=== PATIENT | female | born 1975 | race Caucasian/White ===

== ENCOUNTER 2018-09-12 19:42 | Emergency (ER) | payer BC, OTHER ==
--- OUTSIDE RECORDS SUMMARY | 2018-09-12 19:44 | XMS REPORT | Summary of Care ---
:1975 Author Organization [facility] Address [address] [facility] [place] [address]- Encounter HQ Quique(ANTHONY) [id number] Date(s): 12/18/17 - 12/18/17 [facility] [address] [place] [address]- [phone] Discharge Disposition: Home or Self Care Attending Physician: Ashish Rueda MD Vital Signs Most recent to oldest [Reference Range]: 1 Height 152.4 cm (12/18/17 8:34 AM) Temperature Oral [96.4-99.1 DegF] 98.1 DegF (12/18/17 8:34 AM) Blood Pressure [90-140/60-90 mmHg] 110/74 mmHg (12/18/17 8:34 AM) Respiratory Rate [14-20 BRMIN] 18 BRMIN (12/18/17 8:34 AM) Peripheral Pulse Rate [60-100 bpm] 72 bpm (12/18/17 8:34 AM) Weight 96.875 kg (12/18/17 8:34 AM) Body Mass Index 41.71 m2 (12/18/17 8:34 AM) Problem List Condition Effective Dates Status Health Status Informant DVT, lower extremity(Confirmed) 04/06/00 Resolved DVT (deep venous Active thrombosis)(Confirmed) Morbid obesity(Confirmed) Active Allergies, Adverse Reactions, Alerts Substance Reaction Severity Status NKDA Active Medications Imitrex 50 mg oral tablet 50 mg=1 tab, PO, Daily, PRN Headache, may repeat one time after 2 hours, # 9 tab , 1 Refill(s), Pharmacy: [facility] [id number] Start Date: 12/18/17 Status: Orderedsertraline 50 mg oral tablet 50 mg=1 tab, PO, Daily, # 90 tab, 0 Refill(s), Pharmacy: [id number] Start Date: 12/18/17 Stop Date: 02/22/18 Status: Discontinued Results No data available for this section Immunizations Given and Recorded Vaccine Date Status Refusal Reason influenza virus vaccine, inactivated 01/21/16 Given Procedures Procedure Date Related Diagnosis Body Site Status Tubal sterilization 12/05/01 Completed Operation 06/04/00 Completed IVC - Insertion of inferior vena caval 04/06/00 Completed filter Operation Completed Stent placement Completed Social History Social History Type Response Alcohol Current, Frequency: 1-2 times per month. Smoking Status Never smoker; Type: Cigarettes; Exposure to Tobacco Smoke None ; Cigarette Smoking Last 365 Days No; Reg Smoking Cessation Counseling No entered on: 05/18/18 Assessment and Plan No data available for this section
--- OUTSIDE RECORDS SUMMARY | 2018-09-12 19:44 | XMS REPORT | Summary of Care ---
:1975 Author Organization [facility] Address [address] [facility] [place] [address]- Encounter HQ Quique(ANTHONY) [id number] Date(s): 02/22/18 - 02/22/18 [facility] [address] [place] [address]- [phone] Discharge Disposition: Home or Self Care Attending Physician: Ashish Rueda MD Vital Signs Most recent to oldest [Reference Range]: 1 Height 152.4 cm (02/22/18 3:36 PM) Temperature Oral [96.4-99.1 DegF] 98.1 DegF (02/22/18 3:36 PM) Blood Pressure [90-140/60-90 mmHg] 111/77 mmHg (02/22/18 3:36 PM) Respiratory Rate [14-20 BRMIN] 18 BRMIN (02/22/18 3:36 PM) Peripheral Pulse Rate [60-100 bpm] 79 bpm (02/22/18 3:36 PM) Weight 102.443 kg (02/22/18 3:36 PM) Body Mass Index 44.11 m2 (02/22/18 3:36 PM) Problem List Condition Effective Dates Status Health Status Informant DVT, lower extremity(Confirmed) 04/06/00 Resolved DVT (deep venous Active thrombosis)(Confirmed) Morbid obesity(Confirmed) Active Allergies, Adverse Reactions, Alerts No Known Medication Allergies Medications No Known Medications Results No data available for this section [...]
--- OUTSIDE RECORDS SUMMARY | 2018-09-12 19:44 | XMS REPORT | Summary of Care ---
:1975 Author Organization [facility] [place] Address [address] [facility] [place] [address]- Care Team Providers Name Role Phone Yoli Justin Primary Care Physician Encounter HQ Ashwinmonty(ANTHONY) [id number] Date(s): 02/11/18 - 02/11/18 [facility] [place] [address] [place] [address]- [phone] Discharge Disposition: Home or Self Care Attending Physician: Ashish Rueda MD Vital Signs Most recent to oldest [Reference Range]: 1 Height 152.4 cm (02/11/18 8:48 AM) Temperature Oral [96.4-99.1 DegF] 98.3 DegF (02/11/18 8:48 AM) Blood Pressure [90-140/60-90 mmHg] 123/82 mmHg (02/11/18 8:48 AM) Peripheral Pulse Rate [60-100 bpm] 77 bpm (02/11/18 8:48 AM) Weight 100.909 kg (02/11/18 8:48 AM) Body Mass Index 43.45 m2 (02/11/18 8:48 AM) Problem List Condition Effective Dates Status Health Status Informant DVT, lower extremity(Confirmed) 04/06/00 Resolved DVT (deep venous Active thrombosis)(Confirmed) Morbid obesity(Confirmed) Active Allergies, Adverse Reactions, Alerts No Known Medication Allergies Medications Zithromax 250 mg oral tablet Take 2 tablets PO the first day then 1 tablet PO days 2-5, PO, Daily, X 5 day, # 6 tab, 0 Refill(s) Start Date: 02/11/18 Stop Date: 02/16/18 Status: Completed Results No data available for this section [...]
--- OUTSIDE RECORDS SUMMARY | 2018-09-12 19:44 | XMS REPORT | Summary of Care ---
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 No data available for this section Problem List Condition Effective Dates Status Health Status Informant Morbid obesity(Confirmed) Active Allergies, Adverse Reactions, Alerts Substance Reaction Severity Status NKDA Active Medications No data available for this section Results No data available for this section Immunizations Given and Recorded Vaccine Date Status Refusal Reason influenza virus vaccine, inactivated 01/21/16 Given Procedures Procedure Date Related Diagnosis Body Site Tubal sterilization 12/05/01 Operation 06/04/00 Operation Social History Social History Type Response Alcohol Current, Frequency: 1-2 times per month. Smoking Status Never smoker; Ready to change: No; Concerns about tobacco use in household: No; Exposure to Tobacco Smoke None; Cigarette Smoking Last 365 Days No; Reg Smoking Cessation Counseling No Assessment and Plan No data available for this section
--- OUTSIDE RECORDS SUMMARY | 2018-09-12 19:45 | XMS REPORT | Summary of Care ---
:1975 Author Organization [facility] [place] Address [address] [place] [address]- Encounter HQ Quique(ANTHONY) [id number] Date(s): 05/18/18 - 05/18/18 [facility] [address] [place] [address]- [phone] Discharge Disposition: Home or Self Care Attending Physician: Yoli Justin MD Vital Signs Most recent to oldest [Reference Range]: 1 Height 152.4 cm (05/18/18 4:01 PM) Temperature Oral [96.4-99.1 DegF] 96.4 DegF (05/18/18 4:01 PM) Blood Pressure [90-140/60-90 mmHg] 114/70 mmHg (05/18/18 4:01 PM) Peripheral Pulse Rate [60-100 bpm] 68 bpm (05/18/18 4:01 PM) Weight 102.727 kg (05/18/18 4:01 PM) Body Mass Index 44.23 m2 (05/18/18 4:01 PM) Problem List Condition Effective Dates Status Health Status Informant DVT, lower extremity(Confirmed) 04/06/00 Resolved DVT (deep venous Active thrombosis)(Confirmed) Morbid obesity(Confirmed) Active Allergies, Adverse Reactions, Alerts Substance Reaction Severity Status NKDA Active Medications Bromfed DM oral syrup 5 mL, PO, Q4H, PRN cough, X 8 day, # 120 mL, 0 Refill(s), Pharmacy: [id number] Start Date: 05/18/18 Stop Date: 05/26/18 Status: Ordereddexamethasone 4 mg, Route: IM, ONCE, Dosing Weight 102.727, kg, Start date: 05/18/18 16:07:00 CANNONEER, Stop date: 05/18/18 16:07:00 CANNONEER Start Date: 05/18/18 Stop Date: 05/18/18 Status: CompletedmethylPREDNISolone ACETate (Depo-Medrol) 80 mg, Route: IM, Drug form: SUSP, ONCE, Dosing Weight 102.727, kg, Start date: 05/18/18 16:07:00 CANNONEER, Stop date: 05/18/18 16:07:00 CANNONEER Start Date: 05/18/18 Stop Date: 05/18/18 Status: CompletedProAir HFA 1 - 2 puffs, PO, Q4H, PRN Wheezing / cough / shortness of breath, # 1 ea, 0 Refill(s) Start Date: 05/18/18 Stop Date: 06/12/18 Status: Ordered Results No data available for this section [...]
--- OUTSIDE RECORDS SUMMARY | 2018-09-12 19:45 | XMS REPORT ---
:1975 Author Organization [facility] Address [address] [place] [address] [address] [place] [address] Care Team Providers Name Role Phone Unavailable Unavailable Unavailable Problems This patient has no known problems. Allergies, Adverse Reactions, Alerts This patient has no known allergies or adverse reactions. Medications This patient has no known medications.
--- OUTSIDE RECORDS SUMMARY | 2018-09-12 19:45 | XMS REPORT | Summary of Care ---
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 Vital Signs Most recent to oldest [Reference Range]: 1 Height 149.86 cm (11/24/17 1:42 PM) Temperature Oral [96.4-99.1 DegF] 98.4 DegF (11/24/17 1:42 PM) Blood Pressure [90-140/60-90 mmHg] 121/83 mmHg (11/24/17 1:42 PM) Respiratory Rate [14-20 BRMIN] 18 BRMIN (11/24/17 1:42 PM) Peripheral Pulse Rate [60-100 bpm] 80 bpm (11/24/17 1:42 PM) Weight 96.364 kg (11/24/17 1:42 PM) Body Mass Index 42.91 m2 (11/24/17 1:42 PM) Problem List Condition Effective Dates Status Health Status Informant DVT, lower extremity(Confirmed) 04/06/00 Resolved DVT (deep venous Active thrombosis)(Confirmed) Morbid obesity(Confirmed) Active Allergies, Adverse Reactions, Alerts Substance Reaction Severity Status NKDA Active Medications Imitrex 50 mg oral tablet 50 mg=1 tab, PO, ONCE, PRN Headache, may repeat one time after 2 hours, # 9 tab , 0 Refill(s), Pharmacy: [facility] [id number] Start Date: 11/24/17 Stop Date: 12/18/17 Status: Discontinuedmeclizine 25 mg oral tablet 25 mg=1 tab, PO, TID, PRN dizziness, X 10 day, # 30 tab, 0 Refill(s), Pharmacy: [id number] Start Date: 11/24/17 Stop Date: 12/04/17 Status: Completedsertraline 50 mg oral tablet 50 mg=1 tab, PO, Daily, # 30 tab, 1 Refill(s), Pharmacy: [facility] [id number] Start Date: 11/24/17 Stop Date: 12/18/17 Status: DiscontinuedVitamin D3 50,000 intl units oral capsule 50,000 IntlUnit=1 cap, PO, qWeek, # 12 cap, 0 Refill(s), Pharmacy: [id number] Start Date: 11/25/17 Stop Date: 02/17/18 Status: Ordered Results No data available for [...]
--- OUTSIDE RECORDS SUMMARY | 2018-09-12 19:45 | XMS REPORT | Summary of Care ---
:1975 Author Organization [facility] Address [address] [facility] [place] [address]- Encounter HQ Ashwin_lizeth(FIN) [id number] Date(s): 05/21/18 - 05/21/18 [facility] [address] [place] [address]- [phone] Attending Physician: Ashish Rueda MD Vital Signs No data available for this [...]
[2018-09-12] MEDS ORDERED: ONDANSETRON 4 MG/2 ML VIAL ONE (20:34)
[2018-09-12] MEDS ORDERED: FAMOTIDINE 20 MG/2 ML VIAL IV ONE (20:34)
[2018-09-12] MEDS ORDERED: NA CHLORIDE 0.9% 1,000 ML ONE (20:36)
[2018-09-12] MEDS ORDERED: FENTANYL CITR 100 MCG/2 ML ONE (20:36)
[2018-09-12 20:40] LABS: Urine Blood NEGATIVE (NEG); Urine Glucose NEGATIVE (NEG); Urine Protein NEGATIVE (NEG); Urine pH 7.5 (5.0-7.0)
[2018-09-12 20:53] LABS: Absolute Lymphocytes (CBC) 3.2 K/uL (0.7-4.9); Absolute Monocytes 0.6 K/uL (0.1-1.3); Absolute Neutrophil 4.8 K/uL (1.8-8.0); Basophils % 0.6 % (0-1.3); Eosinophils % 4.3 % (0-4.4); Hematocrit 38.9 % (36.0-45.0); Lymphocytes % 35.4 % (15.3-44.8); MPV 9.9 fL (7.6-11.3); Monocytes % 6.7 % (3.3-12.3); RBC Red Blood Cell Count 4.21 M/uL (3.86-4.86)
[2018-09-12 20:57] LABS: Urine Bacteria <20 /HPF (<20); Urine RBC <5 /HPF (NONE SEEN)
[2018-09-12 20:58] LABS: Urine Culture Reflex Order NOT NEEDED
[2018-09-12 20:59] LABS: Protime INR 1.02
[2018-09-12 21:09] LABS: ALT/SGPT 71 U/L (12-78); AST/SGOT 41 U/L (15-37); Albumin 3.4 g/dL (3.4-5.0); Alkaline Phosphatase 91 U/L (45-117); BUN Blood Urea Nitrogen 7 mg/dL (7-18); Bicarbonate 27 mmol/L (21-32); Bilirubin Direct 0.1 mg/dL (0-0.2); Bilirubin Total 0.4 mg/dL (0.2-1.0); Glucose Level 126 mg/dL (74-106); Lipase 121 U/L (73-393); Potassium 3.5 mmol/L (3.5-5.1); Protein, Total 7.3 g/dL (6.4-8.2); Sodium Level 140 mmol/L (136-145)
[2018-09-12 21:11] LABS: NT PRO-BNP 31 pg/mL (<125); Troponin (Emerg Dept Use Only) < 0.02 ng/mL (0.0-0.045)
[2018-09-12] MEDS ORDERED: KETOROLAC 30 MG/ML INJ ONE (21:39)
--- NOTE | 2018-09-13 00:09 | ER ---
Nurse's Notes [facility] Name: Mechelle Redmond Age: 42 yrs Sex: Female : 1975 Arrival Date: 09/12/2018 Time: 19:45 Bed 8 Private MD: Diagnosis: Acute abdominal pain Presentation: 09/12 19:47 Presenting complaint: Patient states: upper abd pain for past several weeks but became aa1 significantly worse today. Reports decrease in appetite as well. Transition of care: patient was not received from another setting of care. Onset of symptoms was August 2018. Risk Assessment: Do you want to hurt yourself or someone else? Patient reports no desire to harm self or others. Initial Sepsis Screen: Does the patient meet any 2 criteria? No. Patient's initial sepsis screen is negative. Does the patient have a suspected source of infection? Yes: Acute abdominal pain. Care prior to arrival: None. 19:47 Method Of Arrival: Ambulatory aa1 19:47 Acuity: TAMMY 3 aa1 Triage Assessment: 19:48 General: Appears in no apparent distress. comfortable, Behavior is calm, cooperative, aa1 appropriate for age. 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 - Social history:: Smoking status: Patient/guardian denies using tobacco. - Ebola Screening: : No symptoms or risks identified at this time. - Family history:: pertinent for autoimmune disorders such as scleroderma. - Hospitalizations: : No recent hospitalization is reported. Screenin:11 Abuse screen: Denies threats or abuse. Denies injuries from another. Nutritional rr5 screening: No deficits noted. Tuberculosis screening: No symptoms or risk factors identified. Fall Risk None identified. Total Jeffers Fall Scale indicates No Risk (0-24 pts). Assessment: 20:00 General: Appears in no apparent distress. uncomfortable, Behavior is calm, cooperative, rr5 appropriate for age. 20:00 Pain: Complains of pain in abdomen Pain does not radiate. Pain currently is 9 out of 10 rr5 on a pain scale. Quality of pain is described as aching, Pain began gradually, Is intermittent. Neuro: Level of Consciousness is awake, alert, obeys commands, Oriented to person, place, time, situation, Appropriate for age. Cardiovascular: Capillary refill < 3 seconds Patient's skin is warm and dry. Respiratory: Airway is patent Respiratory effort is even, unlabored, Respiratory pattern is regular, symmetrical. GI: Abdomen is obese, Bowel sounds present X 4 quads. Abd is non tender. : No signs and/or symptoms were reported regarding the genitourinary system. EENT: No signs and/or symptoms were reported regarding the EENT system. Derm: Skin is intact, Skin temperature is. Musculoskeletal: Circulation, motion, and sensation intact. Capillary refill < 3 seconds. 21:00 Reassessment: Patient appears in no apparent distress at this time. No changes from rr5 previously documented assessment. Patient is alert, oriented x 3, equal unlabored respirations, skin warm/dry/pink. awaiting for laboratory results. 21:15 Reassessment: Patient appears in no apparent distress at this time. patient does not rr5 want the toradol IV for now she said she is much better now. pain score of 3/10. 22:00 Reassessment: Patient appears in no apparent distress at this time. Patient is alert, rr5 oriented x 3, equal unlabored respirations, skin warm/dry/pink. no complaints made awaiting for result. Patient states feeling better. Patient states symptoms have improved. 22:41 Reassessment: Patient and/or family updated on plan of care and expected duration. Pain ea level reassessed. Patient is alert, oriented x 3, equal unlabored respirations, skin warm/dry/pink. 23:45 Reassessment: complaints now of abdominal pain. toradol order given as stat dose. pain rr5 score of 6/10. 09/13 00:33 Reassessment: Patient and/or family updated on plan of care and expected duration. Pain ea level reassessed. Patient is alert, oriented x 3, equal unlabored respirations, skin warm/dry/pink. Discharge instruction given to patient, verbalized the understanding of instruction Patient states feeling better. Patient states symptoms have improved. Vital Signs: 09/12 19:48 BP 130 / 74; Pulse 83; Resp 18; Temp 97.6; Pulse Ox 97% on R/A; Weight 99.79 kg (R); aa1 Height 5 ft. 0 in. (152.40 cm); Pain 9/10; 21:00 BP 130 / 80; Pulse 73; Resp 17; Pulse Ox 99% ; rr5 22:40 BP 103 / 63; Pulse 70; Resp 18; Pulse Ox 98% on R/A; ea 23:45 BP 105 / 62; Pulse 63; Resp 20; Pulse Ox 96% ; Pain 6/10; rr5 06 00:34 BP 100 / 60; Pulse 60; Resp 18; Temp 98; Pulse Ox 99% ; ea 09/12 19:48 Body Mass Index 42.97 (99.79 kg, 152.40 cm) aa1 ED Course: 09/12 19:45 Patient arrived in ED. ag3 19:48 Triage completed. aa1 19:48 Arm band placed on right wrist. Patient placed in an exam room, on a stretcher. aa1 19:55 [place] RN is Primary Nurse. rr5 19:57 Onur Quintero MD is Attending Physician. wa 20:10 Patient has correct armband on for positive identification. Placed in gown. Bed in low rr5 position. Call light in reach. Side rails up X2. radiation monitor on. Pulse ox on. NIBP on. 20:41 EKG done, by ED staff, reviewed by Onur Quintero MD. ag4 20:41 Inserted saline lock: 20 gauge in right antecubital area, using aseptic technique. ag4 Blood collected. 21:05 XRAY Chest (1 view) In Process Unspecified. EDMS 21:16 US Abdomen Limited In Process Unspecified. EDMS 21:53 CT completed. Patient tolerated procedure well. Patient moved back from CT. bq 22:08 CT Chest For PE Angio In Process Unspecified. EDMS 22:09 CT Abd/Pelvis - IV Contrast Only In Process Unspecified. EDMS 09/13 00:05 Onur Zamorano MD is Referral Physician. wa 00:06 Nacho Waters MD is Referral Physician. wa 00:16 No provider procedures requiring assistance completed. ea 00:33 IV discontinued, intact, bleeding controlled, No redness/swelling at site. Pressure ea dressing applied. Administered Medications: 09/12 20:41 Drug: NS 0.9% 1000 ml Route: IV; Rate: 1 bolus; Site: right forearm; rr5 22:39 Follow up: Response: No adverse reaction; IV Status: Completed infusion; IV Intake: ea 1000ml 20:42 Drug: Zofran 4 mg Route: IVP; Site: right forearm; rr5 09/13 00:15 Follow up: Response: No adverse reaction; Marked relief of symptoms ea 09/12 20:45 Drug: Pepcid 20 mg Route: IVP; Site: right forearm; rr5 09/13 00:14 Follow up: Response: No adverse reaction ea 09/12 20:46 Drug: fentaNYL (PF) 50 mcg Route: IVP; Site: right forearm; rr5 09/13 00:15 Follow up: Response: No adverse reaction ea 09/12 23:45 Drug: TORadol 30 mg Route: IVP; Site: right forearm; rr5 09/13 00:14 Follow up: Response: No adverse reaction; Pain is decreased ea 00:23 Drug: Zofran 4 mg Route: IVP; Site: right forearm; ea 00:36 Follow up: Response: Medication administered at discharge. ea Intake: 09/12 22:39 IV: 1000ml; Total: 1000ml. ea Outcome: 09/13 00:06 Discharge ordered by . ca 00:32 Condition: improved ea 00:32 Discharge instructions given to patient, Instructed on discharge instructions, follow up and referral plans. medication usage, Demonstrated understanding of instructions, follow-up care, medications, Prescriptions given X 4. 00:35 Discharged to home ambulatory. ea 00:37 Patient left the ED. ea Signatures: Dispatcher [employer] EDMS Kenia Hart RN RN inocente1 Humera Gifford Elena, RN RN ea Appiah, William, MD MD wa Gomez, Alice ag3 [place] RN RN rr5 Srikanth Paez4
--- NOTE | 2018-09-13 00:09 | EDPHYS ---
Physician Documentation [facility] Name: Mechelle Redmond Age: 42 yrs Sex: Female : 1975 Arrival Date: 09/12/2018 Time: 19:45 Bed 8 Private MD: ED Physician Onur Quintero HPI: 09/12 21:09 This 42 yrs old Female presents to ER via Ambulatory with complaints of wa Abdominal Pain. 21:09 The patient presents with abdominal pain in the epigastric area. Onset: The wa symptoms/episode began/occurred 3 week(s) ago. The symptoms do not radiate. Associated signs and symptoms: Pertinent positives: diarrhea, nausea, shortness of breath, Pertinent negatives: vomiting. The symptoms are described as dull. Modifying factors: The symptoms are alleviated by nothing, the symptoms are aggravated by food. Severity of pain: At its worst the pain was severe in the emergency department the pain is a 9 / 10. The patient has not experienced similar symptoms in the past. The patient has not recently seen a physician. 3 weeks of epigastric pain. worse with eating. today, constant and severe. admits to nausea. no vomiting. admits to diarrhea. denies chest pain but admit SOB. h/o DVT in L leg. states has strong fam h/o autoimmune disorders. 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 - Social history:: Smoking status: Patient/guardian denies using tobacco. - Ebola Screening: : No symptoms or risks identified at this time. - Family history:: pertinent for autoimmune disorders such as scleroderma. - Hospitalizations: : No recent hospitalization is reported. ROS: 21:12 Constitutional: Negative for fever, chills, and weight loss, Eyes: Negative for injury, wa pain, redness, and discharge, ENT: Negative for injury, pain, and discharge, Neck: Negative for injury, pain, and swelling, Cardiovascular: Negative for chest pain, palpitations, and edema, Back: Negative for injury and pain, : Negative for injury, bleeding, discharge, and swelling, MS/Extremity: Negative for injury and deformity, Skin: Negative for injury, rash, and discoloration, Neuro: Negative for headache, weakness, numbness, tingling, and seizure, Psych: Negative for depression, anxiety, suicide ideation, homicidal ideation, and hallucinations. 21:12 Respiratory: Positive for shortness of breath, at rest. Negative for cough, wheezing. 21:12 Abdomen/GI: Positive for abdominal pain, nausea, diarrhea. 21:12 All other systems are negative. Exam: 21:13 Constitutional: This is a well developed, well nourished patient who is awake, alert, wa and in no acute distress. Head/Face: Normocephalic, atraumatic. Eyes: Pupils equal round and reactive to light, extra-ocular motions intact. Lids and lashes normal. Conjunctiva and sclera are non-icteric and not injected. Cornea within normal limits. Periorbital areas with no swelling, redness, or edema. ENT: Nares patent. No nasal discharge, no septal abnormalities noted. Tympanic membranes are normal and external auditory canals are clear. Oropharynx with no redness, swelling, or masses, exudates, or evidence of obstruction, uvula midline. Mucous membranes moist. Neck: Trachea midline, no thyromegaly or masses palpated, and no cervical lymphadenopathy. Supple, full range of motion without nuchal rigidity, or vertebral point tenderness. No Meningismus. Chest/axilla: Normal chest wall appearance and motion. Nontender with no deformity. No lesions are appreciated. Cardiovascular: Regular rate and rhythm with a normal S1 and S2. No gallops, murmurs, or rubs. Normal PMI, no JVD. No pulse deficits. Respiratory: Lungs have equal breath sounds bilaterally, clear to auscultation and percussion. No rales, rhonchi or wheezes noted. No increased work of breathing, no retractions or nasal flaring. Back: No spinal tenderness. No costovertebral tenderness. Full range of motion. Skin: Warm, dry with normal turgor. Normal color with no rashes, no lesions, and no evidence of cellulitis. MS/ Extremity: Pulses equal, no cyanosis. Neurovascular intact. Full, normal range of motion. Neuro: Awake and alert, GCS 15, oriented to person, place, time, and situation. Cranial nerves II-XII grossly intact. Motor strength 5/5 in all extremities. Sensory grossly intact. Cerebellar exam normal. Normal gait. Psych: Awake, alert, with orientation to person, place and time. Behavior, mood, and affect are within normal limits. 21:13 Abdomen/GI: Inspection: abdomen appears normal, Bowel sounds: normal, in all quadrants, Palpation: moderate abdominal tenderness, in the epigastric area and right upper quadrant. Vital Signs: 19:48 BP 130 / 74; Pulse 83; Resp 18; Temp 97.6; Pulse Ox 97% on R/A; Weight 99.79 kg (R); aa1 Height 5 ft. 0 in. (152.40 cm); Pain 9/10; 21:00 BP 130 / 80; Pulse 73; Resp 17; Pulse Ox 99% ; rr5 22:40 BP 103 / 63; Pulse 70; Resp 18; Pulse Ox 98% on R/A; ea 23:45 BP 105 / 62; Pulse 63; Resp 20; Pulse Ox 96% ; Pain 6/10; rr5 06 00:34 BP 100 / 60; Pulse 60; Resp 18; Temp 98; Pulse Ox 99% ; ea 09/12 19:48 Body Mass Index 42.97 (99.79 kg, 152.40 cm) aa1 MDM: 09/12 19:57 Patient medically screened. la 21:14 Differential diagnosis: bowel obstruction, coronary artery disease, cholecystitis, wa Cholelithiasis, gastritis, non-specific abd pain, pancreatitis, r/o PE. r/o ACS. 22:29 Data reviewed: vital signs, nurses notes. Test interpretation: by ED physician or la midlevel provider: labs noted wnl. . 22:29 Test interpretation: by ED physician or midlevel provider: EKG: HR 78. low voltage. la non-specific interventricular delay. 09/13 00:01 Response to treatment: the patient's symptoms have markedly improved after treatment. la ED course: pain significantly improved. labs wnl. CT noted for cardiomegaly. small chronic PEs L lower lobe. pulm nodule. discussed findings with pt. awaiting US results for gallbladder. noted contracted on CT. 00:04 Test interpretation: by ED physician or midlevel provider: abd US: contracted wa gallbladder. no visible stones. 09/12 20:13 Order name: Basic Metabolic Panel; Complete Time: 21:15 la 09/12 20:13 Order name: CBC with Diff; Complete Time: 21:15 la 09/12 20:13 Order name: Hepatic Function; Complete Time: 21:15 la 09/12 20:13 Order name: Lipase; Complete Time: 21:15 la 09/12 20:15 Order name: Urine Microscopic Only; Complete Time: 21:15 la 09/12 20:18 Order name: NT PRO-BNP; Complete Time: 21:14 la 09/12 20:17 Order name: US Abdomen Limited 09/12 20:18 Order name: PT-INR; Complete Time: 21:15 la 09/12 20:18 Order name: Troponin (emerg Dept Use Only); Complete Time: 21:15 la 09/12 20:18 Order name: XRAY Chest (1 view) la 09/12 20:35 Order name: Urine Dipstick--Ancillary (enter results); Complete Time: 20:55 cm6 09/12 20:35 Order name: Urine --Ancillary (enter results); Complete Time: 20:55 cm6 09/12 21:16 Order name: CT Chest For PE Angio la 09/12 21:16 Order name: CT Abd/Pelvis - IV Contrast Only la 09/12 20:13 Order name: IV Saline Lock; Complete Time: 20:42 la 09/12 20:13 Order name: Labs collected and sent; Complete Time: 20:44 la 09/12 20:15 Order name: Urine Dipstick-Ancillary (obtain specimen); Complete Time: 20:40 la 09/12 20:15 Order name: Urine Test (obtain specimen); Complete Time: 20:40 la 09/12 20:18 Order name: EKG; Complete Time: 20:20 la 09/12 20:18 Order name: Cardiac monitoring; Complete Time: 20:42 la 09/12 20:18 Order name: EKG - Nurse/Tech; Complete Time: 20:40 la 09/12 20:18 Order name: O2 Per Protocol; Complete Time: 20:42 la 09/12 20:18 Order name: O2 Sat Monitoring; Complete Time: 20:42 la Administered Medications: 09/12 20:41 Drug: NS 0.9% 1000 ml Route: IV; Rate: 1 bolus; Site: right forearm; rr5 22:39 Follow up: Response: No adverse reaction; IV Status: Completed infusion; IV Intake: ea 1000ml 20:42 Drug: Zofran 4 mg Route: IVP; Site: right forearm; rr5 09/13 00:15 Follow up: Response: No adverse reaction; Marked relief of symptoms ea 09/12 20:45 Drug: Pepcid 20 mg Route: IVP; Site: right forearm; rr5 09/13 00:14 Follow up: Response: No adverse reaction 09/12 20:46 Drug: fentaNYL (PF) 50 mcg Route: IVP; Site: right forearm; rr5 09/13 00:15 Follow up: Response: No adverse reaction 09/12 23:45 Drug: TORadol 30 mg Route: IVP; Site: right forearm; rr5 09/13 00:14 Follow up: Response: No adverse reaction; Pain is decreased ea 00:23 Drug: Zofran 4 mg Route: IVP; Site: right forearm; ea 00:36 Follow up: Response: Medication administered at discharge. Disposition: 09/13/18 00:06 Discharged to Home. Impression: Acute abdominal pain. - Condition is Stable. - Discharge Instructions: Abdominal Pain, Adult, [id number]. - Prescriptions for Flagyl 500 mg Oral Tablet - take 1 tablet by ORAL route every 12 hours for 7 days; 14 tablet. Zofran 4 mg Oral Tablet - take 1 tablet by ORAL route every 12 hours As needed; 20 tablet. Cipro 500 mg Oral Tablet - take 1 tablet by ORAL route every 12 hours for 7 days; 14 tablet. Tramadol 50 mg Oral Tablet - take 1 tablet by ORAL route every 8 hours as needed; 12 tablet. - Work release form, Medication Reconciliation Form, Thank You Letter, Antibiotic Education, Prescription Opioid Use form. - Follow up: Onur Zamorano MD; When: 2 - 3 days; Reason: Recheck today's complaints. Follow up: Nacho Waters MD; When: 1 - 2 days; Reason: Recheck today's complaints. - Problem is new. - Symptoms have improved. - Notes: Although no obvious gallstones found on your studies, I do believe your gallbladder may be malfunctioning and causing your pain. please take medication as prescribed. see the gastro doctor and surgeon within the next working days for further evaluation and management. return here immediately for severely worsening concerns Signatures: Dispatcher [employer] EDKenia Alvarez RN RN aa1 Erika Worthy RN RN Onur Alvarado MD MD wa Roque, Raymond, RN RN rr5 Corrections: (The following items were deleted from the chart) 00:37 00:06 09/13/2018 00:06 Discharged to Home. Impression: Acute abdominal pain. Condition ea is Stable. Forms are Medication Reconciliation Form, Thank You Letter, Antibiotic Education, Prescription Opioid Use. Follow up: Onur Zamorano; When: 2 - 3 days; Reason: Recheck today's complaints. Follow up: Nacho Waters; When: 1 - 2 days; Reason: Recheck today's complaints. Problem is new. Symptoms have improved. wa
[2018-09-13] MEDS ORDERED: ONDANSETRON 4 MG/2 ML VIAL ONE (00:35)
[2018-09-13 01:16] VITALS: BP 100/60; TEMP 98; O2SAT 99
--- NOTE | 2018-09-13 08:48 | RAD REPORT ---
EXAM DESCRIPTION: RAD - Chest Single View - 09/12/2018 9:05 pm CLINICAL HISTORY: Shortness of breath COMPARISON: January 2012 TECHNIQUE: AP portable chest image was obtained 0 hours . FINDINGS: Lungs are clear. Heart and vasculature are normal. No measurable pleural effusion and no p neumothorax. No acute bony abnormality seen. No acute aortic findings suspected. IMPRESSION: No acute cardiopulmonary process.
--- NOTE | 2018-09-13 08:49 | RAD REPORT ---
EXAM DESCRIPTION: US - Abdomen Exam Limited - 09/12/2018 9:16 pm CLINICAL HISTORY: Abdominal pain COMPARISON: None. FINDINGS: Gallbladder is contracted limiting exam sensitivity. No gallstones, sludge or other abnorm alities within the gallbladder lumen. There is no wall thickening or pericholecystic fluid. No common duct stone or biliary tree dilatation identified. IMPRESSION: Exam is somewhat limited by contracted gallbladder. No stones, sludge or acute gallbladd er finding. No duct stone or biliary tree dilatation.
--- NOTE | 2018-09-13 09:54 | EKG ---
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
--- NOTE | 2018-09-13 10:44 | RAD REPORT ---
EXAM DESCRIPTION: CT - Abdomen Pelvis W Contrast - 09/12/2018 10:55 pm CLINICAL HISTORY: The patient is 42 years old and is Female; ABD PAIN TECHNIQUE: Axial computed tomography images of the abdomen and pelvis with intravenous contrast. S agittal and coronal reformatted images were created and reviewed. This CT exam was performed using one or more of the following dose reduction techniques: automated exposure control, adjustment of t he mA and/or kV according to patient size, and/or use of iterative reconstruction technique. COMPARISON: No relevant prior studies available. FINDINGS: LUNG BASES: Unremarkable. No mass. No consolidation. ABDOMEN: LIVER: There is a diffuse decrease in hepatic parenchymal density, consistent with fatty infiltr ation. GALLBLADDER AND BILE DUCTS: The gallbladder is contracted. PANCREAS: No ductal dilation. No mass. SPLEEN: A 3.4 cm low attenuating splenic lesion is present with suggestion of septation. ADRENALS: Unremarkable. No mass. KIDNEYS AND URETERS: Unremarkable. No solid mass. No hydronephrosis. STOMACH AND BOWEL: The stomach is distended with food contents. The small bowel is normal in eliza iber. Stool is present throughout the colon. A few scattered colonic diverticula are noted without hinkle rrounding inflammation. PELVIS: APPENDIX: The appendix is normal in caliber without surrounding inflammation. BLADDER: The bladder is nearly empty. REPRODUCTIVE: A 4.3 cm right ovarian cyst is present. No follow-up imaging is recommended. The u terus and left ovary are unremarkable. ABDOMEN and PELVIS: INTRAPERITONEAL SPACE: Unremarkable. No free air. No significant fluid collection. BONES/JOINTS: No acute fracture. SOFT TISSUES: Multiple prominent subcutaneous vessels are noted within the anterior lower abdome n and pelvic wall. VASCULATURE: Thrombus formation within the infrarenal IVC is noted. There is calcification withi n the peripheral based chronic thrombus. A vascular stent within the left common iliac vein is note d. No abdominal aortic aneurysm. LYMPH NODES: Unremarkable. No enlarged lymph nodes. IMPRESSION: 1. No bowel obstruction. 2. 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 3. Indeterminate splenic lesion. ACR White Paper guidelines (Paloma, et al. JACR 2013; 10(11):833 -9) suggest a follow-up abdominal MRI in 6-12 months. Electronically signed by: Jannette Lagos MD 09/12/2018 10:27 PM CDT Due to temporary technical issues with the PACS/Fluency reporting system, reports are being signed by the in house radiologist as a courtesy to ensure prompt reporting. The interpreting radiologist is f ully responsible for the content of the report.
--- NOTE | 2018-09-13 10:46 | RAD REPORT ---
EXAM DESCRIPTION: CT - Chest For Pe Angio - 09/12/2018 10:55 pm CLINICAL HISTORY: SOB. h/o DVT COMPARISON: None. TECHNIQUE: CT CHEST ANGIOGRAPHY WITH IV CONTRAST on 09/12/2018 9:16 PM CDT. MIPS reconstructions were generated. This exam was performed according to our departmental dose-optimization program, which includes autom ated exposure control, adjustment of the mA and/or kV according to patient size and/or use of iterati ve reconstruction technique. MIP images were generated. FINDINGS: Thoracic aorta is normal in course and caliber without aneurysm or dissection. There are c hronic appearing curvilinear filling defects in the left lower lobe pulmonary artery branch. There ar e no definite acute filling defects. The heart is mildly enlarged. There is no pericardial effusion. Intrathoracic lymph nodes are not enl arged. There is no pleural effusion, pleural thickening or pneumothorax. Central airways are patent. There i s a left upper lobe 11 mm nodule. There are no acute abnormalities within the limited images of the upper abdomen. There are no acute osseous findings. No suspicious bony lesions. IMPRESSION: Small chronic pulmonary embolus in the left lower lobe. No convincing acute pulmonary em bolus. Cardiomegaly with no aortic dissection or aneurysm. 11.0 mm solid pulmonary nodule within the upper lobe. Consider a non-contrast Chest CT at 3 months, a PET/CT, or tissue sampling. These guidelines do not apply to patients younger than 35 years, immunocompromised patients, and philomena ents with cancer. Follow up in patients with significant comorbidities as clinically warranted. For l jacobo cancer screening, adhere to Lung-RADS guidelines. Reference: Radiology. 2017; 284(1):228-43. Electronically signed by: Tony Jones MD 09/12/2018 10:21 PM CDT Due to temporary technical issues with the PACS/Fluency reporting system, reports are being signed by the in house radiologist as a courtesy to ensure prompt reporting. The interpreting radiologist is f mariaaly responsible for the content of the report.
== END 2018-09-13 00:37 | disposition home or self-care (01) ==
LOC: ER 19:42
DX: R10.13 Epigastric pain (principal); Z86.718 Personal history of other venous thrombosis and embolism
CPT/HCPCS: 36415; 71045; 71275; 74177; 76705; 80048; 80076; 81003; 81015; 81025; 83690; 83880; 84484; 85025; 85610; 93005; 96361; 96374; 96375; 99285; J2405; J3010; J7030; Q9967

== ENCOUNTER 2018-09-13 22:01 | Emergency (ER) | payer BC ==
--- OUTSIDE RECORDS SUMMARY | 2018-09-13 22:04 | XMS REPORT | Continuity of Care Document ---
:1975 Author Organization Interface Problems Problem Status Onset Classification Date Comments Source Date Reported CHEST Active [facility] PAIN/SOB 8 [facility] DVT, lower Resolved Problem 09/12/2018 Medical extremity 1 Group DVT (<span Active Problem 09/12/2018 Medical ID="[id number] Group 121">Confirme d</span>) Morbid Active Problem 09/12/2018 Medical obesity Group Medications Medication Details Route Status Patient Ordering Order Source Instructions Provider Date Brompheniramine 5 mL, PO, Active Maleate 0.4 MG/ML Q4H, PRN 019 Medical / Dextromethorphan cough, X 8 Group Hydrobromide 2 day, # 120 MG/ML / mL, 0 Pseudoephedrine Refill(s), Hydrochloride 6 Pharmacy: MG/ML Oral [facility] [[facility]] [id number] Depo-Medrol 80 mg, Inactive Route: IM, 019 Medical Drug form: Group SUSP, ONCE, Dosing Weight 102.727, kg, Start date: 05/18/18 16:07:00 REED PRESS FEEDER, Stop date: 05/18/18 16:07:00 REED PRESS FEEDER Dexamethasone 4 mg, Inactive Route: IM, 019 Medical ONCE, Group Dosing Weight 102.727, kg, Start date: 05/18/18 16:07:00 REED PRESS FEEDER, Stop date: 05/18/18 16:07:00 REED PRESS FEEDER ProAir HFA 1 - 2 Active puffs, PO, 019 Medical Q4H, PRN Group Wheezing / cough / shortness of breath, # 1 ea, 0 Refill(s) Azithromycin 250 Take 2 No Longer MH MG Oral Tablet tablets PO Active 018 Medical [Zithromax] the first Group day then 1 tablet PO days 2-5, PO, Daily, X 5 day, # 6 tab, 0 Refill(s) sertraline 50 mg 50 mg=1 No Longer oral tablet tab, PO, Active 018 Medical Daily, # 90 Group tab, 0 Refill(s), [facility] [id number] Sumatriptan 50 MG 50 mg=1 Active Oral Tablet tab, PO, 018 Medical [Imitrex] Daily, PRN Group Headache, may repeat one time after 2 hours, # 9 tab, 1 Refill(s), [id number] Vitamin D3 50,000 50,000 Active intl units oral IntlUnit=1 018 Medical capsule cap, PO, Group qWeek, # 12 cap, 0 Refill(s), [facility] [address] meclizine 25 mg 25 mg=1 No Longer oral tablet tab, PO, Active 018 Medical TID, PRN Group dizziness, X 10 day, # 30 tab, 0 Refill(s), [facility] [address] sertraline 50 mg 50 mg=1 No Longer oral tablet tab, PO, Active 018 Medical Daily, # 30 Group tab, 1 Refill(s), [id number] Sumatriptan 50 MG 50 mg=1 No Longer Oral Tablet tab, PO, Active 018 Medical [Imitrex] ONCE, PRN Group Headache, may repeat one time after 2 hours, # 9 tab, 0 Refill(s), Pharmacy: [facility] [id number] Allergies, Adverse Reactions, Alerts Substance Category Reaction Severity Reaction Status Date Comments Source type Reported No Known Assertion Drug Medication allergy Medical Allergies Group Immunizations Immunization Date Given Site Status Last Comments Source Updated influenza virus 01/21/2016 Left completed [facility] vaccine, Deltoid [facility] Group inactivated Results Order Name Results Value Reference Date Interpretation Comments Source Range Chest Chest Clinical Indication: Chest pain for 2 weeks, shortness of breath. 03/01 - [facility] Pulmonary Pulmonary /2018 - [facility] Embolism Embolism Comparison: Radiograph of the chest on 02/28/2018 CTA CTA Read by: Lincoln Bright MD Dictated Date/time: 03/01/18 01:04 TECHNIQUE: Sequential trans-axial images were obtained through the chest and upper abdomen after administration of iodinated contrast. Coronal and sagittal reconstructions as well as MIPS were obtained. Electronically Signed by: Lincoln Bright MD 03/01/18 01:10 100 cc of Omnipaque material was used for the exam. FINAL REPORT CT imaging performed at this location utilizes radiation dose optimization techniques which include one or more of the following: -Automated exposure control -Adjustment of the mA and/or kV according to patient size -Use of iterative reconstruction technique Dose: UJQ=096.18 mGy-cm FINDINGS: PULMONARY VESSELS: Visualized pulmonary arterial structures (main pulmonary artery, right and left pulmonary arteries, and segmental branches) demonstrate no filling defects. Limited assessment of the subsegmental branches demonstrate no obvious large defect. Main pulmonary artery caliber normal AORTA/BRANCHES: No thoracic aortic aneurysmal dilatation. Limited assessment demonstrates no dissection. Great vessels demonstrates no dissection or high-grade stenosis. CARDIAC: Heart size normal. No suggestion of right ventricular heart strain. No atherosclerotic calcifications of coronary artery. No pericardial effusion. LUNG PARENCHYMA: 9 mm pleural-based left upper lobe lung nodule (series 2, image 33). No pulmonary parenchymal infarctions. No focal infiltrate. PLEURA: No effusion. No pneumothorax. MEDIASTINUM AND SURROUNDING SOFT TISSUES: No pathologically enlarged lymph nodes in axillary, supraclavicular, mediastinal, hilar, or retrocrural spaces. Thyroid gland appears within normal limits. UPPER ABDOMEN: No acute pathology identified in the upper abdomen. Approximately 2.9 cm hyperdense mass in segment IV of the liver. Approximately 2.2 cm hypodense lesion measuring 19-31 Hounsfield units present in the posterior aspect of the spleen. MUSCULOSKELETAL: No acute fracture or dislocation. No lytic or blastic lesion. IMPRESSION: 1. No evidence of pulmonary embolism. 2. 9 mm pleural-based nodule in the left upper lobe. As per 2017 Joaquina criteria guidelines, in low and high risk patients, CT, PET/CT, or tissue sampling should be performed at 3 months. 3. 2.9 cm hyperdense mass in segment IV the liver, possibly a hemangioma. 2.2 cm low-density lesion in the spleen which is also possibly a hemangioma or a cyst. Recommend further evaluation on a nonemer gent basis which can be initiated with ultrasound.. SL: [id number] Chest 2 Chest 2 Patient Name: NELSON SPENCERIGHAM 02/28 - [facility] DX views DX /2017 - [facility] : 1975; Age: 42 years Female MR: [id number] Read by: Marion Dalton MD Dictated Date/time: 02/28/18 22:06 Study: Chest 2 views DX Order Time: 02/28/2018 9:40 PM REED PRESS FEEDER Electronically Signed by: Marion Dalton MD 02/28/18 22 :06 FINAL REPORT CLINICAL INDICATION: - sob COMPARISON: None FINDINGS: Lines: None. Lungs: The lungs are grossly clear. Mediastinum: The cardiac silhouette is within normal limits of size. Midline trachea. Bones and soft tissues: No acute abnormalities. IMPRESSION: No acute cardiopulmonary abnormalities. SL: RON Vital Signs Vital Sign Value Date Comments Source Height 152.4 cm 05/18/2018 Medical Group BMI Calculated 44.23 05/18/2018 Medical Group Weight 102.727 05/18/2018 Medical Group Heart Rate 68 05/18/2018 Medical Group Temperature Oral (F) 96.4 F 05/18/2018 Medical Group Systolic (mm Hg) 114 05/18/2018 Medical Group Diastolic (mm Hg) 70 05/18/2018 Medical Group Weight 102.443 02/22/2018 Medical Group BMI Calculated 44.11 02/22/2018 Medical Group Systolic (mm Hg) 111 02/22/2018 Medical Group Diastolic (mm Hg) 77 02/22/2018 Medical Group Temperature Oral (F) 98.1 F 02/22/2018 Medical Group Height 152.4 cm 02/22/2018 Medical Group Respitory Rate 18 02/22/2018 Medical Group Heart Rate 79 02/22/2018 Medical Group Weight 100.909 02/11/2018 Medical Group BMI Calculated 43.45 02/11/2018 Medical Group Height 152.4 cm 02/11/2018 Medical Group Heart Rate 77 02/11/2018 Medical Group Temperature Oral (F) 98.3 F 02/11/2018 Medical Group Systolic (mm Hg) 123 02/11/2018 Medical Group Diastolic (mm Hg) 82 02/11/2018 Medical Group Heart Rate 72 12/18/2017 Medical Group Temperature Oral (F) 98.1 F 12/18/2017 Medical Group Respitory Rate 18 12/18/2017 Medical Group Systolic (mm Hg) 110 12/18/2017 Medical Group Diastolic (mm Hg) 74 12/18/2017 Medical Group BMI Calculated 41.71 12/18/2017 Medical Group Height 152.4 cm 12/18/2017 Medical Group Weight 96.875 12/18/2017 Medical Group Height 149.86 cm 11/24/2017 Medical Group BMI Calculated 42.91 11/24/2017 Medical Group Weight 96.364 11/24/2017 Medical Group Temperature Oral (F) 98.4 F 11/24/2017 Medical Group Heart Rate 80 11/24/2017 Medical Group Respitory Rate 18 11/24/2017 Medical Group Systolic (mm Hg) 121 11/24/2017 Medical Group Diastolic (mm Hg) 83 11/24/2017 Medical Group Encounters Location Location Encounter Encounter Reason Attending ADM DC Status Source Details Type Number For Provider Date Date Visit Outpatient [id number] 07/11 Active [facility] [id number] JA AGUILAR 12/10 Active [facility] 2 [facility] [id number] JA 02/23 Active [facility] 3 [facility] Ambulatory [id number] Ja Aguilar 02/23 02/23 [facility] Out[facility] [id number] JA 11/24 Active [facility] 4 [facility] Outpatient [id number] Ja Aguilar 11/24 11/25 [facility] Out[facility] [id number] JA AGUILAR 12/18 Active [facility] 5 [facility] Outpatient [id number] Firas 12/18 12/19 [facility] Out[facility] [id number] 02/11 [facility] Outpatient [id number] Firas 02/11 02/12 [facility] [place] Out[facility] [id number] 02/22 [facility] Out[facility] [id number] Firas 02/22 02/23 Primary [facility] Outpatient [id number] JA AGUILAR 03/19 Active [facility] 6 [facility] [id number] YOLI JUSTIN 05/18 Active [facility] Outpatient [id number] Yoli Justin 05/18 05/19 [facility] [id number] FIRAS 05/21 Active [facility] 9 [facility] [id number] Firas 05/21 05/21 Primary [facility] [place] Procedures Procedure Code Date Perfomer Comments Source Tubal sterilization [id number] 12/05/2001 Medical Group Operation [id number] 06/04/2000 Medical Group IVC - Insertion of [id number] 04/06/2000 Medical inferior vena caval Group filter Operation [id number] Medical Group Stent placement [id number] Medical Group
--- OUTSIDE RECORDS SUMMARY | 2018-09-13 22:04 | XMS REPORT ---
:1975 Author Organization [facility] Address [address] [place] [address] [address]. [address] [place] [address] Care Team Providers Name Role Phone Unavailable Unavailable Unavailable Problems This patient has no known problems. Allergies, Adverse Reactions, Alerts This patient has no known allergies or adverse reactions. Medications This patient has no known medications.
[2018-09-14] MEDS ORDERED: MAGNE/ALUM HYDROXD 30 ML UCUP ONE (00:12)
[2018-09-14] MEDS ORDERED: LIDOCAINE VISCOUS 2% SOLN 15 ML UDC ONE (00:13)
[2018-09-14] MEDS ORDERED: MORPHINE 4 MG/ML SYR ONE (00:13)
[2018-09-14] MEDS ORDERED: FAMOTIDINE 20 MG/2 ML VIAL IV ONE (00:13)
[2018-09-14] MEDS ORDERED: NA CHLORIDE 0.9% 1,000 ML ONE (00:13)
[2018-09-14] MEDS ORDERED: ONDANSETRON 4 MG/2 ML VIAL ONE (00:13)
[2018-09-14 00:44] LABS: Absolute Lymphocytes (CBC) 2.2 K/uL (0.7-4.9); Absolute Monocytes 0.4 K/uL (0.1-1.3); Absolute Neutrophil 3.9 K/uL (1.8-8.0); Basophils % 0.5 % (0-1.3); Eosinophils % 4.3 % (0-4.4); Hematocrit 36.7 % (36.0-45.0); MPV 10.3 fL (7.6-11.3); Monocytes % 6.3 % (3.3-12.3); RBC Red Blood Cell Count 4.02 M/uL (3.86-4.86)
[2018-09-14 01:10] LABS: Albumin 3.2 g/dL (3.4-5.0); Bilirubin Direct 0.1 mg/dL (0-0.2); Bilirubin Total 0.4 mg/dL (0.2-1.0); Potassium 3.9 mmol/L (3.5-5.1); Protein, Total 6.9 g/dL (6.4-8.2)
--- NOTE | 2018-09-14 01:34 | ER ---
Nurse's Notes [facility] Name: Mechelle Redmond Age: 42 yrs Sex: Female : 1975 Arrival Date: 09/13/2018 Time: 22:05 Bed 20 Private MD: Diagnosis: Generalized abdominal pain Presentation: 09/13 22:08 Presenting complaint: Patient states: I was here last night and they said it was my ed1 gallbladder. I have an appointment with Dr. Siddiqui tomorrow but I still hurt. I was trying to stay home but my kids told me to come to the ER. Transition of care: patient was not received from another setting of care. Onset of symptoms was September 13, 2018. Risk Assessment: Do you want to hurt yourself or someone else? Patient reports no desire to harm self or others. Initial Sepsis Screen: Does the patient meet any 2 criteria? No. Patient's initial sepsis screen is negative. Does the patient have a suspected source of infection? No. Patient's initial sepsis screen is negative. Care prior to arrival: Medication(s) given: Tramadol, pt states "it's not working.". 22:08 Method Of Arrival: Ambulatory ed1 22:08 Acuity: TAMMY 3 ed1 Triage Assessment: 22:10 General: Appears uncomfortable, Behavior is calm, cooperative. Pain: Complains of pain ed1 in epigastric area Pain currently is 9 out of 10 on a pain scale. GI: Reports nausea. 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 - Social history:: Smoking status: Patient/guardian denies using tobacco, Patient/guardian denies using alcohol, street drugs, The patient lives with family. - Ebola Screening: : Patient negative for fever greater than or equal to 101.5 degrees Fahrenheit, and additional compatible Ebola Virus Disease symptoms Patient denies exposure to infectious person Patient denies travel to an Ebola-affected area in the 21 days before illness onset No symptoms or risks identified at this time. - Family history:: not pertinent. Screenin:37 Abuse screen: Denies threats or abuse. Denies injuries from another. Nutritional cc3 screening: No deficits noted. Tuberculosis screening: No symptoms or risk factors identified. Fall Risk Ambulatory Aid- None/Bed Rest/Nurse Assist (0 pts). Gait- Normal/Bed Rest/Wheelchair (0 pts) Mental Status- Oriented to own ability (0 pts). Assessment: 22:37 GI: Bowel sounds present X 4 quads. Abd is soft and non tender X 4 quads. cc3 23:20 Reassessment: Patient appears in no apparent distress at this time. Patient and/or cc3 family updated on plan of care and expected duration. Pain level reassessed. Patient is alert, oriented x 3, equal unlabored respirations, skin warm/dry/pink. 09/14 00:18 Reassessment: Patient appears in no apparent distress at this time. Patient and/or cc3 family updated on plan of care and expected duration. Pain level reassessed. Patient is alert, oriented x 3, equal unlabored respirations, skin warm/dry/pink. 01:45 Reassessment: Patient appears in no apparent distress at this time. Patient and/or cc3 family updated on plan of care and expected duration. Pain level reassessed. Patient is alert, oriented x 3, equal unlabored respirations, skin warm/dry/pink. Dr. Woods discharged the patient home with prescription given. IV cannula removed and patient left ER vitally stable and ambulatory with her family. Patient denies pain at this time. Patient states feeling better. Patient states symptoms have improved. Vital Signs: 09/13 22:10 BP 124 / 68; Pulse 79; Resp 17; Temp 97.7(O); Pulse Ox 97% on R/A; Weight 99.79 kg (R); ed1 Height 5 ft. 0 in. (152.40 cm) (R); Pain 12/14; 23:18 BP 123 / 72; Pulse 77; Resp 16 S; Pulse Ox 98% on R/A; cc3 09/14 00:25 BP 125 / 67; Pulse 75; Resp 17 S; Pulse Ox 97% on R/A; cc3 01:23 BP 123 / 68; Pulse 78; Resp 16 S; Pulse Ox 98% on R/A; cc3 09/13 22:10 Body Mass Index 42.97 (99.79 kg, 152.40 cm) ed1 ED Course: 09/13 22:05 Patient arrived in ED. es 22:09 Triage completed. ed1 22:10 Arm band placed on left wrist. ed1 22:11 Patient placed in waiting room, Patient notified of wait time. ed1 22:37 Shakira May is Primary Nurse. cc3 22:37 Patient has correct armband on for positive identification. Placed in gown. Call light cc3 in reach. Side rails up X 1. Pulse ox on. NIBP on. 22:49 Deanna Woods MD is Attending Physician. ma2 23:25 Inserted saline lock: 20 gauge in right antecubital area, using aseptic technique. cc3 Blood collected. 06/ 01:45 No provider procedures requiring assistance completed. IV discontinued, intact, cc3 bleeding controlled, No redness/swelling at site. Pressure dressing applied. Administered Medications: 00:00 Drug: GI Cocktail without - (Maalox Suspension 30 ml, Lidocaine Liquid 2 % 15 cc3 ml) Route: PO; 01:00 Follow up: Response: No adverse reaction; Pain is decreased cc3 00:20 Drug: morphine 4 mg Route: IVP; Site: left antecubital; cc3 01:00 Follow up: Response: No adverse reaction; Pain is decreased cc3 00:20 Drug: NS 0.9% 1000 ml Route: IV; Rate: 1 bolus; Site: left antecubital; cc3 01:30 Follow up: Response: No adverse reaction; IV Status: Completed infusion; IV Intake: cc3 1000ml 00:25 Drug: Zofran 4 mg Route: IVP; Site: left antecubital; cc3 01:00 Follow up: Response: No adverse reaction; Nausea is decreased cc3 00:28 Drug: Pepcid 20 mg Route: IVP; Site: left antecubital; cc3 01:00 Follow up: Response: No adverse reaction; Pain is decreased cc3 Intake: 01:30 IV: 1000ml; Total: 1000ml. cc3 Outcome: 01:33 Discharge ordered by . ma2 01:45 Discharged to home ambulatory, with family. cc3 01:45 Condition: stable 01:45 Discharge instructions given to patient, family, Instructed on discharge instructions, follow up and referral plans. medication usage, Demonstrated understanding of instructions, follow-up care, medications, Prescriptions given X 2. 01:53 Patient left the ED. cc3 Signatures: Sophy Candelaria Erika RN RN ed1 Deanna Woods MD MD ma2 Shakira May cc3
--- NOTE | 2018-09-14 01:34 | EDPHYS ---
Physician Documentation [facility] Name: Mechelle Redmond Age: 42 yrs Sex: Female : 1975 Arrival Date: 09/13/2018 Time: 22:05 Bed 20 Private MD: ED Physician Deanna Woods HPI: 09/13 23:15 This 42 yrs old Female presents to ER via Ambulatory with complaints of ma2 Abdominal Pain. 23:15 The patient presents with abdominal pain in the epigastric area. Onset: The ma2 symptoms/episode began/occurred gradually, 2 day(s) ago. Associated signs and symptoms: Pertinent positives: Pertinent negatives: anorexia, diarrhea, headache, shortness of breath, vomiting. Severity of pain: At its worst the pain was moderate in the emergency department the pain is unchanged. The patient has not experienced similar symptoms in the past, The patient has experienced similar episodes in the past. 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 - Social history:: Smoking status: Patient/guardian denies using tobacco, Patient/guardian denies using alcohol, street drugs, The patient lives with family. - Ebola Screening: : Patient negative for fever greater than or equal to 101.5 degrees Fahrenheit, and additional compatible Ebola Virus Disease symptoms Patient denies exposure to infectious person Patient denies travel to an Ebola-affected area in the 21 days before illness onset No symptoms or risks identified at this time. - Family history:: not pertinent. ROS: 23:15 Constitutional: Negative for fever, chills, and weight loss, Eyes: Negative for injury, ma2 pain, redness, and discharge, Cardiovascular: Negative for chest pain, palpitations, and edema, Respiratory: Negative for shortness of breath, cough, wheezing, and pleuritic chest pain. 23:15 Abdomen/GI: Negative for abdominal pain, nausea, diarrhea, and constipation, Skin: Negative for injury, rash, and discoloration, Neuro: Negative for headache, weakness, numbness, tingling, and seizure, Psych: Negative for depression, anxiety, suicide ideation, homicidal ideation, and hallucinations. 23:15 Respiratory: 23:15 Abdomen/GI: Positive for abdominal pain, Negative for nausea, vomiting, and diarrhea, diarrhea, abdominal distension, rectal pain, bowel incontinence. 23:15 All other systems are negative. Exam: 23:15 Constitutional: This is a well developed, well nourished patient who is awake, alert, ma2 and in no acute distress. 23:15 Neck: Trachea midline, no thyromegaly or masses palpated, and no cervical lymphadenopathy. Supple, full range of motion without nuchal rigidity, or vertebral point tenderness. No Meningismus. Chest/axilla: Normal chest wall appearance and motion. Nontender with no deformity. No lesions are appreciated. Cardiovascular: Regular rate and rhythm with a normal S1 and S2. No gallops, murmurs, or rubs. Normal PMI, no JVD. No pulse deficits. Abdomen/GI: Soft, non-tender, with normal bowel sounds. No distension or tympany. No guarding or rebound. No evidence of tenderness throughout. Female : Normal external genitalia. Skin: Warm, dry with normal turgor. Normal color with no rashes, no lesions, and no evidence of cellulitis. MS/ Extremity: Pulses equal, no cyanosis. Neurovascular intact. Full, normal range of motion. 23:15 Abdomen/GI: Exam negative for Palpation: mild abdominal tenderness, in the epigastric area. Vital Signs: 22:10 BP 124 / 68; Pulse 79; Resp 17; Temp 97.7(O); Pulse Ox 97% on R/A; Weight 99.79 kg (R); ed1 Height 5 ft. 0 in. (152.40 cm) (R); Pain 9/10; 23:18 BP 123 / 72; Pulse 77; Resp 16 S; Pulse Ox 98% on R/A; cc3 09/14 00:25 BP 125 / 67; Pulse 75; Resp 17 S; Pulse Ox 97% on R/A; cc3 01:23 BP 123 / 68; Pulse 78; Resp 16 S; Pulse Ox 98% on R/A; cc3 09/13 22:10 Body Mass Index 42.97 (99.79 kg, 152.40 cm) ed1 MDM: 06/10 22:49 Patient medically screened. ma2 23:15 Differential diagnosis: cholecystitis, Cholelithiasis, gastritis, gastroesophageal ma2 reflux disease. Data reviewed: vital signs, nurses notes, lab test result(s), radiologic studies. Counseling: I had a detailed discussion with the patient and/or guardian regarding: the historical points, exam findings, and any diagnostic results supporting the discharge/admit diagnosis, the presence of at least one elevated blood pressure reading (>120/80) during this emergency department visit, the need for outpatient follow up. Response to treatment: the patient's symptoms have markedly improved after treatment. 09/13 23:11 Order name: Basic Metabolic Panel; Complete Time: :34 ok2 09/13 23:11 Order name: CBC with Diff; Complete Time: 00:48 ok2 09/13 23:11 Order name: Creatinine for Radiology; Complete Time: :34 ok2 09/13 23:11 Order name: Hepatic Function; Complete Time: :34 ok2 09/13 23:11 Order name: Lipase; Complete Time: :34 ma2 09/13 23:11 Order name: IV Saline Lock; Complete Time: 23:27 ma2 09/13 23:11 Order name: Labs collected and sent; Complete Time: 23:27 ma2 Administered Medications: 09/14 00:00 Drug: GI Cocktail without - (Maalox Suspension 30 ml, Lidocaine Liquid 2 % 15 cc3 ml) Route: PO; 01:00 Follow up: Response: No adverse reaction; Pain is decreased cc3 00:20 Drug: morphine 4 mg Route: IVP; Site: left antecubital; cc3 01:00 Follow up: Response: No adverse reaction; Pain is decreased cc3 00:20 Drug: NS 0.9% 1000 ml Route: IV; Rate: 1 bolus; Site: left antecubital; cc3 01:30 Follow up: Response: No adverse reaction; IV Status: Completed infusion; IV Intake: cc3 1000ml 00:25 Drug: Zofran 4 mg Route: IVP; Site: left antecubital; cc3 01:00 Follow up: Response: No adverse reaction; Nausea is decreased cc3 00:28 Drug: Pepcid 20 mg Route: IVP; Site: left antecubital; cc3 01:00 Follow up: Response: No adverse reaction; Pain is decreased cc3 Disposition: 09/14/18 01:33 Discharged to Home. Impression: Generalized abdominal pain. - Condition is Stable. - Discharge Instructions: Abdominal Pain, Adult. - Prescriptions for Tylenol- Codeine #3 300-30 mg Oral Tablet - take 2 tablet by ORAL route every 6 hours As needed; 30 tablet. Pepcid 20 mg Oral Tablet - take 1 tablet by ORAL route once daily for 10 days; 10 tablet. - Medication Reconciliation Form, Thank You Letter, Antibiotic Education, Prescription Opioid Use form. - Follow up: Private Physician; When: Tomorrow; Reason: Continuance of care. Signatures: Dispatcher [employer] EDMS Sandra Joseph RN RN ed1 Deanna Woods MD MD ma2 Shakira May cc3 Corrections: (The following items were deleted from the chart) 01:53 01:33 09/14/2018 01:33 Discharged to Home. Impression: Generalized abdominal pain. cc3 Condition is Stable. Forms are Medication Reconciliation Form, Thank You Letter, Antibiotic Education, Prescription Opioid Use. Follow up: Private Physician; When: Tomorrow; Reason: Continuance of care. ma2
[2018-09-14 07:25] VITALS: BP 124/68; TEMP 97.7; O2SAT 97
== END 2018-09-14 01:53 | disposition home or self-care (01) ==
LOC: ER 22:01
DX: R10.84 Generalized abdominal pain (principal); Z86.718 Personal history of other venous thrombosis and embolism
CPT/HCPCS: 36415; 80048; 80076; 83690; 85025; 96361; 96374; 96375; 99284

== ENCOUNTER 2020-11-24 21:13 | Emergency (ER) | payer BC ==
--- OUTSIDE RECORDS SUMMARY | 2020-11-24 21:16 | XMS REPORT | Continuity of Care Document ---
:1975 Author Organization [facility] t Address [address] [place] [address] Care Team Providers Name Role Phone WALKER Attending Clinician Unavailable Kuldip TRAYLOR Attending Clinician Unavailable Payers Payer Name Policy Type Policy Number Effective Date Expiration Date S shayy BCBSTX PPO [id number] 2020 00:00:00 BCBS 2 [id number] 2020 00:00:00 Problems This patient has no known problems. Allergies, Adverse Reactions, Alerts This patient has no known allergies or adverse reactions. Medications Ordered Filled Start Stop Current Ordering Indication Dosage Frequency Signature Comments Components Source Medication Medication Date Date Medication? Clinician (SIG) Name Name Acetaminoph Acetaminoph Yes Eugenio not [facility] en[facility]Codeine en-Codeine Em defined [facility] Warfarin Warfarin Yes Eugenio not [facility] Sodium Sodium Em defined [facility] Enoxaparin Enoxaparin Yes Eugenio not [facility] Sodium Sodium Em defined [facility] Sertraline Sertraline Yes Eugenio not [facility] HCl HCl Em defined [facility] Sumatriptan Sumatriptan Yes Eugenio not [facility] Em defined [facility] Procedures This patient has no known procedures. Encounters Start End Encounter Admission Attending Care Care Encounter Source Date/Time Date/Time Type Type Clinicians Facility Department ID 2020-09-[address] [facility] [id number] [place] 15:24:21 [facility] 2019-11-02 Outpatient [facility] [id number] 11:29:33 [facility] 2020-12-14 2020-12-14 Outpatient DONNA TRAYLOR [id number] [place] 15:30:00 15:30:00 AGUSTO Seybol d 2020-02-02 2020-02-02 [id number] [facility] 2019-12-23 2019-12-23 [facility] [id number] [facility] [facility] 2019-12-13 2019-12-13 [facility] [id number] [facility] [address] 13:21:00 13:21[facility]00 [facility] 2019-11-17 2019-11-17 [facility] [id number] [facility] 09:06:00 09:06:00 [facility] 2019-11-14 2019-11-14 [facility] [id number] [address] 15:16:00 15:16:00 [facility] 2019-11-14 2019-11-14 [facility] [id number] 13:00:00 13:00:00 [facility] 2019-10-23 2019-10-23 Emergency E [facility] [id number] [facility] 19:38:00 19:38:00 2018-09-15 2018-09-14 Inpatient E [facility] [id number] [facility] 06:02:00 19:33:00 Results This patient has no known results.
[2020-11-24] MEDS ORDERED: ACETAMINOPHEN 500 MG TAB ONE (22:48)
[2020-11-24 22:51] LABS: Potassium 3.2 mmol/L (3.5-5.1)
--- NOTE | 2020-11-24 23:50 | EDPHYS ---
Physician Documentation [facility] Name: Mechelle Jerez Age: 45 yrs Sex: Female : 1975 Arrival Date: 11/24/2020 Time: 21:16 Bed Treatment Private MD: ED Physician Rupesh Lu HPI: 11/24 23:36 This 45 yrs old Female presents to ER via Ambulatory with complaints of jmm Cough, Weakness. 23:36 Onset: The symptoms/episode began/occurred gradually, 1 day(s) ago. Modifying factors: jmm The symptoms are alleviated by nothing, the symptoms are aggravated by nothing. 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 Patient is currently taking Coumadin for DVT treatment. 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 - Social history:: Smoking status: Patient denies any tobacco usage or history of. Patient uses alcohol, occasionally. ROS: 23:36 Constitutional: Positive for body aches, fatigue, fever. jmm 23:36 Respiratory: Positive for cough. 23:36 All other systems are negative. Exam: 23:36 Constitutional: This is a well developed, well nourished patient who is awake, alert, jmm and in no acute distress. Head/Face: atraumatic. Eyes: EOMI, no conjunctival erythema appreciated ENT: Moist Mucus Membranes Neck: Trachea midline, Supple Chest/axilla: Normal chest wall appearance and motion. Cardiovascular: Regular rate and rhythm. No edema appreciated Respiratory: Normal respirations, no respiratory distress appreciated Abdomen/GI: Non distended, soft Back: Normal ROM Skin: General appearance color normal MS/ Extremity: Moves all extremities, no obvious deformities appreciated, no edema noted to the lower extremities Neuro: Awake and alert, normal gait Psych: Behavior is normal, Mood is normal, Patient is cooperative and pleasant Vital Signs: 21:38 BP 124 / 86; Pulse 126; Resp 20; Temp 102.6(O); Pulse Ox 95% on R/A; Weight 99.79 kg kg (R); Height 4 ft. 11 in. (149.86 cm) (R); Pain 8/10; 11/25 00:17 BP 102 / 73; Pulse 107; Resp 22; Temp 99.7; Pulse Ox 97% on R/A; em 11/24 21:38 Body Mass Index 44.43 (99.79 kg, 149.86 cm) kg MDM: 11/24 23:30 Patient medically screened. [facility] 23:37 Data reviewed: vital signs, nurses notes. Counseling: I had a detailed discussion with [facility] the patient and/or guardian regarding: the historical points, exam findings, and any diagnostic results supporting the discharge/admit diagnosis, lab results, the need for outpatient follow up, to return to the emergency department if symptoms worsen or persist or if there are any questions or concerns that arise at home. 11/24 21:58 Order name: D-Dimer; Complete Time: 23:02 [facility] 11/24 21:58 Order name: BMP; Complete Time: 23:02 [facility] 11/24 23:29 Order name: SARS-COV-2 RT PCR; Complete Time: 23:53 [facility] 11/24 21:58 Order name: Saline Lock; Complete Time: 23:35 [facility] Administered Medications: 22:27 Drug: Tylenol 1000 mg Route: PO; kg 11/25 00:19 Follow up: Response: No adverse reaction; Marked relief of symptoms; Temperature is em decreased 11/24 23:58 Not Given (Physician Discretion): Decadron - Dexamethasone 10 mg IVP once em Disposition: 11/25 05:34 Co-signature as Attending Physician, Rupesh Lu MD. [email or web address] Disposition Summary: 11/24/20 23:50 Discharge Ordered Location: Home [facility] Condition: Stable [facility] Diagnosis - Coronavirus infection, unspecified [facility] Followup: [facility] - With: Private Physician - When: 2 - 3 days - Reason: Recheck today's complaints, Continuance of care, Re-evaluation by your physician Discharge Instructions: - Discharge Summary Sheet [facility] - COVID-19 [facility] Forms: - Medication Reconciliation Form [facility] - Thank You Letter [facility] - Antibiotic Education [facility] - Prescription Opioid Use [facility] Prescriptions: - albuterol sulfate 90 mcg/actuation Inhalation HFA aerosol inhaler - inhale 2 puff by INHALATION route every 4 hours; 1 Pump; Refills: 0, Product jmm Selection Permitted - hydroxychloroquine 200 mg Oral tablet - take 2 tablet by ORAL route as directed Please take 2 tabs by mouth twice daily jm on the first day, then take 1 tab by mouth twice a day on days 2 through 5; 12 tablet; Refills: 0, Product Selection Permitted Signatures: Dispatcher [employer] EDMS Rhett Alberts PA PA jmm Rupesh Lu MD MD 7 Shavonne Velasquez, RN RN kg Alverto Berry RN em Corrections: (The following items were deleted from the chart) 11/24 21:59 21:46 CORONAVIRUS+MR.LAB.BRZ ordered. EDMS EDMS 23:23 22:02 Chest For PE Angio+CT.RAD.BRZ ordered. EDMS EDMS 23:49 21:46 Chest Pa And Lat (2 Views)+RAD.RAD.BRZ ordered. EDMS EDMS
--- NOTE | 2020-11-24 23:50 | ER ---
Nurse's Notes [facility] Name: Mechelle Jerez Age: 45 yrs Sex: Female : 1975 Arrival Date: 11/24/2020 Time: 21:16 Bed Treatment Private MD: Diagnosis: Coronavirus infection, unspecified Presentation: 11/24 21:38 Chief complaint: Patient states: Body aches, cough x 1 day. Coronavirus screen: Client kg denies travel out of the [place] in the last 14 days. At this time, unable to obtain information related to travel outside the [place] At this time, the client does not indicate any symptoms associated with coronavirus-19. Ebola Screen: Patient negative for fever greater than or equal to 101.5 degrees Fahrenheit, and additional compatible Ebola Virus Disease symptoms Patient denies exposure to infectious person. Patient denies travel to an Ebola-affected area in the 21 days before illness onset. No symptoms or risks identified at this time. 21:38 Method Of Arrival: Ambulatory kg 21:40 Initial Sepsis Screen: Does the patient meet any 2 criteria? Temp <36.0*C (96.8*F)) or kg > 38.3*C (100.9*F). HR > 90 bpm. Yes Does the patient have a suspected source of infection? No. Patient's initial sepsis screen is negative. Risk Assessment: Do you want to hurt yourself or someone else? Patient reports no desire to harm self or others. Onset of symptoms was November 23, 2020. 21:40 Acuity: TAMMY 4 kg Triage Assessment: 21:41 General: Appears in no apparent distress. Behavior is calm, cooperative, appropriate kg for age, quiet. Pain: Complains of pain in Generalized. 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 - Social history:: Smoking status: Patient denies any tobacco usage or history of. Patient uses alcohol, occasionally. Screenin:44 Abuse screen: Denies threats or abuse. Denies injuries from another. Nutritional kg screening: No deficits noted. Tuberculosis screening: No symptoms or risk factors identified. Fall Risk None identified. Assessment: 22:15 General: Appears in no apparent distress. uncomfortable, ill, Behavior is calm, em cooperative. Neuro: Level of Consciousness is awake, alert, obeys commands, Oriented to person, place, time, situation. Cardiovascular: Capillary refill < 3 seconds Patient's skin is warm and dry. Respiratory: Airway is patent Respiratory effort is even, unlabored, Respiratory pattern is regular, symmetrical. Derm: Skin is intact, is healthy with good turgor, Skin is pink, warm \T\ dry. 11/25 00:18 Reassessment: Patient appears in no apparent distress at this time. Patient and/or em family updated on plan of care and expected duration. Pain level reassessed. Patient is alert, oriented x 3, equal unlabored respirations, skin warm/dry/pink. Vital Signs: 11/24 21:38 BP 124 / 86; Pulse 126; Resp 20; Temp 102.6(O); Pulse Ox 95% on R/A; Weight 99.79 kg kg (R); Height 4 ft. 11 in. (149.86 cm) (R); Pain 8/10; 11/25 00:17 BP 102 / 73; Pulse 107; Resp 22; Temp 99.7; Pulse Ox 97% on R/A; em 11/24 21:38 Body Mass Index 44.43 (99.79 kg, 149.86 cm) kg ED Course: 11/24 21:16 Patient arrived in ED. bp1 21:41 Triage completed. kg 21:41 Arm band placed on left wrist. kg 21:44 Patient has correct armband on for positive identification. kg 21:54 Rhett Alberts PA is PHCP. jmm 21:54 Rupesh Lu MD is Attending Physician. jmm 22:18 Inserted saline lock: 20 gauge in right antecubital area, using aseptic technique. kg 23:31 Alverto Berry, RN is Primary Nurse. em 11/25 00:18 No provider procedures requiring assistance completed. IV discontinued, intact, em bleeding controlled, No redness/swelling at site. Pressure dressing applied. Administered Medications: 11/24 22:27 Drug: Tylenol 1000 mg Route: PO; kg 11/25 00:19 Follow up: Response: No adverse reaction; Marked relief of symptoms; Temperature is em decreased 11/24 23:58 Not Given (Physician Discretion): Decadron - Dexamethasone 10 mg IVP once em Outcome: 23:50 Discharge ordered by MD. leon 11/25 00:18 Discharged to home ambulatory, with family. em Condition: good Discharge instructions given to patient, family, Instructed on discharge instructions, follow up and referral plans. medication usage, Demonstrated understanding of instructions, follow-up care, medications, Prescriptions given X 2. 00:19 Patient left the ED. em Signatures: Rhett Alberts PA PA jmm Munoz, Edgar, RN RN em Cecile Wilson Kristen RN RN kg
[2020-11-24] MEDS ORDERED: dexAMETHasone 10 MG/ML VIAL ONE (23:55)
[2020-11-25 00:39] VITALS: BP 102/73; TEMP 99.7; O2SAT 97
== END 2020-11-25 00:19 | disposition home or self-care (01) ==
LOC: ER 21:13
DX: U07.1 COVID-19 (principal); Z86.718 Personal history of other venous thrombosis and embolism; Z79.01 Long term (current) use of anticoagulants
CPT/HCPCS: 80048; 36415; 85379; 99283; U0003; J1100

== ENCOUNTER 2020-12-11 07:34 | Emergency (ER) | payer BC ==
--- OUTSIDE RECORDS SUMMARY | 2020-12-11 07:37 | XMS REPORT | Continuity of Care Document ---
:1975 Author Organization [facility] t Address [address] [place] [address] Care Team Providers Name Role Phone WALKER Attending Clinician Unavailable Kuldip TRAYLOR Attending Clinician Unavailable ALLYSSA SEWELL Attending Clinician Unavailable CRISTOPHER Attending Clinician Unavailable KAMLA Attending Clinician Unavailable Payers Payer Name Policy Type Policy Number Effective Date Expiration Date S shayy BCBSTX PPO [id number] 2020 00:00:00 BCBS 2 [id number] 2020 00:00:00 Problems This patient has no [...] HCl Em defined [facility] Sumatriptan Sumatriptan Yes Eugenio not [facility] Procedures This patient has no known procedures. Encounters Start End Encounter Admission Attending Care Care Encounter Source Date/Time Date/Time Type Type Clinicians Facility Department ID 2020-09-12 Outpatient [facility] [id number] [place] 15:24:21 [facility] 2019-11-02 Outpatient [facility] [id number] [facility] 11:29:33 [facility] 2021-01-04 2021-01-04 Outpatient DONNA TRAYLOR [id number] [place] 10:30:00 10:30:00 AGUSTO Seybol d 2020-12-14 2020-12-14 Outpatient DONNA TRAYLOR [id number] [place] 15:30:00 15:30:00 AGUSTO Seybol d 2020-12-11 2020-12-11 Outpatient DONNA SEWELL [id number] [place] 10:45:00 10:45:00 FIRAS Seybol d 2020-12-05 2020-12-05 Outpatient DONNA SEWELL [id number] [place] 10:30:00 10:30:00 FIRAS Seybol d 2020-11-29 2020-11-29 Inpatient E [facility] [id number] [facility] 17:28:00 12:59:00 2020-11-27 2020-11-27 Outpatient DONNA NICHOLAS [id number] [place] 11:30:00 11:30:00 DYLON Seybol d 2020-11-27 2020-11-27 Outpatient DONNA SEWELL [id number] [place] 00:00:00 00:00:00 FIRAS Seybol d 2020-11-27 2020-11-27 Outpatient DONNA SEWELL [id number] [place] 00:00:00 00:00:00 FIRAS Seybol d 2020-11-27 2020-11-27 Outpatient DONNA SEWELL [id number] [place] 00:00:00 00:00:00 FIRAS Seybol d 2020-11-27 2020-11-27 Outpatient DONNA CASON [id number] [place] 00:00:00 00:00:00 ANGIE Leger ld 2020-02-02 2020-02-02 [facility] [id number] [facility] 2019-12-23 2019-12-23 [facility] [id number] [facility] 2019-12-13 2019-12-13 [facility] [id number] [facility] 13:21:00 13:21:00 [facility] 2019-11-17 2019-11-17 [facility] [id number] [facility] 09:06:00 09:06:00 [facility] 2019-11-14 2019-11-14 [facility] [id number] [facility] 15:16:00 15:16:00 [facility] 2019-11-14 2019-11-14 [facility] [id number] 13:00:00 13:00:00 [facility] 2019-10-23 2019-10-23 Emergency E [facility] [id number] [facility] 19:38:00 19:38:00 2018-09-15 2018-09-14 Inpatient E [facility] MED [id number] [facility] 06:02:00 19:33:00 Results This patient has no known results.
--- NOTE | 2020-12-11 08:27 | RAD REPORT ---
EXAM DESCRIPTION: RAD - Chest Single View - 12/11/2020 8:22 am CLINICAL HISTORY: COUGH COMPARISON: Chest Single View dated 09/12/2018; CHEST SINGLE VIEW dated 01/05/2012 FINDINGS: Lines: None. Lungs: Moderate new patchy bilateral airspace disease. Pleural: No significant pleural effusions or pneumothorax. Cardiac: The heart size is within normal limits. Bones: No acute fractures. Other: IMPRESSION: Moderate bilateral airspace disease concerning for Covid-19 pneumonia.
[2020-12-11 08:31] LABS: Absolute Lymphocytes (CBC) 3.3 K/uL (0.7-4.9); Basophils % 0.3 % (0-1.3); Hematocrit 43.8 % (36.0-45.0); Lymphocytes % 34.6 % (15.3-44.8); MPV 9.2 fL (7.6-11.3)
[2020-12-11 08:32] LABS: Protime INR 3.94
[2020-12-11 08:43] LABS: ALT/SGPT 90 U/L (12-78); AST/SGOT 37 U/L (15-37); Albumin 3.8 g/dL (3.4-5.0); Alkaline Phosphatase 87 U/L (45-117); BUN Blood Urea Nitrogen 15 mg/dL (7-18); Bicarbonate 31 mmol/L (21-32); Bilirubin Direct 0.3 mg/dL (0-0.2); Bilirubin Total 1.2 mg/dL (0.2-1.0); Glucose Level 113 mg/dL (74-106); Magnesium 1.9 mg/dL (1.8-2.4); NT PRO-BNP 45 pg/mL (<125); Potassium 3.4 mmol/L (3.5-5.1); Protein, Total 7.5 g/dL (6.4-8.2); Sodium Level 139 mmol/L (136-145); Troponin (Emerg Dept Use Only) < 0.02 ng/mL (0.0-0.045)
--- NOTE | 2020-12-11 09:05 | ER ---
Nurse's Notes [facility] Name: Mechelle Jerez Age: 45 yrs Sex: Female : 1975 Arrival Date: 12/11/2020 Time: 07:38 Bed 24 Private MD: Diagnosis: Pain in right lower leg;Pain in left lower leg;Obesity, unspecified;Abnormal coagulation profile-coumadin therapy INR 3.94;Pneumonia due to SARS-associated coronavirus Presentation: 12/11 08:17 Chief complaint: Patient states: Reports cramping bilateral lower leg pain 01/13. Onset aj2 4-5 hours prior to arrival. Reports pain radiate from knee to ankle. Denies taking any medications or other methods to alleviate pain. Coronavirus screen: At this time, the client does not indicate any symptoms associated with coronavirus-19. Ebola Screen: No symptoms or risks identified at this time. Initial Sepsis Screen: Does the patient meet any 2 criteria? No. Patient's initial sepsis screen is negative. Initial Sepsis Screen: Does the patient have a suspected source of infection? No. Patient's initial sepsis screen is negative. Risk Assessment: Do you want to hurt yourself or someone else? Patient reports no desire to harm self or others. Onset of symptoms was December 11, 2020. 08:17 Method Of Arrival: EMS: [facility] aj2 08:17 Acuity: TAMMY 3 aj2 Triage Assessment: 08:25 General: Appears uncomfortable, Behavior is crying. Pain: Complains of pain in right aj2 leg and left leg Historical: - Home Meds: 08:25 Coumadin 2.5 mg Oral tab 1 tab [Active]; Coumadin 5 mg Oral tab 1 tab [Active]; aj2 - PMHx: 08:25 DVT; aj2 08:25 Utures ablation; aj2 - PSHx: 08:25 Ligation of fallopian tube; Stent in groin for DVT prevention; aj2 - Immunization history:: Client reports having NOT received the Covid vaccine. - Social history:: Smoking status: unknown. - Family history:: not pertinent. Screenin:30 Abuse screen: Denies threats or abuse. Denies injuries from another. Nutritional aj2 screening: No deficits noted. Tuberculosis screening: No symptoms or risk factors identified. Fall Risk None identified. Assessment: 08:30 General: Behavior is crying. aj2 Vital Signs: 08:17 BP 111 / 67; Pulse 90; Resp 18; Temp 97.9; Pulse Ox 98% ; aj2 11:05 BP 112 / 70; Pulse 82; Resp 20; Temp 97.3; Pulse Ox 100% ; aj2 ED Course: 07:38 Patient arrived in ED. ss 07:38 Aleks Jones MD is Attending Physician. kenrick 08:17 Elmer Priest is Primary Nurse. aj2 08:23 XRAY Chest (1 view) In Process Unspecified. EDMS 08:25 Triage completed. aj2 08:25 Arm band placed on right wrist. aj2 08:29 US Extremity Venous W Compression [place] In Process Unspecified. EDMS 08:30 Patient has correct armband on for positive identification. aj2 08:30 No provider procedures requiring assistance completed. Inserted saline lock: 20 gauge aj2 in right antecubital area, using aseptic technique. 09:03 Ben Mg MD is Referral Physician. kenrick Administered Medications: 08:54 Drug: NS 0.9% 1000 ml Route: IV; Rate: 1 bolus; Site: right antecubital; aj2 08:56 Drug: Zofran (Ondansetron) 4 mg Route: IVP; Site: right antecubital; aj2 08:57 Drug: Ketorolac 30 mg Route: IVP; Site: right antecubital; aj2 08:57 Drug: morphine 4 mg Route: IVP; Site: right antecubital; aj2 10:47 Drug: Potassium Effervescent Tablet 25 mEq Route: PO; aj2 Outcome: 09:05 Discharge ordered by . kenrick 11:07 Patient left the ED. ss Signatures: Dispatcher [employer] EDCO Aleks Jones MD MD cha Smirch, Shelby, RN RN ss Elmer Priest aj2 Corrections: (The following items were deleted from the chart) 08:56 08:54 Zofran (Ondansetron) 4 mg IVP in left antecubital aj2 aj2
--- NOTE | 2020-12-11 09:05 | EDPHYS ---
Physician Documentation [facility] Name: Mechelle Jerez Age: 45 yrs Sex: Female : 1975 Arrival Date: 12/11/2020 Time: 07:38 Bed 24 Private MD: DONNA Physician Aleks Jones HPI: 12/11 08:57 This 45 yrs old Female presents to ER via EMS with complaints of Leg Pain. kenrick 08:57 The patient presents with pain, that is acute. The complaints affect the right leg and kenrick left leg. Context: The problem was sustained at an unknown site. Onset: The symptoms/episode began/occurred this morning. Modifying factors: The symptoms are alleviated by nothing. the symptoms are aggravated by nothing. Associated signs and symptoms: The patient has no apparent associated signs or symptoms. Treatment prior to arrival includes: no previous treatment. Severity of symptoms: At their worst the symptoms were moderate, in the emergency department the symptoms are unchanged. The patient has not experienced similar symptoms in the past. Historical: - Home Meds: 08:25 Coumadin 2.5 mg Oral tab 1 tab [Active]; Coumadin 5 mg Oral tab 1 tab [Active]; aj2 - PMHx: 08:25 DVT; aj2 08:25 Utures ablation; aj2 - PSHx: 08:25 Ligation of fallopian tube; Stent in groin for DVT prevention; aj2 - Immunization history:: Client reports having NOT received the Covid vaccine. - Social history:: Smoking status: unknown. - Family history:: not pertinent. ROS: 08:57 Constitutional: Negative for fever, chills, and weight loss, Eyes: Negative for injury, kenrick pain, redness, and discharge, ENT: Negative for injury, pain, and discharge, Neck: Negative for injury, pain, and swelling, Cardiovascular: Negative for chest pain, palpitations, and edema, Respiratory: Negative for shortness of breath, cough, wheezing, and pleuritic chest pain, Abdomen/GI: Negative for abdominal pain, nausea, vomiting, diarrhea, and constipation, Back: Negative for injury and pain, : Negative for injury, bleeding, discharge, and swelling, Skin: Negative for injury, rash, and discoloration, Neuro: Negative for headache, weakness, numbness, tingling, and seizure, Psych: Negative for depression, anxiety, suicide ideation, homicidal ideation, and hallucinations, Allergy/Immunology: Negative for hives, rash, and allergies, Endocrine: Negative for neck swelling, polydipsia, polyuria, polyphagia, and marked weight changes, Hematologic/Lymphatic: Negative for swollen nodes, abnormal bleeding, and unusual bruising. 08:57 MS/extremity: Positive for pain, of the right leg and left leg. Exam: 08:57 Constitutional: This is a well developed, well nourished patient who is awake, alert, kenrick and in no acute distress. Head/Face: Normocephalic, atraumatic. Eyes: Pupils equal round and reactive to light, extra-ocular motions intact. Lids and lashes normal. Conjunctiva and sclera are non-icteric and not injected. Cornea within normal limits. Periorbital areas with no swelling, redness, or edema. ENT: Nares patent. No nasal discharge, no septal abnormalities noted. Tympanic membranes are normal and external auditory canals are clear. Oropharynx with no redness, swelling, or masses, exudates, or evidence of obstruction, uvula midline. Mucous membranes moist. Neck: Trachea midline, no thyromegaly or masses palpated, and no cervical lymphadenopathy. Supple, full range of motion without nuchal rigidity, or vertebral point tenderness. No Meningismus. Chest/axilla: Normal chest wall appearance and motion. Nontender with no deformity. No lesions are appreciated. Cardiovascular: Regular rate and rhythm with a normal S1 and S2. No gallops, murmurs, or rubs. Normal PMI, no JVD. No pulse deficits. Respiratory: Lungs have equal breath sounds bilaterally, clear to auscultation and percussion. No rales, rhonchi or wheezes noted. No increased work of breathing, no retractions or nasal flaring. Abdomen/GI: Soft, non-tender, with normal bowel sounds. No distension or tympany. No guarding or rebound. No evidence of tenderness throughout. Back: No spinal tenderness. No costovertebral tenderness. Full range of motion. Skin: Warm, dry with normal turgor. Normal color with no rashes, no lesions, and no evidence of cellulitis. MS/ Extremity: Pulses equal, no cyanosis. Neurovascular intact. Full, normal range of motion. Neuro: Awake and alert, GCS 15, oriented to person, place, time, and situation. Cranial nerves II-XII grossly intact. Motor strength 5/5 in all extremities. Sensory grossly intact. Cerebellar exam normal. Normal gait. Psych: Awake, alert, with orientation to person, place and time. Behavior, mood, and affect are within normal limits. 08:57 ECG was reviewed by the Attending Physician. Vital Signs: 08:17 BP 111 / 67; Pulse 90; Resp 18; Temp 97.9; Pulse Ox 98% ; aj2 11:05 BP 112 / 70; Pulse 82; Resp 20; Temp 97.3; Pulse Ox 100% ; aj2 MDM: 07:38 Patient medically screened. [facility] 09:02 Differential diagnosis: contusion, tendonitis. Data reviewed: vital signs, nurses [facility] notes, lab test result(s), EKG, radiologic studies, plain films. Data interpreted: child monitor: rate is 90 beats/min, rhythm is regular. Test interpretation: by ED physician or midlevel provider: ECG, plain radiologic studies. Counseling: I had a detailed discussion with the patient and/or guardian regarding: the historical points, exam findings, and any diagnostic results supporting the discharge/admit diagnosis, lab results, radiology results, the need for outpatient follow up, for definitive care, a beam builder helper, a family practitioner. 12/11 08:06 Order name: Basic Metabolic Panel; Complete Time: 08:59 [facility] 12/11 08:06 Order name: CBC with Diff; Complete Time: 08:59 [facility] 12/11 08:06 Order name: LFT's; Complete Time: 08:59 [facility] 12/11 08:06 Order name: Magnesium; Complete Time: 08:59 [facility] 12/11 08:06 Order name: NT PRO-BNP; Complete Time: 08:59 [facility] 12/11 08:06 Order name: PT-INR; Complete Time: 08:59 [facility] 12/11 08:06 Order name: Troponin (emerg Dept Use Only); Complete Time: 08:59 [facility] 12/11 08:06 Order name: XRAY Chest (1 view); Complete Time: 08:59 [facility] 12/11 08:06 Order name: US Extremity Venous W Compression [place] [facility] 12/11 08:06 Order name: EKG; Complete Time: 08:06 [facility] 12/11 08:06 Order name: Cardiac monitoring; Complete Time: 08:28 [facility] 12/11 08:06 Order name: EKG - Nurse/Tech; Complete Time: 08: [facility] 12/11 08:06 Order name: IV Saline Lock; Complete Time: 08: [facility] 12/11 08:06 Order name: Labs collected and sent; Complete Time: 08: [facility] 12/11 08:06 Order name: O2 Per Protocol; Complete Time: 08: [facility] 12/11 08:06 Order name: O2 Sat Monitoring; Complete Time: 08: [facility] 12/11 08:06 Order name: Urine Dipstick-Ancillary (obtain specimen) [facility] 12/11 08:06 Order name: Urine Test (obtain specimen) [facility] EC: Rate is 85 beats/min. Rhythm is regular. QRS [place] is Normal. [place] interval is normal. QRS kenrick interval is normal. QT interval is normal. No Q waves. T waves are Normal. No ST changes noted. Clinical impression: NSR w/ Non-specific ST/T Changes and No evidence of ischemia. Interpreted by me. Reviewed by me. Administered Medications: 08:54 Drug: NS 0.9% 1000 ml Route: IV; Rate: 1 bolus; Site: right antecubital; aj2 08:56 Drug: Zofran (Ondansetron) 4 mg Route: IVP; Site: right antecubital; aj2 08:57 Drug: Ketorolac 30 mg Route: IVP; Site: right antecubital; aj2 08:57 Drug: morphine 4 mg Route: IVP; Site: right antecubital; aj2 10:47 Drug: Potassium Effervescent Tablet 25 mEq Route: PO; aj2 Disposition Summary: 12/11/20 09:05 Discharge Ordered Location: Home kenrick Problem: new kenrick Symptoms: have improved kenrick Condition: Stable kenrick Diagnosis - Pain in right lower leg kenrick - Pain in left lower leg kenrick - Obesity, unspecified kenrick - Abnormal coagulation profile - coumadin therapy INR 3.94 kenrick - Pneumonia due to SARS-associated coronavirus kenrick Followup: kenrick - With: Private Physician - When: 2 - 3 days - Reason: Recheck today's complaints, Continuance of care, Re-evaluation by your physician Followup: kenrick - With: Ben Mg MD - When: 2 - 3 days - Reason: Recheck today's complaints, Continuance of care, Re-evaluation by your physician Discharge Instructions: - Discharge Summary Sheet kenrick - Musculoskeletal Pain kenrick - Obesity, Adult kenrick - Warfarin Coagulopathy kenrick - Warfarin Information kenrick - Hypokalemia kenrick Forms: - Medication Reconciliation Form kenrick - Thank You Letter kenrick - Antibiotic Education kenrick - Prescription Opioid Use kenrick Prescriptions: - Tylenol 325 mg Oral Tablet - take 2 tablets by ORAL route every 6 hours as needed; 1 bottle; Refills: 0, kenrick Product Selection Permitted Signatures: Dispatcher [employer] Aleks Phipps MD MD cha Jenkins, Angelea aj2
--- NOTE | 2020-12-11 09:08 | RAD REPORT ---
EXAM DESCRIPTION: US - Extrem Venous W Compress [place] - 12/11/2020 8:38 am CLINICAL HISTORY: Pain COMPARISON: 08/29/2014 TECHNIQUE: Real-time sonographic evaluation of the bilateral lower extremity deep venous systems was performed. FINDINGS: Eccentric filling defects within the left common femoral vein, femoral vein, and popliteal vein noted with incomplete compressibility. This would be consistent with chronic thrombus. The ruchi ining vessels in both lower extremities demonstrate normal compressibility, waveforms, and color Dopp ler flow. IMPRESSION: Eccentric thrombus in the left common femoral vein, femoral vein, and popliteal vein lik giovanny chronic deep venous thrombosis. No definite acute thrombus identified in either lower extremity.
[2020-12-11] MEDS ORDERED: NA CHLORIDE 0.9% 1,000 ML ONE (09:18)
[2020-12-11] MEDS ORDERED: ONDANSETRON 4 MG/2 ML VIAL ONE (09:18)
[2020-12-11] MEDS ORDERED: MORPHINE 4 MG/ML SYR ONE (09:18)
[2020-12-11] MEDS ORDERED: KETOROLAC 30 MG/ML INJ ONE (09:18)
[2020-12-11] MEDS ORDERED: POTASSIUM 25 MEQ EFFERV TAB ONE (11:14)
[2020-12-11 11:25] VITALS: BP 112/70; TEMP 97.3; O2SAT 100
--- NOTE | 2020-12-11 18:30 | EKG ---
Test Date: 2020-12-11 Test Time: 08:09:03 [place] Supervisor: KACY MEASUREMENT RESULTS: Intervals: Rate: 85 OK: 132 QRSD: 72 QT: 358 QTc: 426 [place]: P: 31 OK: 132 QRS: -16 T: -5 INTERPRETIVE STATEMENTS: Normal sinus rhythm Nonspecific ST and T wave abnormality Abnormal ECG No previous ECG available for comparison Electronically Signed On 12-11-20 18:29:37 CDT by Ben Mg
== END 2020-12-11 11:07 | disposition home or self-care (01) ==
LOC: ER 07:34
DX: M79.662 Pain in left lower leg (principal); M79.661 Pain in right lower leg; U07.1 COVID-19; J12.82 Pneumonia due to coronavirus disease 2019; R79.1 Abnormal coagulation profile; E66.9 Obesity, unspecified; Z86.718 Personal history of other venous thrombosis and embolism; Z79.01 Long term (current) use of anticoagulants
CPT/HCPCS: 93005; 85025; 80048; 36415; 83735; 85610; 80076; 84484; 83880; 71045; 93970; 96375; 96374; 99284; J7030; J2405

== ENCOUNTER 2023-02-13 06:17 | Day surgery (SDC) | payer BC ==
[2023-02-09 11:03] LABS: Absolute Lymphocytes (CBC) 2.7 K/uL (0.7-4.9); Hematocrit 38.1 % (36.0-45.0); Lymphocytes % 42.6 % (15.3-44.8); MPV 9.4 fL (7.6-11.3); Platelets 199 thou/uL (152-406); RBC Red Blood Cell Count 4.28 M/uL (3.86-4.86)
[2023-02-09 11:10] LABS: Protime INR 1.54
[2023-02-09 11:19] LABS: Potassium 4.1 mEq/L (3.5-5.1)
--- NOTE | 2023-02-09 11:29 | RAD REPORT ---
EXAM DESCRIPTION: RAD - Chest Pa And Lat (2 Views) - 02/09/2023 10:57 am CLINICAL HISTORY: PRE OP Chest pain. COMPARISON: Chest Single View dated 12/11/2020; Chest Single View dated 09/12/2018; CHEST SINGLE VIEW da lance 01/05/2012 FINDINGS: The lungs are clear. The heart is normal in size. No displaced fractures. IMPRESSION: No acute or concerning finding suspected.
[2023-02-13] MEDS ORDERED: CEFAZOLIN SODIUM 2 GM/VIAL ONE (06:41)
[2023-02-13] MEDS ORDERED: Ringers Lactate 1,000 ML IV ONE (06:41)
[2023-02-13] MEDS ORDERED: FENTANYL CITR 100 MCG/2 ML ONE (07:12)
[2023-02-13] MEDS ORDERED: LIDOCAINE 1% MPF 5 ML VIAL ONE (07:12)
[2023-02-13] MEDS ORDERED: EPINEPHRINE/PF 1 MG/ML AMP ONE ×2 (07:12→07:40)
[2023-02-13] MEDS ORDERED: MIDAZOLAM HCL 2 MG/2 ML INJ ONE (07:12)
[2023-02-13] MEDS ORDERED: dexAMETHasone 10 MG/ML VIAL ONE ×2 (07:12→08:00)
[2023-02-13] MEDS ORDERED: propofoL 200 MG/20 ML VIAL IV ONE (08:00)
[2023-02-13] MEDS ORDERED: KETOROLAC 30 MG/ML INJ ONE (08:01)
[2023-02-13] MEDS ORDERED: LIDOCAINE 2% MPF 5 ML VIAL ONE (08:01)
[2023-02-13] MEDS ORDERED: ROCURONIUM 50 MG/5 ML VIAL IV ONE (08:01)
[2023-02-13] MEDS ORDERED: ONDANSETRON 4 MG/2 ML VIAL ONE (08:02)
[2023-02-13] MEDS ORDERED: NS 0.9% VIAL 10 ML ONE ×2 (08:04→09:14)
[2023-02-13] MEDS ORDERED: GLYCOPYRROLATE 0.2 MG/ML SYR ONE (09:34)
[2023-02-13] MEDS ORDERED: NEOSTIGMINE 1 MG/ML -10 ML VIAL ONE (09:34)
--- NOTE | 2023-02-13 09:37 | P.BOP ---
Preoperative diagnosis: right shoulder rotator cuff tear, impingement syndrome Postoperative diagnosis: same Primary procedure: right shoulder arthroscopic rotator cuff repair Secondary procedure: Right shoulder arthroscopic rotator cuff debridement Other procedure(s): Right shoulder arthroscopic subacromial decompression Estimated blood loss: 5 cc Specimen: None Findings: See dictation Anesthesia: General Implants: Arthrex 4.75 mm swivelock Fluids & blood products: Per anesthesia record Transferred to: Recovery Room Condition: Good
--- NOTE | 2023-02-13 10:40 | RAD REPORT ---
EXAM DESCRIPTION: RAD - Shoulder 1 View - 02/13/2023 10:12 am CLINICAL HISTORY: s/p R RCR, RC debridement, SAD COMPARISON: No comparisons FINDINGS: There is a single frontal projection submitted. Small acromial spur noted. No evidence of a unusual immediate postoperative finding.
[2023-02-13 10:51] VITALS: TEMP 97.3
[2023-02-13 13:24] VITALS: BP 102/65; O2SAT 95
--- NOTE | 2023-02-14 14:32 | EKG ---
Test Date: 2023-02-09 Test Time: 11:37:20 Business Applications Specialist: KAYY MEASUREMENT RESULTS: Intervals: Rate: 64 FL: 150 QRSD: 84 QT: 394 QTc: 406 [place]: P: 84 FL: 150 QRS: -15 T: -19 INTERPRETIVE STATEMENTS: Normal sinus rhythm Low voltage QRS Possible Anterolateral infarct, age undetermined Abnormal ECG Compared to ECG 12/11/2020 08:09:03 Low QRS voltage now present Myocardial infarct finding now present ST (T wave) deviation no longer present Electronically Signed On 02-14-23 14:17:47 LOGISTICS LEAD by Orlando Gongora
--- NOTE | 2023-02-16 20:02 | OP ---
Date of Procedure: 02/13/2023 Surgeon: Eugenio Em MD Preoperative Diagnoses: 1.Right shoulder rotator cuff tear. 2.Impingement syndrome. Postoperative Diagnoses: 1.Right shoulder rotator cuff tear. 2.Impingement syndrome. Procedure Performed: 1.Right shoulder arthroscopic rotator cuff repair. 2.Right shoulder arthroscopic rotator cuff debridement. 3.Right shoulder arthroscopic subacromial decompression. Estimated Blood Loss: 5 mL. Complications: None. Implants: Arthrex 4.75 mm SwiveLock. Indication For Procedure: Mechelle is a 47-year-old female who presented to my clinic with signs, symp toms, and MRI findings consistent with a right shoulder rotator cuff tear. The patient failed conser vative treatment measures and had significant pain that interferes with her activities of daily livin g. I discussed with the patient at length, risks and benefits associated with operative and nonopera tive treatment. She expressed understanding and elected to proceed with operative treatment. Description Of Procedure: After informed consent was obtained, the patient was identified in the pre operative holding area. The right upper extremity was marked. The patient was then brought back to the PACU where she underwent an interscalene block to the right upper extremity. The patient was the n brought back to the operating room, transferred to the operating table in a supine fashion, placed under general endotracheal anesthesia. The patient was then placed in a beach chair position with he r extremities well padded. The right upper extremity was then prepped and draped in usual sterile fa shion. A time-out was initiated. Correct patient and procedure was confirmed and identified. The p atient did receive her preoperative prophylactic antibiotics. A spinal needle was introduced into th e glenohumeral joint via the posterior portal position and then shoulder was injected with 30 mL of n ormal saline to distend the capsule. The posterior portal was created and the arthroscope was thaddeus t in via the posterior portal position and a diagnostic arthroscopy was performed under direct visual ization. Anterior portal and cannula were placed and the patient was noted to have some fraying and partial tearing of the superior border in the subscapularis partial. A rotator cuff debridement was then performed at the superior border of the subscapularis. The subscapularis was overall stable to probe after debridement with no full-thickness tear appreciated. The patient had minimal fraying ove r the undersurface of the supraspinatus and infraspinatus. The arthroscope was then brought in the a xillary pouch, where there were no loose bodies found in the pouch. The patient had no significant c hondromalacia changes of the humeral head or glenoid surface. The superior labrum was stable to prob e. The biceps tendon was found in proper position without any subluxation and which was also stable to probe. The arthroscopic instruments were then brought into the subacromial space and a subacromia l bursectomy was performed. Lateral portal was created to help perform subacromial bursectomy. The patient was noted to have some fraying of the coracoacromial ligament as well as a tear of the anteri or aspect of the supraspinatus, crescent-shaped tear. The rotator cuff tear was debrided as well as the soft tissue on the greater tuberosity in line with the tear. The tear was small in nature and wa s fixed using a speed fix configuration. A suture tape was then passed through the rotator cuff tear in an inverted horizontal mattress fashion. The suture limbs were then brought out laterally and fi xed to the greater tuberosity using a 4.75 mm SwiveLock with good reduction of the rotator cuff onto the back on the greater tuberosity. Remaining suture limbs were cut. The undersurface of the acromi on was then debrided using an arthroscopic bur as well as a radiofrequency ablator given the fraying of the coracoacromial ligament, subacromial decompression was performed. Acromioplasty was performed using an arthroscopic johny. Arthroscopic instruments were then removed without complication. Wound s were then irrigated thoroughly with normal saline. Portals were approximated using a 4-0 Monocryl. Sterile dressings were applied. The patient was placed in a shoulder immobilizer, awakened and tra nsferred to PACU in stable condition. Postoperative Plan: The patient will be nonweightbearing of her right upper extremity. She will fol low up next week for wound check. Physical Therapy will be started 3 weeks postop per medium rotator cuff repair protocol. CV/MODL Voice ID: [id number] Report ID: [id number]
== END 2023-02-13 11:31 | disposition home or self-care (01) ==
LOC: OR 06:17
PROVIDERS: ATTEND Orthopaedic Surgery Sports Medicine
PROC: 0LM14ZZ Reattachment of Right Shoulder Tendon, Percutaneous Endoscopic Approach (ICD-10-PCS; 2023-02-13)
PROC: 0RNJ4ZZ Release Right Shoulder Joint, Percutaneous Endoscopic Approach (ICD-10-PCS; principal; 2023-02-13 08:00)
DX: M75.101 Unspecified rotator cuff tear or rupture of right shoulder, not specified as traumatic (principal); M75.41 Impingement syndrome of right shoulder
CPT/HCPCS: 29827; 29826; 29822; 93005; 85025; 80048; 36415; 85610; 85730; 71046; 73020; A4216 ×2; J2704; J2710; J0171 ×2; J2001 ×2; J2250; J3010; J1100 ×2; J2405; J7120

== ENCOUNTER 2023-12-09 07:13 | Observation (INO) | payer BC ==
--- OUTSIDE RECORDS SUMMARY | 2023-12-09 07:18 | XMS REPORT | Continuity of Care Document ---
Author Name Unknown Address [address] [facility] [address] [place] [address] [facility] Address [address] [facility] [facility] [address] [place] [address] Care Team Providers Care Delivery Aide Name Role Phone Antonina Sewell Primary Care Physician [phone] NORBERTO WATSON Attending Clinician Unavailable GUY KNOX Attending Clinician Unavailab ALEXSANDRA Ferrer Attending Clinician Unavailable MD GAGANDEEP Attending Clinician Unavailab VIJAY Summers Attending Clinician Unavailable PAYAM GILLIS Attending Clinician Unavailable Ebrahim CHILD ADOLESCENT PSYCHIATRIST, Rania Attending Clinician [phone] Unknown, Attending Attending Clinician Unavailab le UNKNOWN, ATTENDING Attending Clinician Unavailab le Doctor Unassigned, [place] Attending Clinician U MERRILL Champagne Attending Clinician Unavailable VINH ZARAGOZA Attending Clinician Unavailable JOSEPH QUARLES Attending Clinician Unavailable [email or web address]_Kadiyala_S Attending Clinician Unavaila HEDY Jordan Attending Clinician Unavailable FRANCISCO CASTANON Attending Clinician Unavailable LAB90 Attending Clinician Unavailable GC_GCFRWD_Roberts_E Attending Clinician Unavaila CARMELA Valera Attending Clinician Unavail able TAHMINA ANDERSON Attending Clinician Unava ilable PL, TECH 1 Attending Clinician Unavailable ES, TECH 1 Attending Clinician Unavailable NEIL VIGIL Attending Clinician Unavailable CHUN SALCEDO Attending Clinician Unavail able Aleshia SANCHEZCHedy Attending Clinician [phone] Camilo Goldman Attending Clinician Unavailable Erick Thomas MD Attending Clinician [phone] ERICK THOMAS Attending Clinician Unavailable Shekhar CONNOR, Carmela Christiansen Attending Clinician [phone] Ja Nicole Attending Clinician [phone] JA CALERO Attending Clinician UnavailAntonina Crum MD Attending Clinician [phone] ANTONINA SEWELL Attending Clinician Unavaila DYLON Hudson Attending Clinician Unavailable ANGIE CASON Attending Clinician Unavailabl e Only, Adc Test Attending Clinician Unavailable Diogo Minaya MD Attending Clinician [phone] [email or web address]_Kadiyala_S Admitting Clinician Unavaila ble GC_GCFRWD_Roberts_E Admitting Clinician Unavaila ble Camilo Goldman A Admitting Clinician Unavailable Payers Payer Name Policy Type Policy Number Effective Date Expirati on Date Source BCBSTX PPO [id number] 2020 00:00:00 [facility] 2 [id number] 2020 00:00:00 [facility] 6 [id number] [facility] [place] [id number] 2020 00:00:[place] [id number] 2018 00:00:00 Problems Condition Name Condition Details Condition Category Status Onset Date Resolution Date Last Treatment Date Treating Clinician Comments Source Other headache syndrome Other headache syndrome Disease Active 2021-04 00:00: 00 Roxanna Seybold - Externa l Lung nodule Lung nodule Disease Active 10-01 00:00: 00 Roxanna Seybold - Externa l Vitamin D deficiency Vitamin D deficiency Disease Active 10-01 00:00: 00 Roxanna Seybold - Externa l BMI 45.0-49.9, adult BMI 45.0-49.9, adult Disease Active 10-01 00:00: 00 Roxanna Seybold - Externa l History of pulmonary embolus (PE) History of pulmonary embolus (PE) Disease Active 10-01 00:00: 00 Roxanna Seybold - Externa l Prediabete s Prediabete s Disease Active 10-01 00:00: 00 Roxanna Seybold - Externa l Venous embolism Venous Embolism Problem Active 09-03 00:00: 00 [facility] Chronic deep venous thrombosis of femoral vein of right lower extremity Chronic Deep Venous Thrombosis of Femoral Vein of Right Lower Extremity Problem Active 09-03 00:00: 00 [facility] History of pulmonary embolus History of Pulmonary Embolus Problem Active 05-28 00:00: 00 [facility] Moderate recurrent major depression Moderate Recurrent Major Depression Problem Active - 00:00: 00 [facility] Reduced libido Reduced Libido Problem Active 05-08 00:00: 00 [facility] Pelvic and perineal pain Pelvic and Perineal Pain Problem Active 05-08 00:00: 00 [facility] Menopause present Menopause Present Problem Active - 00:00: 00 [facility] Screening mammograph y Screening Mammograph y Problem Active 2020-04 1-15 00:00: 00 [facility] Deep pain on intercours e Deep Pain on Intercours e Problem Active 2020-04 1-15 00:00: 00 [facility] COVID-19 COVID-19 Disease Active 824 00:00: 00 Roxanna Best Externa l Chronic pulmonary embolism Chronic Pulmonary Embolism Problem Active 8 00:00: 00 [facility] Urge incontinen ce of urine Urge Incontinen ce of Urine Problem Active 11-10 00:00: 00 [facility] Urgent desire to urinate Urgent Desire to Urinate Problem Active 11-10 00:00: 00 [facility] Gynecologi c examinatio n Gynecologi c Examinatio n Problem Active 11-10 00:00: 00 [facility] [id number] Tear of right rotator cuff, unspecifie d tear extent, unspecifie d whether traumatic Problem [facility] Allergies, Adverse Reactions, Alerts Allergy Name Allergy Type Status Severity Reaction(s) Onset Date Inactive Date Treating Clinician Comments Source No Known Allergie s DA Active U 09-04 00:00: 00 [facility] [place] NO KNOWN ALLERGIE S Drug Class Active [facility] Social History Social Habit Start Date Stop Date Quantity Comments Source Gender identity 2022-03-06 11:42:28 Identifies as female gender (finding) Roxanna Platt - External Sexual orientation [facility] Exposure to SARS-CoV-2 (event) Yes Roxanna fried History of tobacco use Current smoker Roxanna fitzpatrick - External Alcohol intake 2022-12-12 00:00:00 2022-12-12 00:00:00 Current drinker of alcohol (finding) Roxanna Platt - External Alcoholic beverage intake 2022-12-12 00:00:00 2022-12-12 00:00:00 Current drinker of alcohol (finding) Roxanna Platt - External Tobacco use and exposure 2022-07-31 00:00:00 2022-07-31 00:00:00 Smokeless tobacco non-user Roxanna Platt - External Alcohol Comment 2022-01-31 00:00:00 2022-01-31 00:00:00 2 drinks every 6 months Roxanna Platt - External History SDOH Alcohol Frequency 2022-01-10 00:00:00 2022-01-10 00:00:00 2 Roxanna Lc - External History SDOH Alcohol Std Drinks 2022-01-10 00:00:00 2022-01-10 00:00:00 1 Roxanna Mauriciocarolinedede - External History SDOH Alcohol Binge 2022-01-10 00:00:00 2022-01-10 00:00:00 1 Roxanna Sofiadede - External History of Social function 2018-10-14 00:00:00 2018-10-14 00:00:00 [facility] Sex assigned at 1975 00:00:00 1975 00:00:00 Magdalene Roxanna Lc - External Smoking Status Start Date Stop Date Source Never Smoker [facility] Ex-smoker 2022-07-31 00:00:00 2022-07-31 00:00:00 Bossman colvin Lc - External Medications Ordered Medication Name Filled Medication Name Start Date Stop Date Current Medication? Ordering Clinician Indication Dosage Frequency Signature (SIG) Comments Components Source Cephalexin (Keflex) 500 MG oral Capsule 10-18 00:00: 00 Yes [id number] 500mg Q.5D Take 1 capsule (500 mg total) by mouth 2 times daily. Roxanna mejias Azelastine HCl 0.05 % ophthalmic Solution 10-18 00:00: 00 Yes [id number] 1[drp] Q.5D Apply 1 drop to eye 2 times daily. Roxanna mejias methylPREDN ISolone (MEDROL, NITO,) 4 mg tablets 05-15 00:00: 00 Yes [id number] Take by mouth SEE-INSTRU CTIONS. follow package directions [facility] methylPREDN ISolone 4 MG oral Tablet Therapy Pack 1-03 00:00: 00 Yes [id number] 1{nito} Take 1 nito by mouth See Admin Instructio ns Use as directed. Roxanna mejias VITAMIN D OR 2022-04 10:59: 22 04-02 00:00 :00 No Take by mouth Roxanna mejias Multiple Vitamin (Multivitam ins) oral Capsule 2022-04 10:59: 13 04-02 00:00 :00 No 1{tbl} Take 1 tablet by mouth daily Roxanna mejias Semaglutide -Weight Management (Wegovy) 2.4 MG/0.75ML subcutaneou s Solution Auto-inject or 2022-04 00:00: 00 04-02 00:00 :00 No [id number] 2.4mg Inject 2.4 mg into the skin once a week. Roxanna mejias VITAMIN D OR 12-12 10:23: 36 Yes Take by mouth Roxanna mejias Multiple Vitamin (Multivitam ins) oral Capsule 12-12 10:23: 36 Yes 1{tbl} Take 1 tablet by mouth daily Roxanna mejias Semaglutide -Weight Management (Wegovy) 2.4 MG/0.75ML subcutaneou s Solution Auto-inject or 11-21 00:00: 00 Yes [id number] 2.4mg Inject 2.4 mg into the skin once a week Roxanna mejias Wegovy 1.7 MG/0.75ML subcutaneou s Solution Auto-inject or 11-21 00:00: 00 Yes Roxanna mejias VITAMIN D OR 10-30 15:44: 47 Yes Take by mouth Roxanna mejias Multiple Vitamin (Multivitam ins) oral Capsule 10-30 15:44: 47 Yes 1{tbl} Take 1 tablet by mouth daily Roxanna mejias Semaglutide -Weight Management (Wegovy) 1.7 MG/0.75ML subcutaneou s Solution Auto-inject or 10-30 00:00: 00 Yes [id number] 1.7mg Inject 1.7 mg into the skin once a week Roxanna mejias Phentermine HCl 37.5 MG oral Tablet 10-30 00:00: 00 Yes [id number] 37.5mg Take 1 tablet (37.5 mg total) by mouth every morning (before breakfast) Roxanna mejias VITAMIN D OR 07-31 15:48: 16 Yes Take by mouth Roxanna mejias Multiple Vitamin (Multivitam ins) oral Capsule 07-31 15:48: 16 Yes 1{tbl} Take 1 tablet by mouth daily Roxanna mejias Phentermine HCl 37.5 MG oral Tablet 07-31 00:00: 00 Yes [id number] 37.5mg Take 1 tablet (37.5 mg total) by mouth every morning (before breakfast) Roxanna mejias Warfarin (COUMADIN) 5 MG oral Tablet 07-31 00:00: 00 12-12 00:00 :00 No [id number] 2.5mg Take 0.5 tablets (2.5 mg total) by mouth daily 2.5 mg Roxanna mejias Semaglutide -Weight Management (Wegovy) 1.7 MG/0.75ML subcutaneou s Solution Auto-inject or 07-31 00:00: 00 10-30 00:00 :00 No [id number] 1.7mg Inject 1.7 mg into the skin once a week Roxanna mejias Trazodone HCl 50 MG oral Tablet 07-25 00:00: 00 Yes [id number] TAKE 1 TABLET(50 MG) BY MOUTH EVERY NIGHT Roxanna mejias Tirzepatide (Mounjaro) 7.5 MG/0.5ML subcutaneou s Solution Pen-injecto r 07-18 00:00: 00 07-31 00:00 :00 No [id number] 7.5mg Inject 0.5 mL (7.5 mg total) into the skin once a week Roxanna mejias Phentermine HCl 37.5 MG oral Tablet 07-03 00:00: 00 Yes [id number] 37.5mg Take 1 tablet (37.5 mg total) by mouth every morning (before breakfast) Roxanna mejias Tirzepatide (Mounjaro) 7.5 MG/0.5ML subcutaneou s Solution Pen-injecto r 06-25 00:00: 00 Yes [id number] 7.5mg Inject 0.5 mL (7.5 mg total) into the skin once a week Roxanna mejias Meloxicam 7.5 MG oral Tablet 06-07 00:00: 00 12-12 00:00 :00 No TAKE 1 TABLET BY MOUTH EVERY DAY NEEDED FOR PAIN. TAKE WITH FOOD. Roxanna mejias predniSONE (DELTASONE) 20 MG oral tablet 06-07 00:00: 00 07-03 00:00 :00 No TAKE 3 TABLET BY MOUTH EVERY DAY FOR 5 DAYS Roxanna mejias VITAMIN D OR 06-06 08:27: 00 Yes Take by mouth Roxanna mejias Multiple Vitamin (Multivitam ins) oral Capsule 06-06 08:27: 00 Yes 1{tbl} Take 1 tablet by mouth daily Roxanna mejias Acetaminoph en (TYLENOL OR) 06-05 16:39: 14 06-05 00:00 :00 No Take by mouth Roxanna mejias VITAMIN D OR 06-05 16:28: 35 Yes Take by mouth Roxanna mejias Multiple Vitamin (Multivitam ins) oral Capsule 06-05 16:28: 35 Yes 1{tbl} Take 1 tablet by mouth daily Roxanna mejias Tirzepatide (Mounjaro) 5 MG/0.5ML subcutaneou s Solution Pen-injecto r 06-05 00:00: 00 Yes [id number] 5mg Inject 0.5 mL (5 mg total) into the skin once a week Roxanna mejias Acetaminoph en (TYLENOL OR) 05-07 16:47: 15 Yes Take by mouth Roxanna mejias Multiple Vitamin (Multivitam ins) oral Capsule 05-07 16:47: 15 Yes 1{tbl} Take 1 tablet by mouth daily Roxanna mejias Tirzepatide (Mounjaro) 2.5 MG/0.5ML subcutaneou s Solution Pen-injecto r 05-07 00:00: 00 Yes [id number] 2.5mg Inject 0.5 mL (2.5 mg total) into the skin once a week Roxanna mejias Trazodone HCl 50 MG oral Tablet 05-07 00:00: 00 Yes [id number] 50mg Take 1 tablet (50 mg total) by mouth nightly Roxanna mejias Phentermine HCl 37.5 MG oral Tablet 05-07 00:00: 00 06-06 00:00 :00 No [id number] 37.5mg Take 1 tablet (37.5 mg total) by mouth every morning (before breakfast) Roxanna mejias Acetaminoph en (TYLENOL OR) 2021-04 14:49: 53 Yes Take by mouth Roxanna mejias Warfarin (COUMADIN) 5 MG oral Tablet 2021-04 00:00: 00 07-31 00:00 :00 No [id number] 2.5 mg every Thursday through Thursday and 5 mg every Thu and Thu Roxanna mejias Bupivicaine Goodman Bupivicaine Goodman 2021-04 00:00: 00 No 2.5mg [facility] Kenalog (Triamcinol one) Kenalog (Triamcinol one) 2021-04 00:00: 00 No 40mg [facility] Bupivicaine Goodman Bupivicaine Goodman 2021-04 00:00: 00 No 2.5mg [facility] Kenalog (Triamcinol one) Kenalog (Triamcinol one) 2021-04 00:00: 00 No 40mg [facility] Bupivicaine Goodman Bupivicaine Goodman 2021-04 00:00: 00 No 2.5mg [facility] Kenalog (Triamcinol one) Kenalog (Triamcinol one) 2021-04 00:00: 00 No 40mg [facility] Bupivicaine Goodman Bupivicaine Goodman 2021-04 00:00: 00 No 2.5mg [facility] Kenalog (Triamcinol one) Kenalog (Triamcinol one) 2021-04 00:00: 00 No 40mg [facility] Bupivicaine Goodman Bupivicaine Goodman 2021-04 00:00: 00 No 2.5mg [facility] Kenalog (Triamcinol one) Kenalog (Triamcinol one) 2021-04 00:00: 00 No 40mg [facility] Bupivicaine Goodman Bupivicaine Goodman 2021-04 00:00: 00 No 2.5mg [facility] Kenalog (Triamcinol one) Kenalog (Triamcinol one) 2021-04 00:00: 00 No 40mg [facility] Bupivicaine Goodman Bupivicaine Goodman 2021-04 00:00: 00 No 2.5mg [facility] Kenalog (Triamcinol one) Kenalog (Triamcinol one) 2021-04 00:00: 00 No 40mg [facility] Bupivicaine Goodman Bupivicaine Goodman 2021-04 00:00: 00 No 2.5mg [facility] Kenalog (Triamcinol one) Kenalog (Triamcinol one) 2021-04 00:00: 00 No 40mg [facility] Bupivicaine Goodman Bupivicaine Goodman 2021-04 00:00: 00 No 2.5mg [facility] Kenalog (Triamcinol one) Kenalog (Triamcinol one) 2021-04 00:00: 00 No 40mg [facility] Bupivicaine Goodman Bupivicaine Goodman 2021-04 00:00: 00 No 2.5mg Common [facility] Kenalog (Triamcinol one) Kenalog (Triamcinol one) 2021-04 00:00: 00 No 40mg [facility] Bupivicaine Goodman Bupivicaine Goodman 2021-04 00:00: 00 No 2.5mg Common [facility] Kenalog (Triamcinol one) Kenalog (Triamcinol one) 2021-04 00:00: 00 No 40mg [facility] Bupivicaine Goodman Bupivicaine Goodman 2021-04 00:00: 00 No 2.5mg [facility] Kenalog (Triamcinol one) Kenalog (Triamcinol one) 2021-04 00:00: 00 No 40mg [facility] Bupivicaine Goodman Bupivicaine Goodman 2021-04 00:00: 00 No 2.5mg [facility] Kenalog (Triamcinol one) Kenalog (Triamcinol one) 2021-04 00:00: 00 No 40mg [facility] Bupivicaine Goodman Bupivicaine Goodman 2021-04 00:00: 00 No 2.5mg [facility] Kenalog (Triamcinol one) Kenalog (Triamcinol one) 2021-04 00:00: 00 No 40mg [facility] Acetaminoph en (TYLENOL OR) 2021-04 13:13: 43 Yes Take by mouth Roxanna Platt - Marthaa randell Cholecalcif jef (Vitamin D) 10 MCG/ML oral Liquid 2021-04 13:13: 28 01-31 00:00 :00 No Roxanna Platt - Externa randell Administere d Medications Medication OrderMAR ActionActio n DateDoseRat eSiteKenalo gGiven mg 2021-04 13:02: 14 No Administer ed Medication sMedicatio n OrderMAR ActionActi on Bruna Saba logGiven mg Roxanna mejias Cholecalcif jef (Vitamin D) 10 MCG/ML oral Liquid 2021-04 0 13:02: 14 Yes Roxanna mejias Acetaminoph en (TYLENOL OR) 2021-04 13:00: 49 Yes Take by mouth Roxanna mejias TRIMETHOPRI M-POLYMYXIN B 03434-8.1 UNIT/ML-% ophthalmic Solution 12-27 00:00: 00 Yes INSTILL 1 DROP IN LEFT EYE FOUR TIMES DAILY FOR 10 DAYS Roxanna mejias TRIMETHOPRI M-SULFAMETH OXAZOLE 800-160 MG oral Tablet 12-27 00:00: 00 Yes 1{tbl} Take 1 tablet by mouth 2 times daily for 10 days Roxanna mejias methylPREDN ISolone 4 MG oral Tablet Therapy Pack 12-17 00:00: 00 01-10 00:00 :00 No [id number] 1{nito} Take 1 nito by mouth See Admin Instructio ns Use as directed Roxanna mejias COVID-19 At Home Antigen Test in vitro Kit 12-17 00:00: 00 01-10 00:00 :00 No [id number] 1{each} 1 each by in vitro route every 2 days Roxanna mejias Bupivicaine Goodman Bupivicaine Goodman 09-16 00:00: 00 No 2.5mg [facility] Kenalog (Triamcinol one) Kenalog (Triamcinol one) 09-16 00:00: 00 No 40mg [facility] Bupivicaine Goodman Bupivicaine Goodman 09-16 00:00: 00 No 2.5mg [facility] Kenalog (Triamcinol one) Kenalog (Triamcinol one) 09-16 00:00: 00 No 40mg [facility] Bupivicaine Goodman Bupivicaine Goodman 2021-0 09-16 00:00: 00 No 2.5mg [facility] Kenalog (Triamcinol one) Kenalog (Triamcinol one) 2021-0 09-16 00:00: 00 No 40mg [facility] Bupivicaine Goodman Bupivicaine Goodman 2021-0 09-16 00:00: 00 No 2.5mg [facility] Kenalog (Triamcinol one) Kenalog (Triamcinol one) 0 09-16 00:00: 00 No 40mg [facility] Bupivicaine Goodman Bupivicaine Goodman 2021-0 09-16 00:00: 00 No 2.5mg [facility] Kenalog (Triamcinol one) Kenalog (Triamcinol one) 0 09-16 00:00: 00 No 40mg [facility] Bupivicaine Goodman Bupivicaine Goodman 2021-0 09-16 00:00: 00 No 2.5mg [facility] Kenalog (Triamcinol one) Kenalog (Triamcinol one) 2021-0 09-16 00:00: 00 No 40mg [facility] Bupivicaine Goodman Bupivicaine Goodman 2021-0 09-16 00:00: 00 No 2.5mg [facility] Kenalog (Triamcinol one) Kenalog (Triamcinol one) 2021-0 09-16 00:00: 00 No 40mg [facility] Bupivicaine Goodman Bupivicaine Goodman 2021-0 09-16 00:00: 00 No 2.5mg [facility] Kenalog (Triamcinol one) Kenalog (Triamcinol one) 2021-0 13 00:00: 00 No 40mg [facility] Bupivicaine Goodman Bupivicaine Goodman 2021-0 09-16 00:00: 00 No 2.5mg [facility] Kenalog (Triamcinol one) Kenalog (Triamcinol one) 0 09-16 00:00: 00 No 40mg [facility] Bupivicaine Goodman Bupivicaine Goodman 2021-0 09-16 00:00: 00 No 2.5mg [facility] Kenalog (Triamcinol one) Kenalog (Triamcinol one) 0 09-16 00:00: 00 No 40mg [facility] Bupivicaine Goodman Bupivicaine Goodman 2021-0 09-16 00:00: 00 No 2.5mg [facility] Kenalog (Triamcinol one) Kenalog (Triamcinol one) 0 09-16 00:00: 00 No 40mg [facility] Bupivicaine Goodman Bupivicaine Goodman 0 09-16 00:00: 00 No 2.5mg [facility] Kenalog (Triamcinol one) Kenalog (Triamcinol one) 0 09-16 00:00: 00 No 40mg [facility] Bupivicaine Goodman Bupivicaine Goodman 2021-0 09-16 00:00: 00 No 2.5mg [facility] Kenalog (Triamcinol one) Kenalog (Triamcinol one) 0 09-16 00:00: 00 No 40mg [facility] Bupivicaine Goodman Bupivicaine Goodman 2021-0 09-16 00:00: 00 No 2.5mg [facility] Kenalog (Triamcinol one) Kenalog (Triamcinol one) 0 09-16 00:00: 00 No 40mg [facility] Bupivicaine Goodman Bupivicaine Goodman 2021-0 09-16 00:00: 00 No 2.5mg [facility] Kenalog (Triamcinol one) Kenalog (Triamcinol one) 09-16 00:00: 00 No [facility] Bupivicaine Goodman Bupivicaine Goodman 09-16 00:00: 00 No 2.5mg [facility] Kenalog (Triamcinol one) Kenalog (Triamcinol one) 09-16 00:00: 00 No 40mg [facility] Bupivicaine Goodman Bupivicaine Goodman 09-16 00:00: 00 No 2.5mg [facility] Kenalog (Triamcinol one) Kenalog (Triamcinol one) 09-16 00:00: 00 No 40mg [facility] Acetaminoph en (TYLENOL OR) 2020-04 0 10:25: 55 Yes Take by mouth Roxanna Platt hydrOXYzine HCl 25 MG oral Tablet 12-21 00:00: 00 Yes [id number] 25mg [id number] 3D Take 1 tablet (25 mg total) by mouth 3 times daily as needed for itching Roxanna Platt methylPREDN ISolone 4 MG oral Tablet Therapy Pack 12-21 00:00: 00 Yes [id number] 1{nito} Take 1 nito by mouth See Admin Instructio ns Use as directed Roxanna Platt Cetirizine HCl (ZyrTEC Allergy) 10 MG oral Capsule 12-21 00:00: 00 Yes [id number] 10mg Take 1 capsule (10 mg total) by mouth daily Roxanna Platt Desonide 0.05 % apply externally Cream 12-21 00:00: 00 01-19 04:59 :00 No [id number] Apply to affected area twice a day for 7 days Roxanna Platt Acetaminoph en (TYLENOL OR) 12-05 10:31: 35 Yes Take by mouth Roxanna Platt Dexamethaso ne 6 MG oral Tablet 8-28 00:00: 00 12-11 00:00 :00 No TAKE 1 TABLET BY MOUTH DAILY FOR 7 DAYS Roxanna Platt Albuterol HFA 108 (90 Base) MCG/ACT IN AERS 11-25 00:00: 00 Yes INHALE 2 PUFFS BY MOUTH EVERY 4 HOURS DIRECTED Roxanna Platt Hydroxychlo roquine Sulfate 200 MG oral Tablet 11-25 00:00: 00 12-11 00:00 :00 No Roxanna Platt SUMAtriptan 50 mg tablet 07-15 19:21: 38 Yes 50mg Take 50 mg by mouth once now. [facility] SUMAtriptan 50 mg tablet 07-15 14:21: 38 Yes 50mg Take 50 mg by mouth once now. [facility] albuterol 90 mcg/actuati on inhaler 2017-04 00:00: 00 Yes 2{puff} Inhale 2 Puffs every 6 (six) hours as needed for Wheezing or Shortness of Breath. [facility] Warfarin (COUMADIN) 5 MG oral Tablet 07-03 00:00: 00 Yes Roxanna Platt - Externa l azelastine 137 mcg (0.1 %) nasal spray aerosol USE 1 SPRAY IN EACH NOSTRIL TWICE DAILY azelastine 137 mcg (0.1 %) nasal spray aerosol USE 1 SPRAY IN EACH NOSTRIL TWICE DAILY No azelastine 137 mcg (0.1 %) nasal spray aerosol USE 1 SPRAY IN EACH NOSTRIL TWICE DAILY [facility] azithromyci n 250 mg tablet TAKE 2 TABLETS BY MOUTH FOR 1 DAY THEN TAKE 1 TABLET BY MOUTH DAILY FOR 4 DAYS THEREAFTER azithromyci n 250 mg tablet TAKE 2 TABLETS BY MOUTH FOR 1 DAY THEN TAKE 1 TABLET BY MOUTH DAILY FOR 4 DAYS THEREAFTER No azithromyc in 250 mg tablet TAKE 2 TABLETS BY MOUTH FOR 1 DAY THEN TAKE 1 TABLET BY MOUTH DAILY FOR 4 DAYS THEREAFTER [facility] bromphenira mine-pseudo ephedrine-D M 2 mg-30 mg-10 mg/5 mL oral syrup TAKE 10 ML BY MOUTH FOUR TIMES DAILY FOR UP TO 3 DAYS NEEDED bromphenira mine-pseudo ephedrine-D M 2 mg-30 mg-10 mg/5 mL oral syrup TAKE 10 ML BY MOUTH FOUR TIMES DAILY FOR UP TO 3 DAYS NEEDED No bromphenir amine-pseu doephedrin e-DM 2 mg-30 mg-10 mg/5 mL oral syrup TAKE 10 ML BY MOUTH FOUR TIMES DAILY FOR UP TO 3 DAYS NEEDED [facility] fluticasone propionate 50 mcg/actuati on nasal spray,suspe nsion fluticasone propionate 50 mcg/actuati on nasal spray,suspe nsion No fluticason e propionate 50 mcg/actuat ion nasal spray,susp ension [facility] hydrocodone 7.5 mg-acetamin ophen 325 mg tablet TAKE 1 TABLET BY MOUTH EVERY 6 HOURS FOR 7 DAYS NEEDED hydrocodone 7.5 mg-acetamin ophen 325 mg tablet TAKE 1 TABLET BY MOUTH EVERY 6 HOURS FOR 7 DAYS NEEDED No hydrocodon e 7.5 mg-acetami nophen 325 mg tablet TAKE 1 TABLET BY MOUTH EVERY 6 HOURS FOR 7 DAYS NEEDED [facility] methylpredn isolone 4 mg tablets in a dose pack FOLLOW PACKAGE DIRECTIONS methylpredn isolone 4 mg tablets in a dose pack FOLLOW PACKAGE DIRECTIONS No methylpred nisolone 4 mg tablets in a dose pack FOLLOW PACKAGE DIRECTIONS [facility] Prescriptio n - Clarificati on Prescriptio n - Clarificati on No Prescripti on - Clarificat ion [facility] promethazin e-DM 6.25 mg-15 mg/5 mL oral syrup TAKE 10 ML BY MOUTH FOUR TIMES DAILY FOR 10 DAYS promethazin e-DM 6.25 mg-15 mg/5 mL oral syrup TAKE 10 ML BY MOUTH FOUR TIMES DAILY FOR 10 DAYS No promethazi ne-DM 6.25 mg-15 mg/5 mL oral syrup TAKE 10 ML BY MOUTH FOUR TIMES DAILY FOR 10 DAYS [facility] warfarin 1 mg tablet TAKE 3 TABLETS BY MOUTH DAILY warfarin 1 mg tablet TAKE 3 TABLETS BY MOUTH DAILY No warfarin 1 mg tablet TAKE 3 TABLETS BY MOUTH DAILY [facility] Acetaminoph en-Codeine #3 Acetaminoph en-Codeine #3 Yes Eugenio Em not defined [facility] Warfarin Sodium Warfarin Sodium Yes Eugenio Em not defined [facility] Enoxaparin Sodium Enoxaparin Sodium Yes Eugenio Em not defined [facility] Sertraline HCl Sertraline HCl Yes Eugenio Em not defined [facility] Sumatriptan Sumatriptan Yes Yaakov s Em not defined [facility] Warfarin Sodium Warfarin Sodium No Warfarin Sodium Vitamin D Vitamin D No Vitamin D Enoxaparin Sodium Enoxaparin Sodium No Enoxaparin Sodium Warfarin Sodium Warfarin Sodium No Warfarin Sodium metroNIDAZO LE 0.75 % metroNIDAZO LE 0.75 % No metroNIDAZ OLE 0.75 % Warfarin Sodium Warfarin Sodium No Warfarin Sodium metroNIDAZO LE 0.75 % metroNIDAZO LE 0.75 % No metroNIDAZ OLE 0.75 % Warfarin Sodium Warfarin Sodium No Warfarin Sodium metroNIDAZO LE 0.75 % metroNIDAZO LE 0.75 % No metroNIDAZ OLE 0.75 % Warfarin Sodium Warfarin Sodium No Warfarin Sodium metroNIDAZO LE 0.75 % metroNIDAZO LE 0.75 % No metroNIDAZ OLE 0.75 % Warfarin Sodium Warfarin Sodium No Warfarin Sodium metroNIDAZO LE 0.75 % metroNIDAZO LE 0.75 % No metroNIDAZ OLE 0.75 % Warfarin Sodium Warfarin Sodium No Warfarin Sodium metroNIDAZO LE 0.75 % metroNIDAZO LE 0.75 % No metroNIDAZ OLE 0.75 % Warfarin Sodium Warfarin Sodium No Warfarin Sodium metroNIDAZO LE 0.75 % metroNIDAZO LE 0.75 % No metroNIDAZ OLE 0.75 % Warfarin Sodium Warfarin Sodium No Warfarin Sodium metroNIDAZO LE 0.75 % metroNIDAZO LE 0.75 % No metroNIDAZ OLE 0.75 % Warfarin Sodium Warfarin Sodium No Warfarin Sodium metroNIDAZO LE 0.75 % metroNIDAZO LE 0.75 % No metroNIDAZ OLE 0.75 % Enoxaparin Sodium Enoxaparin Sodium No Enoxaparin Sodium Warfarin Sodium Warfarin Sodium No Warfarin Sodium metroNIDAZO LE 0.75 % metroNIDAZO LE 0.75 % No metroNIDAZ OLE 0.75 % metroNIDAZO LE 0.75 % metroNIDAZO LE 0.75 % No metroNIDAZ OLE 0.75 % Warfarin Sodium Warfarin Sodium No Warfarin Sodium Warfarin Sodium Warfarin Sodium No Warfarin Sodium metroNIDAZO LE 0.75 % metroNIDAZO LE 0.75 % No metroNIDAZ OLE 0.75 % Tylenol Tylenol No Tylenol Immunizations Ordered Immunization Name Filled Immunization Name Date Status Comments Source Tdap- (Boostrix, Adacel) 2022-12-12 00:00:00 Completed Roxanna Seybold - External Tdap- (Boostrix, Adacel) Unknown Completed Roxanna Mauricioybold - External Tdap- (Boostrix, Adacel) Unknown Completed Roxanna Platt - External Vital Signs Vital Name Observation Time Observation Value Comments S shayy height 2023-06-16 13:15:00 60.5 [in_i] Comm on [facility] weight 2023-06-16 13:15:00 198 [lb_av] Comm on [facility] temperature 2023-06-16 13:15:00 98.4 [degF] Com mon [facility] bmi 2023-06-16 13:15:00 38.03 kg/m2 Comm on [facility] blood pressure systolic 2023-06-16 13:15:00 120 mm[Hg] [facility] blood pressure diastolic 2023-06-16 13:15:00 78 mm[Hg] [facility] Systolic blood pressure 2023-05-15 21:33:00 119 mm[Hg] [facility] Diastolic blood pressure 2023-05-15 21:33:00 77 mm[Hg] [facility] Heart rate 2023-05-15 21:33:00 106 /min [facility] Body temperature 2023-05-15 21:33:00 37.28 Domi [facility] Respiratory rate 2023-05-15 21:33:00 12 /min [facility] Body height 2023-05-15 21:33:00 151.1 cm [facility] Body weight 2023-05-15 21:33:00 92.625 kg [facility] BMI 2023-05-15 21:33:00 40.55 kg/m2 [facility] Oxygen saturation in Arterial blood by Pulse oximetry 2023-05-15 21:33:00 97 /min [facility] height 2023-05-05 13:00:00 60.5 [in_i] Comm on [facility] weight 2023-05-05 13:00:00 198 [lb_av] Comm on [facility] temperature 2023-05-05 13:00:00 98.0 [degF] Com mon [facility] bmi 2023-05-05 13:00:00 38.03 kg/m2 Comm on [facility] blood pressure systolic 2023-05-05 13:00:00 118 mm[Hg] [facility] blood pressure diastolic 2023-05-05 13:00:00 78 mm[Hg] [facility] height 2023-03-24 13:00:00 60.5 [in_i] Comm on [facility] weight 2023-03-24 13:00:00 198 [lb_av] Comm on [facility] temperature 2023-03-24 13:00:00 97.8 [degF] Com [facility] bmi 2023-03-24 13:00:00 38.03 kg/m2 Comm on [facility] blood pressure systolic 2023-03-24 13:00:00 120 mm[Hg] [facility] blood pressure diastolic 2023-03-24 13:00:00 80 mm[Hg] Common [facility] height 2023-02-17 09:30:00 60.5 [in_i] Comm on [facility] weight 2023-02-17 09:30:00 198 [lb_av] Comm on [facility] temperature 2023-02-17 09:30:00 98.0 [degF] Com [facility] bmi 2023-02-17 09:30:00 38.03 kg/m2 Comm on [facility] blood pressure systolic 2023-02-17 09:30:00 120 mm[Hg] [facility] blood pressure diastolic 2023-02-17 09:30:00 80 mm[Hg] Common [facility] height 2023-02-05 15:30:00 60.5 [in_i] Comm on [facility] weight 2023-02-05 15:30:00 197 [lb_av] Comm on [facility] temperature 2023-02-05 15:30:00 98.0 [degF] Com [facility] bmi 2023-02-05 15:30:00 37.84 kg/m2 Comm on [facility] blood pressure systolic 2023-02-05 15:30:00 118 mm[Hg] Common [facility] blood pressure diastolic 2023-02-05 15:30:00 78 mm[Hg] [facility] height 2022-12-30 09:30:00 60.5 [in_i] Comm on [facility] weight 2022-12-30 09:30:00 197.5 [lb_av] Co mmon [facility] temperature 2022-12-30 09:30:00 98.2 [degF] Com [facility] bmi 2022-12-30 09:30:00 37.93 kg/m2 Comm on [facility] blood pressure systolic 2022-12-30 09:30:00 117 mm[Hg] Common [facility] blood pressure diastolic 2022-12-30 09:30:00 76 mm[Hg] [facility] Systolic blood pressure 2022-12-12 15:20:00 110 mm[Hg] Roxanna Leger ld - External Diastolic blood pressure 2022-12-12 15:20:00 70 mm[Hg] Roxanna Blacko ld - External Heart rate 2022-12-12 15:20:00 90 /min Kelse negron Seybold - External Body temperature 2022-12-12 15:20:00 36.28 Domi Roxanna Seybold - External Respiratory rate 2022-12-12 15:20:00 14 /min Roxanna Mauricioybold - External Body height 2022-12-12 15:20:00 149.9 cm Tiffanie parrish Seybold - External Body weight 2022-12-12 15:20:00 89.359 kg Tiffanie ey Seybold - External BMI 2022-12-12 15:20:00 39.79 kg/m2 Tiffanie ey Seybold - External height 2022-11-17 08:45:00 60.5 [in_i] Comm on [facility] weight 2022-11-17 08:45:00 200.1 [lb_av] Co mmon [facility] bmi 2022-11-17 08:45:00 38.43 kg/m2 Comm on [facility] blood pressure systolic 2022-11-17 08:45:00 117 mm[Hg] Common [facility] blood pressure diastolic 2022-11-17 08:45:00 78 mm[Hg] [facility] Systolic blood pressure 2022-10-30 20:39:00 110 mm[Hg] Roxanna Seybo ld - External Diastolic blood pressure 2022-10-30 20:39:00 78 mm[Hg] Roxanna Seybo ld - External Heart rate 2022-10-30 20:39:00 74 /min Kelse y Seybold - External Body temperature 2022-10-30 20:39:00 36.61 Domi Roxanna Seybold - External Respiratory rate 2022-10-30 20:39:00 18 /min Roxanna Seybold - External Body height 2022-10-30 20:39:00 149.9 cm Tiffanie ey Seybold - External Body weight 2022-10-30 20:39:00 95.255 kg Tiffanie ey Seybold - External BMI 2022-10-30 20:39:00 42.41 kg/m2 Tiffanie ey Seybold - External Systolic blood pressure 2022-07-31 20:46:00 110 mm[Hg] Roxanna Seybo ld - External Diastolic blood pressure 2022-07-31 20:46:00 74 mm[Hg] Roxanna Seybo ld - External Heart rate 2022-07-31 20:46:00 79 /min Kelse y Seybold - External Body temperature 2022-07-31 20:46:00 37 Domi Roxanna Seybold - External Respiratory rate 2022-07-31 20:46:00 14 /min Roxanna Seybold - External Body height 2022-07-31 20:46:00 149.9 cm Tiffanie ey Seybold - External Body weight 2022-07-31 20:46:00 102.513 kg Tiffanie ey Seybold - External BMI 2022-07-31 20:46:00 45.65 kg/m2 Tiffanie ey Seybold - External Systolic blood pressure 2022-07-03 21:05:00 110 mm[Hg] Roxanna Seybo ld - External Diastolic blood pressure 2022-07-03 21:05:00 64 mm[Hg] Roxanna Seybo ld - External Heart rate 2022-07-03 21:05:00 75 /min Kelse y Seybold - External Body temperature 2022-07-03 21:05:00 35.61 Domi Roxanna Seybold - External Respiratory rate 2022-07-03 21:05:00 15 /min Roxanna Seybold - External Body height 2022-07-03 21:05:00 149.9 cm Tiffanie ey Seybold - External Body weight 2022-07-03 21:05:00 107.049 kg Tiffanie ey Seybold - External BMI 2022-07-03 21:05:00 47.67 kg/m2 Tiffanie ey Seybold - External Oxygen saturation in Arterial blood by Pulse oximetry 2022-07-03 21:05:00 99 /min Roxanna Seybo ld - External Systolic blood pressure 2022-06-05 22:25:00 120 mm[Hg] Roxanna Seybo ld - External Diastolic blood pressure 2022-06-05 22:25:00 78 mm[Hg] Roxanna Seybo ld - External Heart rate 2022-06-05 22:25:00 91 /min Kelse y Seybold - External Body temperature 2022-06-05 22:25:00 36.06 Domi Roxanna Seybold - External Respiratory rate 2022-06-05 22:25:00 14 /min Roxanna Seybold - External Body height 2022-06-05 22:25:00 149.9 cm Tiffanie ey Seybold - External Body weight 2022-06-05 22:25:00 106.595 kg Tiffanie ey Seybold - External BMI 2022-06-05 22:25:00 47.46 kg/m2 Tiffanie ey Seybold - External Systolic blood pressure 2022-05-07 22:45:00 117 mm[Hg] Roxanna Mauricioybo ld - External Diastolic blood pressure 2022-05-07 22:45:00 78 mm[Hg] Roxanna Mauricioybo ld - External Heart rate 2022-05-07 22:45:00 76 /min Kelse y Seybold - External Body temperature 2022-05-07 22:45:00 36.67 Domi Roxanna Seybold - External Respiratory rate 2022-05-07 22:45:00 15 /min Roxanna Seybold - External Body height 2022-05-07 22:45:00 149.9 cm Tiffanie ey Seybold - External Body weight 2022-05-07 22:45:00 111.131 kg Tiffanie ey Seybold - External BMI 2022-05-07 22:45:00 49.48 kg/m2 Tiffanie ey Seybold - External Oxygen saturation in Arterial blood by Pulse oximetry 2022-05-07 22:45:00 99 /min Roxanna Mauricioybo ld - External Systolic blood pressure 2022-03-27 20:46:00 116 mm[Hg] Roxanna Seybo ld - External Diastolic blood pressure 2022-03-27 20:46:00 72 mm[Hg] Roxanna Seybo ld - External Heart rate 2022-03-27 20:46:00 99 /min Ricose y Seybold - External Body temperature 2022-03-27 20:46:00 36.67 Domi Roxanna Seybold - External Respiratory rate 2022-03-27 20:46:00 14 /min Roxanna Seybold - External Body height 2022-03-27 20:46:00 149.9 cm Tiffanie ey Seybold - External Body weight 2022-03-27 20:46:00 110.678 kg Tiffanie ey Seybold - External BMI 2022-03-27 20:46:00 49.28 kg/m2 Tiffanie ey Seybold - External height 2022-02-13 13:00:00 60.5 [in_i] Comm on [facility] weight 2022-02-13 13:00:00 243 [lb_av] Comm on [facility] temperature 2022-02-13 13:00:00 97.0 [degF] Com mon [facility] bmi 2022-02-13 13:00:00 46.67 kg/m2 Comm on [facility] blood pressure systolic 2022-02-13 13:00:00 126 mm[Hg] [facility] blood pressure diastolic 2022-02-13 13:00:00 72 mm[Hg] [facility] height 2022-01-23 13:00:00 60.5 [in_i] Comm on [facility] weight 2022-01-23 13:00:00 220 [lb_av] Comm on [facility] temperature 2022-01-23 13:00:00 97.2 [degF] Com [facility] bmi 2022-01-23 13:00:00 42.25 kg/m2 Comm on [facility] blood pressure systolic 2022-01-23 13:00:00 122 mm[Hg] Common [facility] blood pressure diastolic 2022-01-23 13:00:00 80 mm[Hg] [facility] Systolic blood pressure 2022-01-10 18:02:00 101 mm[Hg] Roxanna Leger ld - External Diastolic blood pressure 2022-01-10 18:02:00 72 mm[Hg] Roxanna Leger ld - External Heart rate 2022-01-10 18:02:00 73 /min Dale Platt - External Body temperature 2022-01-10 18:02:00 36.67 Domi Roxanna Platt - External Respiratory rate 2022-01-10 18:02:00 16 /min Roxanna Platt - External Body height 2022-01-10 18:02:00 149.9 cm Tiffanie Platt - External Body weight 2022-01-10 18:02:00 109.68 kg Tiffanie ey ybdede - External BMI 2022-01-10 18:02:00 48.84 kg/m2 Tiffanie ey Seybold - External Oxygen saturation in Arterial blood by Pulse oximetry 2022-01-10 18:02:00 95 /min Roxanna Leger ld - External height 2021-12-23 08:30:00 60.5 [in_i] Comm on [facility] weight 2021-12-23 08:30:00 220 [lb_av] Comm on [facility] temperature 2021-12-23 08:30:00 97.3 [degF] Com [facility] bmi 2021-12-23 08:30:00 42.25 kg/m2 Comm on [facility] blood pressure systolic 2021-12-23 08:30:00 126 mm[Hg] Common [facility] blood pressure diastolic 2021-12-23 08:30:00 78 mm[Hg] [facility] blood pressure diastolic 2021-12-02 09:30:00 84 mm[Hg] Common [facility] height 2021-12-02 09:30:00 60.5 [in_i] Comm on [facility] weight 2021-12-02 09:30:00 220 [lb_av] Comm on [facility] temperature 2021-12-02 09:30:00 97.7 [degF] Com [facility] bmi 2021-12-02 09:30:00 42.25 kg/m2 Comm on [facility] blood pressure systolic 2021-12-02 09:30:00 134 mm[Hg] Common [facility] height 2021-11-18 13:00:00 60.5 [in_i] Comm on [facility] weight 2021-11-18 13:00:00 220 [lb_av] Comm on [facility] temperature 2021-11-18 13:00:00 97.9 [degF] Com [facility] bmi 2021-11-18 13:00:00 42.25 kg/m2 Comm on [facility] blood pressure systolic 2021-11-18 13:00:00 126 mm[Hg] Common [facility] blood pressure diastolic 2021-11-18 13:00:00 80 mm[Hg] Common [facility] height 2021-11-13 09:00:00 60.5 [in_i] Comm on [facility] weight 2021-11-13 09:00:00 220 [lb_av] Comm on [facility] bmi 2021-11-13 09:00:00 42.25 kg/m2 Comm on [facility] blood pressure systolic 2021-11-13 09:00:00 132 mm[Hg] Common [facility] blood pressure diastolic 2021-11-13 09:00:00 76 mm[Hg] Common [facility] height 2021-09-16 08:00:00 60.5 [in_i] Comm on [facility] weight 2021-09-16 08:00:00 233.4 [lb_av] Co mmon [facility] temperature 2021-09-16 08:00:00 97.8 [degF] Com mon [facility] bmi 2021-09-16 08:00:00 44.83 kg/m2 Comm on [facility] Systolic blood pressure 2021-01-04 15:26:00 128 mm[Hg] Roxanna alvarez Diastolic blood pressure 2021-01-04 15:26:00 87 mm[Hg] Roxanna Leger ld Heart rate 2021-01-04 15:26:00 95 /min Dale jamil Platt Body temperature 2021-01-04 15:26:00 36.78 Domi Roxanna fariha Respiratory rate 2021-01-04 15:26:00 16 /min Roxanna fariha Body height 2021-01-04 15:26:00 149.9 cm Tiffanie parrish fariha Body weight 2021-01-04 15:26:00 105.688 kg Tiffanie Platt BMI 2021-01-04 15:26:00 47.06 kg/m2 Tiffanie Platt Oxygen saturation in Arterial blood by Pulse oximetry 2021-01-04 15:26:00 93 /min Roxanna alvarez Procedures Procedure Date / Time Performed Performing Clinician Source POCT SARS-COV-2 ANTIGEN (BINAX NOW) 2023-05-15 21:52:00 Payam Gillis [facility] POCT MOLECULAR FLU 2023-05-15 21:42:00 Unknown, Attend ing [facility] ASSIGNMENT OF BENEFITS 2023-05-15 21:27:19 Bailee r Unassigned, [place] [facility] Partial Repair of Rotator Cuff 2023-02-13 00:00:00 [facility] JOHANNA FOLLOW-UP WITH SLEEP EDUCATOR 2022-01-10 18:13:30 Carmela Traylor - External Hysterectomy 2021-09-05 00:00:00 Joceline Livingston edical ASSIGNMENT OF BENEFITS 2020-11-19 16:55:51 Bailee sharma Unassigned, [place] [facility] Tubal Ligation 2001-11-11 00:00:00 [facility] Medical Plan of Care Planned Activity Planned Date Details Comments Source Future Appointment 2024-03-08 09:30:00 Amy riley, [address] [place] [address] S; [address] [address] [facility] Medical Encounters Start Date/Time End Date/Time Encounter Type Admission Type Attending Clinicians Care Facility Care Department Encounter ID Source 2023-08-04 10:39:00 Outpatient [facility] [id number] [facility] 2021-11-19 08:16:01 Outpatient [facility] [id number] [facility] 2021-11-12 13:49:00 Outpatient [facility] [id number] [facility] 2021-11-11 16:58:00 Outpatient [facility] [id number] [facility] 2021-09-16 09:36:01 Outpatient [facility] [id number] [facility] 2021-08-19 09:09:05 Outpatient STLMLC STLMLC [id number] [facility] 2021-05-01 12:20:13 Outpatient STLMLC STLMLC [id number] [facility] 2021-05-01 11:59:33 Outpatient STLMLC STLMLC [id number] [facility] 2021-05-01 11:46:32 Outpatient STLMLC STLMLC [id number] [facility] 2021-05-01 11:36:23 Outpatient STLMLC STLMLC [id number] [facility] 2020-09-12 15:24:21 Outpatient NORBERTO WATSON [facility] [id number] [facility] 2024-01-01 16:30:00 2024-01-01 16:30:00 Outpatient GUY KNOX [id number] [facility] 2023-12-11 15:30:00 2023-12-11 15:30:00 Outpatient ALEXSANDRA MERRILL [id number] [facility] 2023-12-08 00:00:00 2023-12-08 00:00:00 Outpatient MD ROXANNA MANNING [id number] [facility] 2023-10-19 10:45:00 2023-10-19 10:45:00 Outpatient VIJAY GUSMAN [id number] [facility] 2023-06-16 00:00:00 2023-06-16 00:00:00 OFFICE VISIT ESTAB PT LEVEL 3 [facility]LMLC STLC [id number] [facility] 2023-06-12 00:00:00 2023-06-12 00:00:00 DANI Guevara: Reynaldo Schilling, [address], [place] [address] , Ph. [facility] - [id number]_Lor [facility]* [id number] [facility] 2023-05-15 15:20:00 2023-05-15 15:47:52 Outpatient R PAYAM GILLIS [facility] [id number] [facility] 2023-05-15 15:20:00 2023-05-15 15:47:52 Urgent Care Payam Gillis Unknown, [facility] [id number] [facility] 2023-05-15 00:00:00 2023-05-15 00:00:00 Orders Only Doctor Unassigned, [place] [facility] [id number] [facility] 2023-05-05 00:00:00 2023-05-05 00:00:00 (PO) Post Op STLMLC STLMLC [id number] [facility] 2023-04-13 00:00:00 2023-04-13 00:00:00 (TEL) STLMLC STLMLC [id number] [facility] 2023-04-10 11:40:00 2023-04-10 11:40:00 Outpatient MERRILL VANCE [id number] [facility] 2023-04-09 00:00:00 2023-04-09 00:00:00 Outpatient VINH ZARAGOZA [id number] [facility] 2023-04-02 11:00:00 2023-04-02 11:00:00 Outpatient JOSEPH QUARLES [id number] [facility] 2023-04-02 00:00:00 2023-04-02 00:00:00 Outpatient JOSEPH QUARLES [id number] [facility] 2023-03-24 00:00:00 2023-03-24 00:00:00 NON-BILLAB LE VISIT STLMLC STLMLC [id number] [facility] 2023-03-11 00:00:00 2023-03-11 00:00:00 Outpatient GC_GCBZW_Ka diyala_S PRIV PRIV [id number] [facility] 2023-03-05 00:00:00 2023-03-05 00:00:00 Outpatient GC_GCBZW_Ka diyala_S PRIV PRIV [id number] [facility] 2023-02-21 00:00:00 2023-02-21 00:00:00 Outpatient HEDY MONK [id number] [facility] 2023-02-17 00:00:00 2023-02-17 00:00:00 NON-BILLAB LE VISIT STLMLC STLMLC [id number] [facility] 2023-02-10 00:00:00 2023-02-10 00:00:00 (TEL) STLMLC STLMLC [id number] [facility] 2023-02-05 00:00:00 2023-02-05 00:00:00 OFFICE VISIT ESTAB PT LEVEL 4 STLMLC STLMLC [id number] [facility] 2022-12-30 00:00:00 2022-12-30 00:00:00 Outpatient FRANCISCO CASTANON [id number] [facility] 2022-12-30 00:00:00 2022-12-30 00:00:00 Outpatient HEDY MONK [id number] [facility] 2022-12-30 00:00:00 2022-12-30 00:00:00 (F/U) Follow Up Visit STLMLC STLMLC [id number] [facility] 2022-12-30 00:00:00 2022-12-30 00:00:00 (TEL) STLMLC STLMLC [id number] [facility] 2022-12-19 00:00:00 2022-12-19 00:00:00 Outpatient HEDY MONK [id number] [facility] 2022-12-16 00:00:00 2022-12-16 00:00:00 Outpatient HEDY MONK [facility]AN[facility]OMPS[facility] [id number] [facility] 2022-12-12 11:15:00 2022-12-12 11:15:00 Outpatient JERAMIE ROXANNA THOMPSON [id number] [facility] 2022-12-12 10:30:00 2022-12-12 10:30:00 Outpatient HEDY MONK ROXANNA THOMPSON [id number] [facility] 2022-11-18 00:00:00 2022-11-18 00:00:00 Outpatient ALESHIA HEDY ROXANNA THOMPSON [id number] [facility] 2022-11-17 00:00:00 2022-11-17 00:00:00 OFFICE VISIT ESTAB PT LEVEL 4 STLMLC STLC [id number] [facility] 2022-11-17 00:00:00 2022-11-17 00:00:00 (TEL) [facility] [id number] [facility] 2022-11-17 00:00:00 2022-11-17 00:00:00 (WEB) [facility]LMLC [id number] [facility] 2022-11-14 00:00:00 2022-11-14 00:00:00 Outpatient ALESHIA HEDY ROXANNA THOMPSON [id number] [facility] 2022-10-30 16:00:00 2022-10-30 16:00:00 Outpatient ALESHIA HEDY THOMPSON [id number] [facility] [facility]-28 00:00:00 2022-10-28 00:00:00 Outpatient ALESHIA HEDY THOMPSON [id number] [facility] 2022-09-27 00:00:00 2022-09-27 00:00:00 Outpatient GC_GCFRWD_R oberts_E [facility] [id number] [facility] 2022-08-25 00:00:00 2022-08-25 00:00:00 Outpatient CARMELA TRAYLOR [id number] [facility] 2022-08-08 00:00:00 2022-08-08 00:00:00 Outpatient HUNDL, HEDY THOMPSON [id number] [facility] 2022-07-31 16:00:00 2022-07-31 16:00:00 Outpatient HUNDL, HEDY THOMPSON [id number] [facility] 2022-07-25 00:00:00 2022-07-25 00:00:00 Outpatient HUNDL, HEDY THOMPSON [id number] [facility] 2022-07-16 00:00:00 2022-07-16 00:00:00 Outpatient HUNDL, HEDY THOMPSON [id number] [facility] 2022-07-03 16:30:00 2022-07-03 16:30:00 Outpatient HUNDL, HEDY THOMPSON [id number] [facility] 2022-06-25 00:00:00 2022-06-25 00:00:00 Outpatient HUNDL, HEDY THOMPSON [id number] [facility] 2022-06-06 08:30:00 2022-06-06 08:30:00 Outpatient ANDERSONTAHMINA [id number] [facility] 2022-06-05 16:30:00 2022-06-05 16:30:00 Outpatient HUNDL, HEDY THOMPSON [id number] [facility] 2022-06-04 00:00:00 2022-06-04 00:00:00 Outpatient HUNDL, HEDY THOMPSON [id number] [facility] 2022-05-09 09:50:00 2022-05-09 09:50:00 Outpatient LAB90 ROXANNA THOMPSON [id number] [facility] 2022-05-07 16:30:00 2022-05-07 16:30:00 Outpatient HUNDL, HEDY THOMPSON [id number] [facility] 2022-05-02 11:00:00 2022-05-02 11:00:[address], ELIANA THOMPSON [id number] [facility] 2022-04-11 10:30:2022-04-11 10:30:00 Outpatient TAHMINA ANDERSON ROXANNA [id number] [facility] 2022-04-03 14:00:00 2022-04-03 14:00:00 Outpatient ELIANA DAVIES ROXANNA [id number] [facility] 2022-04-03 00:00:00 2022-04-03 00:00:00 Outpatient TRAYLORCARMELA ROXANNA THOMPSON [id number] [facility] 2022-03-27 15:45:00 2022-03-27 15:45:00 Outpatient LAB90 ROXANNA THOMPSON [id number] [facility] 2022-03-27 15:15:00 2022-03-27 15:15:00 Outpatient PREMERYLFRANCISCO Schilling ROXANNA THOMPSON [id number] [facility] 2022-02-13 00:00:00 2022-02-13 00:00:00 OFFICE VISIT ESTAB PT LEVEL 4 STLMLC STLMLC [id number] [facility] 2022-01-31 13:30:00 2022-01-31 13:30:00 Outpatient TAHMINA ANDERSON ROXANNA ROXANNA [id number] [facility] 2022-01-24 00:00:00 2022-01-24 00:00:00 Outpatient TRAYLORCARMELA ROXANNA THOMPSON [id number] [facility] 2022-01-23 00:00:00 2022-01-23 00:00:00 OFFICE VISIT EST PT LEVEL 3 STLMLC STLMLC [id number] [facility] 2022-01-10 13:00:00 2022-01-10 13:00:00 Outpatient TRAYLOR, CARMELA ROX[facility]NA THOMPSON [id number] [facility] 2022-01-10 00:00:00 2022-01-10 00:00:00 Outpatient CARMELA TRAYLOR [id number] [facility] 2022-01-05 00:00:00 2022-01-05 00:00:00 Outpatient CARMELA TRAYLOR [id number] [facility] 2022-01-03 10:30:00 2022-01-03 10:30:00 Outpatient HEDY MONK [id number] [facility] 2021-12-23 00:00:00 2021-12-23 00:00:00 OFFICE VISIT ESTAB PT LEVEL 4 STLMLC STLMLC [id number] [facility] 2021-12-22 12:45:00 2021-12-22 12:45:00 Outpatient DENNIS GUSMANAINE [facility] THOMPSON [id number] [facility] 2021-12-22 11:10:00 2021-12-22 11:10:00 Outpatient NEIL VIGIL [id number] [facility] 2021-12-17 11:15:00 2021-12-17 11:15:00 Telemedici ks SALCEDOCHUN [facility] [id number] [facility] 2021-12-02 00:00:00 2021-12-02 00:00:00 OFFICE VISIT ESTAB PT LEVEL 4 STLMLC STLMLC [id number] [facility] 2021-11-27 00:00:00 2021-11-27 00:00:00 (TEL) STLMLC STLMLC [id number] [facility] 2021-11-18 00:00:00 2021-11-18 00:00:00 OFFICE VISIT ESTAB PT LEVEL 4 STLMLC STLMLC [id number] [facility] 2021-11-13 00:00:00 2021-11-13 00:00:00 OFFICE VISIT ESTAB PT LEVEL 4 STLMLC STLMLC [id number] [facility] 2021-10-01 09:25:00 2021-10-01 09:25:00 Outpatient LAB90 ROXANNA THOMPSON [id number] [facility] 2021-10-01 08:30:00 2021-10-01 09:00:00 Office Visit Hedy Monk [id number] [facility] 2021-09-16 00:00:00 2021-09-16 00:00:00 OFFICE VISIT ESTAB PT LEVEL 4 STLMLC STLMLC [id number] [facility] 2021-09-05 10:30:00 2021-09-06 11:41:00 Inpatient Camilo Ramirez [facility] [id number] [facility] [place] 2021-09-05 10:30:00 2021-09-06 11:41:00 Inpatient Camilo Ramirez [facility] [id number] [facility] [place] 2021-02-01 10:05:00 2021-02-01 10:05:00 Outpatient ROXANNA THOMPSON [id number] [facility] 2021-01-25 09:52:08 2021-01-25 10:26:34 Telemedici ne Erick Thomas [id number] [id number] [facility] 2021-01-24 00:00:00 2021-01-24 00:00:00 Outpatient ERICK THOMAS [id number] [facility] 2021-01-04 10:18:44 2021-01-04 10:48:44 Office Visit Carmela Traylor [facility] [id number] [id number] [id number] [facility] 2021-01-03 00:00:00 2021-01-03 00:00:00 Outpatient CARMELA TRAYLOR [id number] [facility] 2020-12-21 12:46:01 2020-12-21 13:01:12 Telemedici ne Ja Calero [facility] [id number] [id number] [facility] 2020-12-21 00:00:00 2020-12-21 00:00:00 Outpatient JA CALERO ROXANNA [id number] [facility] 2020-12-14 15:30:00 2020-12-14 15:30:00 Outpatient CARMELA TRAYLOR ORXANNA THOMPSON [id number] [facility] 2020-12-11 16:35:58 2020-12-11 17:15:53 Telemedici ne Antonina Sewell Abdmariaa SHIRELY [id number] 350.1.13.13 [id number] [id number] [facility] 2020-12-11 10:45:00 2020-12-11 10:45:00 Outpatient QUANTONINA MARR ROXANNA THOMPSON [id number] [facility] 2020-12-05 10:30:00 2020-12-05 10:30:00 Outpatient ANTONINA SEWELL ROXANNA THOMPSON [id number] [facility] 2020-11-27 11:30:00 2020-11-27 11:30:00 Outpatient DYLON NICHOLAS R[facility]NA THOMPSON [id number] [facility] 2020-11-27 00:00:00 2020-11-27 00:00:00 Outpatient QUANTONINA MARR R[facility]NA THOMPSON [id number] [facility] 2020-11-27 00:00:00 2020-11-27 00:00:00 Outpatient ANTONINA SEWELL ROXANNA THOMPSON [id number] [facility] 2020-11-27 00:00:00 2020-11-27 00:00:00 Outpatient QUDDANTONINA WAITE [facility] THOMPSON [id number] [facility] 2020-11-27 00:00:00 2020-11-27 00:00:00 Outpatient ANGIE CASON [facility]NA THOMPSON [id number] [facility] 2020-11-19 12:21:17 2020-11-19 12:36:17 Laboratory Only Only, Adc Test Diogo Minaya [facility] 1.2.840.114 350.1.13.10 [id number] [id number] [facility] 2020-11-19 11:20:00 2020-11-19 11:20:00 Outpatient R [facility] [id number] [facility] 2020-11-19 11:15:00 2020-11-19 11:15:00 Outpatient R [facility] [id number] [facility] 2020-11-19 00:00:00 2020-11-19 00:00:00 Orders Only Doctor Unassigned, [facility] [place] [facility] [id number] [id number] [id number] [facility] 2020-02-02 00:00:00 2020-02-02 00:00:00 Outpatient STLMLC STLMLC [id number] [facility] 2019-12-23 00:00:00 2019-12-23 00:00:00 Outpatient STLMLC STLMLC [id number] [facility] 2019-12-13 13:21:00 2019-12-13 13:21:00 Outpatient [facility] [id number] [facility] 2019-11-17 09:06:00 2019-11-17 09:06:00 Outpatient [facility] [id number] [facility] 2019-11-14 15:16:00 2019-11-14 15:16:00 Outpatient [facility] [id number] [facility] 2019-11-14 13:00:00 2019-11-14 13:00:00 Outpatient [facility] [id number] [facility] Results Test Description Test Time Test Comments Results Result Co mments Source [facility] (BINAX NOW)2023-05-15 21:52:00* Test Item Value Reference Range Interpretation Comme nts POCT SARS-COV-2 ANTIGEN (test code = 82857-2) Not Detected Not Detected On board controls acceptable with C Line (test code = 3574) Yes JEREMY (test code = JEREMY) accurate developme nt and interpretation of all internal controls Lab Interpretation (test code = 41760-1) Normal [facility]22-[facility] 18:03:00* Test Item Value Reference Range Interpretation Comme nts SURGICAL (test code = SR) RUN DATE: 09/09/21 [facility] PAGE 1 RUN TIME: 1803 Specimen Inquiry RUN USER: INTERFACE DEVIN ENT: NELSON JEREZ LOC: LJose Martin2S U #: [id number] AGE/SX: 45/F ROOM: [facility] RE09/05/21REG DR: Camilo Goldman MD : 77 BED: 1 DIS: 09/06/21 STATUS: DIS Clari TLOC: SPEC #: [id number]:[id number] RECD: 09/06/21 STATUS: CLARE JORDAN #: [id number] TRIPP: 09/05/21-[address]: Camilo Goldman MD ENTERED: 09/06/21 SP TYPE: SURGICAL OTHR DR: Amy Cochran MD, Firas A MDORDERED: [id number], ANATOMIC SPEC, SPECIMEN TRACK [place]IES [place]: [place] [address] [place] [address] [email or web address] Amy Cochran MD [address] [place], [place] [id number] Antonina Sewell MD [address] [place] [address] PROCEDURES: [id number] (09/09/21-1720) SPECIMEN TRACK (09/06/21) TISSUES: A. UTERUS - UTERUS, CERVIX, BILATERAL FALLOPIAN TUBES AND RIGHT OVARY FINAL DIAGNOSIS Uterus 76.2g, fallopian tubes and one ovary, hysterectomy, right oophorectomy andbilateral salpingectomy: - Cervix, chronic cervicitis - Endometrium, inactive- Myometrium, small leiomyomata x3 (one of them, microscopic)- Serosa, no morphological alteration Right ovary:- Simple cystadenoma Fallopian tubes:- Wall and lumen identified, bilaterally; no significant alteration CONTINUED ON NEXT PAGE RUN DATE: 09/09/21 [facility] PAGE 2 RUN TIME: 1803 Specimen Inquiry RUN USER: INTERFACE SPEC #: [id number] [facility]:[id number] PATIENT: NELSON JEREZ #[id number] (Continued) ------- FINAL DIAGNOSIS (Continued) Comment: Negative for atypia / malignancy. Suggest clinical correlation. GROSS DESCRIPTION Uterus with bilateral fallopian tubes and right ovary. Received is a uterus with adetached right fallopian tube and ovary. It weighs 76.2 g and measure cornu to cornu 5.5cm posterior to anterior 4 cm and from fundus to cervix 9.5 cm. The cervix measures 2.8 x2.5 cm and has a cervical os transverse diameter of 1 cm. The cervical canal measures 4.5cm in length with a endometrial cavity of 2.2 x 1.3 cm. It is covered by thin endometriumof less than 0.1 cm. The uterine wall has a maximum thickness of 1.8 cm. Sectioningthrough the uterine wall reveals two white well-circumscribed nodules occupying both theposterior and anterior uterine wall. These nodules measure 0.8-1.5 cm. The serosalsurface has fibrinous, partially cauterized appearance along the posterior wall. In theupper cornu areas are two white sterilization rings. The right ovarian cyst weighs 35.6 g and measures 4.8 x 4.2 x 3.5 cm. Upon sectioning itis filled with serosanguineous fluid. The cystic cavity lining is smooth and no papillaryexcrescence are identified. The attached right fallopian tube with fimbriated endmeasures 4.5 cm in length and has a diameter 0.8 cm. The attached left fallopian tube segment with fimbriated end measures 4 cm in length andhas a diameter of 0.8 cm. A1 posterior cervixA2 anterior cervixA3 posterior endomyometriumA4 anterior endomyometriumA5 uterine wall nodulesA6 posterior reflection A7-A10 sections of right ovarian cystA11 cut section and entire bisected fimbriated end right fallopian tubeA12 cut section and entire bisected fimbriated end left fallopian tube Technical component performed at [employer],[id number] , [place] [address] Unless gross only, the diagnosis is based upon microscopic examination.Immunohistochemistry : This test was developed and its performancecharacteristics determined by this laboratory. It has not been approved nordoes it need approval by the [place] FDA. Appropriate positive and negative controlsare reviewed and judged to be acceptable. This laboratory is certified undert Clinical Laboratory Improvement Amendments (CLIA-88) as qualified toperform high complexity clinical laboratory testing. CONTINUED ON NEXT PAGE RUN DATE: 09/09/21 [facility] PAGE 3 RUN TIME: 1803 Specimen Inquiry RUN USER: INTERFACE SPEC #: [id number] [facility]:[id number] PATIENT: NELSON JEREZ #[id number] (Continued) ------- MICROSCOPIC DESCRIPTION Findings are incorporated into the diagnosis section. ---- Signed SIGNATURE ON YADIRA ChambersPatricio 09/09/21 1803 END OF REPORT BASIC METABOLIC [id number] 05:12:00* Test Item Value Reference Range Interpretation Comme nts SODIUM (test code = NA) 140 mmol/L 134-147 N POTASSIUM (test code = K) 4.2 mmol/L 3.4-5.0 N CHLORIDE (test code = CL) 106 mmol/L 100-108 N CARBON DIOXIDE (test code = CO2) 26 mmol/L 21-32 N ANION GAP (test code = GAP) 8.0 GAP calc 4.0-15.0 N GLUCOSE (test code = GLU) 164 MG/DL 70-110 H BLOOD UREA NITROGEN (test code = BUN) 8 MG/DL 7-18 N GLOMERULAR FILTRATION RATE (test code = GFR) >=60 max estimate estGFR >60 CREATININE (test code = CREAT) 0.6 MG/DL 0.6-1.0 N CALCIUM (test code = CA) 8.7 MG/DL 8.5-10.1 N Completed by Nursing: NOTROP-I HIGH [id number] 05:12:00* Test Item Value Reference Range Interpretation Comme nts TROP-I HIGH SENSITIVITY (test code = TROPIHS) < 3.0 ng/L 0-34 N CAUTION: Units o f the current test methodology (ng/L) differfrom the prior test methodology (ng/mL) by a factor of 1000. 99th Percentile Upper Reference Limit (URL):Females: 34 ng/LMales: 54 ng/L In order to distinguish acute elevations of high sensitivitytroponin from other clinical conditions, the FourthUniversal Definition of Myocardial Infarction stressesclinical assessment and the demonstration of a rise and/orfall in serial troponin results above the URL. Results from different methodologies should not be comparedto one another as quantitative results and URLs may varyby method. Completed by Nursing: NOPROTHROMBIN [id number] 05:10:00* Test Item Value Reference Range Interpretation Comme nts PT PATIENT (test code = PTP) 11.6 SECONDS 9.3-12.9 N INTERNATIONAL NORMAL RATIO (test code = INR) 1.02 INR Unit 0.8-1.2 N TARGET INR BY INDICATION Indication INR1. Prophylaxis of venous thrombosis 2.0 - 3.0 (orthopedic surgery), Prophylaxis of venous thrombosis (other than high-risk surgery), Treatment of Deep Vein Thrombosis/Pulmonary Embolism, Prevention of systemic embolism - Tissue heart valves, Acute Myocardial Infarction (to prevent systemic embolism), Valvular heart disease, Acute Myocardial Infarction (to prevent systemic embolism), Valvular heart disease, Atrial Fibrillation, Bileaflet mechanical valve in aortic position.2. Mechanical prosthetic valves (high risk), 2.5 - 3.5 Presence of Lupus Anticoagulant or Antiphospholipid Antibodies, Prevention of systemic embolism - Acute Myocardial Infarction (to prevent recurrent infarct). CBC W/AUTO [id number] 05:00:00* Test Item Value Reference Range Interpretation Comme nts WHITE BLOOD CELL (test code = WBC) 11.1 K/mm3 3.5-11.0 H RED BLOOD CELL (test code = RBC) 4.57 M/mm3 4.70-6.10 L HEMOGLOBIN (test code = HGB) 13.5 G/DL 10.4-14.9 N HEMATOCRIT (test code = HCT) 40.6 % 31.5-44.1 N MEAN CELL VOLUME (test code = MCV) 88.8 Fl 84.5-98.6 N MEAN CELL HGB (test code = MCH) 29.5 pg 27.0-34.2 N MEAN CELL HGB CONCETRATION (test code = MCHC) 33.3 G/DL 31.5-34.0 N RED CELL DISTRIBUTION WIDTH (test code = RDW) 12.2 SD 11.5-14.5 N PLATELET COUNT (test code = PLT) 238 K/mm3 150-450 N MEAN PLATELET VOLUME (test c ode = MPV) 11.40 fL 7.0-10.5 H NEUTROPHIL % (test code = NT%) 86.6 % 40-76 H IMMATURE GRANULOCYTE % (test code = IG%) 0.6 % 0.0-5.0 N LYMPHOCYTE % (test code = LY%) 11.1 % 20.5-51.1 L MONOCYTE % (test code = MO%) 1.6 % 1.7-9.3 L EOSINOPHIL % (test code = EO%) 0.0 % 0.0-6.0 N BASOPHIL % (test code = BA%) 0.1 % 0.0-2.0 N NUCLEATED RBC % (test code = NRBC%) 0.0 /100WBC% 0.0-1.0 N NEUTROPHIL # (test code = NT#) 9.6 K/mm3 1.8-7.6 H IMMATURE GRANULOCYTE # (test code = IG#) 0.07 x10 3/uL 0.00-0.03 H LYMPHOCYTE # (test code = LY#) 1.2 K/mm3 0.6-3.2 N MONOCYTE # (test code = MO#) 0.2 K/mm3 0.3-1.1 L EOSINOPHIL # (test code = EO#) 0.0 K/mm3 0.0-0.4 N BASOPHIL # (test code = BA#) 0.0 K/mm3 0.0-0.1 N NUCLEATED RBC # (test code = NRBC#) 0.0 K/mm3 0.0-0.1 N MANUAL DIFF REQUIRED (test c ode = MDIFF) NO DIFF/SCN CRITERIA THROMBOPLASTIN TIME [id number] 12:58:00* Test Item Value Reference Range Interpretation [facility] THROMBOPLASTIN TIME PARTIAL (test code = PTT) 31.0 SECONDS 26-35 N PROTHROMBIN [id number] 12:58:00* Test Item Value Reference Range Interpretation [facility] PT PATIENT (test code = PTP) 11.7 SECONDS 9.3-12.9 N INTERNATIONAL NORMAL RATIO (test code = INR) 1.03 INR Unit 0.8-1.2 N TARGET INR BY INDICATION Indication INR1. Prophylaxis of venous thrombosis 2.0 - 3.0 (orthopedic surgery), Prophylaxis of venous thrombosis (other than high-risk surgery), Treatment of Deep Vein Thrombosis/Pulmonary Embolism, Prevention of systemic embolism - Tissue heart valves, Acute Myocardial Infarction (to prevent systemic embolism), Valvular heart disease, Acute Myocardial Infarction (to prevent systemic embolism), Valvular heart disease, Atrial Fibrillation, Bileaflet mechanical valve in aortic position.2. Mechanical prosthetic valves (high risk), 2.5 - 3.5 Presence of Lupus Anticoagulant or Antiphospholipid Antibodies, Prevention of systemic embolism - Acute Myocardial Infarction (to prevent recurrent infarct). PROTHROMBIN [id number] 09:35:00* Test Item Value Reference Range Interpretation [facility] PT PATIENT (test code = PTP) 14.2 SECONDS 9.3-12.9 H INTERNATIONAL NORMAL RATIO (test code = INR) 1.24 INR Unit 0.8-1.2 H TARGET INR BY INDICATION Indication INR1. Prophylaxis of venous thrombosis 2.0 - 3.0 (orthopedic surgery), Prophylaxis of venous thrombosis (other than high-risk surgery), Treatment of Deep Vein Thrombosis/Pulmonary Embolism, Prevention of systemic embolism - Tissue heart valves, Acute Myocardial Infarction (to prevent systemic embolism), Valvular heart disease, Acute Myocardial Infarction (to prevent systemic embolism), Valvular heart disease, Atrial Fibrillation, Bileaflet mechanical valve in aortic position.2. Mechanical prosthetic valves (high risk), 2.5 - 3.5 Presence of Lupus Anticoagulant or Antiphospholipid Antibodies, Prevention of systemic embolism - Acute Myocardial Infarction (to prevent recurrent infarct). COVID 19 INHOUSE [id number] 09:21:00* Test Item Value Reference Range Interpretation [facility] COVID 19 INHOUSE AG (test code = [id number]) NEGATIVE Negative Per garde manager , negative results should be treated aspresumptive and, if inconsistent with clinical signs andsymptoms or necessary for patient management, should betested with an alternative molecular assay. Negative resultsdo not preclude SARS-CoV-2 infection and should not be usedas the sole basis for patient management decisions. Negative results should be considered in the context of apatient's recent exposures, history, presence of clinicalsigns and symptoms consistent with COVID-19. CBC W/AUTO [id number] 09:14:00* Test Item Value Reference Range Interpretation Comme nts WHITE BLOOD CELL (test code = WBC) 6.6 K/mm3 3.5-11.0 N RED BLOOD CELL (test code = RBC) 4.51 M/mm3 4.70-6.10 L HEMOGLOBIN (test code = HGB) 13.4 G/DL 10.4-14.9 N HEMATOCRIT (test code = HCT) 40.6 % 31.5-44.1 N MEAN CELL VOLUME (test code = MCV) 90.0 Fl 84.5-98.6 N MEAN CELL HGB (test code = MCH) 29.7 pg 27.0-34.2 N MEAN CELL HGB CONCETRATION (test code = MCHC) 33.0 G/DL 31.5-34.0 N RED CELL DISTRIBUTION WIDTH (test code = RDW) 12.1 SD 11.5-14.5 N PLATELET COUNT (test code = PLT) 229 K/mm3 150-450 N MEAN PLATELET VOLUME (test c ode = MPV) 10.80 fL 7.0-10.5 H NEUTROPHIL % (test code = NT%) 50.2 % 40-76 N IMMATURE GRANULOCYTE % (test code = IG%) 0.5 % 0.0-5.0 N LYMPHOCYTE % (test code = LY%) 40.3 % 20.5-51.1 N MONOCYTE % (test code = MO%) 5.0 % 1.7-9.3 N EOSINOPHIL % (test code = EO%) 3.5 % 0.0-6.0 N BASOPHIL % (test code = BA%) 0.5 % 0.0-2.0 N NUCLEATED RBC % (test code = NRBC%) 0.0 /100WBC% 0.0-1.0 N NEUTROPHIL # (test code = NT#) 3.3 K/mm3 1.8-7.6 N IMMATURE GRANULOCYTE # (test code = IG#) 0.03 x10 3/uL 0.00-0.03 N LYMPHOCYTE # (test code = LY#) 2.7 K/mm3 0.6-3.2 N MONOCYTE # (test code = MO#) 0.3 K/mm3 0.3-1.1 N EOSINOPHIL # (test code = EO#) 0.2 K/mm3 0.0-0.4 N BASOPHIL # (test code = BA#) 0.0 K/mm3 0.0-0.1 N NUCLEATED RBC # (test code = NRBC#) 0.0 K/mm3 0.0-0.1 N MANUAL DIFF REQUIRED (test c ode = MDIFF) NO DIFF/SCN CRITERIA URINALYSIS [id number] 09:07:00* Test Item Value Reference Range Interpretation Comme nts UA GLUCOSE DIPSTICK (test code = DGLUU) NEGATIVE mg/dL NEG UA BILIRUBIN DIPSTICK (test code = BILU) NEGATIVE mg/dL NEG UA KETONE DIPSTICK (test code = KETU) NEGATIVE mg/dL NEG UA SPECIFIC GRAVITY (test code = SGU) 1.025 SG 1.005-1.030 UA BLOOD DIPSTICK (test code = BINA) NEGATIVE mg/DL NEG UA PH DIPSTICK (test code = ANDREAS) 6.0 pH UNITS 5.0-7.0 UA PROTEIN DIPSTICK (test code = PROU) NEGATIVE mg/dL NEG UA UROBILINIOGEN DIPSTICK (test code = URO) 0.2 mg/dL <2.0 UA NITRITE DIPSTICK (test code = SAMARIA) NEGATIVE SCREEN NEG UA LEUKOCYTE ESTERASE DIPSTICK (test code = LEUU) NEGATIVE Leuk/mcL NEGATIVE Urine Specimen Type: Clean CatchUR HCG [id number] 09:07:00* Test Item Value Reference Range Interpretation Comme nts UR HCG QUAL (test code = HCGQLU) NEGATIVE NEGATIVE Urine Specimen Type: Clean CatchMRI Shoulder Rt Wo ContMRI Shoulder Rt Wo Cont Notes Date/Time Note Provider Source 2022-12-12 10:23:40 Formatting of this n ote is different from the original. Chief Complaint Patient presents with Physical Patient is fasting. No other issues to discuss Rachel Walker MA II [facility] 2022-10-30 15:44:50 Formatting of this n ote is different from the original. Chief Complaint Patient presents with Follow-up Weight loss and bp check Lois Wetzel CMA I [facility] 2021-09-08 08:20:00 [id number] [facility] [id number] [place] [id number] PATIENT NAME: NELSON JEREZ ADMIT DATE: 09/05/21 ACCOUNT NO: [id number] ROOM NO: [id number] AGE: 46 REPORT TYPE: OPERATIVE REPORT SEX: F ADMITTING PHYSICIAN: Camilo Goldman MD ATTENDING PHYSICIAN: Camilo Goldman MD OPERATION DATE: 09/05/2021 PREOPERATIVE DIAGNOSES: Deep dyspareunia, pelvic pain. The patient is status post endometrial ablation for menorrhagia. POSTOPERATIVE DIAGNOSES: Deep dyspareunia, pelvic pain. The patient is status post endometrial ablation for menorrhagia, right ovarian cystic mass, adhesions of the bladder, possible endometriosis. PROCEDURES PERFORMED: Robotic-assisted total laparoscopic hysterectomy, bilateral salpingectomy, right oophorectomy, and cystoscopy. SURGEON: Amy Cochran MD WELDER TACK: Noelle Lawrence. ESTIMATED BLOOD LOSS: 200 mL. URINE OUTPUT: Approximately 100 to 200. Lactated ringer: 1500 mL. SPECIMENS: Uterus, tubes, and right ovary with the cyst intact. COMPLICATIONS: No complications. DRAINS: No drains. CONDITION: The patient's condition is stable. FINDINGS: Right ovary had a large cystic mass which is encompassing mostly the whole ovary, did not have a physiologic appearing, so plan was to remove the ovary and the cyst and that is what was performed. Left ovary was normal and left intact. Significant tissue adhesions in the anterior wall of the vagina, and posteriorly the lateral aspects coming towards the uterosacral ligaments. On cystoscopy, both ureteral orifices were visualized with strong jets of urine were seen from both, and bladder epithelium and the entire bladder was unremarkable. No evidence of any bladder trauma or urinary tract. INDICATIONS: The patient is a 45-year-old with history of DVT and PE with menorrhagia and ablation to treat that. However, her pain continued and has PATIENT NAME: NELSON JEREZ worsened over the recent past with deep dyspareunia, pelvic pain affecting her life. We discussed about all the benefits and risks and options of the hysterectomy as well as alternatives which did not include any hormone therapy due to her history and also the risks of surgery including bleeding and clotting and after she understood all the above, she was consented for hysterectomy, salpingectomy, possible endometriosis, excision of same and procedures as needed. PROCEDURE IN DETAIL: After informed consent was verified, she was taken back to the OR, placed in supine fashion on the operating table. Three grams of Ancef were given after general anesthesia was given, she was placed in dorsal lithotomy position using Donovan stirrups. Abdomen, vulva, vagina, and perineum prepped and draped in sterile fashion. Muñoz was placed to drain the bladder and attached for retrograde filling, large VCare introduced into the uterus as this seems like an appropriate size cup. A 15 cm above the pubic symphysis, 1.5 cm skin incision was made for the robotic camera port. A 1 cm fascial incision was made and tagged with 0 Vicryl sutures. Peritoneum entered sharply. S retractors placed and Dionne introduced under direct vision and fixed in place. A 10 cm lateral to this in the same line, two 8-mm ports were placed after making skin incisions and fascial injection with Marcaine and a triangulated in the right upper quadrant port 8 mm placed for AirSeal. The patient was placed in Trendelenburg. After this, the pathology was all examined, the peritoneal cavity in the upper and lower aspects, the only surprising findings is that the cystic mass on the right side that appeared to be about 4 cm, so plan was to remove the right ovary. Once this was decided, all the bowel was packed into the upper abdomen. Then, the robotic arm for the camera was docked, targeting was done on the pelvic anatomy, then side ports were docked as well. Instruments placed and positioned appropriately, then I scrubbed out to go to the console. Starting the surgery, the lateral peritoneum of the IP ligament on the right side was opened up all the way to isolate the IP medially. The ureter was identified and an incision was made on the peritoneum closer to the IP away from the ureter to make a good window for taking this pedicle. Then, dissection was carried all the way to the level of the round and then inferior to the round ligament, broad ligament was opened up to create a bladder flap on the right side, and on the left side, the mesosalpinx was opened up all the way down to the level of the round. Then, peritoneum inferior to the round was opened up all the way to the level of the bladder flap. It was difficult to differentiate the bladder flap at this time as the cup seemed very low on the vaginal canal. This was left alone in place, then a window was made for taking the utero-ovarian ligament on the left side. Posteriorly peritoneum was not dissected yet, so vessel sealer was taken and the left tube was taken down utero-ovarian ligament, round ligament. The broad ligament was taken down to skeletonize the vessels. They were slightly adherent to the tissue and the peritoneum on the posterior aspect. The posterior peritoneum was dissected down as best as possible, leaving the rest for the monopolar work. On the opposite side, similar dissection was performed taking the IP and the round ligament and then dissecting and skeletonizing the broad ligament to PATIENT NAME: NELSON JEREZ expose the vessels, exchanged to the scissors and with the monopolar tip, the posterior peritoneum was dissected on the right side and the left side coming down to the level of the insertion of the uterosacral. The cup seemed slightly oversized for the vaginal canal at the top. I believe this was due to the small size of the patient. The patient was just 4.5 feet tall, so I made sure that the ureters were dissected and appropriately away. Then, vessels were skeletonized and staying close to the uterus, anteriorly and posteriorly they were isolated. Then superiorly, the bladder was dissected down all the way below the level of the cup. I had to go down and scrub in vaginally to check the placement and position of the cuff on the cup, once this was done and appropriately fixed, then went back to the console and the vessels were taken down with the help of the fenestrated bipolar and taken down with the scissors on both sides, ligaments taken down in a similar fashion. The cervix appeared to be slightly elongated as well. So dissection was performed all the way pushing the bladder down and then ____ carefully making sure the bladder pillars were safe, and posteriorly making sure that the vaginal wall was exposed well. Once this was done, monopolar scissors were used to perform a colpotomy in a circumferential fashion. Specimen was pulled out with the tubes intact, then the right ovary and distal part of the tube were taken out as a separate specimen as the size of the ovary was large and did not want rupture them. Vaginal occluder was placed. Closure was performed with the help of 0-Vicryl sutures, 2 at the angles, 2 in the [id number] in the center and 2-0 V-Loc in a continuous running fashion from right to the left in just one line. Thorough irrigation and suction was performed, slight oozing from the right lateral aspect. After irrigation and suction, there was not a clear area of bleeding. However, given the Lovenox the patient is on and will be postoperatively, I decided that it would be prudent to use a thrombin agent though available agent in this hospital was Surgiflo. This was used through the laparoscopic port after I scrubbed back into the case and the robot was undocked and stowed away. Thorough irrigation and suction was performed first. Before this was done, all pedicles were hemostatic. Ureters were peristaltic. No evidence of electrical, mechanical or thermal injury to them. Then, ports were removed under direct vision after cystoscopy was performed with 30-degree lens 17-Lao sheath and normal saline. Both ureteral orifices had good jets of urine from them, entire bladder epithelium was intact. No evidence of any trauma, vaginal sponge was pulled out. Muñoz was not reinserted at this point in time, and I scrubbed back and changed my gloves to come back up. Trocars were removed under direct vision. No bleeding at the sites. The AirSeal was used to remove the entire insufflation and pneumoperitoneum. I made sure that AirSeal port was also watched. There was no bleeding and after removing the Dionne, the fascia at the umbilicus closed with 0 Vicryl sutures tied to each other. ____ 3-0 chromic sutures were used for closure of the subcutaneous tissue and the skin, making sure all incisions were hemostatic and bandages were placed. Instrument and sponge counts were correct at the end of the case. The patient tolerated the procedure well. I spoke to the spouse and debriefed them on the findings, the reason for the oophorectomy, the performance of the cystoscopy, do not expect any bleeding PATIENT NAME: NELSON JEREZ issues. I decided that it would be prudent to observe the patient overnight, given her significant medical comorbidities and possible difficulty with pain control, I did not give her any NSAIDs. Plan to restart Lovenox the night after the surgery. All the precautions for symptoms of PE and DVT were given to the . We discussed this with the patient prior to the surgery as well. Dictated By: Amy Cochran MD WT: OP:ANIA/MIKAEL/DIMAS Conf#: [id number]/DID#: [id number] Authenticated by Amy Cochran MD On 10/17/2021 02:34:43 PM at 0234 PATIENT NAME: NELSON JEREZ [facility] 2021-09-06 13:27:00 [facility] Hospitalist Discharge Summary REPORT#:[id number] REPORT STATUS: Signed DATE:09/06/21 TIME:1327 PATIENT: NELSON JEREZ UNIT #: [id number] ROOM/BED: [place] [address] : 77 AGE: 45 SEX: F ATTEND: aCmilo Goldman MD ADM AUTHOR: Camilo Goldman MD * ALL edits or amendments must be made on the electronic/computer document * General Information Date of admission: Observation Start Date: 09/05/21 Date of admission: 09/05/21 Discharge date: 09/06/21 Discharge diagnosis: SEE HOSP COURSE Hospital course: Ms. Jerez is a 45 yo F with history of PE/DVT on coumadin who was admitted for overnight observation after robotic laparoscopic hysterectomy. At bedside, patient has no complaints. Vital signs are stable. Labs unremarkable. Assessment Postop Day 1 Laparoscopic Hysterectomy History of PE/DVT on Coumadin Plan Postop Day 1 Laparoscopic Hysterectomy - gynecology consulted - pain management as needed - advance diet tolerated History of PE/DVT on Coumadin AT HOME: held for surgery, has been on Lovenox - SCDs for 24 hours post surgery, then transition back to home anticoagulation ON DC AT HOME -counselled to continue lovenox/ start coumadin at home and follow up with her fisher [facility] for INR checks and to dc Lovenox seen and examined dc home stable dc time 33 mins Pt. condition on discharge: improved, stable Free Text DxA P Notes Free text DxA P notes: Assessment Postop Day 0 Laparoscopic Hysterectomy History of PE/DVT on Coumadin Plan Postop Day 0 Laparoscopic Hysterectomy - gynecology consulted - pain management as needed - advance diet tolerated History of PE/DVT on Coumadin - on telemetry - SCDs for 24 hours post surgery, then transition back to home anticoagulation before discharge DVT ppx: SCDs Code status: full Med Rec Med Rec Discharge meds: Stop taking the following medications: WARFARIN (COUMADIN) 5 MG TAB 5 MILLIGRAM ORAL DIRECTED. Continue taking these medications: SERTRALINE (ZOLOFT) 50 MG TAB 50 MILLIGRAM ORAL DAILY. ENOXAPARIN (LOVENOX) 100 MG/ML DISP.SYRIN 100 MILLIGRAM SUBCUTANEOUS EVERY 24 HOURS. Start taking the following new medications: HYDROcodone/APAP (NORCO 5/325) 1 TAB TAB 1-2 TABLET ORAL EVERY 6 HOURS. not to exceed pain per day Qty = 25 No Refills Objective Cardiovascular: normal heart sounds, regular rate rhythm Respiratory: aerating well, no distress Abdomen: normal bowel sounds, no distention Extremities: moves all, no edema Neuro/ORACLE SCM CONSULTANT: alert, normal speech Discharge Instructions PCP Discharge to: Home/Self Care Additional Discharge Routines: Attending Follow-Up Diet: Regular Activity: As Tolerated Prescriptions: on chart Discharge management: greater than 30 mins at 1358 RPT #: [id number] END OF REPORT [facility] 2021-09-05 20:31:00 [facility] ([facility]) Hospitalist History Physical REPORT#:[id number] REPORT STATUS: Signed DATE:09/05/21 TIME:2030 PATIENT: NELSON JEREZ UNIT #: [id number] ROOM/BED: [place] [address] : 77 AGE: 45 SEX: F ATTEND: Amy Cochran MD ADM AUTHOR: Matheus Odell PA-C * ALL edits or amendments must be made on the electronic/computer document * Matheus Odell 09/05/212030: History of Present Illness HPI Chief complaint: POST OP PCP: PCP: Antonina Sewell MD HPI: Ms. Jerez is a 45 yo F with history of PE/DVT on coumadin who was admitted for overnight observation after robotic laparoscopic hysterectomy today. At bedside, patient has no complaints. Vital signs are stable. Labs unremarkable. Informant/historian: patient History Past Medical Surgical Hx Patient History: 1. Postoperative pain Additional medical history: DVT/PE Additional surgical history: IVC filter, tubal ligation, uterine ablation, robotic laparoscopic hysterectomy Family History Additional family history: [place] Social History Alcohol use: Denies EtOH use Drug use: Denies recreational drugs Smoking status: Smoking status for patients 13 years old or older: Never Smoker Medication/Allergy-Vaccine Hx Allergies: Coded Allergies: No Known Allergies (09/04/21) Review of Systems Constitutional: Denies: chills, fever. Skin: Denies: abrasion, bruising. Allergy/Immun: Denies: itching, sneezing. Eyes: Denies: diplopia, eye pain. ENT: Denies: sore throat, throat pain. Respiratory: Denies: TURNER (dyspnea on exertion), SOB. Cardiovascular: Denies: chest pain, edema. GI: Denies: abdominal pain, nausea, vomiting. : Denies: dysuria, frequency. Musculoskeletal: Denies: extremity pain, joint pain. Heme: Denies: bleeding, bruising. Neuro: Denies: dizziness, lightheaded. Physical Exam VS/I O: Vital Signs Date Temp Pulse Resp B/P B/P Mean Pulse Ox FiO2 09/05 36.6 59-87 16 110-134/57-87 96-100 Last Documented: Result Date Time Pulse Ox 96 09/06 1939 B/P 134/09/05 O2 Delivery Nasal cannula 09/06 1939 O2 Flow Rate 2 09/06 1939 Pulse 69 09/06 1939 Resp 16 09/06 1939 Temp 36.6 09/05 1833 24 hour I O ending at 0700: 09/05 0700 09/04 1900 Intake Total Output Total Balance Patient 105.455 kg Weight Weight Stated/Reported Measurement Method Patient Weight and BMI Weight (kg): 105.455 BMI: 47.0 General appearance: alert, no acute distress Head/Eyes: atraumatic, normocephalic ENT: moist mucosal membranes, normal nose Cardiovascular: normal heart sounds, regular rate rhythm Respiratory: aerating well, no distress Abdomen: normal bowel sounds, no distention Extremities: moves all, no edema Neuro/ORACLE SCM CONSULTANT: alert, normal speech Skin: dry, intact Psychiatry: normal affect, normal mood Results Findings/Data: Laboratory Tests: 09/05 1127 Coagulation INR (0.8 - 1.2 INR Unit) 1.03 PTT (Amarjit) (26 - 35 SECONDS) 31.0 PT Patient/Control Mix (9.3 - 12.9 SECONDS) 11.7 Results: labs reviewed, vital signs reviewed Diagnosis, Assessment Plan Free Text A P: Assessment Postop Day 0 Laparoscopic Hysterectomy History of PE/DVT on Coumadin Plan Postop Day 0 Laparoscopic Hysterectomy - gynecology consulted - pain management as needed - advance diet tolerated History of PE/DVT on Coumadin - on telemetry - SCDs for 24 hours post surgery, then transition back to home anticoagulation before discharge DVT ppx: SCDs Code status: full at 2044 at 2219 RPT #: [id number] END OF REPORT [facility] 2021-09-05 13:58:00 [facility] ([facility]) Brief Op Note REPORT#:[id number] REPORT STATUS: Signed DATE:09/05/21 TIME:1358 PATIENT: NELSON JEREZ UNIT #: [id number] ROOM/BED: : 77 AGE: 45 SEX: F ATTEND: Amy Cochran MD ADM AUTHOR: Amy Cochran MD * ALL edits or amendments must be made on the electronic/computer document * Op/Inv Proc Note - Brief Pre-procedure diagnosis: Deep dyspareunia, Pelvic pain Post-procedure diagnosis: same as pre procedure dx Procedures performed: Robot assisted TLH BS RAFFY, Rt oophorectomy Primary Surgeon: blaze Certified Orthotist/Pedorthist(s): Karina lawrence Anesthesia: general anesthesia Findings: RIGHT OVARIAN LARGE CYST, ?ADHESIONS AROUND USLs, Surgiflow used for hemastatic agent Complications: none Estimated blood loss in ml's: 200 Specimens removed/altered: uterus and tubes, RIGHT OVARY WIHT CYST Fluids: 1500 lr Urine output: 300 Approach: laparoscopic, Robot assisted Wound class: clean-contaminated Disposition: plan to D/C home Counts: Sponge count: correct Instrument count: correct Needle count: correct at 1820 RPT #: [id number] END OF REPORT [facility]
[2023-12-09 08:05] LABS: Absolute Lymphocytes (CBC) 0.6 K/uL (0.7-4.9); Absolute Monocytes 0.5 K/uL (0.1-1.3); Absolute Neutrophil 5.9 K/uL (1.8-8.0); Basophils % 0.2 % (0-1.3); Eosinophils % 0.3 % (0-4.4); Hematocrit 41.9 % (36.0-45.0); Lymphocytes % 8.5 % (15.3-44.8); MCH 29.4 pg (27.0-35.0); MCHC 33.6 g/dL (32.0-36.0); MCV 87.6 fL (80-100); MPV 9.6 fL (7.6-11.3); Monocytes % 7.7 % (3.3-12.3); Neutrophils % 83.3 % (41.7-73.7); Platelets 199 thou/uL (152-406); RBC Red Blood Cell Count 4.78 M/uL (3.86-4.86); Red Cell Distribution Width 12.9 % (12.1-15.2)
[2023-12-09 08:21] LABS: BUN Blood Urea Nitrogen 8 mg/dL (7-18); Bicarbonate 26 mEq/L (21-32); Glomerular Filtration Rate 104 ml/min (=/>90); Glucose Level 139 mg/dL (74-106); Magnesium 1.9 mg/dL (1.6-2.4); NT PRO-BNP 93 pg/mL (<125); Sodium Level 134 mEq/L (136-145)
--- NOTE | 2023-12-09 08:26 | RAD REPORT ---
EXAM DESCRIPTION: RAD - Chest Pa And Lat (2 Views) - 12/09/2023 8:11 am CLINICAL HISTORY: DYSPNEA Chest pain. COMPARISON: Chest Pa And Lat (2 Views) dated 02/09/2023; Chest Single View dated 12/11/2020; CHEST SING LE VIEW dated 01/05/2012 FINDINGS: Interstitial markings are mildly prominent. This may represent viral infection or intersti tial edema. No focal consolidation typical of pneumonia seen. The heart is normal in size. Blunting o f the left costophrenic sulcus suggests mild left pleural effusion.
[2023-12-09 08:29] LABS: Troponin High Sensitivity < 3.0 pg/mL (<58.9)
[2023-12-09] MEDS ORDERED: NA CHLORIDE 0.9% 250 ML ONE (08:45)
[2023-12-09] MEDS ORDERED: AZITHROMYCIN 500 MG INJ IVPB ONE (08:45)
[2023-12-09] MEDS ORDERED: PROMETHAZINE INJ 25 MG/ML AMP ONE (08:45)
[2023-12-09] MEDS ORDERED: NA CHLORIDE 0.9% 1,000 ML ONE ×2 (08:46→12:02)
[2023-12-09] MEDS ORDERED: IBUPROFEN 200 MG TAB PO ONE (09:11)
[2023-12-09] MEDS ORDERED: IBUPROFEN 400 MG TAB ONE (09:11)
[2023-12-09 09:40] LABS: SARS-CoV-2 Antigen CONTROL BLUE LINE VIS/BG OK
[2023-12-09 09:41] LABS: SARS-CoV-2 Antigen Rapid Res Positive (Negative)
--- NOTE | 2023-12-09 10:08 | EDPHYS ---
Physician Documentation [facility] Name: Mechelle Jerez Age: 48 yrs Sex: Female : 1975 Arrival Date: 12/09/2023 Time: 07:13 Bed 5 Private MD: ED Physician Krystian Mccarthy HPI: 12/08 10:09 This 48 yrs old Female presents to ER via Wheelchair with complaints of Flu Symptoms, ms3 Shortness Of Breath. 10:09 48-year-old female with past medical history of pulmonary embolism [place] [facility] [place] headache, shortness of breath, back pain that began at 3 AM. Patient endorses nausea and vomiting. She denies diarrhea. Patient states her discomfort is a 9/10. She denies any alleviating or inciting factors. 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 - Infectious Disease History:: Denies. - Social history:: Smoking status: Patient denies any tobacco usage or history of. ROS: 10:09 Cardiovascular: Negative for chest pain, and palpitations. ms3 10:09 Constitutional: Positive for body aches, chills, 10:09 Respiratory: Positive for cough, 10:09 Abdomen/GI: Positive for nausea and vomiting, 10:09 Neuro: Positive for headache, Exam: 10:09 Constitutional: This is a well developed, well nourished patient who is awake, alert, ms3 and in no acute distress. Respiratory: Lungs have equal breath sounds bilaterally, clear to auscultation and percussion. No rales, rhonchi or wheezes noted. No increased work of breathing, no retractions or nasal flaring. Abdomen/GI: Soft, non-tender, with normal bowel sounds. No distension or tympany. No guarding or rebound. No evidence of tenderness throughout. Skin: Warm, dry with normal turgor. Normal color with no rashes, no lesions, and no evidence of cellulitis. MS/ Extremity: Pulses equal, no cyanosis. Neurovascular intact. Full, normal range of motion. 10:09 Cardiovascular: Rate: tachycardic, Rhythm: regular, Pulses: no pulse deficits are appreciated, Heart sounds: normal, normal S1and S2, 10:09 ECG was reviewed by the Attending Physician. Vital Signs: 07:30 BP 130 / 79; Pulse 110; Resp 20; Temp 99.1(O); Pulse Ox 94% on R/A; Weight 99.79 kg; ph Height 4 ft. 11 in. ; 08:45 BP 117 / 82; Pulse 103; Resp 20; Pulse Ox 91% on R/A; ph 09:45 BP 106 / 69; Pulse 101; Resp 22; Pulse Ox 95% on 2 lpm NC; ph 11:00 BP 110 / 57; Pulse 92; Resp 18; Pulse Ox 97% on 2 lpm NC; ph 12:00 BP 105 / 65; Pulse 85; Resp 18; Temp 98.4; Pulse Ox 97% on 2 lpm NC; ph 07:30 Body Mass Index 44.43 (99.79 kg, 149.86 cm) ph MDM: 07:35 Patient medically screened. ms3 10:09 Differential diagnosis: CHF exacerbation, pneumonia, FLU vs COVID. Immunization ms3 status:. Data reviewed: vital signs, nurses notes, lab test result(s), radiologic studies, and as a result, I will discharge patient. Consideration of Admission/Observation Patient was admitted/placed on observation. Management of patient was discussed with the following: Hospitalist: Dr Moreira. I considered the following discharge prescriptions or medication management in the emergency department Medications were administered in the Emergency Department. See MAR. Independent interpretation of the following test(s) in the Emergency Department X-Ray: My interpretation is CXR images reviewed by me does not reveal consolidation. Counseling: I had a detailed discussion with the patient and/or guardian regarding the historical points, exam findings, and any diagnostic results supporting the discharge/admit diagnosis, lab results, radiology results, the need for further work-up and treatment in the hospital. Response to treatment: the patient's symptoms have mildly improved after treatment, and as a result, I will admit patient. ED course: Patient oxygen saturation 89% on room air. Patient placed on 2 L nasal cannula. Patient given azithromycin IV in the emergency department. Discussed admission with patient she understands and agrees with plan. Report given to Dr. Hayes who accepts patient.. 12/08 07:34 Order name: Basic Metabolic Panel; Complete Time: 08:33 ms3 12/08 07:34 Order name: CBC with Diff; Complete Time: 08:33 ms3 12/08 07:34 Order name: D-Dimer; Complete Time: 08:33 ms3 12/08 07:34 Order name: Magnesium; Complete Time: 08:33 ms3 12/08 07:34 Order name: NT PRO-BNP; Complete Time: 08:33 ms3 12/08 07:34 Order name: Troponin HS; Complete Time: 08:33 ms3 12/08 09:06 Order name: SARS RAPID; Complete Time: 09:42 ms3 12/08 09:07 Order name: Flu; Complete Time: 09:42 ms3 12/08 11:11 Order name: Protime (+INR) EDMS 12/08 11:11 Order name: CBC with Automated Diff EDMS 12/08 11:11 Order name: CBC with Automated Diff EDMS 12/08 11:11 Order name: Comprehensive Metabolic Panel EDMS 12/08 11:11 Order name: Comprehensive Metabolic Panel EDMS 12/08 11:11 Order name: Protime (+INR) EDMS 12/08 11:11 Order name: Protime (+INR) EDMS 12/08 11:11 Order name: PTT, Activated Partial Thromb EDMS 12/08 11:11 Order name: PTT, Activated Partial Thromb EDMS 12/08 11:11 Order name: Troponin High Sensitivity EDMS 12/08 11:11 Order name: Troponin High Sensitivity EDMS 12/08 07:34 Order name: Chest Pa And Lat (2 Views) XRAY; Complete Time: 08:33 ms3 12/08 07:34 Order name: EKG; Complete Time: 07:35 ms3 12/08 07:34 Order name: Cardiac monitoring; Complete Time: 07:47 ms3 12/08 07:34 Order name: EKG - Nurse/Tech; Complete Time: 07:47 ms3 12/08 07:34 Order name: IV Saline Lock; Complete Time: 07:57 ms3 12/08 07:34 Order name: Labs collected and sent; Complete Time: 07:57 ms3 12/08 07:34 Order name: O2 Per Protocol; Complete Time: 07:47 ms3 12/08 07:34 Order name: O2 Sat Monitoring; Complete Time: 07:47 ms3 EC:09 Rate is 109 beats/min. Rhythm is regular. Left axis deviation noted. SC interval is ms3 normal. QRS interval is normal. Clinical impression: Sinus tachycardia. Interpreted by me. Reviewed by me. Administered Medications: 08:55 Drug: AZITHromycin IVPB 500 mg IVPB once over 1 hrs; (mix in 250 mL NS) Route: IVPB; ph Infused Over: 1 hrs; Site: right antecubital; 09:53 Follow up: Response: No adverse reaction; IV Status: Completed infusion; IV Intake: ph 250ml 08:55 Drug: Promethazine IM 25 mg IM once Route: IM; Site: right deltoid; ph 09:53 Follow up: Response: No adverse reaction; Nausea is decreased ph 08:55 Drug: NS 0.9% IV 1000 ml IV at 1 bolus Per protocol; 1000 mL bolus Route: IV; Rate: 1 ph bolus; Site: right antecubital; 09:53 Follow up: Response: No adverse reaction; IV Status: Completed infusion; IV Intake: ph 1000ml 09:16 Drug: Ibuprofen PO 600 mg PO once Route: PO; ph 09:53 Follow up: Response: No adverse reaction ph Disposition Summary: 12/09/23 10:08 Hospitalization Ordered Notes: Hospitalization Status: Inpatient Admission ms3 [facility]: [facility] ([facility] ms3 Condition: Stable ms3 Problem: new ms3 Symptoms: are unchanged ms3 Bed/Room Type: Standard ms3 Provider: Deanna Moreira(12/09/23 14:02) eb Room Assignment: 405(12/09/23 14:02) eb Diagnosis - Acute respiratory failure with hypoxia ms3 - SARS-associated coronavirus as the cause of diseases classified elsewhere ms3 Forms: - Medication Reconciliation Form ms3 - SBAR form ms3 - Leadership Thank You Letter ms3 Signatures: Dispatcher [employer] Patricia Brown RN RN Ami Villegas RN RN ph Botello, Elizabeth eb Sims, Marcus, DO DO ms3 Corrections: (The following items were deleted from the chart) 07:35 07:35 BASIC METABOLIC PANEL+C.LAB.BRZ ordered. EDMS EDMS 07:35 07:35 CBC+H.LAB.BRZ ordered. EDMS EDMS 07:35 07:35 D-DIMER+COAG.LAB.BRZ ordered. EDMS EDMS 07:35 07:35 MAGNESIUM+C.LAB.BRZ ordered. EDMS EDMS 07:35 07:35 PROBNP+C.LAB.BRZ ordered. EDMS EDMS 07:35 07:35 Troponin High Sensitivity+C.LAB.BRZ ordered. EDMS EDMS 14:02 10:08 Deanna Moreira ms3 ss 14:02 10:08 ms3 ss 14:02 14:02 Krystian Mccarthy ss eb 14:02 14:02 405 ss eb
--- NOTE | 2023-12-09 10:08 | ER ---
Nurse's Notes [facility] Name: Mechelle Jerez Age: 48 yrs Sex: Female : 1975 Arrival Date: 12/09/2023 Time: 07:13 Bed 5 Private MD: Diagnosis: Acute respiratory failure with hypoxia;SARS-associated coronavirus as the cause of diseases classified elsewhere Presentation: 12/08 07:30 Chief complaint: Patient states: SOB, back pain, N/V, had CT done recently d/t hx of ph blood clots. Coronavirus screen: Vaccine status: Patient reports being unvaccinated. Ebola Screen: No symptoms or risks identified at this time. Initial Sepsis Screen: Does the patient meet any 2 criteria? No. Patient's initial sepsis screen is negative. Does the patient have a suspected source of infection? No. Patient's initial sepsis screen is negative. Risk Assessment: Do you want to hurt yourself or someone else? Patient reports no desire to harm self or others. Onset of symptoms was December 09, 2023. 07:30 Method Of Arrival: Wheelchair 07:30 Acuity: TAMMY 2 Triage Assessment: 07:33 General: Appears in no apparent distress. Behavior is calm, cooperative. Pain: ph Complains of pain in back. Neuro: Level of Consciousness is awake, alert, obeys commands, Oriented to person, place, time, situation. Cardiovascular: Capillary refill < 3 seconds in bilateral fingers Patient's skin is warm and dry. Respiratory: Reports shortness of breath at rest Onset: The symptoms/episode began/occurred "a few days ago", the patient has moderate shortness of breath. GI: Reports nausea, vomiting. Derm: Skin is pink, warm \\T\\ dry. 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 - Infectious Disease History:: Denies. - Social history:: Smoking status: Patient denies any tobacco usage or history of. Screenin:34 [facility] ED Fall Risk Assessment (Adult) History of falling in the last 3 months, ph including since admission No falls in past 3 months (0 pts) Confusion or Disorientation No (0 pts) Intoxicated or Sedated No (0 pts) Impaired Gait No (0 pts) Mobility Assist Device Used No (0 pt) Altered Elimination No (0 pt) Score/Fall Risk Level 0 - 2 = Low Risk Oriented to surroundings, Maintained a safe environment, Hourly rounding (assess needs \\T\\ fall precautionary measures) done. Abuse screen: Denies threats or abuse. Denies injuries from another. Nutritional screening: No deficits noted. Tuberculosis screening: No symptoms or risk factors identified. Assessment: 07:56 General: SEE TRIAGE ASSESSMENT. ph 09:00 Reassessment: Patient appears in no apparent distress at this time. Patient and/or ph family updated on plan of care and expected duration. Pain level reassessed. Patient is alert, oriented x 3, equal unlabored respirations, skin warm/dry/pink. 10:26 Reassessment: Patient appears in no apparent distress at this time. Patient and/or ph family updated on plan of care and expected duration. Pain level reassessed. Patient is alert, oriented x 3, equal unlabored respirations, skin warm/dry/pink. 10:27 Cardiovascular: Rhythm is sinus tachycardia. ph 14:40 Reassessment: Report faxed to 4th floor at 1435, attempted to call to notify, no answer ph at nurses station or charge nurse phone. Vital Signs: 07:30 BP 130 / 79; Pulse 110; Resp 20; Temp 99.1(O); Pulse Ox 94% on R/A; Weight 99.79 kg; ph Height 4 ft. 11 in. ; 08:45 BP 117 / 82; Pulse 103; Resp 20; Pulse Ox 91% on R/A; ph 09:45 BP 106 / 69; Pulse 101; Resp 22; Pulse Ox 95% on 2 lpm NC; ph 11:00 BP 110 / 57; Pulse 92; Resp 18; Pulse Ox 97% on 2 lpm NC; ph 12:00 BP 105 / 65; Pulse 85; Resp 18; Temp 98.4; Pulse Ox 97% on 2 lpm NC; ph 07:30 Body Mass Index 44.43 (99.79 kg, 149.86 cm) ph ED Course: 07:15 Patient arrived in ED. im 07:16 Krystian Mccarthy DO is Attending Physician. ms3 07:23 Arm band placed on Patient placed in an exam room, on a stretcher. ll1 07:32 Triage completed. ph 07:34 Patient has correct armband on for positive identification. Bed in low position. Call ph light in reach. Side rails up X2. Pulse ox on. NIBP on. Door closed. Noise minimized. Warm blanket given. 07:35 Ami Michael, RN is Primary Nurse. ph 07:56 Initial lab(s) drawn, by me, sent to lab. EKG done, by ED staff, reviewed by Krystian Mccarthy DO. Inserted saline lock: 22 gauge in right antecubital area, using aseptic technique. Blood collected. Flushed with 10 mL NS. 07:57 Basic Metabolic Panel Sent. ph 07:57 D-Dimer Sent. ph 07:57 CBC with Diff Sent. ph 07:57 Magnesium Sent. ph 07:57 NT PRO-BNP Sent. ph 07:57 Troponin HS Sent. ph 08:13 Chest Pa And Lat (2 Views) XRAY In Process Unspecified. EDMS 09:16 Flu Sent. ph 09:16 SARS RAPID Sent. ph 10:26 No provider procedures requiring assistance completed. Patient admitted, IV remains in ph place. 11:45 1145 CM met with patient and her at the bedside in the ED exam room. Patient ane identified by name and . Demographic sheet confirmed. states she lives with her in a single story home. She reports her PCP is Dr. Ottoniel Ridley and she does not have an MPOA in place at this time. Mrs. Caldera states she does not have HH, home oxygen or other medical services at this time, however, reports she did have home oxygen for 2 months post initial covid infection in 2019. She does not recall the company she had home oxygen through, as it was when they lived in [place], [place]. Her preferred discharge plan is to return home. Her Carson states he will transport her home when she is discharged. CM team will continue to follow and coordinate care. 14:02 Krystian Mccarthy DO is Hospitalizing Provider. 14:02 Hospitalizing Provider role handed off by Krystian Mccarthy DO 14:02 Deanna Moreira MD is Hospitalizing Provider. eb Administered Medications: 08:55 Drug: AZITHromycin IVPB 500 mg IVPB once over 1 hrs; (mix in 250 mL NS) Route: IVPB; ph Infused Over: 1 hrs; Site: right antecubital; 09:53 Follow up: Response: No adverse reaction; IV Status: Completed infusion; IV Intake: ph 250ml 08:55 Drug: Promethazine IM 25 mg IM once Route: IM; Site: right deltoid; ph 09:53 Follow up: Response: No adverse reaction; Nausea is decreased ph 08:55 Drug: NS 0.9% IV 1000 ml IV at 1 bolus Per protocol; 1000 mL bolus Route: IV; Rate: 1 ph bolus; Site: right antecubital; :53 Follow up: Response: No adverse reaction; IV Status: Completed infusion; IV Intake: ph 1000ml 09:16 Drug: Ibuprofen PO 600 mg PO once Route: PO; ph 09:53 Follow up: Response: No adverse reaction ph Medication: 07:34 VIS not applicable for this client. ph Intake: 09:53 IV: 1000ml; Total: 1000ml. ph 09:53 IV: 250ml; Total: 1250ml. ph Outcome: 10:08 Decision to Hospitalize by Provider. ms3 12:00 Admitted to ER Hold. Please see [facility] for further documentation. ph 12:00 Condition: stable 12:00 Instructed on the need for admit, 15:14 Patient left the ED. ph Signatures: Dispatcher [employer] EDMS Patricia Tolbert RN RN Ami Michael RN RN Jasmin Munson Lynsay, RN RN [facility] Krystian Mccarthy DO DO ms3 Maame Wei Andie, RN RN ane Corrections: (The following items were deleted from the chart) 09:53 09:45 BP 106 / 69; Pulse 101bpm; Resp 22bpm; Pulse Ox 95% RA; ph ph
[2023-12-09] MEDS ORDERED: ONDANSETRON 4 MG/2 ML VIAL IV PRN (11:05)
[2023-12-09] MEDS ORDERED: ALBUTEROL INHALER 200 PUFF/6.7 GM IH PRN (11:05)
[2023-12-09] MEDS ORDERED: ACETAMINOPHEN 500 MG TAB PO PRN (11:05)
--- NOTE | 2023-12-09 11:12 | P.HP ---
Certification for Inpatient Patient admitted to: Observation With expected LOS: <2 Midnights Patient will require the following post-hospital care: None Practitioner: I am a practitioner with admitting privileges, knowledge of patient current condition, hospital course, and medical plan of care. Services: Services provided to patient in accordance with Admission requirements found in Title 42 Section 412.3 of the Code of Federal Regulations Patient History Date of Service: 12/09/23 Reason for admission: Acute respiratory failure History of Present Illness: Patient is a 48-year-old female came to the hospital with acute respiratory failure. Patient with a history of COVID infection in 2019. At that time she required home oxygen and was left with myopathy and needed physical therapy at discharge to regain her strength. Since then she has been doing well but she became short of breath a few days ago. She had a CT PE protocol because she has a history of pulmonary embolism. She thinks she has had autoimmune diseases. Her CT scan did not reveal any pulmonary embolism but she did have groundglass opacities. In the ER, she was feeling short of breath with cough and congestion. She was placed on oxygen and her COVID test came back positive. At this time, she will be admitted to the hospital for further evaluation and will reassess her oxygen status. Will wean off of oxygen and continue with Paxlovid and steroid therapy. Patient will be admitted for observation. Allergies No Known Drug Allergies Allergy (Verified 02/13/23 07:07) Unknown Home Medications: Enoxaparin Sodium [Lovenox 80 MG INJ] 80 mg SQ BID 02/09/23 Semaglutide [Wegovy] 2.4 mg SQ EVERY 7TH DAY 02/09/23 Warfarin Sodium [Coumadin] 1 mg PO SEECOM 02/09/23 metroNIDAZOLE [Rosadan] 45 gm TP PRN PRN 02/09/23 - Past Medical/Surgical History Diabetic: No -: DVT -: depression/anxiety -: COVID infection -: Questionable autoimmune disease -: vascular surgery-left leg - Family History Father Family History: Reviewed- Non-Contributory - Social History Smoking Status: Former smoker Alcohol use: No CD- Drugs: No Review of Systems 10-point ROS is otherwise unremarkable Physical Examination - Vital Signs Temperature: 99 F Blood Pressure: 150/80 Pulse: 80 Respirations: 24 Pulse Ox (%): 85 - Physical Exam General: Alert, In no apparent distress, Oriented x3 HEENT: Atraumatic, PERRLA, Mucous membr. moist/pink, EOMI, Sclerae nonicteric Neck: Supple, 2+ carotid pulse no bruit, No LAD, Without JVD or thyroid abnormal ity Respiratory: Diminished, Expiratory wheezes Cardiovascular: Regular rate/rhythm, Normal S1 S2 Gastrointestinal: Normal bowel sounds, No tenderness Musculoskeletal: No tenderness Integumentary: No rashes Neurological: Normal gait, Normal speech, Normal strength at 5/5 x4 extr, Normal tone, Sensation intact, Cranial nerves 3-12 intact, Normal affect Lymphatics: No axilla or inguinal lymphadenopathy - Studies Laboratory Data (last 24 hrs) 12/09/23 12/09/23 07:50 07:50 WBC 7.10 Hgb 14.0 Hct 41.9 Plt Count 199 Sodium 134 L Potassium 4.0 BUN 8 Creatinine 0.72 Glucose 139 H Magnesium 1.9 Microbiology Data (last 24 hrs): 12/09/23 09:15 Nasopharnyx Influenza Type A Antigen Screen - Final 12/09/23 09:15 Nasopharnyx Influenza Type B Antigen Screen - Final Assessment & Plan - Problems (Diagnosis) (1) Pneumonia due to COVID-19 virus Current Visit: Yes Status: Acute (2) Hypoxemia Current Visit: Yes Status: Acute (3) History of pulmonary embolism Current Visit: Yes Status: Acute - Plan 1. IV steroids 2. O2 per protocol: Check room air O2 sat in the morning 3. Paxlovid therapy 4. Monitor labs 5. We will address vaccination status and remind patient the importance of vaccination 6. Inhaler therapy 7. Out of bed and ambulate - Advance Directives Does patient have a Living Will: No Does patient have a Durable POA for Healthcare: No
[2023-12-09] MEDS: NA CHLORIDE 0.9% 1,000 ML IV SCH (12:00)
[2023-12-09 12:19] VITALS: BMI 44.4
[2023-12-09] MEDS: WARFARIN SODIUM 5 MG TAB PO SCH (16:39)
[2023-12-09] MEDS: dexAMETHasone 10 MG/ML VIAL IV SCH (16:39)
[2023-12-09] MEDS: NIRMATRELVIR/RITONAVIR TABLET PO SCH (20:32)
[2023-12-09] MEDS ORDERED: NIRMATRELVIR/RITONAVIR TABLET PO SCH ×2 (21:00)
[2023-12-10 00:06] VITALS: O2SAT 95
[2023-12-10 06:18] LABS: Absolute Lymphocytes (CBC) 0.9 K/uL (0.7-4.9); Absolute Monocytes 0.1 K/uL (0.1-1.3); Absolute Neutrophil 3.6 K/uL (1.8-8.0); Basophils % 0.1 % (0-1.3); Hematocrit 39.2 % (36.0-45.0); Hemoglobin 13.1 g/dL (12.0-15.0); Lymphocytes % 20.3 % (15.3-44.8); MCH 29.6 pg (27.0-35.0); MCHC 33.4 g/dL (32.0-36.0); MCV 88.6 fL (80-100); MPV 9.3 fL (7.6-11.3); Monocytes % 2.7 % (3.3-12.3); Neutrophils % 76.9 % (41.7-73.7); Nucleated Red Blood Cells % 0.1 % (0-0); Platelets 196 thou/uL (152-406); RBC Red Blood Cell Count 4.43 M/uL (3.86-4.86)
[2023-12-10 06:24] LABS: PT Prothrombin Time 44.2 SECONDS (9.4-12.5); PTT, Activated Partial Thromb 53.5 SECONDS (24.3-36.9); Protime INR 4.11
[2023-12-10 06:35] LABS: Albumin 3.2 g/dL (3.4-5.0); Albumin/Globulin Ratio 0.8 (1.1-1.8); Bilirubin Total 0.3 mg/dL (0.2-1.0); Globulin 4.1 g/dL (2.3-3.5); Protein, Total 7.3 g/dL (6.4-8.2)
--- NOTE | 2023-12-10 07:44 | P.DS ---
Admission Date: 12/09/23 Discharge Date: 12/10/23 Reason for Admission: Acute respiratory failure Brief History of Present Illness: Patient is a 48-year-old female came to the hospital with acute respiratory failure. Patient with a history of COVID infection in 2019. At that time she required home oxygen and was left with myopathy and needed physical therapy at discharge to regain her strength. Since then she has been doing well but she became short of breath a few days ago. She had a CT PE protocol because she has a history of pulmonary embolism. She thinks she has had autoimmune diseases. Her CT scan did not reveal any pulmonary embolism but she did have groundglass o pacities. In the ER, she was feeling short of breath with cough and congestion. She was placed on oxygen and her COVID test came back positive. At this time, she will be admitted to the hospital for further evaluation and will reassess her oxygen status. Will wean off of oxygen and continue with Paxlovid and steroid therapy. Patient will be admitted for observation. - Physical Exam General: Alert, In no apparent distress, Oriented x3 HEENT: Atraumatic, PERRLA, Mucous membr. moist/pink, EOMI, Sclerae nonicteric Neck: Supple, 2+ carotid pulse no bruit, No LAD, Without JVD or thyroid abnormality Respiratory: Diminished, Expiratory wheezes Cardiovascular: Regular rate/rhythm, Normal S1 S2 Gastrointestinal: Normal bowel sounds, No tenderness Musculoskeletal: No tenderness Integumentary: No rashes Neurological: Normal gait, Normal speech, Normal strength at 5/5 x4 extr, Normal tone, Sensation intact, Cranial nerves 3-12 intact, Normal affect Lymphatics: No axilla or inguinal lymphadenopathy Hospital Course: 48-year-old female came to the hospital with acute respiratory failure. Patient with a history of COVID infection in 2019. At that time she required home oxygen and was left with myopathy and needed physical therapy at discharge to regain her strength. Since then she has been doing well but she became short of breath a few days ago. She had a CT PE protocol because she has a history of pulmonary embolism. She thinks she has had autoimmune diseases. Her CT scan did not reveal any pulmonary embolism but she did have groundglass opacities. She was noted to have COVID, treated with Paxlovid, albuterol inhalers, oxygen as needed. She is stable, tolerating diet, weaned to room air. Stable to discharge home, follow-up with pulmonary or PCP after discharge. Assessment COVID Discharged with Paxlovid, albuterol inhaler, Tessalon Perles follow-up with PCP, or pulmonary after discharge Continue home medicines as previously prescribed GOAL: Clear understanding of disease process INSTRUCTIONS: Physician Discharge Instructions: -Follow-up with PCP in 1 to 2 weeks -Please call Dr. Moreira at [phone] if any questions regarding hospital stay -Please call nursing station at [phone] if any nursing or medication questions -Return to the emergency room if symptoms worsen Diet: ADA, low sodium Activity: Fall precautions <Fang Marrero - Last Filed: 12/11/23 12:56> Admission Date: 12/09/23 Discharge Date: 12/10/23 - Problems (1) Pneumonia due to COVID-19 virus Status: Acute (2) Hypoxemia Status: Acute (3) History of pulmonary embolism Status: Acute Hospital Course: Chart has been reviewed. Events of the last 24 hours have been noted. Case discussed with [facility]. I performed a substantial part of the MDM during this patient's care today. I personally made or approved the documented management plan and acknowledge its risk of complications. I agree with the findings and documentation provided in the [facility]'s notes Continue with Paxlovid, inhaler therapy and Tessalon Perles. Outpatient pulmonary follow-up as well as follow-up with PCP. <Deanna Moreira - Last Filed: 12/18/23 02:39> Disposition: ROUTINE DISCHARGE Discharge Condition: GOOD Vital Signs/Physical Exam: Temp Pulse Resp BP Pulse Ox 97.1 F 81 18 123/62 92 12/10/23 04:00 12/10/23 04:00 12/10/23 04:00 12/10/23 04:00 12/10/23 04:00 Laboratory Data at Discharge: WBC 4.60 thou/uL (4.3-10.9) 12/10/23 06:05 Hgb 13.1 g/dL (12.0-15.0) 12/10/23 06:05 Hct 39.2 % (36.0-45.0) 12/10/23 06:05 Plt Count 196 thou/uL (152-406) 12/10/23 06:05 PT 44.2 SECONDS (9.4-12.5) H 12/10/23 06:05 INR 4.11 12/10/23 06:05 APTT 53.5 SECONDS (24.3-36.9) H 12/10/23 06:05 Sodium 138 mEq/L (136-145) 12/10/23 06:05 Potassium 4.0 mEq/L (3.5-5.1) 12/10/23 06:05 BUN 6 mg/dL (7-18) L 12/10/23 06:05 Creatinine 0.53 mg/dL (0.55-1.02) L 12/10/23 06:05 Glucose 172 mg/dL (74-106) H 12/10/23 06:05 Magnesium 1.9 mg/dL (1.6-2.4) 12/09/23 07:50 Total Bilirubin 0.3 mg/dL (0.2-1.0) 12/10/23 06:05 AST 22 U/L (15-37) 12/10/23 06:05 ALT 38 U/L (13-56) 12/10/23 06:05 Alkaline Phosphatase 86 U/L (45-117) 12/10/23 06:05 <Fang Marrero - Last Filed: 12/11/23 12:56> Vital Signs/Physical Exam: Temp Pulse Resp BP Pulse Ox 99 F 80 24 H 150/80 H 85 L 12/18/23 02:38 12/18/23 02:38 12/18/23 02:38 12/18/23 02:38 12/18/23 02:38 Laboratory Data at Discharge: WBC 4.60 thou/uL (4.3-10.9) 12/10/23 06:05 Hgb 13.1 g/dL (12.0-15.0) 12/10/23 06:05 Hct 39.2 % (36.0-45.0) 12/10/23 06:05 Plt Count 196 thou/uL (152-406) 12/10/23 06:05 PT 44.2 SECONDS (9.4-12.5) H 12/10/23 06:05 INR 4.11 12/10/23 06:05 APTT 53.5 SECONDS (24.3-36.9) H 12/10/23 06:05 Sodium 138 mEq/L (136-145) 12/10/23 06:05 Potassium 4.0 mEq/L (3.5-5.1) 12/10/23 06:05 BUN 6 mg/dL (7-18) L 12/10/23 06:05 Creatinine 0.53 mg/dL (0.55-1.02) L 12/10/23 06:05 Glucose 172 mg/dL (74-106) H 12/10/23 06:05 Magnesium 1.9 mg/dL (1.6-2.4) 12/09/23 07:50 Total Bilirubin 0.3 mg/dL (0.2-1.0) 12/10/23 06:05 AST 22 U/L (15-37) 12/10/23 06:05 ALT 38 U/L (13-56) 12/10/23 06:05 Alkaline Phosphatase 86 U/L (45-117) 12/10/23 06:05 <Deanna Moreira - Last Filed: 12/18/23 02:39> Time spent managing pt's care (in minutes): 55 <Fang Marrero - Last Filed: 12/11/23 12:56> <Deanna Moreira - Last Filed: 12/18/23 02:39> Home Medications: Warfarin Sodium [Coumadin] 1 mg PO SEECOM 02/09/23 Albuterol Sulfate [Albuterol Sulfate Hfa] 8.5 gm IH Q4H PRN 30 Days #1 inh 12/10/23 Benzonatate [Tessalon Perle] 100 mg PO TID PRN 10 Days #30 cap 12/10/23 Nirmatrelvir/Ritonavir [Paxlovid 2X150 mg-100 mg] 2 tab PO BID 5 Days #1 packet 12/10/23 New Medications: Albuterol Sulfate [Albuterol Sulfate Hfa] 8.5 gm IH Q4H PRN 30 Days #1 inh PRN Reason: Shortness Of Breath Nirmatrelvir/Ritonavir [Paxlovid 2X150 mg-100 mg] 2 tab PO BID 5 Days #1 packet Benzonatate [Tessalon Perle] 100 mg PO TID PRN 10 Days #30 cap PRN Reason: Shortness Of Breath Physician Discharge Instructions: 48-year-old female came to the hospital with acute respiratory failure. Patient with a history of COVID infection in 2019. At that time she required home oxygen and was left with myopathy and needed physical therapy at discharge to regain her strength. Since then she has been doing well but she became short of breath a few days ago. She had a CT PE protocol because she has a history of pulmonary embolism. She thinks she has had autoimmune diseases. Her CT scan did not reveal any pulmonary embolism but she did have groundglass opacities. She was noted to have COVID, treated with Paxlovid, albuterol inhalers, oxygen as needed. She is stable, tolerating diet, weaned to room air. Stable to discharge home, follow-up with pulmonary or PCP after discharge. Assessment COVID Discharged with Paxlovid, albuterol inhaler, follow-up with PCP, or pulmonary after discharge Prescriptions Paxlovid, completed 2 days, will need to remain for 3 days Albuterol inhaler 1 to 2 puffs every 4 hours as needed for cough shortness of breath Dexamethasone 6 mg 1 tablet daily for 5 days Tessalon Perles 100 mg 3 times daily as needed cough HOLD COUMADIN WHILE ON PAXLOVID Continue home medicines as previously prescribed GOAL: Clear understanding of disease process INSTRUCTIONS: Physician Discharge Instructions: -Follow-up with PCP in 1 to 2 weeks -Please call Dr. Moreira at [phone] if any questions regarding hospital stay -Please call nursing station at [phone] if any nursing or medication questions -Return to the emergency room if symptoms worsen Diet: ADA, low sodium Activity: Fall precautions Followup: NONE,NONE [UNKNOWN] - Tanner Díaz MD [ACTIVE - CAN ADMIT] -
--- NOTE | 2023-12-11 14:13 | EKG ---
Test Date: 2023-12-09 Test Time: 07:46:02 [employer]: PH MEASUREMENT RESULTS: Intervals: Rate: 109 [place]: 142 QRSD: 84 QT: 310 QTc: 417 [place]: P: 51 [place]: 142 QRS: -41 T: 24 INTERPRETIVE STATEMENTS: Sinus tachycardia Left axis deviation Pulmonary disease pattern Abnormal ECG Compared to ECG 02/09/2023 11:37:20 Left-axis deviation now present Sinus rhythm no longer present Myocardial infarct finding no longer present Electronically Signed On 12-11-23 14:08:16 CDT by Orlando Gongora
[2023-12-18 02:38] VITALS: BP 150/80; TEMP 99
== END 2023-12-10 14:32 | disposition home or self-care (01) ==
LOC: ER 07:13 → ERHOLD 11:05 → 4TH 14:39
PROVIDERS: ADMIT Hospitalist; ATTEND Hospitalist
DX: U07.1 COVID-19 (principal); J12.82 Pneumonia due to coronavirus disease 2019; J96.01 Acute respiratory failure with hypoxia; Z99.81 Dependence on supplemental oxygen; Z86.16 Personal history of COVID-19; Z86.711 Personal history of pulmonary embolism; Z79.01 Long term (current) use of anticoagulants
CPT/HCPCS: 36415; 71046; 80048; 80053; 83735; 83880; 84484; 85025; 85379; 85610; 85730; 87804; 87811; 93005; 96365; 96372; 99285; G0378; J1100; J2550; J7030; J7050; J8499

== ENCOUNTER 2023-12-13 04:52 | Emergency (ER) | payer BC ==
--- OUTSIDE RECORDS SUMMARY | 2023-12-13 04:58 | XMS REPORT | Continuity of Care Document ---
Author Name Unknown Address [address] [place] [address] [facility]connect Address [address] [place] [address] Care Team Providers Care Briquette Maker Name Role Phone Antonina Sewell Primary Care Physician + NORBERTO WATSON Attending Clinician Unavailable LORENZO WHITE Attending Clinician Un available GUY KNOX Attending Clinician Unavailab ALEXSANDRA Ferrer Attending Clinician Unavailable MD GAGANDEEP Attending Clinician Unavailab VIJAY Summers Attending Clinician Unavailable PAYAM GILLIS Attending Clinician Unavailable EbPayam Carrillo Attending Clinician + Unknown, Attending Attending Clinician Unavailab le UNKNOWN, ATTENDING Attending Clinician Unavailab le Doctor Unassigned, [place] Attending Clinician U MERRILL Champagne Attending Clinician Unavailable VINH ZARAGOZA Attending Clinician Unavailable JOSEPH QUARLES Attending Clinician Unavailable GC_GCBZW_Sammie_Shakir Attending Clinician Unavaila HEDY Jordan Attending Clinician Unavailable FRANCISCO CASTANON Attending Clinician Unavailable LAB90 Attending Clinician Unavailable GC_GCFRWD_Rosas_Alondra Attending Clinician Unavaila CARMELA Valera Attending Clinician Unavail able TAHMINA ANDERSON Attending Clinician Unava ilable PL, TECH 1 Attending Clinician Unavailable ES, TECH 1 Attending Clinician Unavailable NEIL VIGIL Attending Clinician Unavailable CHUN SALCEDO Attending Clinician Unavail able Juju ALLEN-CHedy Attending Clinician + Camilo Goldman Attending Clinician Unavailable Erick Thomas MD Attending Clinician [phone] ERICK THOMAS Attending Clinician Unavailable Carmela Traylor NP Attending Clinician [phone] Zora ALLEN-CJa Attending Clinician [phone] JA CALERO Attending Clinician UnavailAntonina Crum MD Attending Clinician + ANTONINA SEWELL Attending Clinician Unavaila SEMAJ Chavez Attending Clinician Unavailable DYLON NICHOLAS Attending Clinician Unavailable ANGIE CASON Attending Clinician Unavailabl e Only, Adc Test Attending Clinician Unavailable Diogo Minaya MD Attending Clinician [phone] AISHWARYA PINEDA Attending Yue schumacher Unavailable GC_GCBZW_Sammie_S Admitting Clinician Unavailsarthak yamila GC_GCFRWD_Rosas_E Admitting Clinician Unavaila ble Larissa Goldmanjodi Bill Admitting Clinician Unavailable SEMAJ VELASQUEZ Admitting Clinician Unavailable Payers Payer Name Policy Type Policy Number Effective Date Expirati on Date Source BCBSTX PPO [id number] 2020 00:00:00 BCBS 2 [id number] 2020 00:00:00 Blue Cross Blue Shield of [place] 6 [id number] [facility] [place] [id number] 2020 00:00:00 [place] [id number] 2018 00:00:00 Problems Condition Name Condition Details [...] Venous Embolism Problem Active 09-03 00:00: 00 [facility] Chronic deep venous thrombosis of femoral vein of right lower extremity Chronic Deep Venous Thrombosis of Femoral Vein of Right Lower Extremity Problem Active 09-03 00:00: 00 [facility] History of pulmonary embolus History of Pulmonary Embolus Problem Active 2-22 00:00: 00 [facility] Moderate recurrent major depression Moderate Recurrent Major Depression Problem Active 2-21 00:00: 00 [facility] Reduced libido Reduced Libido Problem Active 2-02 00:00: 00 [facility] Pelvic and perineal pain Pelvic and Perineal Pain Problem Active 2-02 00:00: 00 [facility] Menopause present Menopause Present Problem Active 2-02 00:00: 00 [facility] Screening mammograph y Screening Mammograph y Problem Active 2020-04 1-15 00:00: 00 [facility] Deep pain on intercours e Deep Pain on Intercours e Problem Active 2020-04 1 00:00: 00 [facility] COVID-19 COVID-19 Disease Active 8-24 00:00: 00 Roxanna Platt - Externa l Chronic pulmonary embolism Chronic Pulmonary Embolism Problem Active 8-07 00:00: 00 [facility] Urge incontinen ce of urine Urge Incontinen ce of Urine Problem Active 807 00:00: 00 [facility] Urgent desire to urinate Urgent Desire to Urinate Problem Active 8 00:00: 00 [facility] Gynecologi c examinatio n Gynecologi c Examinatio n Problem Active 8 00:00: 00 [facility] [id number] Tear of right rotator cuff, unspecifie d tear extent, unspecifie d whether traumatic Problem [facility] Allergies, Adverse Reactions, Alerts Allergy Name Allergy Type Status Severity Reaction(s) Onset Date Inactive Date Treating Clinician Comments Source No Known Allergie s DA Active U 09-04 00:00: 00 [facility] NO KNOWN ALLERGIE S Drug Class Active [facility] Social History Social Habit Start Date Stop Date Quantity Comments Source Gender identity 2022-03-06 11:42:28 Identifies as female gender (finding) Roxanna Platt - External Sexual orientation [facility] Exposure to SARS-CoV-2 (event) Yes Roxanna fried History of tobacco use Current smoker Roxanna fitzpatrick - External Sex Assigned At [facility] Alcohol intake 2022-12-12 00:00:00 2022-12-12 00:00:00 Current [...] Frequency 2022-01-10 00:00:00 2022-01-10 00:00:00 2 Roxanna Platt - External History SDOH Alcohol Std Drinks 2022-01-10 00:00:00 2022-01-10 00:00:00 1 Roxanna Platt - External History SDOH Alcohol Binge 2022-01-10 00:00:00 2022-01-10 00:00:00 1 Roxanna Platt - External History of Social function 2018-10-14 00:00:00 2018-10-14 00:00:00 [facility] Smoking Status Start Date Stop Date Source Never Smoker [facility] Ex-smoker 2022-07-31 00:00:00 2022-07-31 00:00:00 Bossman Platt - External Medications Ordered Medication Name Filled Medication Name Start Date Stop Date Current Medication? Ordering Clinician Indication Dosage Frequency Signature (SIG) Comments Components Source Cephalexin (Keflex) 500 MG oral Capsule 10-18 00:00: 00 Yes [id number] 500mg Q.5D Take 1 capsule (500 mg total) by mouth 2 times daily. Roxanna mejias Azelastine HCl 0.05 % ophthalmic Solution 10-18 00:00: 00 Yes [id number] 1[drp] Q.5D Apply 1 drop to eye 2 times daily. Roxanna mejias methylPREDN ISolone (MEDROL, NITO,) 4 mg tablets 05-15 00:00: 00 Yes [id number] Take by mouth SEE-INSTRU CTIONS. follow package directions [facility] methylPREDN ISolone 4 MG oral Tablet Therapy Pack 04-08 00:00: 00 Yes [id number] 1{nito} Take 1 nito by mouth See Admin Instructio ns Use as directed. Roxanna Blackold - Externa l VITAMIN D OR 2022-04 10:59: 22 04-02 00:00 :00 No Take by mouth Roxanna Seybold - Externa l Multiple Vitamin (Multivitam ins) oral Capsule 2022-04 10:59: 13 04-02 00:00 :00 No 1{tbl} Take 1 tablet by mouth daily Roxanna Blackold - Externa l Semaglutide -Weight Management (Wegovy) 2.4 MG/0.75ML subcutaneou s Solution Auto-inject or 2022-04 00:00: 00 04-02 00:00 :00 No [id number] 2.4mg Inject 2.4 mg into the skin once a week. Roxanna Blackold - Externa l VITAMIN D OR 12-12 10:23: 36 Yes Take by mouth Roxanna Seybold - Externa l Multiple Vitamin (Multivitam ins) oral Capsule 12-12 10:23: 36 Yes 1{tbl} Take 1 tablet by mouth daily Roxanna Blackold - Externa l Semaglutide -Weight Management (Wegovy) 2.4 MG/0.75ML subcutaneou s Solution Auto-inject or 11-21 00:00: 00 Yes [id number] 2.4mg Inject 2.4 mg into the skin once a week Roxanna Seybold - Externa l Wegovy 1.7 MG/0.75ML subcutaneou s Solution Auto-inject or 11-21 00:00: 00 Yes Roxanna Seybold - Externa l VITAMIN D OR 10-30 15:44: 47 Yes Take by mouth Roxanna Seybold - Externa l Multiple Vitamin (Multivitam ins) oral Capsule 10-30 15:44: 47 Yes 1{tbl} Take 1 tablet by mouth daily Roxanna mejias Semaglutide -Weight Management (Wegovy) 1.7 MG/0.75ML subcutaneou s Solution Auto-inject or 10-30 00:00: 00 Yes [id number] 1.7mg Inject 1.7 mg into the skin once a week Roxanna mejias Phentermine HCl 37.5 MG oral Tablet 10-30 00:00: 00 Yes [id number] 37.5mg Take 1 tablet (37.5 mg total) by mouth every morning (before breakfast) Roxanna mejias VITAMIN D OR 07-31 15:48: 16 Yes Take by mouth Roxanna mejias Multiple Vitamin (Multivitam ins) oral Capsule 07-31 15:48: 16 Yes 1{tbl} Take 1 tablet by mouth daily Roxanna mejias Phentermine HCl 37.5 MG oral Tablet 07-31 00:00: 00 Yes [id number] 37.5mg Take 1 tablet (37.5 mg total) by mouth every morning (before breakfast) Roxanna mejias Warfarin (COUMADIN) 5 MG oral Tablet 07-31 00:00: 00 12-12 00:00 :00 No [id number] 2.5mg Take 0.5 tablets (2.5 mg total) by mouth daily 2.5 mg Roxanna mejias Semaglutide -Weight Management (Wegovy) 1.7 MG/0.75ML subcutaneou s Solution Auto-inject or 07-31 00:00: 00 10-30 00:00 :00 No [id number] 1.7mg Inject 1.7 mg into the skin once a week Roxanna mejias Trazodone HCl 50 MG oral Tablet 07-25 00:00: 00 Yes [id number] TAKE 1 TABLET(50 MG) BY MOUTH EVERY NIGHT Roxanna mejias Tirzepatide (Mounjaro) 7.5 MG/0.5ML subcutaneou s Solution Pen-injecto r 4-14 00:00: 00 07-31 00:00 :00 No [id number] 7.5mg Inject 0.5 mL (7.5 mg total) into the skin once a week Roxanna mejias Phentermine HCl 37.5 MG oral Tablet 07-03 00:00: 00 Yes [id number] 37.5mg Take 1 tablet (37.5 mg total) by mouth every morning (before breakfast) Roxanna mejias Tirzepatide (Mounjaro) 7.5 MG/0.5ML subcutaneou s Solution Pen-injecto r 06-25 00:00: 00 Yes [id number] 7.5mg Inject 0.5 mL (7.5 mg total) [...] 00:00 :00 No Take by mouth Roxanna emjias VITAMIN D OR 06-05 16:28: 35 Yes Take by mouth Roxanna mejias Multiple Vitamin (Multivitam ins) oral Capsule 06-05 16:28: 35 Yes 1{tbl} Take 1 tablet by mouth daily Roxanna mejias Tirzepatide (Mounjaro) 5 MG/0.5ML subcutaneou s Solution Pen-injecto r 06-05 00:00: 00 Yes [id number] 5mg Inject 0.5 mL (5 mg total) into the skin once a week Roxanna mejias Acetaminoph en (TYLENOL OR) 05-07 16:47: 15 Yes Take by mouth Roxanna mejias Multiple Vitamin (Multivitam ins) oral Capsule 05-07 16:47: 15 Yes 1{tbl} Take 1 tablet by mouth daily Roxanna mejias Tirzepatide (Mounjaro) 2.5 MG/0.5ML subcutaneou s Solution Pen-injecto r 05-07 00:00: 00 Yes [id number] 2.5mg Inject 0.5 mL (2.5 mg total) into the skin once a week Roxanna mejias Trazodone HCl 50 MG oral Tablet 05-07 00:00: 00 Yes [id number] 50mg Take 1 tablet (50 mg total) by mouth nightly Roxanna mejias Phentermine HCl 37.5 MG oral Tablet 05-07 00:00: 00 06-06 00:00 :00 No [id number] 37.5mg Take 1 tablet (37.5 mg total) by mouth every morning (before breakfast) Roxanna mejias Acetaminoph en (TYLENOL OR) 2021-04 14:49: 53 Yes Take by mouth Roxanna mejias Warfarin (COUMADIN) 5 MG oral Tablet 2021-04 00:00: 00 07-31 00:00 :00 No [id number] 2.5 mg every Thursday through Thursday and 5 mg every Thu and Sun Roxanna mejias Bupivicaine [place] Bupivicaine [place] 2021-04 00:00: 00 No 2.5mg [facility] Kenalog (Triamcinol one) Kenalog (Triamcinol one) 2021-04 00:00: 00 No 40mg [facility] Bupivicaine [place] Bupivicaine [place] 2021-04 00:00: 00 No 2.5mg [facility] Kenalog (Triamcinol one) Kenalog (Triamcinol one) 2021-04 00:00: 00 No 40mg [facility] Bupivicaine [place] Bupivicaine [place] 2021-04 00:00: 00 No 2.5mg [facility] Kenalog (Triamcinol one) Kenalog (Triamcinol one) 2021-04 00:00: 00 No 40mg [facility] Bupivicaine [place] Bupivicaine [place] 2021-04 00:00: 00 No 2.5mg [facility] Kenalog (Triamcinol one) Kenalog (Triamcinol one) 2021-04 00:00: 00 No 40mg [facility] Bupivicaine [place] Bupivicaine [place] 2021-04 00:00: 00 No 2.5mg [facility] Kenalog (Triamcinol one) Kenalog (Triamcinol one) 2021-04 00:00: 00 No 40mg [facility] Bupivicaine [place] Bupivicaine [place] 2021-04 00:00: 00 No 2.5mg [facility] Kenalog (Triamcinol one) Kenalog (Triamcinol one) 2021-04 00:00: 00 No 40mg [facility] Bupivicaine [place] Bupivicaine [place] 2021-04 00:00: 00 No 2.5mg [facility] Kenalog (Triamcinol one) Kenalog (Triamcinol one) 2021-04 00:00: 00 No 40mg [facility] Bupivicaine [place] Bupivicaine [place] 2021-04 00:00: 00 No 2.5mg [facility] Kenalog (Triamcinol one) Kenalog (Triamcinol one) 2021-04 00:00: 00 No 40mg [facility] Bupivicaine [place] Bupivicaine [place] 2021-04 00:00: 00 No 2.5mg [facility] Kenalog (Triamcinol one) Kenalog (Triamcinol one) 2021-04 00:00: 00 No 40mg [facility] Bupivicaine [place] Bupivicaine [place] 2021-04 00:00: 00 No 2.5mg [facility] Kenalog (Triamcinol one) Kenalog (Triamcinol one) 2021-04 00:00: 00 No 40mg [facility] Bupivicaine [place] Bupivicaine [place] 2021-04 00:00: 00 No 2.5mg [facility] Kenalog (Triamcinol one) Kenalog (Triamcinol one) 2021-04 00:00: 00 No 40mg [facility] Bupivicaine [place] Bupivicaine [place] 2021-04 00:00: 00 No 2.5mg [facility] Kenalog (Triamcinol one) Kenalog (Triamcinol one) 2021-04 00:00: 00 No 40mg [facility] Bupivicaine [place] Bupivicaine [place] 2021-04 00:00: 00 No 2.5mg [facility] Kenalog (Triamcinol one) Kenalog (Triamcinol one) 2021-04 00:00: 00 No 40mg [facility] Bupivicaine [place] Bupivicaine [place] 2021-04 00:00: 00 No 2.5mg [facility] Kenalog (Triamcinol one) Kenalog (Triamcinol one) 2021-04 00:00: 00 No 40mg [facility] Acetaminoph en (TYLENOL OR) 2021-04 13:13: 43 Yes Take by mouth Roxanna mejias Cholecalcif jef (Vitamin D) 10 MCG/ML oral Liquid 2021-04 13:13: 28 01-31 00:00 :00 No Roxanna mejias Administere d Medications Medication OrderMAR ActionActio n DateDoseRat eSiteKenalo gGiven mg 2021-04 0 13:02: 14 No Administer ed Medication sMedicatio n OrderMAR ActionActi on DateDoseRa teSiteKena logGiven mg Roxanna mejias Cholecalcif jef (Vitamin D) 10 MCG/ML oral Liquid 2021-04 0 13:02: 14 Yes Roxanna mejias Acetaminoph en (TYLENOL OR) 2021-04 13:00: 49 Yes Take by mouth Roxanna mejias TRIMETHOPRI M-POLYMYXIN B 53207-0.1 UNIT/ML-% ophthalmic Solution 12-27 00:00: 00 Yes INSTILL 1 DROP IN LEFT EYE FOUR TIMES DAILY FOR 10 DAYS Roxanna mejias TRIMETHOPRI M-SULFAMETH OXAZOLE 800-160 MG oral Tablet 12-27 00:00: 00 Yes 1{tbl} Take 1 tablet by mouth 2 times daily for 10 days Roxanna mejias methylPREDN ISolone 4 MG oral Tablet Therapy Pack 12-17 00:00: 00 01-10 00:00 :00 No [id number] 1{nito} Take 1 nito by mouth See Admin Instructio ns Use as directed Roxanna mejias COVID-19 At Home Antigen Test in vitro Kit 12-17 00:00: 00 01-10 00:00 :00 No [id number] 1{each} 1 each by in vitro route every 2 days Roxanna Seybold - Externa l Bupivicaine [place] Bupivicaine [place] 0 09-16 00:00: 00 No 2.5mg [facility] Kenalog (Triamcinol one) Kenalog (Triamcinol one) 0 09-16 00:00: 00 No 40mg [facility] Bupivicaine [place] Bupivicaine [place] 0 09-16 00:00: 00 No 2.5mg [facility] Kenalog (Triamcinol one) Kenalog (Triamcinol one) 0 09-16 00:00: 00 No 40mg [facility] Bupivicaine [place] Bupivicaine [place] 0 09-16 00:00: 00 No 2.5mg [facility] Kenalog (Triamcinol one) Kenalog (Triamcinol one) 0 09-16 00:00: 00 No 40mg [facility] Bupivicaine [place] Bupivicaine [place] 0 09-16 00:00: 00 No 2.5mg [facility] Kenalog (Triamcinol one) Kenalog (Triamcinol one) 0 09-16 00:00: 00 No 40mg [facility] Bupivicaine [place] Bupivicaine [place] 2021-0 09-16 00:00: 00 No 2.5mg [facility] Kenalog (Triamcinol one) Kenalog (Triamcinol one) 0 09-16 00:00: 00 No 40mg [facility] Bupivicaine [place] Bupivicaine [place] 2021-0 09-16 00:00: 00 No 2.5mg [facility] Kenalog (Triamcinol one) Kenalog (Triamcinol one) 0 09-16 00:00: 00 No 40mg [facility] Bupivicaine [place] Bupivicaine [place] 2021-0 09-16 00:00: 00 No 2.5mg [facility] Kenalog (Triamcinol one) Kenalog (Triamcinol one) 0 09-16 00:00: 00 No 40mg [facility] Bupivicaine [place] Bupivicaine [place] 2021-0 09-16 00:00: 00 No 2.5mg [facility] Kenalog (Triamcinol one) Kenalog (Triamcinol one) 0 09-16 00:00: 00 No 40mg [facility] Bupivicaine [place] Bupivicaine [place] 2021-0 09-16 00:00: 00 No 2.5mg [facility] Kenalog (Triamcinol one) Kenalog (Triamcinol one) 0 09-16 00:00: 00 No 40mg [facility] Bupivicaine [place] Bupivicaine [place] 0 09-16 00:00: 00 No 2.5mg [facility] Kenalog (Triamcinol one) Kenalog (Triamcinol one) 2021-0 09-16 00:00: 00 No 40mg [facility] Bupivicaine [place] Bupivicaine [place] 0 09-16 00:00: 00 No 2.5mg [facility] Kenalog (Triamcinol one) Kenalog (Triamcinol one) 0 09-16 00:00: 00 No 40mg [facility] Bupivicaine [place] Bupivicaine [place] 2021-0 09-16 00:00: 00 No 2.5mg [facility] Kenalog (Triamcinol one) Kenalog (Triamcinol one) 0 09-16 00:00: 00 No 40mg [facility] Bupivicaine [place] Bupivicaine [place] 2021-0 09-16 00:00: 00 No 2.5mg [facility] Kenalog (Triamcinol one) Kenalog (Triamcinol one) 09-16 00:00: 00 No 40mg [facility] Bupivicaine [place] Bupivicaine [place] 0 09-16 00:00: 00 No 2.5mg [facility] Kenalog (Triamcinol one) Kenalog (Triamcinol one) 0 09-16 00:00: 00 No 40mg [facility] Bupivicaine [place] Bupiv[facility]aine [place] 09-16 00:00: 00 No 2.5mg [facility] Kenalog (Triamcinol one) Kenalog (Triamcinol one) 0 09-16 00:00: 00 No 40mg [facility] Bupivicaine [place] Bupivicaine [place] 0 09-16 00:00: 00 No 2.5mg [facility] Kenalog (Triamcinol one) Kenalog (Triamcinol one) 09-16 00:00: 00 No 40mg [facility] Bupivicaine [place] Bupivicaine [place] 0 09-16 00:00: 00 No 2.5mg [facility] Kenalog (Triamcinol one) Kenalog (Triamcinol one) 09-16 00:00: 00 No 40mg [facility] Acetaminoph en (TYLENOL OR) 2020-04 0 10:25: 55 Yes Take by mouth Roxanna Platt hydrOXYzine HCl 25 MG oral Tablet 12-21 00:00: 00 Yes [id number] 25mg [id number] 3D Take 1 tablet (25 mg total) by mouth 3 times daily as needed for itching Roxanna Platt methylPREDN ISolone 4 MG oral Tablet Therapy Pack 12-21 00:00: 00 Yes [id number] 1{nito} Take 1 nito by mouth See Admin Instructio ns Use as directed Roxanna Platt Cetirizine HCl (ZyrTEC Allergy) 10 MG oral Capsule 12-21 00:00: 00 Yes [id number] 10mg Take 1 capsule (10 mg total) by mouth daily Roxanna Platt Desonide 0.05 % apply externally Cream 12-21 00:00: 00 01-19 04:59 :00 No [id number] Apply to affected area twice a day for 7 days Roxanna Platt Acetaminoph en (TYLENOL OR) 12-05 10:31: 35 Yes Take by mouth Roxanna Platt Dexamethaso ne 6 MG oral Tablet 12-01 00:00: 00 12-11 00:00 :00 No TAKE [...] Take 50 mg by mouth once now. [facility] SUMAtriptan 50 mg tablet 07-15 14:21: 38 Yes 50mg Take 50 mg by mouth once now. [facility] albuterol 90 mcg/actuati on inhaler 2017-04 00:00: 00 Yes 2{puff} Inhale 2 Puffs every 6 (six) hours as needed for Wheezing or Shortness of Breath. [facility] Warfarin (COUMADIN) 5 MG [...] 1 SPRAY IN EACH NOSTRIL TWICE DAILY [facility] azithromyci n 250 mg tablet TAKE 2 [...] BY MOUTH DAILY FOR 4 DAYS THEREAFTER [facility] bromphenira mine-pseudo ephedrine-D M 2 mg-30 mg-10 [...] DAILY FOR UP TO 3 DAYS NEEDED [facility] fluticasone propionate 50 mcg/actuati on nasal spray,suspe nsion fluticasone propionate 50 mcg/actuati on nasal spray,suspe nsion No fluticason e propionate 50 mcg/actuat ion nasal spray,susp ension [facility] hydrocodone 7.5 mg-acetamin ophen 325 mg tablet TAKE 1 TABLET BY MOUTH EVERY 6 HOURS FOR 7 DAYS NEEDED hydrocodone 7.5 mg-acetamin ophen 325 mg tablet TAKE 1 TABLET BY MOUTH EVERY 6 HOURS FOR 7 DAYS NEEDED No hydrocodon e 7.5 mg-acetami nophen 325 mg tablet TAKE 1 TABLET BY MOUTH EVERY 6 HOURS FOR 7 DAYS NEEDED [facility] methylpredn isolone 4 mg tablets in a dose pack FOLLOW PACKAGE DIRECTIONS methylpredn isolone 4 mg tablets in a dose pack FOLLOW PACKAGE DIRECTIONS No methylpred nisolone 4 mg tablets in a dose pack FOLLOW PACKAGE DIRECTIONS [facility] Prescriptio n - Clarificati on Prescriptio n - Clarificati on No Prescripti on - Clarificat ion [facility] promethazin e-DM 6.25 mg-15 mg/5 mL oral syrup TAKE 10 ML BY MOUTH FOUR TIMES DAILY FOR 10 DAYS promethazin e-DM 6.25 mg-15 mg/5 mL oral syrup TAKE 10 ML BY MOUTH FOUR TIMES DAILY FOR 10 DAYS No promethazi ne-DM 6.25 mg-15 mg/5 mL oral syrup TAKE 10 ML BY MOUTH FOUR TIMES DAILY FOR 10 DAYS [facility] warfarin 1 mg tablet TAKE 3 TABLETS BY MOUTH DAILY warfarin 1 mg tablet TAKE 3 TABLETS BY MOUTH DAILY No warfarin 1 mg tablet TAKE 3 TABLETS BY MOUTH DAILY [facility] Acetaminoph en-Codeine #3 Acetaminoph en-Codeine #3 Yes Eugenio Em not defined [facility] Warfarin Sodium Warfarin Sodium Yes Eugenio Em not defined [facility] Enoxaparin Sodium Enoxaparin Sodium Yes Eugenio Em not defined [facility] Sertraline HCl Sertraline HCl Yes Eugenio Em not defined [facility] Sumatriptan Sumatriptan Yes Yaakov s Em not defined [facility] Warfarin Sodium Warfarin Sodium No Warfarin Sodium [...] Tdap- (Boostrix, Adacel) 2022-12-12 00:00:00 Completed Roxanna Mauricioybold - External Tdap- (Boostrix, Adacel) Unknown Completed Roxanna Mauricioybold - External Tdap- (Boostrix, Adacel) Unknown Completed Roxanna Mauricioybold - External Vital Signs Vital Name Observation Time Observation Value Comments S ource height 2023-06-16 13:15:00 60.5 [in_i] Comm on [facility] weight 2023-06-16 13:15:00 198 [lb_av] Comm on [facility] temperature 2023-06-16 13:15:00 98.4 [degF] Com mon [facility] bmi 2023-06-16 13:15:00 38.03 kg/m2 Comm on [facility] blood pressure systolic 2023-06-16 13:15:00 120 mm[Hg] [facility] blood pressure diastolic 2023-06-16 13:15:00 78 mm[Hg] [facility] Systolic blood pressure 2023-05-15 21:33:00 119 mm[Hg] [facility] Diastolic blood pressure 2023-05-15 21:33:00 77 mm[Hg] [facility] Heart rate 2023-05-15 21:33:00 106 /min [facility] Body temperature 2023-05-15 21:33:00 37.28 Domi [facility] Respiratory rate 2023-05-15 21:33:00 12 /min [facility] Body height 2023-05-15 21:33:[address] [facility] Body weight 2023-05-15 21:33:[address] [facility] BMI 2023-05-15 21:33:00 40.55 kg/m2 [facility] Oxygen saturation in Arterial blood by Pulse oximetry 2023-05-15 21:33:00 97 /min [facility] height 2023-05-05 13:00:00 60.5 [in_i] Comm on [facility] weight 2023-05-05 13:00:00 198 [lb_av] Comm on [facility] temperature 2023-05-05 13:00:00 98.0 [degF] Com [facility] bmi 2023-05-05 13:00:00 38.03 kg/m2 Comm on [facility] blood pressure systolic 2023-05-05 13:00:00 118 mm[Hg] Common [facility] blood pressure diastolic 2023-05-05 13:00:00 78 mm[Hg] [facility] height 2023-03-24 13:00:00 60.5 [in_i] Comm on [facility] weight 2023-03-24 13:00:00 198 [lb_av] Comm on [facility] temperature 2023-03-24 13:00:00 97.8 [degF] Com mon [facility] bmi 2023-03-24 13:00:00 38.03 kg/m2 Comm on [facility] blood pressure systolic 2023-03-24 13:00:00 120 mm[Hg] Common [facility] blood pressure diastolic 2023-03-24 13:00:00 80 mm[Hg] [facility] height 2023-02-17 09:30:00 60.5 [in_i] Comm on [facility] weight 2023-02-17 09:30:00 198 [lb_av] Comm on [facility] temperature 2023-02-17 09:30:00 98.0 [degF] Com [facility] bmi 2023-02-17 09:30:00 38.03 kg/m2 Comm on [facility] blood pressure systolic 2023-02-17 09:30:00 120 mm[Hg] [facility] blood pressure diastolic 2023-02-17 09:30:00 80 mm[Hg] [facility] height 2023-02-05 15:30:00 60.5 [in_i] Comm on [facility] weight 2023-02-05 15:30:00 197 [lb_av] Comm on [facility] temperature 2023-02-05 15:30:00 98.0 [degF] Com [facility] bmi 2023-02-05 15:30:00 37.84 kg/m2 Comm on [facility] blood pressure systolic 2023-02-05 15:30:00 118 mm[Hg] [facility] blood pressure diastolic 2023-02-05 15:30:00 78 mm[Hg] [facility] height 2022-12-30 09:30:00 60.5 [in_i] Comm on [facility] weight 2022-12-30 09:30:00 197.5 [lb_av] Co mmon [facility] temperature 2022-12-30 09:30:00 98.2 [degF] Com [facility] bmi 2022-12-30 09:30:00 37.93 kg/m2 Comm on [facility] blood pressure systolic 2022-12-30 09:30:00 117 mm[Hg] Common [facility] blood pressure diastolic 2022-12-30 09:30:00 76 mm[Hg] Common [facility] Systolic blood pressure 2022-12-12 15:20:00 110 mm[Hg] Roxanna Leger ld - External Diastolic blood pressure 2022-12-12 15:20:00 70 mm[Hg] Roxanna Mauricioybo ld - External Heart rate 2022-12-12 15:20:00 90 /min Kelse y Seybold - External Body temperature 2022-12-12 15:20:00 36.28 Domi Roxanna Seybold - External Respiratory rate 2022-12-12 15:20:00 14 /min Roxanna Seybold - External Body height 2022-12-12 15:20:00 149.9 cm Tiffanie ey Seybold - External Body weight 2022-12-12 15:20:00 89.359 kg Tiffanie ey Seybold - External BMI 2022-12-12 15:20:00 39.79 kg/m2 Tiffanie ey Seybold - External height 2022-11-17 08:45:00 60.5 [in_i] Comm on [facility] weight 2022-11-17 08:45:00 200.1 [lb_av] Co mmon [facility] bmi 2022-11-17 08:45:00 38.43 kg/m2 Comm on [facility] blood pressure systolic 2022-11-17 08:45:00 117 mm[Hg] [facility] blood pressure diastolic 2022-11-17 08:45:00 78 mm[Hg] [facility] Systolic blood pressure 2022-10-30 20:39:00 110 mm[Hg] Roxanna Mauricioybo ld - External Diastolic blood pressure 2022-10-30 20:39:00 78 mm[Hg] Roxanna Mauricioybo ld - External Heart rate 2022-10-30 20:39:00 74 /min Ricose y Seybold - External Body temperature 2022-10-30 [...] blood pressure 2022-05-07 22:45:00 117 mm[Hg] Roxanna Seybo ld - External Diastolic blood pressure 2022-05-07 22:45:00 78 mm[Hg] Roxanna Seybo ld - External Heart rate 2022-05-07 22:45:00 76 /min Ricose y Seybold - External Body temperature 2022-05-07 [...] Pulse oximetry 2022-05-07 22:45:00 99 /min Roxanna Seybo ld - External Systolic blood pressure 2022-03-27 [...] height 2022-02-13 13:00:00 60.5 [in_i] Comm on [facility] weight 2022-02-13 13:00:00 243 [lb_av] Comm on [facility] temperature 2022-02-13 13:00:00 97.0 [degF] Com [facility] bmi 2022-02-13 13:00:00 46.67 kg/m2 Comm on [facility] blood pressure systolic 2022-02-13 13:00:00 126 mm[Hg] Common [facility] blood pressure diastolic 2022-02-13 13:00:00 72 mm[Hg] [facility] height 2022-01-23 13:00:00 60.5 [in_i] Comm on [facility] weight 2022-01-23 13:00:00 220 [lb_av] Comm on [facility] temperature 2022-01-23 13:00:00 97.2 [degF] Com mon [facility] bmi 2022-01-23 13:00:00 42.25 kg/m2 Comm on [facility] blood pressure systolic 2022-01-23 13:00:00 122 mm[Hg] Common [facility] blood pressure diastolic 2022-01-23 13:00:00 80 mm[Hg] Common [facility] Systolic blood pressure 2022-01-10 18:02:00 101 mm[Hg] Roxanna Leger ld - External Diastolic blood pressure 2022-01-10 18:02:00 72 mm[Hg] Roxanna Leger ld - External Heart rate 2022-01-10 18:02:00 73 /min Dale Platt - External Body temperature 2022-01-10 18:02:00 36.67 Domi Roxanna lPatt - External Respiratory rate 2022-01-10 18:02:00 16 /min Roxanna Platt - External Body height 2022-01-10 18:02:00 149.9 cm Tiffanie Platt - External Body weight 2022-01-10 18:02:00 109.68 kg Tiffanie Platt - External BMI 2022-01-10 18:02:00 48.84 kg/m2 Tiffanie Platt - External Oxygen saturation in Arterial blood by Pulse oximetry 2022-01-10 18:02:00 95 /min Roxanna Leger ld - External height 2021-12-23 08:30:00 60.5 [in_i] Comm on [facility] weight 2021-12-23 08:30:00 220 [lb_av] Comm on [facility] temperature 2021-12-23 08:30:00 97.3 [degF] Com mon [facility] bmi 2021-12-23 08:30:00 42.25 kg/m2 Comm on [facility] blood pressure systolic 2021-12-23 08:30:00 126 mm[Hg] Common [facility] blood pressure diastolic 2021-12-23 08:30:00 78 mm[Hg] [facility] blood pressure diastolic 2021-12-02 09:30:00 84 mm[Hg] Common [facility] height 2021-12-02 09:30:00 60.5 [in_i] Comm on [facility] weight 2021-12-02 09:30:00 220 [lb_av] Comm on [facility] temperature 2021-12-02 09:30:00 97.7 [degF] Com mon [facility] bmi 2021-12-02 09:30:00 42.25 kg/m2 Comm on [facility] blood pressure systolic 2021-12-02 09:30:00 134 mm[Hg] [facility] height 2021-11-18 13:00:00 60.5 [in_i] Comm on [facility] weight 2021-11-18 13:00:00 220 [lb_av] Comm on [facility] temperature 2021-11-18 13:00:00 97.9 [degF] Com mon [facility] bmi 2021-11-18 13:00:00 42.25 kg/m2 Comm on [facility] blood pressure systolic 2021-11-18 13:00:00 126 mm[Hg] [facility] blood pressure diastolic 2021-11-18 13:00:00 80 mm[Hg] Common [facility] height 2021-11-13 09:00:00 60.5 [in_i] Comm on [facility] weight 2021-11-13 09:00:00 220 [lb_av] Comm on [facility] bmi 2021-11-13 09:00:00 42.25 kg/m2 Comm on [facility] blood pressure systolic 2021-11-13 09:00:00 132 mm[Hg] [facility] blood pressure diastolic 2021-11-13 09:00:00 76 mm[Hg] Common [facility] height 2021-09-16 08:00:00 60.5 [in_i] Comm on [facility] weight 2021-09-16 08:00:00 233.4 [lb_av] Co mmon [facility] temperature 2021-09-16 08:00:00 97.8 [degF] Com mon [facility] bmi 2021-09-16 08:00:00 44.83 kg/m2 Comm on [facility] Systolic blood pressure 2021-01-04 15:26:00 128 mm[Hg] Roxanna alvarez Diastolic blood pressure 2021-01-04 15:26:00 87 mm[Hg] Roxanna alvarez Heart rate 2021-01-04 15:26:00 95 /min Dale Platt Body temperature 2021-01-04 15:26:00 36.78 Domi Roxanna Platt Respiratory rate 2021-01-04 15:26:00 16 /min Roxanna Platt Body height 2021-01-04 15:26:00 149.9 cm Tiffanie Platt Body weight 2021-01-04 15:26:00 105.688 kg Tiffanie ey ybdede BMI 2021-01-04 15:26:00 47.06 kg/m2 Tiffanie shivani Platt Oxygen saturation in Arterial blood by Pulse oximetry 2021-01-04 15:26:00 93 /min Roxanna alvarez Procedures Procedure Date / Time Performed Performing Clinician Source POCT SARS-COV-2 ANTIGEN (BINAX NOW) 2023-05-15 21:52:00 Payam Gillis [facility] POCT MOLECULAR FLU 2023-05-15 21:42:00 Unknown, Attend ing [facility] ASSIGNMENT OF BENEFITS 2023-05-15 21:27:19 Docto r Unassigned, [place] [facility] Partial Repair of Rotator Cuff 2023-02-13 00:00:00 [facility] JOHANNA FOLLOW-UP WITH SLEEP EDUCATOR 2022-01-10 18:13:30 Carmela Traylorsey Seybold - External Hysterectomy 2021-09-05 00:00:00 Joceline Livingston edical ASSIGNMENT OF BENEFITS 2020-11-19 16:55:51 Docto r Unassigned, [place] [facility] Tubal Ligation 2001-11-11 00:00:[address] [facility] Medical Plan of Care Planned Activity Planned Date Details Comments Source Future Appointment 2024-03-08 09:30:[address]; [facility] [address], [place] [address] [facility] Medical Encounters Start Date/Time End Date/Time Encounter Type Admission Type Attending Clinicians Care Facility Care Department Encounter ID Source 2023-08-04 10:39:00 [facility] [id number] [facility] 2021-11-19 08:16:01 Outpatient [facility] [id number] [facility] 2021-11-12 13:49:00 Outpatient [facility] [id number] [facility] 2021-11-11 16:58:00 Outpatient [facility] [id number] [facility] 2021-09-16 09:36:01 Outpatient [facility] [id number] [facility] 2021-08-19 09:09:05 Outpatient [facility] [id number] [facility] 2021-05-01 12:20:13 Outpatient [facility]MLC [facility] [id number] [facility] 2021-05-01 11:59:33 Outpatient [facility]MLC ST[facility] [id number] [facility] 2021-05-01 11:46:32 Outpatient [facility] [id number] [facility] 2021-05-01 11:36:23 Outpatient STLMLC ST[facility] [id number] [facility] 2020-09-12 15:24:21 Outpatient NORBERTO WATSON [facility] [id number] [facility] 2019-11-02 11:29:33 Outpatient EKHAESE OBTAYLOR [facility] [id number] [facility] 2024-01-01 16:30:00 2024-01-01 16:30:00 Outpatient GUY KNOX [id number] [facility] 2023-12-25 14:30:00 2023-12-25 14:30:00 Outpatient ALEXSANDRA MERRILL [id number] [facility] 2023-12-11 15:30:00 2023-12-11 15:30:00 Outpatient ALEXSANDRA MERRILL [id number] [facility] 2023-12-08 00:00:00 2023-12-08 00:00:00 Outpatient MD ROXANNA MANNING [id number] Roxanna fariha 2023-10-19 10:45:00 2023-10-19 10:45:00 Outpatient VIJAY GUSMAN [id number] Roxanna afriha 2023-06-16 00:00:00 2023-06-16 00:00:00 OFFICE VISIT ESTAB PT LEVEL 3 [facility] [id number] [facility] 2023-06-12 00:00:00 2023-06-12 00:00:00 DANI Guevara: [address] [place], [place] [address], [place] [address] , Ph. [facility] - GC_GCBZW_La salina Ramos* [id number] [facility] 2023-05-15 15:20:00 2023-05-15 15:47:52 Outpatient R PAYAM GILLIS [facility] [id number] [facility] 2023-05-15 15:20:00 2023-05-15 15:47:52 Urgent Care Payam Gillis Unknown, Attending [facility] [id number] [facility] 2023-05-15 00:00:00 2023-05-15 00:00:00 Orders Only Doctor Unassigned, [place] [facility] [id number] [facility] 2023-05-05 00:00:00 2023-05-05 00:00:00 (PO) Post Op [facility]LMLC [facility] [id number] [facility] 2023-04-13 00:00:00 2023-04-13 00:00:00 (TEL) [facility]LMLC [facility]C [id number] [facility] 2023-04-10 11:40:00 2023-04-10 11:40:00 Outpatient MERRILL VANCE ROXANNA THOMPSON [id number] [facility] 2023-04-09 00:00:00 2023-04-09 00:00:00 Outpatient VINH ZARAGOZA ROXANNA THOMPSON [id number] [facility] 2023-04-02 11:00:00 2023-04-02 11:00:00 Outpatient ROBINAJOSEPH [id number] [facility] 2023-04-02 00:00:00 2023-04-02 00:00:00 Outpatient JOSEPH QUARLES [id number] [facility] 2023-03-24 00:00:00 2023-03-24 00:00:00 NON-BILLAB LE VISIT STLMLC STLMLC [id number] [facility] 2023-03-11 00:00:00 2023-03-11 00:00:00 Outpatient GC_GCBZW_Ka diyala_S PRIV PRIV [id number] [facility] 2023-03-05 00:00:00 2023-03-05 00:00:00 Outpatient GC_GCBZW_Ka diyala_S PRIV PRIV [id number] [facility] 2023-02-21 00:00:00 2023-02-21 00:00:00 Outpatient AYANA MONKY ROXANNA THOMPSON [id number] [facility] 2023-02-17 00:00:00 2023-02-17 00:00:00 NON-BILLAB LE VISIT STLMLC STLMLC [id number] [facility] 2023-02-10 00:00:00 2023-02-10 00:00:00 (TEL) STLMLC STLMLC [id number] [facility] 2023-02-05 00:00:00 2023-02-05 00:00:00 OFFICE VISIT ESTAB PT LEVEL 4 STLMLC STLMLC [id number] [facility] 2022-12-30 00:00:00 2022-12-30 00:00:00 Outpatient PRELIONELFRANCISCO ROXANNA THOMPSON [id number] [facility] 2022-12-30 00:00:00 2022-12-30 00:00:00 Outpatient HEDY MONK [id number] [facility] 2022-12-30 00:00:00 2022-12-30 00:00:00 (F/U) Follow Up Visit STLMLC STLMLC [id number] [facility] 2022-12-30 00:00:00 2022-12-30 00:00:00 (TEL) STLMLC STLMLC [id number] [facility] 2022-12-19 00:00:00 2022-12-19 00:00:00 Outpatient HEDY MONK [id number] [facility] 2022-12-16 00:00:00 2022-12-16 00:00:00 Outpatient HEDY MONK [id number] [facility] 2022-12-12 11:15:00 2022-12-12 11:15:00 Outpatient LAB90 ROXANNA THOMPSON [id number] [facility] 2022-12-12 10:30:00 2022-12-12 10:30:00 Outpatient HEDY MONK [id number] [facility] 2022-11-18 00:00:00 2022-11-18 00:00:00 Outpatient HEDY MONK [id number] [facility] 2022-11-17 00:00:00 2022-11-17 00:00:00 OFFICE VISIT ESTAB PT LEVEL 4 STLMLC STLMLC [id number] [facility] 2022-11-17 00:00:00 2022-11-17 00:00:00 (TEL) STLMLC STLMLC [id number] [facility] 2022-11-17 00:00:00 2022-11-17 00:00:00 (WEB) STLMLC STLMLC [id number] [facility] 2022-11-14 00:00:00 2022-11-14 00:00:00 Outpatient HUNDL, HEDY THOMPSON [id number] [facility] 2022-10-30 16:00:00 2022-10-30 16:00:00 Outpatient HUNDL, HEDY THOMPSON [id number] [facility] 2022-10-28 00:00:00 2022-10-28 00:00:00 Outpatient HUNDL, HEDY THOMPSON [id number] [facility] 2022-09-27 00:00:00 2022-09-27 00:00:00 Outpatient GC_GCFRWD_R oberts_E PRIV [facility] [id number] [facility] 2022-08-25 00:00:00 2022-08-25 00:00:00 Outpatient CARMELA TRAYLOR [id number] [facility] 2022-08-08 00:00:00 2022-08-08 00:00:00 Outpatient HUNDL, HEDY THOMPSON [id number] [facility] 2022-07-31 16:00:00 2022-07-31 16:00:00 Outpatient HUNDL, [facility]PS[facility] [id number] [facility] 2022-07-25 00:00:00 2022-07-25 00:00:00 Outpatient HUNDL, [facility] THOMPSON [id number] [facility] 2022-07-16 00:00:00 2022-07-16 00:00:00 Outpatient HUNDL, HEDY THOMPSON [id number] [facility] 2022-07-03 16:30:00 2022-07-03 16:30:00 Outpatient HUNDL, HEDY THOMPSON [id number] [facility] 2022-06-25 00:00:00 2022-06-25 00:00:00 Outpatient HUNDL, H[facility] THOMPSON [id number] [facility] 2022-06-06 08:30:00 2022-06-06 08:30:00 Outpatient TAHMINA ANDERSON [id number] [facility] 2022-06-05 16:30:00 2022-06-05 16:30:00 Outpatient HUNDLHEDY ROXANNA [id number] [facility] 2022-06-04 00:00:00 2022-06-04 00:00:00 Outpatient HEDY MONK ROXANNA [id number] [facility] Mauricioybdede 2022-05-09 09:50:00 2022-05-09 09:50:00 Outpatient LAB90 ROXANNA THOMPSON [id number] [facility] 2022-05-07 16:30:00 2022-05-07 16:30:00 Outpatient HEDY MONKRUBINA THOMPSON [id number] [facility] 2022-05-02 11:00:00 2022-05-02 11:00:[address], ELIANA ROXANNA THOMPSON [id number] [facility] 2022-04-11 10:30:00 2022-04-11 10:30:00 Outpatient TAHMINA ANDERSON [id number] [facility] 2022-04-03 14:00:00 2022-04-03 14:00:00 Outpatient ES, TECH [facility]OMPSON [id number] [facility] 2022-04-03 00:00:00 2022-04-03 00:00:00 Outpatient CARMELA TRAYLOR [id number] [facility] 2022-03-27 15:45:00 2022-03-27 15:45:00 Outpatient LAB90 ROXANNA THOMPSON [id number] [facility] 2022-03-27 15:15:00 2022-03-27 15:15:00 Outpatient FRANCISCO CASTANON [id number] [facility] 2022-02-13 00:00:00 2022-02-13 00:00:00 OFFICE VISIT ESTAB PT LEVEL 4 STLMLC STLMLC [id number] [facility] 2022-01-31 13:30:00 2022-01-31 13:30:00 Outpatient TAHMINA ANDERSON [id number] [facility] 2022-01-24 00:00:00 2022-01-24 00:00:00 Outpatient CARMELA TRAYLOR ROXANNA THOMPSON [id number] [facility] 2022-01-23 00:00:00 2022-01-23 00:00:00 OFFICE VISIT EST PT LEVEL 3 STLMLC STLMLC [id number] [facility] 2022-01-10 13:00:00 2022-01-10 13:00:00 Outpatient TRAYLORCARMELA HOLLOWAY ROXANNA THOMPSON [id number] [facility] 2022-01-10 00:00:00 2022-01-10 00:00:00 Outpatient TRAYLOR, CARMELA THOMPSON [id number] [facility] 2022-01-05 00:00:00 2022-01-05 00:00:00 Outpatient TRAYLOR CARMELA THOMPSON [id number] [facility] 2022-01-03 10:30:00 2022-01-03 10:30:00 Outpatient HEDY MONK [id number] [facility] 2021-12-23 00:00:00 2021-12-23 00:00:00 OFFICE VISIT ESTAB PT LEVEL 4 STLMLC STLMLC [id number] [facility] 2021-12-22 12:45:00 2021-12-22 12:45:00 Outpatient VIJAY GUSMAN [id number] [facility] 2021-12-22 11:10:00 2021-12-22 11:10:00 Outpatient NEIL VIGIL [id number] [facility] 2021-12-17 11:15:00 2021-12-17 11:15:00 Telemedici dc CHUN SALCEDO [facility] [id number] [facility] 2021-12-02 00:00:00 2021-12-02 00:00:00 OFFICE VISIT ESTAB PT LEVEL 4 STLMLC STLMLC [id number] [facility] 2021-11-27 00:00:00 2021-11-27 00:00:00 (TEL) STLMLC STLMLC [id number] [facility] 2021-11-18 00:00:00 2021-11-18 00:00:00 OFFICE VISIT ESTAB PT LEVEL 4 STLMLC STLMLC [id number] [facility] 2021-11-13 00:00:00 2021-11-13 00:00:00 OFFICE VISIT ESTAB PT LEVEL 4 STLMLC STLMLC [id number] [facility] 2021-10-01 09:25:00 2021-10-01 09:25:00 Outpatient LAB90 ROXANNA THOMPSON [id number] [facility] 2021-10-01 08:30:00 2021-10-01 09:00:00 Office Visit Ayana Monky Nils Ramos [id number] [facility] 2021-09-16 00:00:00 2021-09-16 00:00:00 OFFICE VISIT ESTAB PT LEVEL 4 STLMLC STLMLC [id number] [facility] 2021-09-05 10:30:00 2021-09-06 11:41:00 [id number] [facility] 2021-09-05 10:30:00 2021-09-06 11:41:00 Inpatient EL Larissa Goldmanpo [facility] [id number] [facility] 2021-02-01 10:05:00 2021-02-01 10:05:00 Outpatient ROXANNA THOMPSON [id number] [facility] 2021-01-25 09:52:08 2021-01-25 10:26:34 Telemedici Erick Gonzales [id number] [facility] 2021-01-24 00:00:00 2021-01-24 00:00:00 Outpatient ERICK THOMAS ROXANNA [id number] [facility] 2021-01-04 10:18:44 2021-01-04 10:48:44 Office Visit Carmela Traylor [facility] [id number] [facility] 2021-01-03 00:00:00 2021-01-03 00:00:00 Outpatient CARMELA TRAYLOR ROXANNA [id number] [facility] 2020-12-21 12:46:01 2020-12-21 13:01:12 Telemedici ne Ja Calero [facility] [id number] [facility] 2020-12-21 00:00:00 2020-12-21 00:00:00 Outpatient JA CALERO ROXANNA [id number] [facility] 2020-12-14 15:30:00 2020-12-14 15:30:00 Outpatient CARMELA TRAYLOR ROXANNA [id number] [facility] 2020-12-11 16:35:58 2020-12-11 17:15:53 Telemedici ne Antonina Sewell Mattie SHIRLEY [id number] [facility] 2020-12-11 10:45:00 2020-12-11 10:45:00 Outpatient ANTONINA SEWELL ROXANNA THOMPSON [id number] [facility] 2020-12-05 10:30:00 2020-12-05 10:30:00 Outpatient SOPHIAANTONINA MARR ROXANNA THOMPSON [id number] [facility] 2020-11-29 17:28:00 2020-12-01 16:41:00 Inpatient SEMAJ FLOOD [facility] [id number] [facility] 2020-11-27 11:30:00 2020-11-27 11:30:00 Outpatient DYLON NICHOLAS ROXANNA [id number] [facility] 2020-11-27 00:00:00 2020-11-27 00:00:00 Outpatient ANTONINA SEWELL [facility] [id number] [facility] 2020-11-27 00:00:00 2020-11-27 00:00:00 Outpatient ANTONINA SEWELL [facility] [id number] [facility] 2020-11-27 00:00:00 2020-11-27 00:00:00 Outpatient ANTONINA SEWELL [facility] [id number] [facility] 2020-11-27 00:00:00 2020-11-27 00:00:00 Outpatient ANGIE CASON ROXANNA [id number] [facility] 2020-11-19 12:21:17 2020-11-19 12:36:17 Laboratory Only Only, Adc Test Diogo Minaya [facility] [id number] [facility] 2020-11-19 11:20:00 2020-11-19 11:20:00 Outpatient R [facility] [id number] [facility] 2020-11-19 11:15:00 2020-11-19 11:15:00 Outpatient [facility] [id number] [facility] 2020-11-19 00:00:00 2020-11-19 00:00:00 Orders Only Doctor Unassigned, [place] [facility] 1..840.114 [id number] [facility] 2020-02-02 00:00:00 2020-02-02 00:00:00 [facility] [id number] [facility] 2019-12-23 00:00:00 2019-12-23 00:00:00 Outpatient [facility] [id number] [facility] 2019-12-13 13:21:00 2019-12-13 13:21:00 [facility]patient [facility] [id number] [facility] 2019-11-17 09:06:00 2019-11-17 09:06:00 Outpatient [facility] [id number] [facility] 2019-11-14 15:16:00 2019-11-14 15:16:00 Outpatient [facility] [id number] [facility] 2019-11-14 13:00:00 2019-11-14 13:00:00 Outpatient [facility] [id number] [facility] 2019-10-23 19:38:00 2019-10-23 20:55:00 Emergency E AISHWARYA [facility] 2018-09-15 06:02:00 2018-09-14 19:33:00 Inpatient E [facility] MED 7504 [facility] Results Test Description Test Time Test Comments Results Result Co mments Source [facility] SARS-C[facility]2 [facility] (BINAX NOW)2023-05-15 21:52:00* Test Item Value Reference Range Interpretation Comme nts POCT SARS-COV-2 ANTIGEN (test code = 55929-8) Not Detected Not Detected On board controls acceptable with C Line (test code = 3574) Yes JEREMY (test code = JEREMY) accurate developme nt and interpretation of all internal controls Lab Interpretation (test code = 76880-0) Normal [facility]2022-06-06 18:03:00* Test Item Value Reference Range Interpretation Comme nts SURGICAL (test code = SR) RUN DATE: 09/09/21 [facility] Otto [place] - [facility] PAGE 1 RUN TIME: 1803 Specimen Inquiry RUN USER: INTERFACE DEVIN ENT: NELSON JEREZ [facility] #: [id number] AGE/SX: 45/F ROOM: [facility] RE09/05/21[facility] DR: Camilo Goldman MD : 77 BED: 1 DIS: 09/06/21 STATUS: DIS Clari TLOC: SPEC #: [id number] RECD: 09/06/21 STATUS: CLARE RERosario #: [id number] TRIPP: 09/05/[address] [facility] [address]: Camilo Goldman MD ENTERED: 09/06/21 SP TYPE: SURGICAL OTHR DR: Amy Cochran MD, Firas A MDORDERED: [id number], ANATOMIC SPEC, SPECIMEN TRACK [place]IES [place]: [place] [address] [place] [address] [email or web address] Amy Cochran MD [address] [facility] [place] [address] Antonina Sewell MD [address] [place] [address] PROCEDURES: [id number] (09/09/21-1721) SPECIMEN TRACK (09/06/21-050) TISSUES: A. UTERUS - UTERUS, CERVIX, BILATERAL [...] CONTINUED ON NEXT PAGE RUN DATE: 09/09/21 [facility] PAGE 2 RUN TIME: 1803 Specimen Inquiry RUN USER: INTERFACE SPEC #: [id number]:[id number] PATIENT: JEREZNELSON #[id number] (Continued) ------- FINAL DIAGNOSIS (Continued) Comment: Negative [...] left fallopian tube Technical component performed at [employer],[id number] , [facility] [address] Unless gross only, the diagnosis is based upon microscopic examination.Immunohistochemistry : This test was developed and its performancecharacteristics determined by this laboratory. It has not been approved nordoes it need approval by the US FDA. Appropriate positive and negative controlsare reviewed and judged to be acceptable. This laboratory is certified underthe Clinical Laboratory Improvement Amendments (CLIA-88) as qualified toperform high complexity clinical laboratory testing. CONTINUED ON NEXT PAGE RUN DATE: 09/09/21 [facility] - [facility] PAGE 3 RUN TIME: 1803 Specimen Inquiry RUN USER: INTERFACE SPEC #: [id number] PATIENT: NELSON JEREZ #[id number] (Continued) ------- MICROSCOPIC DESCRIPTION Findings are incorporated into the diagnosis section. ---- Signed SIGNATURE ON FILE Patricio Chambers 09/09/21 0684 END OF REPORT BASIC METABOLIC [id number] 05:12:00* Test Item Value Reference Range Interpretation [...] 8.5-10.1 N Completed by Nursing: NOTROP-I HIGH [id number] 05:12:00* Test Item Value Reference Range Interpretation [...] may varyby method. Completed by Nursing: NOPROTHROMBIN [id number] 05:10:00* Test Item Value Reference Range Interpretation [...] Infarction (to prevent recurrent infarct). CBC W/AUTO [id number] 05:00:00* Test Item Value Reference Range Interpretation [...] = MDIFF) NO DIFF/SCN CRITERIA THROMBOPLASTIN TIME [id number] 12:58:00* Test Item Value Reference Range Interpretation Comme nts THROMBOPLASTIN TIME PARTIAL (test code = PTT) 31.0 SECONDS 26-35 N PROTHROMBIN [id number] 12:58:00* Test Item Value Reference Range Interpretation Comme nts PT PATIENT (test code = PTP) 11.7 [...] Myocardial Infarction (to prevent recurrent infarct). PROTHROMBIN [id number] 09:35:00* Test Item Value Reference Range [facility]ation [facility] PT [facility] (test code = PTP) 14.2 [...] (to prevent recurrent infarct). COVID 19 INHOUSE [id number] 09:21:00* Test Item Value Reference Range Interpretation [facility] COVID 19 INHOUSE AG (test code = [id number]) NEGATIVE Negative Per executive wellness programs director , negative results should be treated aspresumptive [...] and symptoms consistent with COVID-19. CBC W/AUTO [id number] 09:14:00* Test Item Value Reference Range Interpretation Comme [facility] WHITE BLOOD CELL (test code = WBC) [...] ode = MDIFF) NO DIFF/SCN CRITERIA URINALYSIS [id number] 09:07:00* Test Item Value Reference Range Interpretation [...] NEGATIVE Urine Specimen Type: Clean CatchUR HCG [id number] 09:07:00* Test Item Value Reference Range Interpretation [...] issues to discuss Rachel Walker MA II [facility] 2022-10-30 15:44:50 Formatting of this n ote is different from the original. Chief Complaint Patient presents with Follow-up Weight loss and bp check Lois Wetzel CMA I [facility] 2021-09-08 08:20:00 [id number] [address] PATIENT NAME: NELSON JEREZ ADMIT DATE: 09/05/21 ACCOUNT NO: [id number] ROOM NO: [facility] AGE: 46 REPORT TYPE: OPERATIVE REPORT SEX: [...] oophorectomy, and cystoscopy. SURGEON: Amy Cochran MD CENTRIFUGAL SEPARATOR: Noelle Lawrence. ESTIMATED BLOOD LOSS: 200 mL. [...] 2 at the angles, 2 in the [id number]-ur-ntpsv in the center and 2-0 V-Loc in [...] after cystoscopy was performed with 30-degree lens 17-Malagasy sheath and normal saline. Both ureteral orifices [...] well. 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 for INR checks and to dc Lovenox [...] no distention Extremities: moves all, no edema Neuro/PHOTOVOLTAIC TESTING TECHNICIAN: alert, normal speech Discharge Instructions PCP Discharge to: Home/Self Care Additional Discharge Routines: Attending Follow-Up Diet: Regular Activity: As Tolerated Prescriptions: on chart Discharge management: greater than 30 mins at 1358 RPT #: [id number] END OF REPORT [facility] 2021-09-05 20:31:00 [facility] Hospitalist History Physical REPORT#:[id number] REPORT STATUS: Signed DATE:09/05/21 TIME:2030 PATIENT: NELSON JEREZ UNIT #: [id number] ROOM[address]BED: [address] : 77 AGE: 45 SEX: F ATTEND: [...] Time Pulse Ox 96 09/06 1939 B/P 134/68 09/05 194 O2 Delivery Nasal cannula 09/06 1939 O2 [...] no distention Extremities: moves all, no edema Neuro/PHOTOVOLTAIC TESTING TECHNICIAN: alert, normal speech Skin: dry, intact Psychiatry: normal affect, normal mood Results Findings/Data: Laboratory Tests: 09/05 1127 Coagulation INR (0.8 - 1.2 INR Unit) 1.03 PTT ([place]) (26 - 35 SECONDS) 31.0 PT Patient/Control [...] SCDs Code status: full at 2044 at 4839 RPT #: [id number] END OF REPORT [facility] 2021-09-05 13:58:00 [facility] Brief Op Note REPORT#:[id number] REPORT STATUS: Signed DATE:09/05/21 TIME:1358 PATIENT: NELSON JEREZ UNIT #: [id number] ROOM/BED: : 77 AGE: 45 SEX: F ATTEND: Amy Cochran MD ADM AUTHOR: Amy Cochran MD * ALL edits or amendments must be made on the electronic/computer document * Op/Inv Proc Note - Brief Pre-procedure diagnosis: Deep dyspareunia, Pelvic pain Post-procedure diagnosis: same as pre procedure dx Procedures performed: Robot assisted TLH BS RAFFY, Rt oophorectomy Primary Surgeon: sammie Director Of Clinical Education(s): Karina lawrence Anesthesia: general anesthesia Findings: RIGHT [...] Needle count: correct at 1820 RPT #: [id number] [facility] RE[facility]
[2023-12-13] MEDS ORDERED: ONDANSETRON 4 MG/2 ML VIAL ONE (05:50)
[2023-12-13] MEDS ORDERED: MORPHINE 4 MG/ML SYR ONE (05:50)
[2023-12-13 06:01] LABS: Absolute Lymphocytes (CBC) 1.7 K/uL (0.7-4.9); Absolute Monocytes 0.4 K/uL (0.1-1.3); Absolute Neutrophil 6.7 K/uL (1.8-8.0); Basophils % 0.1 % (0-1.3); Eosinophils % 0.1 % (0-4.4); Hematocrit 45.1 % (36.0-45.0); Hemoglobin 14.9 g/dL (12.0-15.0); Lymphocytes % 19.2 % (15.3-44.8); MCHC 32.9 g/dL (32.0-36.0); MCV 87.9 fL (80-100); MPV 9.6 fL (7.6-11.3); Neutrophils % 75.6 % (41.7-73.7); Nucleated Red Blood Cells % 0.1 % (0-0); Platelets 213 thou/uL (152-406); RBC Red Blood Cell Count 5.14 M/uL (3.86-4.86); Red Cell Distribution Width 12.9 % (12.1-15.2)
[2023-12-13 06:05] LABS: PT Prothrombin Time 19.8 SECONDS (9.4-12.5); PTT, Activated Partial Thromb 30.2 SECONDS (24.3-36.9); Protime INR 1.8
[2023-12-13 06:17] LABS: Anion Gap 8.8 mEq/L (5.0-15.0); Potassium 3.8 mEq/L (3.5-5.1)
--- NOTE | 2023-12-13 08:25 | RAD REPORT ---
EXAM DESCRIPTION: CT - Head angio - 12/13/2023 8:01 am CLINICAL HISTORY: HEADACHE COMPARISON: Head Brain Wo Cont dated 12/13/2023; Head Brain Wo Cont dated 04/03/2022 TECHNIQUE: CT angiography of the head was performed with MIPs. All CT scans are performed using dose optimization technique as appropriate and may include automated exposure control or mA/KV adjustment according to patient size. FINDINGS: No evidence of large vessel occlusion. No evidence of aneurysm is detected. No flow-limiti ng stenosis or vascular malformation identified. The left vertebral artery is dominant. The right vertebral artery appears to terminate in PICA, shorty l variant. The visualized dural venous sinuses are patent. IMPRESSION: No significant flow abnormality is detected.
--- NOTE | 2023-12-13 08:36 | EDPHYS ---
Physician Documentation [facility] Name: Mechelle Jerez Age: 48 yrs Sex: Female : 1975 Arrival Date: 12/13/2023 Time: 04:52 Bed 6 Private MD: ED Physician Nestor Martinez HPI: 12/12 05:27 This 48 yrs old Female presents to ER via Ambulatory with complaints of Headache, PT rn DIAGNOSED W/COVID 12/09/23. 05:28 The patient complains of pain to the Left face. The patient describes the headache as rn aching, throbbing. Onset: The symptoms/episode began/occurred just prior to arrival. Onset: The symptoms/episode began/occurred 3 hour(s) ago. Severity of symptoms: At its worst the pain was moderate, in the emergency department the pain is unchanged. The symptoms are alleviated by nothing. the symptoms are aggravated by nothing. The patient has not experienced similar symptoms in the past. Patient reports recent diagnosis of COVID last week, admitted to the hospital. Was headache free at that time. Finished work at about 2 in the morning and at about 230 this morning started having headache, left-sided, moderate amount of pain. Reports crying from pain. Has a history of headaches in the past but this is worse. No head injury. Has a history of pulmonary embolism but has never had cerebral infarction or thrombosis outside of lungs. No focal neurological deficit.. Historical: - Allergies: 05:17 No Known Allergies; al5 - PMHx: 05:17 DVT; Utures ablation; al5 - PSHx: 05:17 hysterectomy (in); Ligation of fallopian tube; Stent in groin for DVT prevention; al5 - Immunization history:: Adult Immunizations up to date. - Infectious Disease History:: Denies. - Social history:: Smoking status: Patient denies any tobacco usage or history of. - Family history:: not pertinent. - Hospitalizations: : The patient was recently seen at [facility]. ROS: 05:28 Constitutional: Negative for fever, chills, and weight loss, Neck: Negative for injury, rn pain, and swelling, Cardiovascular: Negative for chest pain, palpitations, and edema, Respiratory: Negative for shortness of breath, cough, wheezing, and pleuritic chest pain, Abdomen/GI: Negative for abdominal pain, nausea, vomiting, diarrhea, and constipation, MS/Extremity: Negative for injury and deformity, Skin: Negative for injury, rash, and discoloration, Neuro: Positive for headache Exam: 05:28 Constitutional: This is a well developed, well nourished patient who is awake, alert, rn tearful Head/Face: Normocephalic, atraumatic. Eyes: Pupils equal round and reactive to light, extra-ocular motions intact. Cardiovascular: Bradycardic, regular. No pulse deficits. Respiratory: No increased work of breathing, no retractions or nasal flaring. Abdomen/GI: Soft, non-tender Neuro: Awake and alert, GCS 15, oriented to person, place, time, and situation. Cranial nerves II-XII grossly intact. Motor strength 5/5 in all extremities. Sensory grossly intact. Cerebellar exam normal. Vital Signs: 05:11 BP 172 / 90; Pulse 54; Resp 12; Temp 97.8; Pulse Ox 100% on R/A; Weight 102.06 kg; al5 Height 4 ft. 11 in. ; Pain 10/10; 05:30 BP 155 / 65; Pulse 55; Resp 18; Pulse Ox 97% on R/A; al5 05:45 BP 131 / 99; Pulse 57; Resp 16; Pulse Ox 100% on R/A; al5 06:17 BP 160 / 96; Pulse 52; Resp 17; Pulse Ox 97% on R/A; al5 07:15 BP 150 / 95; Pulse 47; Resp 16; Pulse Ox 93% ; db 08:43 BP 157 / 83; Pulse 48; Resp 16; Pulse Ox 97% on R/A; db 05:11 Body Mass Index 45.44 (102.06 kg, 149.86 cm) al5 05:11 Pain Scale: Adult al5 MDM: 05:00 Patient medically screened. rn 09:18 Differential diagnosis: Aneurysm, nonspecific headache, venous thrombosis. Data rt reviewed: vital signs, nurses notes, radiologic studies. I considered the following discharge prescriptions or medication management in the emergency department Medications were administered in the Emergency Department. See MAR. Independent interpretation of the following test(s) in the Emergency Department CT Scan: My interpretation is No intracranial hemorrhage seen on interpretation of CT scan images. Care significantly affected by the following chronic conditions: DVT on Coumadin. Counseling: I had a detailed discussion with the patient and/or guardian regarding the historical points, exam findings, and any diagnostic results supporting the discharge/admit diagnosis, radiology results, the need for outpatient follow up, to return to the emergency department if symptoms worsen or persist or if there are any questions or concerns that arise at home. Response to treatment: the patient's symptoms have markedly improved after treatment. 12/12 05:14 Order name: CBC with Diff; Complete Time: 06:25 rn 12/12 05:14 Order name: Basic Metabolic Panel; Complete Time: 06:25 rn 12/12 05:14 Order name: Protime (+inr); Complete Time: 06:25 rn 12/12 05:14 Order name: Ptt, Activated; Complete Time: 06:25 rn 12/12 05:14 Order name: CT Head Brain wo Cont rn 12/12 07:25 Order name: Head angio EDRI 12/12 05:14 Order name: IV Start; Complete Time: 05:45 rn Administered Medications: 05:54 Drug: morphine IVP or IV 4 mg IVP once over 4 mins Route: IVP; Infused Over: 4 mins; al5 Site: right antecubital; 06:36 Follow up: Response: No adverse reaction; Pain is unchanged, physician notified al5 05:54 Drug: Ondansetron IVP 4 mg IVP once; over 2 minutes Route: IVP; Site: right antecubital;al5 06:36 Follow up: Response: No adverse reaction; Nausea unchanged al5 06:43 Drug: Droperidol IVP 1.25 mg IVP once Route: IVP; Site: right antecubital; al5 08:30 Follow up: Response: No adverse reaction db Disposition Summary: 12/13/23 08:36 Discharge Ordered Notes: Location: Home rt Problem: new rt Symptoms: have improved rt Condition: Stable rt Diagnosis - Headache rt Followup: rt - With: Private Physician - When: 2 - 3 days - Reason: Discharge Instructions: - Discharge Summary Sheet rt - General Headache Without Cause rt Forms: - Medication Reconciliation Form rt - Antibiotic Education rt - Prescription Opioid Use rt - Patient Portal Instructions rt - Leadership Thank You Letter rt Signatures: Dispatcher [employer] Neville Bedoya MD MD rn [place], Ryan, MD MD rt Anjali Breen RN RN al5 Villela, Shiloh RN db
--- NOTE | 2023-12-13 08:36 | ER ---
Nurse's Notes [facility] Name: Mechelle Jerez Age: 48 yrs Sex: Female : 1975 Arrival Date: 12/13/2023 Time: 04:52 Bed 6 Private MD: Diagnosis: Headache Presentation: 12/12 05:11 Chief complaint: Patient states: c/o L sided headache since 0230 this morning. recently al5 diagnosed with covid on 12/08. Coronavirus screen: Client presents with at least one sign or symptom that may indicate coronavirus-19. Standard/surgical mask placed on the client. Ebola Screen: No symptoms or risks identified at this time. Initial Sepsis Screen: Does the patient meet any 2 criteria? No. Patient's initial sepsis screen is negative. Does the patient have a suspected source of infection? No. Patient's initial sepsis screen is negative. Risk Assessment: Do you want to hurt yourself or someone else? Patient reports no desire to harm self or others. Onset of symptoms was December 13, 2023. 05:11 Method Of Arrival: Ambulatory al5 05:11 Acuity: TAMMY 3 al5 Triage Assessment: 05:17 Headache History: Denies prior headaches. General: Appears in no apparent distress. al5 uncomfortable, Behavior is calm, cooperative. Pain: Complains of pain in L side head Pain currently is 10 out of 10 on a pain scale. Pain began 2 hours ago. Also complains of no other associated symptoms. EENT: Reports slight neck pain when looking up. Neuro: Level of Consciousness is awake, alert, obeys commands, Oriented to person, place, time, situation. Cardiovascular: Capillary refill < 3 seconds Patient's skin is warm and dry. Respiratory: Airway is patent Respiratory effort is even, unlabored, Respiratory pattern is regular, symmetrical. GI: No signs and/or symptoms were reported involving the gastrointestinal system. : No signs and/or symptoms were reported regarding the genitourinary system. Derm: Skin is intact, Skin is pink, warm \T\ dry. normal. Musculoskeletal: No signs and/or symptoms reported regarding the musculoskeletal system. Historical: - Allergies: 05:17 No Known Allergies; al5 - PMHx: 05:17 DVT; Utures ablation; al5 - PSHx: 05:17 hysterectomy (in); Ligation of fallopian tube; Stent in groin for DVT prevention; al5 - Immunization history:: Adult Immunizations up to date. - Infectious Disease History:: Denies. - Social history:: Smoking status: Patient denies any tobacco usage or history of. - Family history:: not pertinent. - Hospitalizations: : The patient was recently seen at [facility]. Screenin:20 [facility] ED Fall Risk Assessment (Adult) History of falling in the last 3 months, al5 including since admission No falls in past 3 months (0 pts) Confusion or Disorientation No (0 pts) Intoxicated or Sedated No (0 pts) Impaired Gait No (0 pts) Mobility Assist Device Used No (0 pt) Altered Elimination No (0 pt) Score/Fall Risk Level 0 - 2 = Low Risk Oriented to surroundings, Maintained a safe environment, Hourly rounding (assess needs \T\ fall precautionary measures) done. Abuse screen: Denies threats or abuse. Denies injuries from another. Nutritional screening: No deficits noted. Tuberculosis screening: No symptoms or risk factors identified. Assessment: 05:20 Reassessment: see triage assessment. Pain: Complains of pain in L side head. al5 08:43 Reassessment: Patient appears in no apparent distress at this time. Patient and/or db family updated on plan of care and expected duration. Pain level reassessed. Patient is alert, oriented x 3, equal unlabored respirations, skin warm/dry/pink. Patient states feeling better. Patient states symptoms have improved. General: Appears in no apparent distress. comfortable, Behavior is calm, cooperative. Neuro: Level of Consciousness is awake, alert, obeys commands, Oriented to person, place, time, situation. Vital Signs: 05:11 BP 172 / 90; Pulse 54; Resp 12; Temp 97.8; Pulse Ox 100% on R/A; Weight 102.06 kg; al5 Height 4 ft. 11 in. ; Pain 10/10; 05:30 BP 155 / 65; Pulse 55; Resp 18; Pulse Ox 97% on R/A; al5 05:45 BP 131 / 99; Pulse 57; Resp 16; Pulse Ox 100% on R/A; al5 06:17 BP 160 / 96; Pulse 52; Resp 17; Pulse Ox 97% on R/A; al5 07:15 BP 150 / 95; Pulse 47; Resp 16; Pulse Ox 93% ; db 08:43 BP 157 / 83; Pulse 48; Resp 16; Pulse Ox 97% on R/A; db 05:11 Body Mass Index 45.44 (102.06 kg, 149.86 cm) al5 05:11 Pain Scale: Adult al5 ED Course: 04:55 Patient arrived in ED. [email or web address] 05:00 Neville Braswell MD is Attending Physician. rn 05:11 Anjali Breen RN is Primary Nurse. al5 05:14 Triage completed. al5 05:19 Arm band placed on right wrist. Patient placed in the treatment room, on a stretcher. al5 05:20 Patient has correct armband on for positive identification. Bed in low position. Call al5 light in reach. Side rails up X2. Provided Education on: processes and procedures. 05:21 No provider procedures requiring assistance completed. al5 05:55 Inserted saline lock: 20 gauge in right antecubital area, using aseptic technique. al5 Blood collected. Flushed with 10 mL NS. 06:07 CT Head Brain wo Cont In Process Unspecified. EDMS 07:18 Attending Physician role handed off by Neville Braswell MD rt 07:18 Nestor Martinez MD is Attending Physician. rt 08:03 Head angio In Process Unspecified. EDMS 08:55 Pulse ox on. NIBP on. Warm blanket given. Pillow given. db 08:55 IV discontinued, intact, bleeding controlled, No redness/swelling at site. db Administered Medications: 05:54 Drug: morphine IVP or IV 4 mg IVP once over 4 mins Route: IVP; Infused Over: 4 mins; al5 Site: right antecubital; 06:36 Follow up: Response: No adverse reaction; Pain is unchanged, physician notified al5 05:54 Drug: Ondansetron IVP 4 mg IVP once; over 2 minutes Route: IVP; Site: right antecubital;al5 06:36 Follow up: Response: No adverse reaction; Nausea unchanged al5 06:43 Drug: Droperidol IVP 1.25 mg IVP once Route: IVP; Site: right antecubital; al5 08:30 Follow up: Response: No adverse reaction db Medication: 05:20 VIS not applicable for this client. al5 Outcome: 08:36 Discharge ordered by . rt 08:55 Discharged to home ambulatory, with family, db 08:55 Condition: stable 08:55 Discharge instructions given to patient, Instructed on discharge instructions, follow up and referral plans. 09:00 Patient left the ED. ph Signatures: Dispatcher [employer] EDMS Neville Braswell MD MD rn Hall, Patricia, RN RN Olga Diaz [email or web address] Shiloh Villela RN RN Nestor Zaldivar MD MD rt Anjali Breen RN RN al5
[2023-12-13 09:22] VITALS: TEMP 97.8
[2023-12-13 09:29] VITALS: BP 150/95; O2SAT 93
--- NOTE | 2023-12-14 09:09 | RAD REPORT ---
EXAM DESCRIPTION: CT Head Without Intravenous Contrast CLINICAL HISTORY: The patient is 48 years old and is Female; Headache. TECHNIQUE: Axial computed tomography images of the head/brain without intravenous contrast. Sagitt al and coronal reformatted images were created and reviewed. This CT exam was performed using one o r more of the following dose reduction techniques: automated exposure control, adjustment of the mA and/or kV according to patient size, and/or use of iterative reconstruction technique. COMPARISON: CT Head 04/03/2022. FINDINGS: BRAIN: No extra-axial fluid collection. No intracranial hemorrhage. No transtentorial herniation. No focal angela-white matter differentiation abnormality. MIDLINE SHIFT: No midline shift. VENTRICLES: Unremarkable No ventriculomegaly. BONES/JOINTS: No fracture of the calvarium or visualized facial bones. SOFT TISSUES: Unremarkable SINUSES: No masses, bony erosion or evidence of acute sinusitis. MASTOID AIR CELLS: Unremarkable as visualized. No mastoid effusion. SELLA: "Empty sella" appearance of the sella turcica with thinning of the pituitary parenchyma, unc hanged from reference. IMPRESSION: 1. No acute intracranial abnormality. 2. "Empty sella" appearance of the sella turcica with thinning of the pituitary parenchyma, unchang ed from reference. Nonspecific, but in the appropriate clinical setting, this could reflect intracran ial hypertension (such as idiopathic intracranial hypertension). Clinical correlation recommended. Electronically signed by: Candido Parsons MD 12/13/2023 07:03 AM CDT RP Due to temporary technical issues with the PACS/Fluency reporting system, reports are being signed by the in house radiologists without review as a courtesy to insure prompt reporting. The interpreting radiologist is fully responsible for the content of the report.
== END 2023-12-13 09:00 | disposition home or self-care (01) ==
LOC: ER 04:52
DX: R51.9 Headache, unspecified (principal); Z86.711 Personal history of pulmonary embolism; Z86.16 Personal history of COVID-19
CPT/HCPCS: 85025; 80048; 36415; 85610; 85730; 70450; 70496; 96375; 96374; 99284; Q9967; J2405

== ENCOUNTER 2024-06-12 22:38 | Emergency (ER) | payer BC ==
--- OUTSIDE RECORDS SUMMARY | 2024-06-12 22:44 | XMS REPORT | Continuity of Care Document ---
Author Name Unknown Address [address] [facility] [address]. [phone] Organization [facility] [place] Address [address] [facility]. [phone] Care Team Providers Care Quality Assurance Supervisor Body Name Role Phone Antonina Sewell Primary Care Physician + NORBERTO WATSON Attending Clinician Unavailable LORENZO WHITE Attending Clinician Un available GUY KNOX Attending Clinician Unavailab JESSIE Beckman Attending Clinician Unavailab le LAB90 Attending Clinician Unavailable GUY KNOX Attending Clinician Unavail able PL, TECH 1 Attending Clinician Unavailable ALEXSANDRA MERRILL Attending Clinician Unavailable MD GAGANDEEP Attending Clinician Unavailab le PLAB Attending Clinician Unavailable CHRISTINE GARNER Attending Clinician Unavailable VIJAY GUSMAN Attending Clinician Unavailable PAYAM GILLIS Attending Clinician Unavailable Payam Zabala Attending Clinician + Unknown, Attending Attending Clinician Unavailab le UNKNOWN, ATTENDING Attending Clinician Unavailab le Doctor Unassigned, [place] Attending Clinician U MERRILL Champagne Attending Clinician Unavailable VINH ZARAGOZA Attending Clinician Unavailable JOSEPH QUARLES Attending Clinician Unavailable GC_GCBZW_Sammie_S Attending Clinician Unavaila HEDY Jordan Attending Clinician Unavailable FRANCISCO CASTANON Attending Clinician Unavailable SARITA_GCFRWD_Roberts_E Attending Clinician Unavaila CARMELA Valera Attending Clinician Unavail able TAHMINA ANDERSON Attending Clinician Unava ilable ES, TECH 1 Attending Clinician Unavailable NEIL VIGIL Attending Clinician Unavailable CHUN SALCEDO Attending Clinician Unavail able Hedy Humphries Attending Clinician + Camilo Goldman Attending Clinician Unavailable Erick Thomas MD Attending Clinician [phone] ERICK THOMAS Attending Clinician Unavailable Carmela Traylor NP Attending Clinician [phone] Ja Nicole Attending Clinician [phone] JA CALERO Attending Clinician UnavailAntonina Crum MD Attending Clinician + ANTONINA SEWELL Attending Clinician Unavaila SEMAJ Chavez Attending Clinician Unavailable DYLON NICHOLAS Attending Clinician Unavailable ANGIE CASON Attending Clinician Unavailabl e Only, Adc Test Attending Clinician Unavailable Diogo Minaya MD Attending Clinician [phone] AISHWARYA PINEDA Attending Clini winsome Unavailable GC_GCBZW_Ingadennisa_S Admitting Clinician Unavaila ble GC_GCFRWD_Roberts_E Admitting Clinician Unavaila ble Camilo Goldman A Admitting Clinician Unavailable SEMAJ VELASQUEZ Admitting Clinician Unavailable Payers Payer Name Policy Type Policy Number Effective Date Expirati on Date Source BCBSTX PPO [id number] 2020 00:00:00 BCBS 2 [id number] 2020 00:00:00 Blue [employer] [place] of [place] 6 [id number] [facility] [place] [id number] 2020 00:00:[place] [id number] 2018 00:00:00 Problems Condition Name Condition Details Condition Category Status Onset Date Resolution Date Last Treatment Date Treating Clinician Comments Source Type 2 diabetes mellitus with obesity (multi HCC) Type 2 diabetes mellitus with obesity (multi HCC) Disease Active 2023-04 0-18 00:00: 00 Roxanna Seybold - Externa l Well adult exam Well adult exam Disease Active 12-31 00:00: 00 Roxanna Seybold - Externa l Other headache syndrome Other headache syndrome Disease Active 2021-04- 00:00: 00 Roxanna Seybold - Externa l [...] History of pulmonary embolus (PE) Disease Active 2022-0 6-28 00:00: 00 Roxanna mejias Prediabete s Prediabete s Disease Active 6-28 00:00: 00 Roxanna mejias Venous embolism Venous Embolism Problem Active 5- 00:00: 00 [facility] Chronic deep venous thrombosis of femoral vein of right lower extremity Chronic Deep Venous Thrombosis of Femoral Vein of Right Lower Extremity Problem Active 5- 00:00: 00 [facility] History of pulmonary [...] e Problem Active 2020-04 1-15 00:00: 00 [facility] COVID-19 COVID-19 Disease Active -24 00:00: 00 Roxanna mejias Chronic pulmonary embolism Chronic Pulmonary Embolism Problem Active 11-10 00:00: 00 [facility] Urge incontinen ce of urine Urge Incontinen ce of Urine Problem Active 8 00:00: 00 [facility] Urgent desire to urinate Urgent Desire to Urinate Problem Active 8 00:00: 00 [facility] Gynecologi c examinatio n Gynecologi c Examinatio n Problem Active 8 00:00: 00 [facility] [id number] Tear of right rotator cuff, unspecifie d tear extent, unspecifie d whether traumatic Problem [facility] JOHANNA on CPAP JOHANNA on CPAP Disease Active Roxanna mejias Allergies, Adverse Reactions, Alerts Allergy Name Allergy Type Status Severity Reaction(s) Onset Date Inactive Date Treating Clinician Comments Source No Known Allergie s DA Active U 09-04 00:00: 00 [facility] NO KNOWN ALLERGIE S Drug Class Active [facility] Social History Social Habit Start Date Stop Date Quantity Comments Source Gender identity 2022-03-06 11:42:28 Identifies as female gender (finding) Roxanna Platt - External Sexual orientation U [facility] Exposure to SARS-CoV-2 (event) Yes Roxanna fried History of tobacco use Current smoker Roxanna fitzpatrick - External ASSERTION Not Roxanna Platt - External Alcoholic beverage intake 2024-05-20 00:00:00 2024-05-20 00:00:00 Current drinker of alcohol (finding) Roxanna Platt - External Alcohol intake 2022-12-12 00:00:00 2022-12-12 [...] 2022-01-10 00:00:00 1 Roxanna Platt - External Sex 2020-08-10 14:26:03 2020-08-10 14:26:03 Female (finding) Roxanna Platt - External History of Social function 2018-10-14 00:00:00 2018-10-14 00:00:00 [facility] Sex assigned at 1975 00:00:00 1975 00:00:00 F Roxanna Platt - External Smoking Status Start Date Stop Date Source Never Smoker [facility] Ex-smoker 2022-07-31 00:00:00 2022-07-31 00:00:00 Boss[facility] Gutierrez Medications Ordered Medication Name Filled Medication Name Start Date Stop Date Current Medication? Ordering Clinician Indication Dosage Frequency Signature (SIG) Comments Components Source methylPREDN ISolone 4 MG oral Tablet Therapy Pack 06-10 00:00: 00 Yes [id number] 1{nito} Take 1 nito by mouth See Admin Instructio ns Use as directed. Roxanna mejias Pseudoeph-B romphen-DM 30-2-10 MG/5ML oral Syrup 06-10 00:00: 00 Yes [id number] 10mL Q.25D Take 10 mL by mouth 4 times daily as needed. Roxanna mejias Benzonatate 100 MG oral Capsule 06-10 00:00: 00 Yes [id number] 200mg Q.[id number] 3D Take 2 capsules (200 mg total) by mouth 3 times daily as needed for cough. Roxanna mejias Amoxicillin -Pot Clavulanate 875-125 MG oral Tablet 06-10 00:00: 00 Yes [id number] 1{tbl} Q.5D Take 1 tablet by mouth 2 times daily. Roxanna mejias Azithromyci n 250 MG oral Tablet 06-10 00:00: 00 06-10 00:00 :00 No [id number] Take 2 tablets by mouth on day 1 then 1 tablet by mouth daily for 4 days thereafter .. Roxanna mejias METRONIDAZO LE, TOPICAL, 0.75 % apply externally Cream 05-20 09:09: 00 Yes 1{appli cation} Q.5D Apply 1 Applicatio n topically 2 times daily. Roxanna mejias Empaglifloz in (Jardiance) 10 MG oral Tablet 05-10 00:00: 00 Yes [id number] 10mg QD Take 1 tablet (10 mg total) by mouth daily. Roxanna mejias Na Sulfate-K Sulfate-Mg Sulf (SUPREP BOWEL PREP KIT) 17.5-3.13-1 .6 GM/177ML oral Solution 2023-04 2-23 00:00: 00 Yes Roxanna mejias METRONIDAZO LE, TOPICAL, 0.75 % apply externally Cream 2023-04 15:49: 54 Yes 1{appli cation} Q.5D Apply 1 Applicatio n topically 2 times daily. Roxanna mejias Semaglutide -YTLERCHRISTYREBA-Fidel ght Management 0.25 MG/0.5ML Subcutaneou s Solution Auto-inject or 2023-04 00:00: 00 02-28 00:00 :00 No [id number] .25mg Q1W Inject 0.25 mg into the skin once a week. Roxanna mejias Blood Glucose Monitoring Suppl (FreeStyle Lite) w/Device does not apply Kit 2023-04 00:00: 00 Yes Q.5D 2 times daily. Roxanna mejias Empaglifloz in (Jardiance) 10 MG oral Tablet 2023-04 00:00: 00 Yes [id number] 10mg QD Take 1 tablet (10 mg total) by mouth daily. Roxanna mejias Glucose Blood in vitro Strip 2023-04 00:00: 00 Yes [id number] 1{each} Q.5D 1 each by other route 2 times daily. Roxanna mejias Lancets does not apply Misc 2023-04 00:00: 00 Yes [id number] For twice daily glucose monitoring . Roxanna mejias Blood Glucose Monitoring Suppl (FreeStyle Lite) does not apply Device 2023-04 00:00: 00 01-28 00:00 :00 No [id number] Please check blood sugars twice a day. Roxanna mejias Loratadine (Claritin) 10 MG oral tablet 2023-04 0 00:00: 00 Yes [id number] 10mg QD Take 1 tablet (10 mg total) by mouth daily. Roxanna mejias Spacer/Aero -Holding Chambers does not apply Device 2023-04 00:00: 00 Yes [id number] Use with inhaler. Roxanna mejias Pseudoeph-B romphen-DM 30-2-10 MG/5ML oral Syrup 2023-04 0- 00:00: 00 02-28 00:00 :00 No [id number] 10mL Q.25D Take 10 mL by mouth 4 times daily as needed. Roxanna mejias Albuterol HFA 108 (90 Base) MCG/ACT IN AERS 12-24 00:00: 00 Yes [id number] 2{puff} Q.25D Inhale 2 puffs into the lungs every 6 hours as needed for wheezing. Roxanna mejias Warfarin (COUMADIN) 5 MG oral Tablet 12-15 00:00: 00 Yes 5mg QD Take 1 tablet (5 mg total) by mouth daily Takes on Thursday only. Roxanna mejias Cephalexin (Keflex) 500 MG oral Capsule 10-18 00:00: 00 12-31 00:00 :00 No [id number] 500mg Q.5D Take 1 capsule (500 mg total) by mouth 2 times daily. Roxanna mejias Azelastine HCl 0.05 % ophthalmic Solution 10-18 00:00: 00 12-31 00:00 :00 No [id number] 1[drp] Q.5D Apply 1 drop to eye 2 times daily. Roxanna mejias methylPREDN ISolone (MEDROL, NITO,) 4 mg tablets 05-15 00:00: 00 Yes [id number] Take by mouth SEE-INSTRU CTIONS. follow package directions [facility] promethazin e-dextromet horphan 6.25-15 mg/5 mL syrup - 00:00: 00 05-26 05:59 :00 No [id number] 10mL Take 10 mL by mouth 4 (four) times daily for 10 days. [facility] methylPREDN ISolone 4 MG oral Tablet Therapy Pack 1-03 00:00: 00 12-31 00:00 :00 No [id number] 1{nito} Take 1 nito by mouth See Admin Instructio ns Use as directed. Roxanna mejias VITAMIN D OR 2022-04 10:59: 22 04-02 00:00 :00 No Take by mouth Roxanna mejias Multiple Vitamin (Multivitam ins) oral Capsule 2022-04 10:59: 13 04-02 00:00 :00 No 1{tbl} Take 1 tablet by mouth daily Roxanna mejias FLUTICASONE PROPIONATE, NASAL, 50 MCG/ACT nasal Suspension 2022-04 00:00: 00 12-31 00:00 :00 No [id number] 50ug QD Use 1 spray (50 mcg total) in each nostril daily. Roxanna mejias Azelastine HCl 0.1 % nasal Solution 2022-04 00:00: 00 12-31 00:00 :00 No [id number] 1{spray } Q.5D Use 1 spray in each nostril 2 times daily. Roxanna mejias Pseudoeph-B romphen-DM 30-2-10 MG/5ML oral Syrup 2022-04 00:00: 00 04-06 05:59 :00 No [id number] 10mL Q.25D Take 10 mL by mouth 4 times daily as needed for up to 3 days. Roxanna mejias Semaglutide -Weight Management (Wegovy) 2.4 MG/0.75ML subcutaneou s Solution Auto-inject or 2022-04 00:00: 00 04-02 00:00 :00 No [id number] 2.4mg Inject 2.4 mg into the skin once a week. Roxanna mejias VITAMIN D OR 12-12 10:23: 36 Yes Take by mouth Roxanna mejias Multiple Vitamin (Multivitam ins) oral Capsule 12-12 10:23: 36 Yes 1{tbl} Take 1 tablet by mouth daily Roxanna mejias Warfarin (COUMADIN) 1 MG oral Tablet 12-12 00:00: 00 Yes [id number] 2mg QD Take 2 tablets (2 mg total) by mouth nightly 2 day. Roxanna mejias Semaglutide -Weight Management (Wegovy) 2.4 MG/0.75ML subcutaneou s Solution Auto-inject or 11-21 00:00: 00 Yes [id number] 2.4mg Inject 2.4 mg into the skin once a week Roxanna mejias Wegovy 1.7 MG/0.75ML subcutaneou s Solution Auto-inject or 11-21 00:00: 00 Yes Roxanna mejias Warfarin (COUMADIN) 1 MG oral Tablet 11-14 00:00: 00 12-12 00:00 :00 No 1mg Take 1 tablet (1 mg total) by mouth daily 2 day. Roxanna mejias VITAMIN D OR 10-30 15:44: 47 Yes Take by mouth Roaxnna mejias Multiple Vitamin (Multivitam ins) oral Capsule 10-30 15:44: 47 Yes 1{tbl} Take 1 tablet by mouth daily Roxanna mejias Semaglutide -Weight Management (Wegovy) 1.7 MG/0.75ML subcutaneou s Solution Auto-inject or 10-30 00:00: 00 Yes [id number] 1.7mg Inject 1.7 mg into the skin once a week Roxanna mejias Phentermine HCl 37.5 MG oral Tablet 10-30 00:00: 00 12-31 00:00 :00 No [id number] 37.5mg Take 1 tablet (37.5 mg total) by mouth every morning (before breakfast) Roxanna mejias VITAMIN D OR 07-31 15:48: 16 Yes Take by mouth Roxanna Thomasa randell Multiple Vitamin (Multivitam ins) oral Capsule 07-31 15:48: 16 Yes 1{tbl} Take 1 tablet by mouth daily Roxanna Thomasa randell Phentermine HCl 37.5 MG oral Tablet 07-31 00:00: 00 Yes [id number] 37.5mg Take 1 tablet (37.5 mg total) by mouth every morning (before breakfast) Roxanna mejias Warfarin (COUMADIN) 5 MG oral Tablet 07-31 00:00: 00 12-12 00:00 :00 No [id number] 2.5mg Take 0.5 tablets (2.5 mg total) by mouth daily 2.5 mg Roxanna mejias Semaglutide -Weight Management (Wegovy) 1.7 MG/0.75ML subcutaneou s Solution Auto-inject or 07-31 00:00: 00 10-30 00:00 :00 No [id number] 1.7mg Inject 1.7 mg into the skin once a week Roxanna mejias Trazodone HCl 50 MG oral Tablet 07-25 00:00: 00 Yes [id number] TAKE 1 TABLET(50 MG) BY MOUTH EVERY NIGHT Roxanna mejias Tirzepatide (Mounjaro) 7.5 MG/0.5ML subcutaneou s Solution Pen-injecto r 07-18 00:00: 00 07-31 00:00 :00 No [id number] 7.5mg Inject 0.5 mL (7.5 mg total) into the skin once a week Roxanna mejias Phentermine HCl 37.5 MG oral Tablet 07-03 00:00: 00 Yes [id number] 37.5mg Take 1 tablet (37.5 mg total) by mouth every morning (before breakfast) Roxanna mejias Tirzepatide (Mounjaro) 7.5 MG/0.5ML subcutaneou s Solution Pen-injecto r 06-25 00:00: 00 Yes [id number] 7.5mg Inject 0.5 mL (7.5 mg total) [...] Solution Pen-injecto r 06-05 00:00: 00 Yes [id number] 5mg Inject 0.5 mL (5 mg total) into the skin once a week Roxanna mejias Acetaminoph en (TYLENOL OR) 05-07 16:47: 15 Yes Take by mouth Roxanna mejias Multiple Vitamin (Multivitam ins) oral Capsule 05-07 16:47: 15 Yes 1{tbl} Take 1 tablet by mouth daily Roxanna mejias Tirzepatide (Mounjaro) 2.5 MG/0.5ML subcutaneou s Solution Pen-injecto r 05-07 00:00: 00 Yes [id number] 2.5mg Inject 0.5 mL (2.5 mg total) into the skin once a week Roxanna mejias Trazodone HCl 50 MG oral Tablet 05-07 00:00: 00 Yes [id number] 50mg Take 1 tablet (50 mg total) by mouth nightly Roxanna mejias Phentermine HCl 37.5 MG oral Tablet 05-07 00:00: 00 06-06 00:00 :00 No [id number] 37.5mg Take 1 tablet (37.5 mg total) by mouth every morning (before breakfast) Roxanna mejias Acetaminoph en (TYLENOL OR) 2021-04 14:49: 53 Yes Take by mouth Roxanna mejias Warfarin (COUMADIN) 5 MG oral Tablet 2021-04 00:00: 00 07-31 00:00 :00 No [id number] 2.5 mg every Thursday through Thursday and 5 mg every Thu and Thu Roxanna mejias Bupivicaine [place] Bupivicaine [place] 2021-04 00:00: 00 No 2.5mg [facility] Kenalog (Triamcinol one) Kenalog (Triamcinol one) 2021-04 00:00: 00 No 40mg [facility] Bupivicaine [place] Bupivicaine [place] 2021-04 00:00: 00 No 2.5mg [facility] Kenalog (Triamcinol one) Kenalog (Triamcinol one) 2021-04 00:00: 00 No 40mg [facility] Bupivicaine [place] Bupivicaine [place] 2021-04 00:00: 00 No 2.5mg [facility] Kenalog (Triamcinol one) Kenalog (Triamcinol one) 2021-04 00:00: 00 No 40mg [facility] Bupivicaine [place] Bupivicaine [place] 2021-04 00:00: 00 No 2.5mg [facility] Kenalog (Triamcinol one) Kenalog (Triamcinol one) 2021-04 00:00: 00 No 40mg [facility] Bupivicaine [place] Bupivicaine [place] 2021-04 00:00: 00 No 2.5mg [facility] Kenalog (Triamcinol one) Kenalog (Triamcinol one) 2021-04 00:00: 00 No 40mg [facility] Bupivicaine [place] Bupivicaine [place] 2021-04 00:00: 00 No 2.5mg [facility] Kenalog (Triamcinol one) Kenalog (Triamcinol one) 2021-04 00:00: 00 No 40mg [facility] Bupivicaine [place] Bupivicaine [place] 2021-04 00:00: 00 No 2.5mg [facility] Kenalog (Triamcinol one) Kenalog (Triamcinol one) 2021-04 00:00: 00 No 40mg [facility] Bupivicaine [place] Bupivicaine [place] 2021-04 00:00: 00 No 2.5mg [facility] Kenalog (Triamcinol one) Kenalog (Triamcinol one) 2021-04 00:00: 00 No 40mg [facility] Bupivicaine [place] Bupivicaine [place] 2021-04 00:00: 00 No 2.5mg [facility] Kenalog (Triamcinol one) Kenalog (Triamcinol one) 2021-04 00:00: 00 No 40mg [facility] Bupivicaine [place] Bupivicaine [place] 2021-04 00:00: 00 No 2.5mg [facility] Kenalog (Triamcinol one) Kenalog (Triamcinol one) 2021-04 00:00: 00 No 40mg [facility] Bupivicaine [place] Bupivicaine [place] 2021-04 00:00: 00 No 2.5mg [facility] Kenalog (Triamcinol one) Kenalog (Triamcinol one) 2021-04 00:00: 00 No 40mg [facility] Bupivicaine [place] Bupivicaine [place] 2021-04 00:00: 00 No 2.5mg [facility] Kenalog (Triamcinol one) Kenalog (Triamcinol one) 2021-04 00:00: 00 No 40mg [facility] Bupivicaine [place] Bupivicaine [place] 2021-04 00:00: 00 No 2.5mg [facility] Kenalog (Triamcinol one) Kenalog (Triamcinol one) 2021-04 00:00: 00 No 40mg [facility] Bupivicaine [place] Bupivicaine [place] 2021-04 00:00: 00 No 2.5mg [facility] Kenalog (Triamcinol one) Kenalog (Triamcinol one) 2021-04 00:00: 00 No 40mg [facility] Acetaminoph en (TYLENOL OR) 2021-04 13:13: 43 Yes Take by mouth Roxanna mejias Cholecalcif jef (Vitamin D) 10 MCG/ML oral Liquid 2021-04 13:13: 28 01-31 00:00 :00 No Roxanna mejias METRONIDAZO LE, TOPICAL, (MetroCream ) 0.75 % apply externally Cream 2021-04 00:00: 00 12-31 00:00 :00 No [id number] Apply topically to the face BID PRN flares for rosacea. Roxanna mejias Administere d Medications Medication OrderMAR ActionActio n DateDoseRat eSiteKenalo gGiven6/13/ [id number] mg 2021-04 0 13:02: 14 No Administer ed Medication sMedicatio n OrderMAR ActionActi on Gingera Iaina logGiven mg Roxanna mejias Cholecalcif jef (Vitamin D) 10 MCG/ML oral Liquid 2021-04 13:02: 14 Yes Roxanna mejias Acetaminoph en (TYLENOL OR) 2021-04 13:00: 49 Yes Take by mouth Roxanna mejias TRIMETHOPRI M-POLYMYXIN B 87961-4.1 UNIT/ML-% ophthalmic Solution 12-27 00:00: 00 Yes INSTILL 1 DROP IN LEFT EYE FOUR TIMES DAILY FOR 10 DAYS Roxanna mejias TRIMETHOPRI M-SULFAMETH OXAZOLE 800-160 MG oral Tablet 12-27 00:00: 00 Yes 1{tbl} Take 1 tablet by mouth 2 times daily for 10 days Roxanna mejias Promethazin e-DM 6.25-15 MG/5ML oral Solution 12-22 00:00: 00 01-10 00:00 :00 No [id number] 5mL Take 5 mL by mouth at bedtime as needed for cough Roxanna mejias methylPREDN ISolone 4 MG oral Tablet Therapy Pack 12-17 00:00: 00 01-10 00:00 :00 No [id number] 1{nito} Take 1 nito by mouth See Admin Instructio ns Use as directed Roxanna mejias FLUTICASONE PROPIONATE, NASAL, 50 MCG/ACT nasal Suspension 12-17 00:00: 00 01-10 00:00 :00 No [id number] SHAKE LIQUID AND USE 1 SPRAY(50 MCG) IN EACH NOSTRIL DAILY Roxanna mejias COVID-19 At Home Antigen Test in vitro Kit 12-17 00:00: 00 01-10 00:00 :00 No [id number] 1{each} 1 each by in vitro route every 2 days Roxanna mejias Bupivicaine [place] Bupivicaine [place] 09-16 00:00: 00 No 2.5mg [facility] Kenalog (Triamcinol one) Kenalog (Triamcinol one) 0 09-16 00:00: 00 No 40mg [facility] Bupivicaine [place] Bupivicaine [place] 2021-0 09-16 00:00: 00 No 2.5mg [facility] Kenalog (Triamcinol one) Kenalog (Triamcinol one) 0 09-16 00:00: 00 No 40mg [facility] Bupivicaine [place] Bupivicaine [place] 0 09-16 00:00: 00 No 2.5mg [facility] Kenalog (Triamcinol one) Kenalog (Triamcinol one) 0 09-16 00:00: 00 No 40mg [facility] Bupivicaine [place] Bupivicaine [place] 0 09-16 00:00: 00 No 2.5mg [facility] Kenalog (Triamcinol one) Kenalog (Triamcinol one) 0 09-16 00:00: 00 No 40mg [facility] Bupivicaine [place] Bupivicaine [place] 2021-0 09-16 00:00: 00 No 2.5mg [facility] Kenalog (Triamcinol one) Kenalog (Triamcinol one) 0 09-16 00:00: 00 No 40mg [facility] Bupivicaine [place] Bupivicaine [place] 2021-0 09-16 00:00: 00 No 2.5mg [facility] Kenalog (Triamcinol one) Kenalog (Triamcinol one) 0 09-16 00:00: 00 No 40mg [facility] Bupivicaine [place] Bupivicaine [place] 2021-0 09-16 00:00: 00 No 2.5mg [facility] Kenalog (Triamcinol one) Kenalog (Triamcinol one) 0 09-16 00:00: 00 No 40mg [facility] Bupivicaine [place] Bupivicaine [place] 2021-0 09-16 00:00: 00 No 2.5mg [facility] Kenalog (Triamcinol one) Kenalog (Triamcinol one) 0 09-16 00:00: 00 No 40mg [facility] Bupivicaine [place] Bupivicaine [place] 2021-0 09-16 00:00: 00 No 2.5mg [facility] Kenalog (Triamcinol one) Kenalog (Triamcinol one) 0 09-16 00:00: 00 No 40mg [facility] Bupivicaine [place] Bupivicaine [place] 2021-0 09-16 00:00: 00 No 2.5mg [facility] Kenalog (Triamcinol one) Kenalog (Triamcinol one) 0 09-16 00:00: 00 No 40mg [facility] Bupivicaine [place] Bupivicaine [place] 2021-0 09-16 00:00: 00 No 2.5mg [facility] Kenalog (Triamcinol one) Kenalog (Triamcinol one) 0 09-16 00:00: 00 No 40mg [facility] Bupivicaine [place] Bupivicaine [place] 2021-0 09-16 00:00: 00 No 2.5mg [facility] Kenalog (Triamcinol one) Kenalog (Triamcinol one) 0 09-16 00:00: 00 No 40mg [facility] Bupivicaine [place] Bupivicaine [place] 2021-0 09-16 00:00: 00 No 2.5mg [facility] Kenalog (Triamcinol one) Kenalog (Triamcinol one) 2021-0 09-16 00:00: 00 No 40mg [facility] Bupivicaine [place] Bupivicaine [place] 09-16 00:00: 00 No 2.5mg [facility] Kenalog (Triamcinol one) Kenalog (Triamcinol one) 09-16 00:00: 00 No 40mg [facility] Bupivicaine [place] Bupivicaine [place] 09-16 00:00: 00 No 2.5mg [facility] Kenalog (Triamcinol one) Kenalog (Triamcinol one) 09-16 00:00: 00 No 40mg [facility] Bupivicaine [place] Bupivicaine [place] 09-16 00:00: 00 No 2.5mg [facility] Kenalog (Triamcinol one) Kenalog (Triamcinol one) 09-16 00:00: 00 No 40mg [facility] Bupivicaine [place] Bupivicaine [place] 09-16 00:00: 00 No 2.5mg [facility] Kenalog (Triamcinol one) Kenalog (Triamcinol one) 09-16 00:00: 00 No 40mg [facility] Acetaminoph en (TYLENOL OR) 2020-04 0-01 10:25: 55 Yes Take by mouth Roxanna Platt hydrOXYzine HCl 25 MG oral Tablet 12-21 00:00: 00 Yes [id number] 25mg Q.[id number] 3D Take 1 tablet (25 mg total) by mouth 3 times daily as needed for itching Roxanna Platt methylPREDN ISolone 4 MG oral Tablet Therapy Pack 12-21 00:00: 00 Yes [id number] 1{nito} Take 1 nito by mouth See Admin Instructio ns Use as directed Roxanna Platt Cetirizine HCl (ZyrTEC Allergy) 10 MG oral Capsule 12-21 00:00: 00 Yes [id number] 10mg Take 1 capsule (10 mg total) by mouth daily Roxanna Platt Desonide 0.05 % apply externally Cream 12-21 00:00: 00 01-19 04:59 :00 No [id number] Apply to affected area twice a day [...] Take 50 mg by mouth once now. [facility] SUMAtriptan 50 mg tablet 07-15 14:21: 38 Yes 50mg Take 50 mg by mouth once now. [facility] Warfarin (COUMADIN) 5 MG oral Tablet 07-03 00:00: 00 Yes Roxanna Platt - Externa l Acetaminoph en-Codeine #3 Acetaminoph en-Codeine #3 Yes Eugenio Em not defined [facility] Warfarin Sodium Warfarin Sodium Yes Eugenio Em not defined Common [facility] Enoxaparin Sodium Enoxaparin Sodium Yes Eugenio Me not defined Common [facility] Sertraline HCl Sertraline HCl Yes Eugenio Em not defined Common [facility] Sumatriptan Sumatriptan Yes Yaakov Em not defined [facility] Warfarin Sodium Warfarin Sodium No Warfarin Sodium [...] External Tdap- (Boostrix, Adacel) Unknown Completed Roxanna Seybold - External Tdap- (Boostrix, Adacel) Unknown Completed Roxanna Mauricioybold - External Tdap- (Boostrix, Adacel) Unknown Completed Roxanna Seybold - External Tdap- (Boostrix, Adacel) Unknown Completed Roxanna Seybold - External Tdap- (Boostrix, Adacel) Unknown Completed Roxanna Mauricioybold - External Tdap- (Boostrix, Adacel) Unknown Completed Roxanna Seybold - External Tdap- (Boostrix, Adacel) Unknown Completed Roxanna Seybold - External Tdap- (Boostrix, Adacel) Unknown Completed Roxanna Seybold - External Tdap- (Boostrix, Adacel) Unknown Completed Roxanna Seybold - External Tdap- (Boostrix, Adacel) Unknown Completed Roxanna Seybold - External Tdap- (Boostrix, Adacel) Unknown Completed Roxanna Seybold - External Vital Signs Vital Name Observation Time Observation Value Comments S ource Systolic blood pressure 2024-05-20 15:05:00 96 mm[Hg] Roxanna Seybo ld - External Diastolic blood pressure 2024-05-20 15:05:00 66 mm[Hg] Roxanna Seybo ld - External Heart rate 2024-05-20 15:05:00 73 /min Dale y Seybold - External Body temperature 2024-05-20 15:05:00 35.89 Domi Roxanna Seybold - External Respiratory rate 2024-05-20 15:05:00 18 /min Roxanna Seybold - External Body height 2024-05-20 15:05:00 149.9 cm Tiffanie ey Seybold - External Body weight 2024-05-20 15:05:00 107.956 kg Tiffanie ey Seybold - External BMI 2024-05-20 15:05:00 48.07 kg/m2 Tiffanie ey Seybold - External Oxygen saturation in Arterial blood by Pulse oximetry 2024-05-20 15:05:00 97 /min Roxanna Mauricioybo ld - External Body Weight 2024-03-09 00:00:00 235 [lb_av] [facility] BP Diastolic 2024-03-09 00:00:00 76 mm[Hg] [facility] BP Systolic 2024-03-09 00:00:00 108 mm[Hg] [facility] Height 2024-03-09 00:00:00 59 [in_i] [facility] BMI (Body Mass Index) 2024-03-09 00:00:00 47.5 kg/m2 [facility] Systolic blood pressure 2024-02-29 21:44:00 98 mm[Hg] Roxanna Seybo ld - External Diastolic blood pressure 2024-02-29 21:44:00 62 mm[Hg] Roxanna Seybo ld - External Heart rate 2024-02-29 21:44:00 78 /min Ricose y Seybold - External Body temperature 2024-02-29 21:44:00 36.22 Domi Roxanna Seybold - External Respiratory rate 2024-02-29 21:44:00 18 /min Roxanna Seybold - External Body height 2024-02-29 21:44:00 149.9 cm Tiffanie ey Seybold - External Body weight 2024-02-29 21:44:00 105.688 kg Tiffanie ey Seybold - External BMI 2024-02-29 21:44:00 47.06 kg/m2 Tiffanie ey Seybold - External Oxygen saturation in Arterial blood by Pulse oximetry 2024-02-29 21:44:00 98 /min Roxanna Seybo ld - External Systolic blood pressure 2024-01-29 20:49:00 116 mm[Hg] Roxanna Seybo ld - External Diastolic blood pressure 2024-01-29 20:49:00 74 mm[Hg] Roxanna Seybo ld - External Heart rate 2024-01-29 20:49:00 86 /min Ricose y Seybold - External Body temperature 2024-01-29 20:49:00 36.22 Domi Roxanna Seybold - External Respiratory rate 2024-01-29 20:49:00 18 /min Roxanna Seybold - External Body height 2024-01-29 20:49:00 149.9 cm Tiffanie ey Seybold - External Body weight 2024-01-29 20:49:00 104.327 kg Tiffanie ey Seybold - External BMI 2024-01-29 20:49:00 46.45 kg/m2 Tiffanie ey Seybold - External Oxygen saturation in Arterial blood by Pulse oximetry 2024-01-29 20:49:00 97 /min Roxanna Seybo ld - External Systolic blood pressure 2024-01-01 21:12:00 116 mm[Hg] Roxanna Seybo ld - External Diastolic blood pressure 2024-01-01 21:12:00 70 mm[Hg] Roxanna Seybo ld - External Heart rate 2024-01-01 21:12:00 88 /min Ricose y Seybold - External Body temperature 2024-01-01 21:12:00 36.83 Domi Roxanna Seybold - External Respiratory rate 2024-01-01 21:12:00 18 /min Roxanna Seybold - External Body height 2024-01-01 21:12:00 149.9 cm Tiffanie parrish Seybold - External Body weight 2024-01-01 21:12:00 106.595 kg Tiffanie ey Seybold - External BMI 2024-01-01 21:12:00 47.46 kg/m2 Tiffanie ey Seybold - External Oxygen saturation in Arterial blood by Pulse oximetry 2024-01-01 21:12:00 99 /min Roxanna Seybo ld - External Systolic blood pressure 2023-12-25 19:22:00 110 mm[Hg] Roxanna Seybo ld - External Diastolic blood pressure 2023-12-25 19:22:00 63 mm[Hg] Roxanna Seybo ld - External Heart rate 2023-12-25 19:22:00 101 /min Dale y Seybold - External Body temperature 2023-12-25 19:22:00 36.67 Domi Roxanna Seybold - External Respiratory rate 2023-12-25 19:22:00 18 /min Roxanna Mauricioybold - External Body weight 2023-12-25 19:22:00 102.422 kg Tiffanie parrish Seybold - External BMI 2023-12-25 19:22:00 45.61 kg/m2 Tiffanie parrish Seybold - External Oxygen saturation in Arterial blood by Pulse oximetry 2023-12-25 19:22:00 98 /min Roxanna Mauricioybo ld - External height 2023-06-16 13:15:00 60.5 [in_i] Comm on [facility] weight 2023-06-16 13:15:00 198 [lb_av] Comm on [facility] temperature 2023-06-16 13:15:00 98.4 [degF] Com mon [facility] bmi 2023-06-16 13:15:00 38.03 kg/m2 Comm on [facility] blood pressure systolic 2023-06-16 13:15:00 120 mm[Hg] [facility] blood pressure diastolic 2023-06-16 13:15:00 78 mm[Hg] [facility] Systolic blood pressure 2023-05-15 21:33:00 119 mm[Hg] [facility] Diastolic blood pressure 2023-05-15 21:33:00 77 mm[Hg] [facility] Heart rate 2023-05-15 21:33:00 106 /min [facility] 2023-05-15 21:33:00 37.28 Domi [facility] Respiratory rate 2023-05-15 21:33:00 12 /min [facility] Body height 2023-05-15 21:33:00 151.1 cm [facility] Body weight 2023-05-15 21:33:00 92.625 kg [facility] BMI 2023-05-15 21:33:00 40.55 kg/m2 [facility] Oxygen saturation in Arterial blood by Pulse oximetry 2023-05-15 21:33:00 97 /min [facility] height 2023-05-05 13:00:00 60.5 [in_i] Comm on [facility] weight 2023-05-05 13:00:00 198 [lb_av] Comm on [facility] temperature 2023-05-05 13:00:00 98.0 [degF] Com mon [facility] bmi 2023-05-05 13:00:00 38.03 kg/m2 Comm on [facility] blood pressure systolic 2023-05-05 13:00:00 118 mm[Hg] Common [facility] blood pressure diastolic 2023-05-05 13:00:00 78 mm[Hg] [facility] height 2023-03-24 13:00:00 60.5 [in_i] Comm on [facility] weight 2023-03-24 13:00:00 198 [lb_av] Comm on [facility] temperature 2023-03-24 13:00:00 97.8 [degF] Com [facility] bmi 2023-03-24 13:00:00 38.03 kg/m2 Comm on [facility] blood pressure systolic 2023-03-24 13:00:00 120 mm[Hg] [facility] blood pressure diastolic 2023-03-24 13:00:00 80 mm[Hg] Common [facility] height 2023-02-17 09:30:00 60.5 [in_i] Comm on [facility] weight 2023-02-17 09:30:00 198 [lb_av] Comm on [facility] temperature 2023-02-17 09:30:00 98.0 [degF] Com [facility] bmi 2023-02-17 09:30:00 38.03 kg/m2 Comm on [facility] blood pressure systolic 2023-02-17 09:30:00 120 mm[Hg] [facility] blood pressure diastolic 2023-02-17 09:30:00 80 mm[Hg] Common [facility] height 2023-02-05 15:30:00 60.5 [in_i] Comm on [facility] weight 2023-02-05 15:30:00 197 [lb_av] Comm on [facility] temperature 2023-02-05 15:30:00 98.0 [degF] Com [facility] bmi 2023-02-05 15:30:00 37.84 kg/m2 Comm on [facility] blood pressure systolic 2023-02-05 15:30:00 118 mm[Hg] Common [facility] blood pressure diastolic 2023-02-05 15:30:00 78 mm[Hg] Common [facility] height 2022-12-30 09:30:00 60.5 [in_i] Comm on [facility] weight 2022-12-30 09:30:00 197.5 [lb_av] Co mmon [facility] temperature 2022-12-30 09:30:00 98.2 [degF] Com mon [facility] bmi 2022-12-30 09:30:00 37.93 kg/m2 Comm on [facility] blood pressure systolic 2022-12-30 09:30:00 117 mm[Hg] Common [facility] blood pressure diastolic 2022-12-30 09:30:00 76 mm[Hg] Common [facility] Systolic blood pressure 2022-12-12 15:20:00 110 mm[Hg] Roxanna Seybo ld - External Diastolic blood pressure 2022-12-12 15:20:00 70 mm[Hg] Roxanna Seybo ld - External Heart rate 2022-12-12 15:20:00 [...] height 2022-11-17 08:45:00 60.5 [in_i] Comm on [facility] weight 2022-11-17 08:45:00 200.1 [lb_av] Co mmon [facility] bmi 2022-11-17 08:45:00 38.43 kg/m2 Comm on [facility] blood pressure systolic 2022-11-17 08:45:00 117 mm[Hg] Common [facility] blood pressure diastolic 2022-11-17 08:45:00 78 mm[Hg] [facility] Systolic blood pressure 2022-10-30 20:39:00 110 mm[Hg] [...] Pulse oximetry 2022-05-07 22:45:00 99 /min Roxanna Leger ld - External Systolic blood pressure 2022-03-27 20:46:00 116 mm[Hg] Roxanna Leger ld - External Diastolic blood pressure 2022-03-27 20:46:00 72 mm[Hg] Roxanna Leger ld - External Heart rate 2022-03-27 20:46:00 99 /min Dale Platt - External Body temperature 2022-03-27 20:46:00 36.67 Domi Roxanna Platt - External Respiratory rate 2022-03-27 20:46:00 14 /min Roxanna Platt - External Body height 2022-03-27 20:46:00 149.9 cm Tiffanie Platt - External Body weight 2022-03-27 20:46:00 110.678 kg Tiffanie parrish Seybold - External BMI 2022-03-27 20:46:00 49.28 kg/m2 Tiffanie parrish Seybold - External height 2022-02-13 13:00:00 60.5 [in_i] Comm on [facility] weight 2022-02-13 13:00:00 243 [lb_av] Comm on [facility] temperature 2022-02-13 13:00:00 97.0 [degF] Com [facility] bmi 2022-02-13 13:00:00 46.67 kg/m2 Comm on [facility] blood pressure systolic 2022-02-13 13:00:00 126 mm[Hg] Common [facility] blood pressure diastolic 2022-02-13 13:00:00 72 mm[Hg] Common [facility] height 2022-01-23 13:00:00 60.5 [in_i] Comm on [facility] weight 2022-01-23 13:00:00 220 [lb_av] Comm on [facility] temperature 2022-01-23 13:00:00 97.2 [degF] Com [facility] bmi 2022-01-23 13:00:00 42.25 kg/m2 Comm on [facility] blood pressure systolic 2022-01-23 13:00:00 122 mm[Hg] Common [facility] blood pressure diastolic 2022-01-23 13:00:00 80 mm[Hg] [facility] Systolic blood pressure 2022-01-10 18:02:00 101 mm[Hg] Roxanna Mauricioybo ld - External Diastolic blood pressure 2022-01-10 18:02:00 72 mm[Hg] Roxanna Mauricioybo ld - External Heart rate 2022-01-10 18:02:00 73 /min Dale negron Seybold - External Body temperature 2022-01-10 18:02:00 36.67 Domi Roxanna Mauricioybold - External Respiratory rate 2022-01-10 18:02:00 16 /min Roxanna Mauricioybold - External Body height 2022-01-10 18:02:00 149.9 cm Tiffanie parrish Seybold - External Body weight 2022-01-10 18:02:00 109.68 kg Tiffanie parirsh Seybold - External BMI 2022-01-10 18:02:00 48.84 kg/m2 Tiffanie parrish Seybold - External Oxygen saturation in Arterial blood by Pulse oximetry 2022-01-10 18:02:00 95 /min Roxanna Leger ld - External height 2021-12-23 08:30:00 60.5 [in_i] Comm on [facility] weight 2021-12-23 08:30:00 220 [lb_av] Comm on [facility] temperature 2021-12-23 08:30:00 97.3 [degF] Com mon [facility] bmi 2021-12-23 08:30:00 42.25 kg/m2 Comm on [facility] blood pressure systolic 2021-12-23 08:30:00 126 mm[Hg] [facility] blood pressure diastolic 2021-12-23 08:30:00 78 mm[Hg] [facility] blood pressure diastolic 2021-12-02 09:30:00 84 mm[Hg] Common [facility] height 2021-12-02 09:30:00 60.5 [in_i] Comm on [facility] weight 2021-12-02 09:30:00 220 [lb_av] Comm on [facility] temperature 2021-12-02 09:30:00 97.7 [degF] Com mon [facility] bmi 2021-12-02 09:30:00 42.25 kg/m2 Comm on [facility] blood pressure systolic 2021-12-02 09:30:00 134 mm[Hg] Common [facility] height 2021-11-18 13:00:00 60.5 [in_i] Comm on [facility] weight 2021-11-18 13:00:00 220 [lb_av] Comm on [facility] temperature 2021-11-18 13:00:00 97.9 [degF] Com mon [facility] bmi 2021-11-18 13:00:00 42.25 kg/m2 Comm on [facility] blood pressure systolic 2021-11-18 13:00:00 126 mm[Hg] Common [facility] blood pressure diastolic 2021-11-18 13:00:00 80 mm[Hg] Common [facility] height 2021-11-13 09:00:00 60.5 [in_i] Comm on [facility] weight 2021-11-13 09:00:00 220 [lb_av] Comm on [facility] bmi 2021-11-13 09:00:00 42.25 kg/m2 Comm on [facility] blood pressure systolic 2021-11-13 09:00:00 132 mm[Hg] Common [facility] blood pressure diastolic 2021-11-13 09:00:00 76 mm[Hg] [facility] height 2021-09-16 08:00:00 60.5 [in_i] Comm on [facility] weight 2021-09-16 08:00:00 233.4 [lb_av] Co mmon [facility] temperature 2021-09-16 08:00:00 97.8 [degF] Com mon [facility] bmi 2021-09-16 08:00:00 44.83 kg/m2 Comm on [facility] Systolic blood pressure 2021-01-04 15:26:00 128 mm[Hg] Roxanna Seybo ld Diastolic blood pressure 2021-01-04 15:26:00 87 mm[Hg] Roxanna Seybo ld Heart rate 2021-01-04 15:26:00 95 /min Kelse y Seybold Body temperature 2021-01-04 15:26:00 36.78 Domi Roxanna ybold Respiratory rate 2021-01-04 15:26:00 16 /min Roxanna Seybold Body height 2021-01-04 15:26:00 149.9 cm Tiffanie ey Seybold Body weight 2021-01-04 15:26:00 105.688 kg Tiffanie ey Seybold BMI 2021-01-04 15:26:00 47.06 kg/m2 Tiffanie ey Seybold Oxygen saturation in Arterial blood by Pulse oximetry 2021-01-04 15:26:00 93 /min Roxannarcow Blacko ld Procedures Procedure Date / Time Performed Performing Clinician Source MAMMO, screening, digital, bilateral 2024-03-09 00:00:00 [facility] POCT SARS-COV-2 ANTIGEN (BINAX NOW) 2023-05-15 21:52:00 Payam Gillis [facility] POCT MOLECULAR FLU 2023-05-15 21:42:00 Unknown, Attend ing [facility] ASSIGNMENT OF BENEFITS 2023-05-15 21:27:19 Docto r Unassigned, [place] [facility] Partial Repair of Rotator Cuff 2023-02-13 00:00:00 [facility] JOHANNA FOLLOW-UP WITH SLEEP EDUCATOR 2022-01-10 18:13:30 Traylor, Carmela C Roxanna Seybold - External Hysterectomy 2021-09-05 00:00:00 Joceline Livingston edical ASSIGNMENT OF BENEFITS 2020-11-19 16:55:51 Docto r Unassigned, [place] [facility] Tubal Ligation 2001-11-11 00:00:00 Joceline Medical Encounters Start Date/Time End Date/Time Encounter Type Admission Type Attending [facility] Facility Care Department Encounter ID Source 2023-08-04 10:39:00 Outpatient STLMLC STLMLC [id number] [facility] 2021-11-19 08:16:01 Outpatient STLMLC STLMLC [id number] [facility] 2021-11-12 13:49:00 Outpatient STLMLC STLMLC [id number] [facility] 2021-11-11 16:58:00 Outpatient STLMLC STLMLC [id number] [facility] 2021-09-16 09:36:01 Outpatient STLMLC STLMLC [id number] [facility] 2021-08-19 09:09:05 Outpatient STLMLC STLMLC [id number] [facility] 2021-05-01 12:20:13 Outpatient STLMLC STLMLC [id number] [facility] 2021-05-01 11:59:33 Outpatient STLMLC STLMLC [id number] [facility] 2021-05-01 11:46:32 Outpatient STLMLC STLMLC [id number] [facility] 2021-05-01 11:36:23 Outpatient STLMLC STLMLC [id number] [facility] 2020-09-12 15:24:21 Outpatient NORBERTO WATSON [facility] [id number] [facility] 2019-11-02 11:29:33 Outpatient LORENZO WHITE [facility] [id number] [facility] 2025-01-03 08:00:00 2025-01-03 08:00:00 Outpatient GUY KNOX ROXANNA [id number] [facility] 2024-06-10 18:45:00 2024-06-10 18:45:00 Outpatient JESSIE FREIRE ROXANNA [id number] [facility] 2024-05-20 09:45:00 2024-05-20 09:45:00 Outpatient LAB90 ROXANNA ROXANNA [id number] [facility]anna [facility] 2024-05-20 09:00:00 2024-05-20 09:00:00 Outpatient GUY KNOX ROXANNA [id number] [facility] 2024-05-10 00:00:00 2024-05-10 00:00:00 Outpatient GUY KNOX ROXANNA [id number] [facility] 2024-05-10 00:00:00 2024-05-10 00:00:00 Outpatient GUY KNOX ROXANNA THOMPSON [id number] [facility] 2024-05-10 00:00:00 2024-05-10 00:00:00 Outpatient GUY KNOX ROXANNA [id number] [facility] 2024-05-09 00:00:00 2024-05-09 00:00:00 Outpatient GUY KNOX ROXANNA [id number] [facility] 2024-05-06 11:30:00 2024-05-06 11:30:00 Outpatient LABCraig ROXANNA THOMPSON [id number] [facility] 2024-05-03 00:00:00 2024-05-03 00:00:00 Outpatient GUY KNOX ROXANNA THOMPSON [id number] [facility] 2024-04-27 16:30:00 2024-04-27 16:30:00 Outpatient GUY KNOX ROXANNA THOMPSON [id number] [facility] 2024-03-25 09:00:00 2024-03-25 09:00:[address], ELIANA THOMPSON [id number] Roxanna Seybold 2024-03-23 16:30:00 2024-03-23 16:30:[address], TECH ROXANNA THOMPSON [id number] Roxanna Seybdede 2024-03-09 00:00:00 2024-03-09 00:00:00 DANI Guevara: [address] [place], [place] [address], [place] [address] , Ph. [facility] - [facility]_GCBZW_[place] Ramos* [id number] [facility] 2024-02-29 16:00:00 2024-02-29 16:00:00 Outpatient GUY KNOX [id number] Roxanna Seybdede 2024-02-26 10:00:00 2024-02-26 10:00:00 Outpatient ALEXSANDRA MERRILL [id number] [facility] 2024-02-26 00:00:00 2024-02-26 00:00:00 Outpatient [facility]LEX[facility]ANDRA MERRILL [id number] [facility] 00:00:00 2024-02-26 00:00:00 Outpatient ALEXSANDRA MERRILL [id number] Roxanna Seybdede 2024-02-26 00:00:00 2024-02-26 00:00:00 Outpatient MD ROXANNA MANNING [id number] oRxanna [facility] 2024-02-26 00:00:00 2024-02-26 00:00:00 Outpatient MD ROXANNA MANNING [id number] [facility] 2024-02-23 14:00:00 2024-02-23 14:00:00 Outpatient LAB90 ROXANNA THOMPSON [id number] Roxanna Seybdede 2024-02-17 07:30:00 2024-02-17 07:30:00 Outpatient ROXANNA THOMPSON [id number] Roxanna Platt 2024-02-15 00:00:00 2024-02-15 00:00:00 Outpatient GUY KNOX [id number] Roxanna Seybdede 2024-02-02 00:00:00 2024-02-02 00:00:00 Outpatient GUY KNOX [id number] [facility] 2024-02-02 00:00:00 2024-02-02 00:00:00 Outpatient GUY KNOX ROXANNA [id number] [facility]anna [facility] 2024-01-29 16:00:00 2024-01-29 16:00:00 Outpatient GUY KNOX ROXANNA [id number] [facility] 2024-01-29 00:00:00 2024-01-29 00:00:00 Outpatient GUY KNOX ROXANNA [id number] [facility]ox[facility] 2024-01-26 13:30:00 2024-01-26 13:30:00 Outpatient PLAB ROXANNA THOMPSON [id number] Roxanna [facility] 2024-01-22 00:00:00 2024-01-22 00:00:00 Outpatient GUY KNOX ROXANNA THOMPSON [id number] [facility] 2024-01-22 00:00:00 2024-01-22 00:00:00 Outpatient GUY KNOX ROXANNA [id number] [facility] 2024-01-22 00:00:00 2024-01-22 00:00:00 Outpatient GUY KNOX ROXANNA THOMPSON [id number] Roxanna [facility] 2024-01-19 09:35:00 2024-01-19 09:35:00 Outpatient LAB90 ROXANNA THOMPSON [id number] Roxanna [facility] 2024-01-08 00:00:00 2024-01-08 00:00:00 Outpatient DESIRAE, ALEXSANDRA THOMPSON [id number] [facility] 2024-01-05 10:30:00 2024-01-05 10:30:00 Outpatient ABBVALERIA CHRISTINE ROXANNA THOMPSON [id number] Roxanna Seybold 2024-01-01 16:30:00 2024-01-01 16:30:00 Outpatient GUY KNOX ROXANNA THOMPSON [id number] Roxanna Seybold 2023-12-25 14:30:00 2023-12-25 14:30:00 Outpatient DESIRAE, SAMILIR THOMPSON [id number] Roxanna Seybold 2023-12-25 00:00:00 2023-12-25 00:00:00 Outpatient ALEXSANDRA MERRILL ROXANNA THOMPSON [id number] Roxanna Mauriciodede 2023-12-25 00:00:00 2023-12-25 00:00:00 Outpatient ALEXSANDRA MERRILL ROXANNA THOMPSON [id number] Roxanna Platt 2023-12-11 15:30:00 2023-12-11 15:30:00 Outpatient ALEXSANDRA MERRILL ROXANNA THOMPSON [id number] Roxanna [facility] 2023-12-08 00:00:00 2023-12-08 00:00:00 Outpatient MD ROXANNA MANNING [id number] [facility] 2023-10-19 10:45:00 2023-10-19 10:45:00 Outpatient VIJAY GSUMAN [id number] R[facility] 2023-06-16 00:00:00 2023-06-16 00:00:00 OFFICE VISIT ESTAB PT LEVEL 3 STLMLC STLMLC [id number] [facility] 2023-06-12 00:00:00 2023-06-12 00:00:00 DANI Guevara: [address] [place], [place] [address], [place] [address] , Ph. [facility] [facility]* [id number] [facility] 2023-05-15 15:20:00 2023-05-15 15:47:52 Outpatient R PAYAM GILLIS [facility] [id number] [facility] 2023-05-15 15:20:00 2023-05-15 15:47:52 Urgent Care Payam Gillis Unknown, Attending [facility] LEAH SORIA[facility] [id number] [facility] 2023-05-15 00:00:00 2023-05-15 00:00:00 Orders Only Doctor Unassigned, [place] [facility] [id number] [facility] 2023-05-05 00:00:00 2023-05-05 00:00:00 (PO) Post Op STLMLC STLMLC [id number] [facility] 2023-04-13 00:00:00 2023-04-13 00:00:00 (TEL) STLMLC STLMLC [id number] [facility] 2023-04-10 11:40:00 2023-04-10 11:40:00 Outpatient MERRILL VANCE [id number] [facility] 2023-04-09 00:00:00 2023-04-09 00:00:00 Outpatient VINH ZARAGOZA [id number] [facility] 2023-04-02 11:00:00 2023-04-02 11:00:00 Outpatient JOSEPH QUARLES [id number] [facility] 2023-04-02 00:00:00 2023-04-02 00:00:00 Outpatient JOSEPH QUARLES [id number] [facility] 2023-03-24 00:00:00 2023-03-24 00:00:00 NON-BILLAB LE VISIT STLMLC STLC [id number] [facility] 2023-03-11 00:00:00 2023-03-11 00:00:00 Outpatient GC_GCBZW_Ka diyala_S PRIV PRIV [id number] [facility] 2023-03-05 00:00:00 2023-03-05 00:00:00 Outpatient GC_GCBZW_Ka diyala_S PRIV PRIV [id number] [facility] 2023-02-21 00:00:00 2023-02-21 00:00:00 Outpatient HEDY MONK [id number] [facility] 2023-02-17 00:00:00 2023-02-17 00:00:00 NON-BILLAB LE VISIT STLMLC STLMLC [id number] [facility] 2023-02-10 00:00:00 2023-02-10 00:00:00 (TEL) STLMLC STLMLC [id number] [facility] 2023-02-05 00:00:00 2023-02-05 00:00:00 OFFICE VISIT ESTAB PT LEVEL 4 STLMLC STLMLC [id number] [facility] 2022-12-30 00:00:00 2022-12-30 00:00:00 Outpatient FRANCISCO CASTANON [id number] [facility] 2022-12-30 00:00:00 2022-12-30 00:00:00 Outpatient HEDY MONK [id number] [facility] 2022-12-30 00:00:00 2022-12-30 00:00:00 (F/U) Follow Up Visit STLMLC STLC [id number] [facility] 2022-12-30 00:00:00 2022-12-30 00:00:00 (TEL) STLMLC STLMLC [id number] [facility] 2022-12-19 00:00:00 2022-12-19 00:00:00 Outpatient HEDY MONK [id number] [facility] 2022-12-16 00:00:00 2022-12-16 00:00:00 Outpatient HEDY MONK [id number] [facility] 2022-12-12 11:15:00 2022-12-12 11:15:00 Outpatient JERAMIE THOMPSON [id number] [facility] 2022-12-12 10:30:00 2022-12-12 10:30:00 Outpatient HEDY MONK [id number] [facility] 2022-11-18 00:00:00 2022-11-18 00:00:00 [facility] [id number] [facility]22-11-17 00:00:00 2022-11-17 00:00:00 OFFICE VISIT ESTAB PT LEVEL 4 STLMLC [facility] [id number] [facility] 2022-11-17 00:00:00 2022-11-17 00:00:00 (TEL) STLMLC STLC [id number] [facility] 2022-11-17 00:00:00 2022-11-17 00:00:00 (WEB) STLC [facility] [id number] [facility] 2022-11-14 00:00:00 2022-11-14 00:00:00 Outpatient HEDY MONK [id number] [facility] 2022-10-30 16:00:00 2022-10-30 16:00:00 Outpatient HEDY MONK [id number] [facility] 2022-10-28 00:00:00 2022-10-28 00:00:00 Outpatient HEDY MONK [id number] [facility] 2022-09-27 00:00:00 2022-09-27 00:00:00 Outpatient GC_GCFRWD_R oberts_E [facility] [id number] [facility] 2022-08-25 00:00:00 2022-08-25 00:00:00 Outpatient CARMELA TRAYLOR [id number] [facility] 2022-08-08 00:00:00 2022-08-08 00:00:00 Outpatient HEDY MONK [id number] [facility] 2022-07-31 16:00:00 2022-07-31 16:00:00 Outpatient HEDY MONK [id number] [facility] 2022-07-25 00:00:00 2022-07-25 00:00:00 Outpatient HEDY MONK [id number] [facility] 2022-07-16 00:00:00 2022-07-16 00:00:00 Outpatient HEDY MONK [id number] [facility] 2022-07-03 16:30:00 2022-07-03 16:30:00 Outpatient HUNDHEDY Mejias ROX[facility]NA THOMPSON [id number] [facility] 2022-06-25 00:00:00 2022-06-25 00:00:00 Outpatient ALESHIA HEDY THOMPSON [id number] [facility] 2022-06-06 08:30:00 2022-06-06 08:30:00 Outpatient ANDERSONTAHMINA COLLINS [facility] THOMPSON [id number] [facility] 2022-06-05 16:30:00 2022-06-05 16:30:00 Outpatient HEDY MONK [facility] [id number] [facility] 2022-06-04 00:00:00 2022-06-04 00:00:00 Outpatient ALESHIA HEDY THOMPSON [id number] [facility] 2022-05-09 09:50:00 2022-05-09 09:50:00 Outpatient LAB90 ROXANNA THOMPSON [id number] [facility] 2022-05-07 16:30:00 2022-05-07 16:30:00 Outpatient HEDY MONK [facility] [id number] [facility] 2022-05-02 11:00:00 2022-05-02 11:00:[address], TECH ROXANNA THOMPSON [id number] [facility] 2022-04-11 10:30:00 2022-04-11 10:30:00 Outpatient ANDERSONTAHMINA COLLINS [facility] [id number] [facility] 2022-04-03 14:00:00 2022-04-03 14:00:00 Outpatient ES, TECH ROXANNA THOMPSON [id number] [facility] 2022-04-03 00:00:00 2022-04-03 00:00:00 Outpatient HAYDEN TRAYLORA [facility] THOM[facility] [id number] [facility] 2022-03-27 15:45:00 2022-03-27 15:45:00 Outpatient LAB90 ROXANNA THOMPSON [id number] [facility] 2022-03-27 15:15:00 2022-03-27 15:15:00 Outpatient FRANCISCO CASTANON R[facility]NA THOMPSON [id number] [facility] 2022-02-13 00:00:00 2022-02-13 00:00:00 OFFICE VISIT ESTAB PT LEVEL 4 STLMLC STLMLC [id number] [facility] 2022-01-31 13:30:00 2022-01-31 13:30:00 Outpatient TAHMINA ANDERSON ROXANNA THOMPSON [id number] [facility] 2022-01-24 00:00:00 2022-01-24 00:00:00 Outpatient CARMELA TRAYLOR [id number] [facility] 2022-01-23 00:00:00 2022-01-23 00:00:00 OFFICE VISIT EST PT LEVEL 3 STLMLC STLMLC [id number] [facility] 2022-01-10 13:00:00 2022-01-10 13:00:00 Outpatient CARMELA TRAYLOR [id number] [facility] 2022-01-10 00:00:00 2022-01-10 00:00:00 Outpatient CARMELA TRAYLOR [id number] [facility] 2022-01-05 00:00:00 2022-01-05 00:00:00 Outpatient CARMELA TRAYLOR [id number] [facility] 2022-01-03 10:30:00 2022-01-03 10:30:00 Outpatient HEDY MONK [id number] [facility] 2021-12-23 00:00:00 2021-12-23 00:00:00 OFFICE VISIT ESTAB PT LEVEL 4 STLMLC STLMLC [id number] [facility] 2021-12-22 12:45:00 2021-12-22 12:45:00 Outpatient VIJAY GUSMAN [id number] [facility] 2021-12-22 11:10:00 2021-12-22 11:10:00 Outpatient NEIL VIGIL [id number] [facility] 2021-12-17 11:15:00 2021-12-17 11:15:[address] [facility] 1.2.840.114 [id number] [id number] [id number] [facility] 2021-12-02 00:00:00 2021-12-02 00:00:00 OFFICE VISIT ESTAB PT LEVEL 4 STLMLC STLMLC [id number] [facility] 2021-11-27 00:00:00 2021-11-27 00:00:00 (TEL) STLMLC STLMLC [id number] [facility] 2021-11-18 00:00:00 2021-11-18 00:00:00 OFFICE VISIT ESTAB PT LEVEL 4 STLMLC STLMLC [id number] [facility] 2021-11-13 00:00:00 2021-11-13 00:00:00 OFFICE VISIT ESTAB PT LEVEL 4 STLMLC STLMLC [id number] [facility] 2021-10-01 09:25:00 2021-10-01 09:25:00 Outpatient LAB90 ROXANNA THOMPSON [id number] [facility] 2021-10-01 08:30:00 2021-10-01 09:00:00 Office Visit Hedy Monk 1.2.840.114 350.1.13.13 [id number] [id number] [facility] 2021-09-16 00:00:00 2021-09-16 00:00:00 OFFICE VISIT ESTAB PT LEVEL 4 STLMLC STLMLC [id number] [facility] 2021-09-05 10:30:00 2021-09-06 11:41:00 Inpatient Camilo Ramirez [facility] MED [id number] [facility] 2021-09-05 10:30:00 2021-09-06 11:41:00 Inpatient EL [facility] [id number] 2021-02-01 10:05:00 2021-02-01 10:05:00 Outpatient ROXANNA MEYERSSEY [id number] [facility] 2021-01-25 09:52:08 2021-01-25 10:26:34 Telemedici ne Erick Thomas [facility] 1.2.840.114 350.1.13.13 [id number] [id number] [facility] 2021-01-24 00:00:00 2021-01-24 00:00:00 Outpatient ERICK THOMAS ROXANNA [id number] [facility] 2021-01-04 10:18:44 2021-01-04 10:48:44 Office Visit TraylorCarmela [facility] 1.2.840.114 350.1.13.13 1.2.7.2.686 [id number] [facility] 2021-01-03 00:00:00 2021-01-03 00:00:00 Outpatient CARMELA TRAYLOR ROXANNA THOMPSON [id number] [facility] 2020-12-21 12:46:01 2020-12-21 13:01:12 Telemedici ne Ja Calero [facility] 1.2.840.114 350.1.13.13 [id number] [id number] [facility] 2020-12-21 00:00:00 2020-12-21 00:00:00 Outpatient JA CALERO ROXANNA [id number] [facility] 2020-12-14 15:30:00 2020-12-14 15:30:00 Outpatient CARMELA TRAYLOR ROX[facility]NA THOMPSON [id number] [facility] 2020-12-11 16:35:58 2020-12-11 17:15:53 Telemedici ne Victor Mmarisabel Chrisvaleria Phelps [facility] 1.2.840.114 350.1.13.13 [id number] [id number] [facility] 2020-12-11 10:45:00 2020-12-11 10:45:00 Outpatient QUANTONINA MARR [id number] [facility] 2020-12-05 10:30:00 2020-12-05 10:30:00 Outpatient QUDDANTONINA WAITE [id number] [facility] 2020-11-29 17:28:00 2020-12-01 16:41:00 Inpatient E RON SEMAJ [facility] [id number] 2020-11-27 11:30:00 2020-11-27 11:30:00 Outpatient DYLON NICHOLAS ROXANNA [id number] [facility] 2020-11-27 00:00:00 2020-11-27 00:00:00 Outpatient QUANTONINA MARR ROXANNA [id number] [facility] 2020-11-27 00:00:00 2020-11-27 00:00:00 Outpatient QUANTONINA MARR [id number] [facility] 2020-11-27 00:00:00 2020-11-27 00:00:00 Outpatient QUANTONINA MARR [id number] [facility] 2020-11-27 00:00:00 2020-11-27 00:00:00 Outpatient ANGIE CASON ROXANNA [id number] [facility] 2020-11-19 12:21:17 2020-11-19 12:36:17 Laboratory Only Only, Adc Test Diogo Minaya [facility] 1.2.840.114 350.1.13.10 4.2.7.2.686 [id number] [facility] 2020-11-19 11:20:00 2020-11-19 11:20:00 Outpatient R [facility] [id number] [facility] 2020-11-19 11:15:00 2020-11-19 11:15:00 Outpatient R [facility] [id number] [facility] 2020-11-19 00:00:00 2020-11-19 00:00:00 Orders Only Doctor Unassigned, [place] [facility] 1.2.840.114 350.1.13.10 4.2.7.2.686 [id number] [facility] 2020-02-02 00:00:00 2020-02-02 00:00:00 [facility]patient [facility] [id number] [facility] 2019-12-23 00:00:00 2019-12-23 00:00:00 [facility] [id number] [facility] 2019-12-13 13:21:00 2019-12-13 13:21:00 Outpatient [facility] [id number] [facility] 2019-11-17 09:06:00 2019-11-17 09:06:00 Outpatient [facility] [id number] [facility] 2019-11-14 15:16:00 2019-11-14 15:16:00 Outpatient [facility] [id number] [facility] 2019-11-14 13:00:00 2019-11-14 13:00:00 Outpatient [facility] [id number] [facility] 2019-10-23 19:38:00 2019-10-23 20:55:00 [id number] 2018-09-15 06:02:00 2018-09-14 19:33:00 Inpatient E [facility] [id number] [facility] Results Test Description Test Time Test Comments Results Result Co mments Source [facility]2 [facility]TIGEN (BINAX NOW)2023-05-15 21:52:00* Test Item Value Reference Range Interpretation Comme nts POCT SARS-COV-2 ANTIGEN (test code = 19022-9) Not Detected Not Detected On board controls acceptable with C Line (test code = 3574) Yes JEREMY (test code = JEREMY) accurate developme nt and interpretation of all internal controls Lab Interpretation (test code = 67161-1) [facility]2022-06-06 18:03:00* Test Item Value Reference Range Interpretation Comme nts SURGICAL (test code = SR) RUN DATE: 09/09/[address] [facility] - LAB PAGE 1 RUN TIME: 1803 Specimen Inquiry RUN USER: INTERFACE DEVIN ENT: NELSON JEREZ ACCLisset #: [id number] LOC: Jose Martin U #: [id number] AGE/SX: 45/F ROOM: [facility] RE09/05/21REG DR: Camilo Goldman MD : 77 BED: 1 DIS: 09/06/21 STATUS: DIS Clari TLOC: SPEC #: [id number] RECD: 09/06/21 STATUS: CLARE JORDAN #: [id number] TRIPP: 09/05/21 [facility] DR: Camilo Goldman MD ENTERED: 09/06/21 SP TYPE: SURGICAL OTHR DR: Amy Cochran MD, Firas A MDORDERED: [id number], ANATOMIC SPEC, SPECIMEN TRACK COPIES [place]: [place] [address] [place] [address] [email or web address] Amy Cochran MD [address] [place] [address] Antonina Sewell MD [address] [place] [address] PROCEDURES: 92409 (09/09/21-1720) SPECIMEN TRACK (09/06/21) TISSUES: A. UTERUS [...] CONTINUED ON NEXT PAGE RUN DATE: 09/09/21 [facility] PAGE 2 RUN TIME: 1803 Specimen Inquiry RUN USER: INTERFACE SPEC #: [id number]:[facility]:[id number] PATIENT: NELSON JEREZ #[id number] (Continued) ------- FINAL DIAGNOSIS (Continued) Comment: Negative [...] left fallopian tube Technical component performed at [facility],[id number] , [place] [address] Unless gross only, the diagnosis is based [...] CONTINUED ON NEXT PAGE RUN DATE: 09/09/21 [facility] PAGE 3 RUN TIME: 1803 Specimen Inquiry RUN USER: INTERFACE SPEC #: 22:[facility]:SR256 PATIENT: NELSON JEREZ #[id number] (Continued) ------- MICROSCOPIC DESCRIPTION Findings are incorporated into the diagnosis section. ---- Signed SIGNATURE ON Patricio Bob 09/09/21 1558 END OF REPORT BASIC METABOLIC [id number] 05:12:00* Test Item Value Reference Range Interpretation [...] 8.5-10.1 N Completed by Nursing: NOTROP-I HIGH [id number] 05:12:00* Test Item Value Reference Range Interpretation [...] URLs may varyby method. Completed by Nursing: GLORIAOMBTAWNY [id number] 05:10:00* Test Item Value Reference Range Interpretation [...] Infarction (to prevent recurrent infarct). CBC W/AUTO [id number] 05:00:00* Test Item Value Reference Range Interpretation [...] = MDIFF) NO DIFF/SCN CRITERIA THROMBOPLASTIN TIME [id number] 12:58:00* Test Item Value Reference Range Interpretation Comme nts THROMBOPLASTIN TIME PARTIAL (test code = PTT) 31.0 SECONDS 26-35 N PROTHROMBIN [id number] 12:58:00* Test Item Value Reference Range Interpretation [facility] PT PATIENT (test code = PTP) 11.7 [...] Myocardial Infarction (to prevent recurrent infarct). PROTHROMBIN [id number] 09:35:00* Test Item Value Reference Range Interpretation [facility] PT PATIENT (test code = PTP) 14.2 [...] (to prevent recurrent infarct). COVID 19 INHOUSE [id number] 09:21:00* Test Item Value Reference Range Interpretation [facility] COVID 19 INHOUSE AG (test code = BUCES43SPER) NEGATIVE Negative Per vice president of finance , negative results should be treated aspresumptive [...] and symptoms consistent with COVID-19. CBC W/AUTO [id number] 09:14:00* Test Item Value Reference Range Interpretation [...] ode = MDIFF) NO DIFF/SCN CRITERIA URINALYSIS [id number] 09:07:00* Test Item Value Reference Range Interpretation [...] NEGATIVE Urine Specimen Type: Clean CatchUR HCG [id number] 09:07:00* Test Item Value Reference Range Interpretation Comme nts UR HCG QUAL (test code = HCGQLU) NEGATIVE NEGATIVE Urine Specimen Type: Clean CatchMRI Shoulder Rt Wo ContMRI Shoulder Rt Wo Cont Notes Date/Time Note Provider Source 2024-05-20 09:09:05 Chief Complaint Patient presents with Follow-up 2 month DM [facility] 2024-02-26 10:28:20 Upon discharge: Reviewed Nmmig-Vkydh-Wsncfvo with patient. All orders / future testing / appointments due were reviewed with patient. After Visit Summary sent to patient with contact numbers for [facility] to schedule Desens. MKO sent as a reminder to schedule Follow Up appointment. Patient Verbalized Understanding. NIA Gaston LVN [facility] 2024-01-29 15:57:20 Chief Complaint Patient presents with Follow-up 1 month follow up for weight loss. Patient never received Jardiance, pharmacy told her they never got the RX Bruna Fatima LVN [facility] 2024-01-01 16:20:45 Chief Complaint Patient presents with Physical Patient is fasting for labs Bruna Fatima LVN [facility] 2022-12-12 10:23:40 Formatting of this n ote is different from the original. Chief Complaint Patient presents with Physical Patient is fasting. No other issues to discuss Rachel Walker MA II [facility] 2022-10-30 15:44:50 Formatting of this n ote is different from the original. Chief Complaint Patient presents with Follow-up Weight loss and bp check Lois Wetzel CMA I [facility] 2021-09-08 08:20:00 [id number] [address] PATIENT NAME: NELSON JEREZ ADMIT DATE: 09/05/21 ACCOUNT NO: [id number] ROOM NO: [facility] AGE: 46 REPORT TYPE: OPERATIVE [...] oophorectomy, and cystoscopy. SURGEON: Amy Cochran MD [employer] PROGRAM DIRECTOR: Noelle Lawrence. ESTIMATED BLOOD LOSS: 200 mL. [...] 2 at the angles, 2 in the sfccvu-sl-oxigq in the center and 2-0 V-Loc in [...] after cystoscopy was performed with 30-degree lens 17-Welsh sheath and normal saline. 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 for INR checks and to dc Lovenox [...] no distention Extremities: moves all, no edema Neuro/CONFORMAL PAD FORMER: alert, normal speech Discharge Instructions PCP Discharge to: Home/Self Care Additional Discharge Routines: Attending Follow-Up Diet: Regular Activity: As Tolerated Prescriptions: on chart Discharge management: greater than 30 mins at 1358 RPT #: [id number] END OF REPORT [facility] 2021-09-05 20:31:00 [facility] ([facility] Hospitalist History Physical REPORT#:[id number] REPORT STATUS: Signed DATE:09/05/21 TIME:2030 PATIENT: NELSON JEREZ UNIT #: [id number] ROOM/BED: [place] [address] : 77 AGE: 45 SEX: F ATTEND: [...] Flow Rate 2 09/06 1939 Pulse 69 09/05 194 Resp 16 09/06 1939 Temp 36.6 09/05 [...] no distention Extremities: moves all, no edema Neuro/CONFORMAL PAD FORMER: alert, normal speech Skin: dry, intact Psychiatry: normal affect, normal mood Results Findings/Data: Laboratory Tests: 09/05 1127 Coagulation INR (0.8 - 1.2 INR Unit) 1.03 PTT (Clark) (26 - 35 SECONDS) 31.0 PT Patient/Control [...] SCDs Code status: full at 2044 at 7078 RPT #: [id number] END OF REPORT [facility] 2021-09-05 13:58:00 [facility] ([facility]) Brief Op Note REPORT#:[id number] REPORT STATUS: Signed DATE:09/05/21 TIME:1358 PATIENT: NELSON JEREZ UNIT #: [id number] ROOM/BED: : 77 AGE: 45 SEX: F ATTEND: Amy Cochran MD ADM AUTHOR: Amy Cochran MD * ALL edits or amendments must be made on the electronic/computer document * Op/Inv Proc Note - Brief Pre-procedure diagnosis: Deep dyspareunia, Pelvic pain Post-procedure diagnosis: same as pre procedure dx Procedures performed: Robot assisted TLH BS RAFFY, Rt oophorectomy Primary Surgeon: sammie Morning Babysitter(s): Karina lawrence Anesthesia: general anesthesia Findings: RIGHT [...] Needle count: correct at 1820 RPT #: [id number] END OF REPORT HCAPM
[2024-06-12] MEDS ORDERED: ALBUTEROL 2.5 MG/3 ML NEB SOL ONE (23:17)
[2024-06-12] MEDS ORDERED: IPRATROPIUM BROM 0.5MG/2.5ML ONE (23:17)
[2024-06-13 00:01] LABS: Absolute Monocytes 0.7 K/uL (0.1-1.3); Absolute Neutrophil 2.9 K/uL (1.8-8.0); Basophils % 0.2 % (0-1.3); Eosinophils % 0.2 % (0-4.4); Hematocrit 44.4 % (36.0-45.0); Hemoglobin 15.1 g/dL (12.0-15.0); Lymphocytes % 36.1 % (15.3-44.8); MCH 29.2 pg (27.0-35.0); MCHC 34.1 g/dL (32.0-36.0); MCV 85.5 fL (80-100); MPV 9.3 fL (7.6-11.3); Monocytes % 12.5 % (3.3-12.3); Nucleated Red Blood Cells % 0.1 % (0-0); Platelets 223 thou/uL (152-406); RBC Red Blood Cell Count 5.19 M/uL (3.86-4.86); Red Cell Distribution Width 12.6 % (12.1-15.2)
[2024-06-13 00:23] LABS: Albumin 3.6 g/dL (3.4-5.0); Albumin/Globulin Ratio 0.9 (1.1-1.8); Anion Gap 8.1 mEq/L (5.0-15.0); Bilirubin Direct 0.2 mg/dL (0-0.2); Bilirubin Indirect, Calculated 0.2 mg/dL (0.2-0.8); Bilirubin Total 0.4 mg/dL (0.2-1.0); Globulin 4.1 g/dL (2.3-3.5); Potassium 3.1 mEq/L (3.5-5.1); Protein, Total 7.7 g/dL (6.4-8.2); Troponin High Sensitivity 4.8 pg/mL (<58.9)
[2024-06-13 00:51] LABS: PT Prothrombin Time 17.3 SECONDS (10-13.0); Protime INR 1.55
--- NOTE | 2024-06-13 01:47 | ER ---
Nurse's Notes [facility] Name: Mechelle Jerez Age: 48 yrs Sex: Female : 1975 Arrival Date: 06/12/2024 Time: 22:38 Bed 14 Private MD: Diagnosis: Cough Presentation: 06/12 22:55 Chief complaint: Patient states: I was at [facility] Thursday , I was tested for flu, jb4 covid, and strep due to coughing so hard my back hurt. The test were all negative. I called my DrJose Martin on Thursday and was put on azithromycin, benzonatate, Augmentin,methylprednisolone, cyclobenzaprine, and bromphen/pseudo/dextromethorphan, and albuterol. Coronavirus screen: At this time, the client does not indicate any symptoms associated with coronavirus-19. Ebola Screen: No symptoms or risks identified at this time. Initial Sepsis Screen: Does the patient meet any 2 criteria? No. Patient's initial sepsis screen is negative. Does the patient have a suspected source of infection? No. Patient's initial sepsis screen is negative. Risk Assessment: Do you want to hurt yourself or someone else? Patient reports no desire to harm self or others. Onset of symptoms was June 12, 2024. Transition of care: patient was not received from another setting of care. 22:55 Method Of Arrival: Ambulatory 4 22:55 Acuity: TAMMY 3 jb4 Triage Assessment: 23:15 Respiratory: Reports cough that is productive, Onset: The symptoms/episode kj2 began/occurred 1 week, the patient has mild shortness of breath. Historical: - Allergies: 22:59 No Known Drug Allergies; jb4 - Home Meds: 22:59 Warfarin Oral [Active]; Jardiance oral [Active]; jb4 - PMHx: 22:59 DVT; Utures ablation; DM (hysterectomy); jb4 - PSHx: 22:59 Ligation of fallopian tube; Stent in groin for DVT prevention; hysterectomy; jb4 - Immunization history:: Adult Immunizations up to date. - Infectious Disease History:: Denies. - Social history:: Smoking status: Patient denies any tobacco usage or history of. - Family history:: not pertinent. Screenin:14 [facility] ED Fall Risk Assessment (Adult) History of falling in the last 3 months, kj2 including since admission No falls in past 3 months (0 pts) Confusion or Disorientation No (0 pts) Intoxicated or Sedated No (0 pts) Impaired Gait No (0 pts) Mobility Assist Device Used No (0 pt) Altered Elimination No (0 pt) Score/Fall Risk Level 0 - 2 = Low Risk Maintained a safe environment, Hourly rounding (assess needs \T\ fall precautionary measures) done. Abuse screen: Denies threats or abuse. Denies injuries from another. Nutritional screening: No deficits noted. Tuberculosis screening: No symptoms or risk factors identified. Assessment: 23:13 General: Appears in no apparent distress. Behavior is calm, cooperative. Neuro: Level kj2 of Consciousness is awake, alert, obeys commands, Oriented to person, place, time, situation. Cardiovascular: Patient's skin is warm and dry. Respiratory: Airway is patent Respiratory effort is unlabored, Breath sounds with wheezes bilaterally. 06/13 00:01 Reassessment: Patient appears in no apparent distress at this time. Patient and/or kj2 family updated on plan of care and expected duration. Pain level reassessed. Patient is alert, oriented x 3, equal unlabored respirations, skin warm/dry/pink. 01:00 Reassessment: Patient states feeling better. Patient states symptoms have improved. ha1 General: Appears comfortable, Behavior is calm, cooperative. Pain: Denies pain. Neuro: Level of Consciousness is awake, alert, obeys commands, Oriented to person, place, time, situation. Cardiovascular: Rhythm is regular. 02:12 Reassessment: Patient and/or family updated on plan of care and expected duration. Pain ha1 level reassessed. Patient is alert, oriented x 3, equal unlabored respirations, skin warm/dry/pink. Patient states feeling better. Patient states symptoms have improved. Vital Signs: 06/12 22:55 BP 114 / 76; Pulse 73; Resp 16; Temp 97.3(TE); Pulse Ox 95% ; Weight 99.79 kg; Height 4 jb4 ft. 11 in. ; Pain 0/10; 06/13 00:02 BP 106 / 54; Pulse 82; Resp 18; Pulse Ox 98% on R/A; kj2 01:00 BP 110 / 58; Pulse 78; Resp 16 S; Pulse Ox 98% on R/A; ha1 02:00 BP 111 / 57; Pulse 71; Resp 16 S; Pulse Ox 98% on R/A; ha1 06/12 22:55 Body Mass Index 44.43 (99.79 kg, 149.86 cm) jb4 03 22:55 Pain Scale: Adult jb4 ED Course: 06/12 22:42 Patient arrived in ED. im 22:44 Nestor Martinez MD is Attending Physician. rt 22:59 Triage completed. jb4 22:59 Arm band placed on right wrist. jb4 23:13 Lucina Benavides, RN is Primary Nurse. kj2 23:15 Patient has correct armband on for positive identification. Bed in low position. Call kj2 light in reach. Adult w/ patient. Provided Education on: call light. 23:17 No provider procedures requiring assistance completed. kj2 23:43 Inserted saline lock: 20 gauge in left antecubital area, using aseptic technique. Blood kj2 collected. Flushed with 10 mL NS. 06/13 00:07 Report given to pierre christiansen. kj2 00:13 XRAY Chest (1 view) In Process Unspecified. EDMS 02:14 IV discontinued, intact, bleeding controlled, No redness/swelling at site. Pressure ha1 dressing applied. Administered Medications: 06/12 23:42 Drug: Ipratropium Inhalation Aerosol 0.5 mg Inhalation once Route: Inhalation; kj2 06/13 00:02 Follow up: Response: No adverse reaction kj2 06/12 23:43 Drug: Albuterol Inhalation 2.5 mg Inhalation once Route: Inhalation; kj2 06/13 00:02 Follow up: Response: No adverse reaction kj2 Medication: 06/12 23:15 VIS not applicable for this client. kj2 Outcome: 06/13 01:46 Discharge ordered by . rt 02:14 Discharged to home ambulatory, with family, ha1 02:14 Condition: stable 02:14 Discharge instructions given to patient, Instructed on discharge instructions, follow up and referral plans. Demonstrated understanding of instructions, follow-up care, 02:14 Patient left the ED. ha1 Signatures: Dispatcher [employer] EDMS Nacho Eaton RN RN jb4 Kari Milian RN RN ha1 Nestor Martinez MD MD rt Maame Wei Kennedy, Lucina, RN RN kj2
--- NOTE | 2024-06-13 01:47 | EDPHYS ---
Physician Documentation [facility] Name: Mechelle Jerez Age: 48 yrs Sex: Female : 1975 Arrival Date: 06/12/2024 Time: 22:38 Bed 14 Private MD: ED Physician Nestor Martinez HPI: 06/12 23:40 This 48 yrs old Female presents to ER via Ambulatory with complaints of Flu Symptoms, rt Wheezing > 1 Year. 23:40 Patient presents to the ED with about 1 week of cough. Patient reports that the cough rt is painful, has pain to the back with coughing. She was seen at [facility], had negative strep, flu, COVID swabs. History of multitude of medications including steroids, antibiotics, antitussives. States that the symptoms have worsened today. Reports mild difficulty breathing, chest pain. Denies other acute complaints, symptoms are moderate in severity, no other aggravating or alleviating factors.. Historical: - Allergies: 22:59 No Known Drug Allergies; jb4 - Home Meds: 22:59 Warfarin Oral [Active]; Jardiance oral [Active]; jb4 - PMHx: 22:59 DVT; Utures ablation; DM (hysterectomy); jb4 - PSHx: 22:59 Ligation of fallopian tube; Stent in groin for DVT prevention; hysterectomy; jb4 - Immunization history:: Adult Immunizations up to date. - Infectious Disease History:: Denies. - Social history:: Smoking status: Patient denies any tobacco usage or history of. - Family history:: not pertinent. ROS: 23:40 Constitutional: Negative for fever, chills, and weight loss, Abdomen/GI: Negative for rt abdominal pain, nausea, vomiting, diarrhea, and constipation, MS/Extremity: Negative for injury and deformity, Skin: Negative for injury, rash, and discoloration, Neuro: Negative for headache, weakness, numbness, tingling, and seizure, 23:40 Cardiovascular: Positive for chest pain, Negative for edema, 23:40 Respiratory: Positive for cough, shortness of breath, Exam: 23:40 Constitutional: This is a well developed, well nourished patient who is awake, alert, rt and in no acute distress. Head/Face: Normocephalic, atraumatic. Chest/axilla: Normal chest wall appearance and motion. Nontender with no deformity. No lesions are appreciated. Cardiovascular: Regular rate and rhythm with a normal S1 and S2. No gallops, murmurs, or rubs. Normal PMI, no JVD. No pulse deficits. Abdomen/GI: Soft, non-tender, with normal bowel sounds. No distension or tympany. No guarding or rebound. No evidence of tenderness throughout. Skin: Warm, dry with normal turgor. Normal color with no rashes, no lesions, and no evidence of cellulitis. MS/ Extremity: Pulses equal, no cyanosis. Neurovascular intact. Full, normal range of motion. Neuro: Awake and alert, GCS 15, oriented to person, place, time, and situation. Cranial nerves II-XII grossly intact. Motor strength 5/5 in all extremities. Sensory grossly intact. Cerebellar exam normal. Normal gait. 23:40 Respiratory: Coarse breath sounds in all lung zimmerman, no respiratory distress, 06/13 00:09 ECG was reviewed by the Attending Physician. rt Vital Signs: 06/12 22:55 BP 114 / 76; Pulse 73; Resp 16; Temp 97.3(TE); Pulse Ox 95% ; Weight 99.79 kg; Height 4 jb4 ft. 11 in. ; Pain 0/10; 06/13 00:02 BP 106 / 54; Pulse 82; Resp 18; Pulse Ox 98% on R/A; kj2 01:00 BP 110 / 58; Pulse 78; Resp 16 S; Pulse Ox 98% on R/A; ha1 02:00 BP 111 / 57; Pulse 71; Resp 16 S; Pulse Ox 98% on R/A; ha1 06/12 22:55 Body Mass Index 44.43 (99.79 kg, 149.86 cm) jb4 06/12 22:55 Pain Scale: Adult jb4 MDM: 06/12 23:02 Medical Screening Exam initiated rt 06/13 02:42 Differential diagnosis: Pneumonia, bronchospasm, pneumothorax. Data reviewed: vital rt signs, nurses notes, lab test result(s), EKG, radiologic studies. I considered the following discharge prescriptions or medication management in the emergency department Medications were administered in the Emergency Department. See MAR. Independent interpretation of the following test(s) in the Emergency Department X-Ray: My interpretation is No pneumonia seen on my interpretation of x-ray images. Test considered but Not performed: CT: Subtherapeutic INR, however, symptoms seem most consistent with a viral syndrome, no tachycardia, hypoxia, low suspicion for PE, CT angiogram not indicated. Care significantly affected by the following chronic conditions: Diabetes. Counseling: I had a detailed discussion with the patient and/or guardian regarding the historical points, exam findings, and any diagnostic results supporting the discharge/admit diagnosis, lab results, radiology results, the need for outpatient follow up, to return to the emergency department if symptoms worsen or persist or if there are any questions or concerns that arise at home. Response to treatment: the patient's symptoms have mildly improved after treatment. 06/12 23:18 Order name: Basic Metabolic Panel; Complete Time: 00:53 rt 06/12 23:18 Order name: CBC with Diff; Complete Time: 00:53 rt 06/12 23:18 Order name: LFT's; Complete Time: 00:53 rt 06/12 23:18 Order name: NT PRO-BNP; Complete Time: 00:53 rt 06/12 23:18 Order name: PT-INR; Complete Time: 00:53 rt 06/12 23:18 Order name: Troponin HS; Complete Time: 00:53 rt 06/12 23:18 Order name: XRAY Chest (1 view) rt 06/12 23:18 Order name: Cardiac monitoring; Complete Time: 23:43 rt 06/12 23:18 Order name: EKG - Nurse/Tech; Complete Time: 23:43 rt 06/12 23:18 Order name: IV Saline Lock; Complete Time: 23:43 rt 06/12 23:18 Order name: Labs collected and sent; Complete Time: 23:43 rt 06/12 23:18 Order name: O2 Per Protocol; Complete Time: 23:43 rt 06/12 23:18 Order name: O2 Sat Monitoring; Complete Time: 23:43 rt EC:09 Rate is 79 beats/min. Rhythm is regular, Normal Sinus Rhythm with No ectopy. QRS [place] rt is Normal. IN interval is normal. QRS interval is normal. QT interval is normal. No Q waves. No ST changes noted. Interpreted by me. Administered Medications: 06/12 23:42 Drug: Ipratropium Inhalation Aerosol 0.5 mg Inhalation once Route: Inhalation; kj2 06/13 00:02 Follow up: Response: No adverse reaction 06/12 23:43 Drug: Albuterol Inhalation 2.5 mg Inhalation once Route: Inhalation; kj2 06/13 00:02 Follow up: Response: No adverse reaction kj2 Disposition Summary: 06/13/24 01:46 Discharge Ordered Notes: Location: Home rt Problem: an ongoing problem rt Symptoms: have improved rt Condition: Stable rt Diagnosis - Cough rt Followup: rt - With: Private Physician - When: 2 - 3 days - Reason: Discharge Instructions: - Discharge Summary Sheet rt - Cough, Adult rt Forms: - Medication Reconciliation Form rt - Antibiotic Education rt - Prescription Opioid Use rt - Patient Portal Instructions rt - Leadership Thank You Letter rt Signatures: Dispatcher [employer] EDMS Nacho Eaton RN RN jb4 Nestor Martinez MD MD rt Lucina Benavides RN RN kj2 Corrections: (The following items were deleted from the chart) 06/12 23:19 23:19 BASIC METABOLIC PANEL+C.LAB.BRZ ordered. EDMS EDMS 23:19 23:19 CBC+H.LAB.BRZ ordered. EDMS EDMS 23:19 23:19 HEPATIC FUNCTION+C.LAB.BRZ ordered. EDMS EDMS 23:19 23:19 PROBNP+C.LAB.BRZ ordered. EDMS EDMS 23:19 23:19 PROTIME (+INR)+COAG.LAB.BRZ ordered. EDMS EDMS 23:19 23:19 Troponin High Sensitivity+C.LAB.BRZ ordered. EDMS EDMS 23:19 23:19 Chest Single View+RAD.RAD.BRZ ordered. EDMS EDMS 23:55 23:19 D-DIMER+COAG.LAB.BRZ ordered. EDMS EDMS
[2024-06-13 02:18] VITALS: TEMP 97.3
[2024-06-13 02:20] VITALS: O2SAT 98
[2024-06-13 02:22] VITALS: BP 111/57
--- NOTE | 2024-06-13 05:36 | RAD REPORT ---
EXAM: XR Chest, 1 View CLINICAL HISTORY: The patient is 48 years old and is Female; COUGH TECHNIQUE: Frontal view of the chest. COMPARISON: XR Chest dated June 08 2024 FINDINGS: LUNGS: Unremarkable. No consolidation. PLEURAL SPACE: Unremarkable. No pneumothorax. HEART: Unremarkable. No cardiomegaly. MEDIASTINUM: Unremarkable. Normal mediastinal contour. BONES/JOINTS: Unremarkable. No acute fracture. UPPER ABDOMEN: Unremarkable as visualized. IMPRESSION: No acute cardiopulmonary process. Electronically signed by: Jannette Lagos MD 06/13/2024 01:05 AM CDT RP Due to temporary technical issues with the [employer] reporting system, reports are being chanda d by the in-house radiologist without review as a courtesy to ensure prompt reporting the interpreting radiologist is fully responsible for the content of the report. Transcribed Date/Time: 06/13/2024 5:36 AM
--- NOTE | 2024-06-14 11:03 | EKG ---
Test Date: 2024-06-12 Test Time: 23:56:07 Tar Distillation Supervisor: LIZA MEASUREMENT RESULTS: Intervals: Rate: 79 MD: 144 QRSD: 86 QT: 386 QTc: 442 Wendell: P: 65 MD: 144 QRS: 27 T: 18 INTERPRETIVE STATEMENTS: Normal sinus rhythm Septal infarct, age undetermined T wave abnormality, consider anterior ischemia Abnormal ECG Compared to ECG 12/09/2023 07:46:02 Myocardial infarct finding now present T-wave abnormality now present Possible ischemia now present Sinus tachycardia no longer present Left-axis deviation no longer present Electronically Signed On 06-14-24 10:58:55 CDT by Rubén Quintero
== END 2024-06-13 02:14 | disposition home or self-care (01) ==
LOC: ER 22:38
DX: R05.9 Cough, unspecified (principal); R07.9 Chest pain, unspecified; Z86.718 Personal history of other venous thrombosis and embolism; Z79.01 Long term (current) use of anticoagulants
CPT/HCPCS: 93005; 85025; 80048; 36415; 85610; 80076; 84484; 83880; 71045; 99284; J7613; J7644